=== PATIENT | female | born 1960 | race Caucasian/White ===

== ENCOUNTER → 2016-08-20 | Outpatient (CLI) | payer BC ==
[~2016-08-20] MED LIST: ADVIN10/60 INH; ASPCH81X PO; ATOR-54 PO; BND25 PO; CARB200T PO; CINN1CAP2 PO; CLTP PO; DICL50TA3 PO; DULO60CA44 PO; EPP3/2 IM; FRC PO; GABA-113 PO; GLC500 PO; GUAI1SOL5 PO; HYDR-5688 PO; LIDO16CR; PRLSR20 PO; SENNTAB23; TELM80TA4 PO; TRIA1SPR10; VNTHFA/IN INH; [UNRECOGNIZED DRUG - CODE] PO; tumeric/curcumin PO
== END | disposition home or self-care (01) ==
LOC: C.LABSPEC 17:05
PROVIDERS: ATTEND Podiatrist Foot & Ankle Surgery
DX: L60.0 Ingrowing nail (principal)

== ENCOUNTER → 2016-09-24 | Outpatient (CLI) | payer BC ==
--- NOTE | 2016-09-24 11:19 | DIAGNOSTIC IMAGING REPORT ---
LUMBAR SPINE 5 VIEWS CLINICAL HISTORY: Lumbago. Chronic low back pain. FINDINGS: Five views of the lumbar spine are compared to a study dated 05/24/2015. The skeletal structures are osteopenic. There is no radiographic evidence of fracture or malalignment. Vertebral body height and alignment are preserved throughout the lumbar spine. The transverse and spinous processes appear intact. Mild facet arthropathy is noted in the lower lumbar region. Tiny anterior osteophytes are seen throughout. There is no evidence of spondylolysis. Intervertebral disc spaces appear maintained. The bony pelvis is intact as visualized. Advanced sclerotic change is noted in the sacroiliac joints. Cholecystectomy clips are observed. There is a nonobstructed abdominal bowel gas pattern. IMPRESSION: 1. No acute bony abnormality is seen involving the lumbar spine. 2. Osteopenia and minimal spondylotic change as above. 3. Advanced sclerosis is seen in the sacroiliac joints. Dictated: 09/24/2016 11:03 AM Transcribed: 09/24/2016 11:19 AM [facility] Electronically signed by: Deni Lam M.D. 09/24/2016 11:24 AM Dictated Date/Time: 09/24/2016 11:03 AM
== END | disposition home or self-care (01) ==
LOC: C.RADBC 10:35
PROVIDERS: ATTEND Anesthesiology
DX: M54.5 Low back pain (principal)

== ENCOUNTER → 2017-02-17 | Outpatient (CLI) | payer BC ==
[~2017-02-17] MED LIST changes: +GADAVIST IV PRN
--- NOTE | 2017-02-17 10:17 | DIAGNOSTIC IMAGING REPORT ---
LUMBAR SPINE COMBINATION HISTORY: LUMBAR RADICULOPATHY COMPARISON: Lumbar spine radiographs 09/24/2016, CT 06/11/2015, lumbar spine MRI 07/31/2014 TECHNIQUE: Multiplanar, multi sequence MRI of the lumbar spine was performed both with and without the use of 12 mL Gadavist. FINDINGS: Large [id number] images demonstrates no gross abnormality of the abdomen or pelvis. Renal sinus cysts are again seen bilaterally. Common bile duct is dilated at 10 mm, likely normal postcholecystectomy state. There is redemonstration of 1.4 cm anterolisthesis and fusion of L5 on S1. The vertebral body heights are normal. There is no T1 fracture line or marrow replacement process. The conus terminates at L1-L2. The visualized spinal cord and cauda equina are normal. There is no paraspinal edema, mass, or prevertebral fluid collection. T12-L1: No central canal or neural foraminal stenosis. Moderate facet arthropathy. L1-L2: No central canal or neural foraminal stenosis. Moderate facet arthropathy. L2-L3: 2 mm anterolisthesis of L2 on L3 appears slightly progressed. No central canal or neural foraminal stenosis. Moderate facet arthrosis with bilateral facet effusions and ligamentum flavum redundancy. L3-L4: Moderate intervertebral disc space narrowing with circumferential annular disc bulge, annular fissure, ligamentum flavum redundancy, moderate to severe facet arthrosis with facet effusions. Changes cause moderate central canal, mild to moderate right and moderate left foraminal narrowing. These changes of progressed from prior study dated 07/31/2014. L4-L5: Mild intervertebral disc space narrowing with broad-based posterior disc bulge, ligamentum flavum redundancy, moderate facet arthropathy with facet effusions causes mild left foraminal narrowing. The right foramen and central canal are patent.. L5-S1: Unchanged 1.4 cm anterolisthesis L5 on S1 with bony fusion. There is unchanged severe by foraminal stenosis at this level.. IMPRESSION: 1. Progressive discogenic degenerative changes at L3-L4 with associated facet arthropathy and facet effusions are present causing moderate central canal, mild to moderate right and moderate left foraminal stenosis. 2. 2 mm anterolisthesis of L2 on L3 is likely on a degenerative basis. 3. Unchanged 1.4 cm anterolisthesis of L5 on S1 with bony fusion. 4. No focal bone marrow edema or compression fracture. The above report was generated using voice recognition software. It may contain grammatical, syntax or spelling errors. Electronically signed by: Malik Still M.D. 02/17/2017 10:16 AM Dictated Date/Time: 02/17/2017 9:58 AM
== END | disposition home or self-care (01) ==
LOC: C.OPENMRI 07:52
PROVIDERS: ATTEND Physician Assistant Medical
DX: M54.16 Radiculopathy, lumbar region (principal); M53.86 Other specified dorsopathies, lumbar region

== ENCOUNTER → 2017-02-23 | Outpatient (CLI) | payer BC ==
[~2017-02-23] MED LIST changes: -GADAVIST IV PRN
--- NOTE | 2017-02-23 11:20 | DIAGNOSTIC IMAGING REPORT ---
L-SPINE FLEX/EXT BENDING MIN 6 CLINICAL HISTORY: LUMBAR RADICULOPATHY COMPARISON STUDY: 09/24/2016, 2014 FINDINGS: Unchanged grade 4 anterolisthesis of L5 on S1. This shows no major positional variation. Posterior spondylolysis unchanged. Grade 2 anterolisthesis of L3 on L4. With the patient in flexion as well as extension this persists at approximately 9 mm of anterolisthesis. Considerable degenerative changes of posterior elements is noted. No additional subluxation is seen. Vertebral body stature is unremarkable. IMPRESSION: 1. Stable grade 4 anterolisthesis L5 on S1. 2. This shows no evidence for positional variation. 3. Grade 2 anterolisthesis of L3 on L4 with 9 mm of subluxation. 4. This shows no evidence for positional variation 5. Posterior spondylolysis stable L5-S1. 6. The findings at L3-L4 are progressive compared to the study of 09/24/2016 The above report was generated using voice recognition software. It may contain grammatical, syntax or spelling errors. Electronically signed by: Uriah Solomon M.D. 02/23/2017 11:18 AM Dictated Date/Time: 02/23/2017 11:10 AM
== END | disposition home or self-care (01) ==
LOC: C.RADBC 10:47
PROVIDERS: ATTEND Physician Assistant Medical
DX: M54.16 Radiculopathy, lumbar region (principal)

== ENCOUNTER → 2017-10-06 | Outpatient (CLI) | payer BC ==
[~2017-10-06] MED LIST changes: +ADVIN25/60 INH; +AMLO-110 PO; +CARB400T3 PO; +CHOL400T PO; +CYCL10TA6 PO; +DICL1GEL12 TOP; -GUAI1SOL5 PO; +HYDR-5803 PO; +INSU100I SQ; +METF1TAB53 PO; -TELM80TA4 PO; +TELM80TA6 PO; +WARF4TAB8 PO
[2017-10-06 10:06] LABS: INR 1.1 (0.9-1.1)
== END ==
LOC: C.LABCC 09:09
PROVIDERS: ATTEND Internal Medicine
DX: I82.409 Acute embolism and thrombosis of unspecified deep veins of unspecified lower extremity (principal)

== ENCOUNTER → 2017-10-07 | Outpatient (CLI) | payer BC ==
[2017-10-07 09:47] LABS: BASO % 0.2 %; BASO ABS # 0.02 K/uL (0-0.2); EOS % 0.8 %; EOS ABS # 0.09 K/uL (0-0.5); HEMATOCRIT 29.1 % (37-47); HEMOGLOBIN 9.1 g/dL (12.0-16.0); IG# 0.04 K/uL (0.00-0.02); LYMPH % 9.9 %; LYMPH ABS # 1.06 K/uL (1.2-3.4); MEAN CELL VOLUME 87.7 fL (80-100); MEAN CORPUSCULAR HEMOGLOBIN 27.4 pg (25-34); MEAN CORPUSCULAR HGB CONC 31.3 g/dl (32-36); MEAN PLATELET VOLUME 10.7 fL (7.4-10.4); MONO % 9.9 %; MONO ABS # 1.06 K/uL (0.11-0.59); NEUT % 78.8 %; NEUT ABS # 8.42 K/uL (1.4-6.5); PLATELET COUNT 451 K/uL (130-400); RED CELL DISTRIBUTION WIDTH CV 19.3 % (11.5-14.5); RED CELL DISTRIBUTION WIDTH SD 61.7 fL (36.4-46.3); WHITE BLOOD COUNT 10.69 K/uL (4.8-10.8)
[2017-10-07 09:57] LABS: INR 1.1 (0.9-1.1)
[2017-10-07 09:59] LABS: BLOOD UREA NITROGEN 9 mg/dl (7-18); CALCIUM 9.3 mg/dl (8.5-10.1); CARBON DIOXIDE 29 mmol/L (21-32); CREATININE 0.74 mg/dl (0.60-1.20); GLUCOSE 151 mg/dl (70-99); POTASSIUM 4.2 mmol/L (3.5-5.1); SODIUM 139 mmol/L (136-145)
== END ==
LOC: C.LABCC 09:14
PROVIDERS: ATTEND Internal Medicine
DX: D68.9 Coagulation defect, unspecified (principal)

== ENCOUNTER 2017-10-11 20:12 | Inpatient (IN) | payer BC ==
[~2017-10-11] VITALS: Ht 162.6 cm; Wt 122.5 kg
[~2017-10-11 20:12] MED LIST changes: -ADVIN25/60 INH; -AMLO-110 PO; -CARB400T3 PO; -CHOL400T PO; -CYCL10TA6 PO; -DICL1GEL12 TOP; -HYDR-5803 PO; -INSU100I SQ; -METF1TAB53 PO; -WARF4TAB8 PO
--- NOTE | 2017-10-11 21:35 | EMERGENCY ROOM VISIT NOTE ---
History Report prepared by Janice: Derek Zavala Under the Supervision of: Dr. Héctor Dalton M.D. First contact with patient: 21:02 Chief Complaint: RECTAL BLEEDING Stated Complaint: RECTAL BLEED Nursing Triage Summary: pt brought from [facility] to main ED A9b by ALS services. per report, pt had spinal surgery at [facility] for fusion of T2 to pelvis. pt states surgery was 09/21, states "I crashed on the table so they only did part, the other part was 09/24." pt has been at [facility] since surgery for recovery. pt c/o recent constipation, states "I asked for suppisatories and they only gave me prunes." report from ALS that pt moved her bowels today and tested positive for blood, and was noted to be "black and tarry." pt also reports low grade fever recently. pt reports hx of uti, states "they told me i had a uti when i got there." pt has been mostly bed bound since surgery. states "I've taken a couple steps but fallen 4 times." upon assessment, pt alert and oriented x4. pt breathing regularly and independtnly. lungs clear, diminished in bases. abdomen rounded and soft. bowel sounds hypoactive. sutures along spine intact with moderate drainage, dressings mostly soaked. dressings changed. History of Present Illness The patient is a 56 year old female who presents to the Emergency Room with complaints of rectal bleeding. The patient notes that she has been unable to produce a bowel movement for the past 5 days. She reports that suppositories have been ineffective in alleviating her constipation. The patient reports that the incision on her back from recent surgery has been draining blood and fluids. She notes a low grade fever that she has been experiencing since last with a subjective temperature of 101.6. She reports that her temperature today is a subjective 101.4. The patient denies any chest pain or difficulty breathing. Patient is on Coumadin. Source of History: patient Onset: 5 days ago. Position: other (Rectum ) Quality: other (bleeding ) Timing: other (persistant ) Associated Symptoms: + fevers, No chest pain, No SOB Note: Denies: Regularly using oxygen prior to her recent surgery. Associated Symptoms: Incision on back draining blood and fluids. Review of Systems See HPI for pertinent positives and negatives. A total of ten systems were reviewed and were otherwise negative. Past Medical & Surgical Medical Problems: (1) Asthma, Unspecified (2) Diab [place] Compl, Type Ii Or Unspec Type, Not Uncntrld (3) Epilepsy Unspec W/O Mention Intractable Epilepsy (4) Hyperlipidemia Nec/Nos (5) Hypertension Nos (6) Loc Osteoarth Nos-L/Leg (7) Pyelonephritis Nos Surgical Problems: (1) H/O knee surgery (2) Hx of cholecystectomy (3) Previous back surgery (4) Previous section Family History Cancer Diabetes mellitus Gallbladder disease Heart disease Hypertension Kidney disease Kidney stones Lung disease Seizures Stroke Social History Smoking Status: Never Smoker Marital Status: Housing Status: lives with family Occupation Status: unemployed Current/Historical Medications Scheduled Amlodipine (Norvasc), 5 MG PO DAILY Atorvastatin (Lipitor), 40 MG PO QPM Carbamazepine Extended Release (Tegretol Xr), 400 MG PO Q12 Cholecalciferol (Vitamin D), 400 INTER.UNIT PO DAILY Diclofenac Sodium (Topical) (Voltaren 1% Top Gel), 1 DOSE TOP QID Duloxetine Hcl (Cymbalta), 60 MG PO HS Fluticasone Prop/Salmeterol (Advair Diskus 250/50 60 Dose), 1 PUFF INH BID Gabapentin (Neurontin), 300 MG PO TID Insulin Lispro (Human) (Humalog), 1 DOSE SQ SLIDING SCALE Metformin Hcl (Glucophage Ext Rel), 1,000 MG PO BID Omeprazole (Prilosec), 20 MG PO BID Warfarin Sod (Jantoven), 4 MG PO DAILY Scheduled PRN Albuterol Hfa (Ventolin Hfa), 2-4 PUFFS INH Q6H PRN for SOB/Wheezing Cyclobenzaprine Hcl (Flexeril), 10 MG PO Q8 PRN for Muscle Spasms Hydrocodone-Acetaminophen (Hydrocodone Bitartrate/AC 7.5-325 mg), 1 TAB PO Q4 PRN for Pain Allergies Coded Allergies: BEE STING (Verified Allergy, Severe, ANAPHYLAXIS, 10/11/17) Penicillins (Verified Allergy, Severe, ANAPHYLAXIS, 10/11/17) Cephalosporins (Verified Allergy, Intermediate, DIZZINESS, ITCHY, 10/11/17) Hydroxyzine (Verified Allergy, Intermediate, DIZZY ITCHY NAUSEA, 10/11/17) Sulfa Antibiotics (Verified Allergy, Intermediate, DIZZY ITCHY, NAUSEA, 10/11/17) Shellfish (Verified Allergy, Unknown, SENSITIVITY, 10/11/17) Metaxalone (Verified Adverse Reaction, Intermediate, n/v and headache, dizziness, 10/11/17) Physical Exam Vital Signs Date Time Temp Pulse Resp B/P (MAP) Pulse Ox O2 Delivery O2 Flow Rate FiO2 10/12/17 01:20 111 18 150/74 93 Nasal Cannula 3.0 10/12/17 00:07 109 10/11/17 23:47 108 22 156/113 92 Nasal Cannula 4.0 10/11/17 22:13 110 18 160/94 94 Nasal Cannula 4.0 10/11/17 20:45 111 10/11/17 20:13 37.3 115 18 153/88 92 Room Air Physical Exam Physical Exam GENERAL: She is oriented to person, place, and time. She appears well- developed and well-nourished. She does not appear distressed. ____ HENT: Exam performed. Head: Normocephalic and atraumatic. Right Ear: External ear normal. No mastoid tenderness. Left Ear: External ear normal. No mastoid tenderness. Mouth/Throat: The oropharynx is clear and moist. No trismus in the jaw. No dental abscesses or uvula swelling. No oropharyngeal exudate or tonsillar abscesses. ____ EYES: Conjunctivae and EOM are normal. Pupils are equal, round, and reactive to light. Right eye exhibits no discharge. Left eye exhibits no discharge. No scleral icterus. ____ NECK: Normal range of motion. Neck supple. No JVD present. No spinous process tenderness present. No carotid bruit present. No rigidity. No tracheal deviation and normal range of motion present. No Brudzinski's sign and no Kernig 's sign noted. ____ CV: Normal rate, regular rhythm, normal heart sounds and intact distal pulses. There is no peripheral edema. Palpable radial pulses bue. ____ PULM/CHEST: Effort normal and breath sounds normal. No respiratory distress. No stridor. She has no wheezes. She has no rales. Chest Wall: SHe exhibits no tenderness. ____ ABD: The abdomen is soft. Bowel sounds are normal. She has no distension. No mass is present. There is no tenderness. There is no rebound, no guarding, no Robledo's sign and no tenderness at McBurney's point. Rovsig negative MUSC/SKEL: Normal range of motion. LYMPH: No cervical adenopathy. ____ NEURO: She is alert and oriented to person, place, and time. She has normal strength. No cranial nerve deficit or sensory deficit. Coordination and gait normal. GCS eye subscore is 4. GCS verbal subscore is 5. GCS motor subscore is 6. Cerebellar tests wnl. ____ RECTAL: Bright red blood per rectum. Stool in rectal bulb. SKIN: Skin is warm and dry. She is not diaphoretic. Large midline back incision , purulent foul smelling discharge. PSYCH: She has a normal mood and affect. Her behavior is normal. Judgment and thought content normal. ____ Medical Decision & Procedures ER Provider Diagnostic Interpretation: Radiology results as stated below per my review and radiologist interpretation: CHEST ONE VIEW PORTABLE CLINICAL HISTORY: fever dyspnea COMPARISON STUDY: 09/20/2014 FINDINGS: Moderate cardiomegaly. Diffuse parenchymal infiltrate right lung and left base versus asymmetric congestive failure. Diaphragms are smooth. Costophrenic angles are sharp. IMPRESSION: Diffuse right hemithoracic parenchymal infiltrate with mild infiltrative change left base. This may represent asymmetric pulmonary edema or congestive failure. The above report was generated using voice recognition software. It may contain grammatical, syntax or spelling errors. Electronically signed by: Uriah Solomon M.D. 10/11/2017 10:07 PM Dictated Date/Time: 10/11/2017 10:[address] ABDOMEN & PELVIS With Constrast: Compared to 06/11/15 Stool-filled rectum with with perirectal/presacral stranding and fluid, raising possibility of proctitis. Scattered colonic diverticula. Fluid in small bowel loops, nonspecific, can be seen with enteritis in the appropriate clinical setting. No evidence of bowel obstruction. Mesenteric stranding with small lymph nodes, can be seen with mesenteric adenitis/panniculitis. Extensive degenerative and postsurgical;l changes in the spine with subcutaneous emphysema. Stranding/fluid seen along the left greater than right pelvic sidewall. Fragmented osseous densities and small focus of air in the left psoas. Small bilateral pleural effusions with bibasilar atelectasis. Small nodular density at the posterior gastric fundus may quadrant previously seen gastric diverticulum. Small renal hyperdensities. No hydronephrosis. Nonspecific perinepheric stranding. Minimally thickened underdistended bladder. Additional incidental findings. Laboratory Results 10/11/17 21:49 Red Blood Count 3.64, Mean Corpuscular Volume 86.3, Mean Corpuscular Hemoglobin 27.2, Mean Corpuscular Hemoglobin Concent 31.5, Mean Platelet Volume 9.6, Neutrophils (%) (Auto) 67.1, Lymphocytes (%) (Auto) 16.9, Monocytes (%) (Auto) 15.1, Eosinophils (%) (Auto) 0.5, Basophils (%) (Auto) 0.3, Neutrophils # (Auto ) 4.91, Lymphocytes # (Auto) 1.24, Monocytes # (Auto) 1.11, Eosinophils # (Auto ) 0.04, Basophils # (Auto) 0.02 10/11/17 21:49 Test 10/11/17 20:11 10/11/17 21:49 10/11/17 21:55 Urine Color DK YELLOW Urine Appearance TURBID (CLEAR) Urine pH 6.0 (4.5-7.5) Urine Specific [place] 1.022 (1.000-1.030) Urine Protein 2+ (NEG) Urine Glucose (UA) NEG (NEG) Urine Ketones NEG (NEG) Urine Occult Blood 1+ (NEG) Urine Nitrite NEG (NEG) Urine Bilirubin NEG (NEG) Urine Urobilinogen POS (NEG) Urine Leukocyte Esterase LARGE (NEG) Urine WBC (Auto) >30 /hpf (0-5) Urine RBC (Auto) 5-10 /hpf (0-4) Urine Hyaline Casts (Auto) 1-5 /lpf (0-5) Urine Epithelial Cells (Auto) 0-5 /lpf (0-5) Urine Bacteria (Auto) 2+ (NEG) White Blood Count 7.33 K/uL (4.8-10.8) Red Blood Count 3.64 M/uL (4.2-5.4) Hemoglobin 9.9 g/dL (12.0-16.0) Hematocrit 31.4 % (37-47) Mean Corpuscular Volume 86.3 fL (80-100) Mean Corpuscular Hemoglobin 27.2 pg (25-34) Mean Corpuscular Hemoglobin Concent 31.5 g/dl (32-36) Platelet Count 441 K/uL (130-400) Mean Platelet Volume 9.6 fL (7.4-10.4) Neutrophils (%) (Auto) 67.1 % Lymphocytes (%) (Auto) 16.9 % Monocytes (%) (Auto) 15.1 % Eosinophils (%) (Auto) 0.5 % Basophils (%) (Auto) 0.3 % Neutrophils # (Auto) 4.91 K/uL (1.4-6.5) Lymphocytes # (Auto) 1.24 K/uL (1.2-3.4) Monocytes # (Auto) 1.11 K/uL (0.11-0.59) Eosinophils # (Auto) 0.04 K/uL (0-0.5) Basophils # (Auto) 0.02 K/uL (0-0.2) RDW Standard Deviation 57.5 fL (36.4-46.3) RDW Coefficient of Variation 18.3 % (11.5-14.5) Immature Granulocyte % (Auto) 0.1 % Immature Granulocyte # (Auto) 0.01 K/uL (0.00-0.02) Prothrombin Time 41.5 SECONDS (9.0-12.0) Prothromb Time International Ratio 4.1 (0.9-1.1) Activated Partial Thromboplast Time 60.9 SECONDS (21.0-31.0) Partial Thromboplastin Ratio 2.3 Anion Gap 5.0 mmol/L (3-11) Est Creatinine Clear Calc Drug Dose 113.6 ml/min Estimated GFR () 108.8 Estimated GFR (Non- 93.9 BUN/Creatinine Ratio 14.6 (10-20) Calcium Level 9.0 mg/dl (8.5-10.1) Total Bilirubin 0.6 mg/dl (0.2-1) Aspartate Amino Transf (AST/SGOT) 78 U/L (15-37) Alanine Aminotransferase (ALT/SGPT) 63 U/L (12-78) Alkaline Phosphatase 679 U/L (45-117) Troponin I < 0.015 ng/ml (0-0.045) Total Protein 6.3 gm/dl (6.4-8.2) Albumin 1.8 gm/dl (3.4-5.0) Globulin 4.5 gm/dl (2.5-4.0) Albumin/Globulin Ratio 0.4 (0.9-2) Lipase 308 U/L (73-393) Lactic Acid Level 1.6 mmol/L (0.4-2.0) Laboratory results reviewed by me Medications Administered Medications (Trade) Dose Ordered Sig/Annie Route Start Time Stop Time Status Last Admin Dose Admin Glycerin (Glycerin Adult Supp) 1 ea NOW ONCE VT 10/11/17 22:00 10/11/17 22:05 DC 10/11/17 22:17 1 EA Ciprofloxacin/ Dextrose (Cipro / D5W) 400 mg NOW STAT IV 10/11/17 22:22 10/11/17 22:23 DC 10/11/17 22:52 400 MG Vancomycin HCl (Vancomycin 1gm/ 270ml Nss) 1 gm NOW STAT IV 10/11/17 22:57 10/11/17 22:58 DC 10/12/17 01:11 1 GM Carbamazepine (Tegretol Tab) 400 mg NOW STAT PO 10/12/17 00:12 10/12/17 00:13 DC 10/12/17 00:22 400 MG Ketorolac Tromethamine (Toradol Inj) 15 mg NOW STAT IV 10/12/17 01:12 10/12/17 01:14 DC 10/12/17 01:17 15 MG ECG Per My Interpretation Indication: weakness Rate (beats per minute): 108 Rhythm: sinus tachycardia Findings: other (QRST waves within normal limits. No st elevations or depressions. ) ED Course 2121: The patient was evaluated in room A9. A complete history and physical exam was performed. The patient was sent to the ED from [facility]. Per the [facility] notes, the patient had positive heme stools, drainage from back, temperature of 105 on October 09. The patient is on Coumadin. 0: Vital signs stable. Hemoglobin stable at 9.9. INR supratherapeutic at 4.1. Lactic acid within normal limits. Urine is positive for infection, cath sample with greater than 30 white blood cells and 2+ bacteria. Patient will be treated with Cipro IV for her UTI. She will also be treated with Vanco for her skin infection postop. Hemoglobin is stable, no need for transfusion at this time. The patient was evaluated by hospitalist Dr. Staci BRANCH for admission. Dr. Lira requested CT of the abdomen done. He also states that he would prefer if the patient be transferred to [facility] given that her neurosurgeon is there. I spoke with [facility] on-call neurosurgeon Dr. Doe. He states that he would be okay with the patient going to [facility], but he wants the patient admitted to the hospitalist medicine service and he will be on consult.. The transfer center states that there are no beds currently available at [facility]. The transfer center will inform me when a bed is available. 0030: The transfer center notified me that they will call when the hospitalist instructional materials director at [facility] is notified of the patient transfer and a bed is available 0106: The transfer center informed me that when a bed becomes available at [facility], they will call the hospitalist who is instructional materials director for now.. Dr. Doe is aware of the transfer. 0113: CT is still pending. There is no bed available at [facility] and they are not sure when a bed will be available. Per the transfer center, when a bed is available a hospitalist from that facility will call to accept the patient and be the accepting physician. They stated that the hospitalist that is on tonight we will not be the accepting physician as there are no beds available at this point and it is not known when and a bed will be available for the patient to be transferred there. Dr. Lira agrees to admit the patient to his service. Medical Decision Hemoglobin stable at 9.9. INR supratherapeutic at 4.1. Lactic acid within normal limits. Urine is positive for infection, cath sample with greater than 30 white blood cells and 2+ bacteria. Patient will be treated with Cipro IV for her UTI. She will also be treated with Vanco for her skin infection postop. Hemoglobin is stable, no need for transfusion at this time. The patient was evaluated by hospitalist Dr. Staci BRANCH for admission. Dr. Lira requested CT of the abdomen done. He also states that he would prefer if the patient be transferred to [facility] given that her neurosurgeon is there. I spoke with [facility] on-call neurosurgeon Dr. Doe. He states that he would be okay with the patient going to [facility], but he wants the patient admitted to the hospitalist medicine service and he will be on consult.. The transfer center states that there are no beds currently available at [facility]. The transfer center will inform me when a bed is available. 0113: There is no bed available at [facility] and they are not sure when a bed will be available. Per the transfer center, when a bed is available a hospitalist from that facility will call to accept the patient and be the accepting physician. They stated that the hospitalist that is on tonight we will not be the accepting physician as there are no beds available at this point and it is not known when and a bed will be available for the patient to be transferred there. Dr. Lira agrees to admit the patient to his service. Medication Reconcilliation Current Medication List: was personally reviewed by me Blood Pressure Screening Patient's blood pressure: Elevated blood pressure Blood pressure disposition: Referred to PCP Consults Time Called: [phone] Consulting Physician: Dr. Staci BRANCH Returned Call: [phone] he patient was evaluated by hospitalist Dr. Staci BRANCH for admission Impression Primary Impression: Lower GI bleed Additional Impressions: UTI (urinary tract infection) Postoperative surgical complication involving skin Scribe Attestation The scribe's documentation has been prepared under my direction and personally reviewed by me in its entirety. I confirm that the note above accurately reflects all work, treatment, procedures, and medical decision making performed by me. The chart was completed utilizing [employer] Speech voice recognition software. Grammatical errors, random word insertions, pronoun errors, and incomplete sentences are an occasional consequence of this system due to software limitations, ambient noise, and hardware issues. Any formal questions or concerns about the content, text, or information contained within the body of this dictation should be directly addressed to the physician for clarification. Departure Information Dispostion Being Evaluated By Hospitalist Referrals BeckemeyerSteven (PCP) Patient Instructions [facility] Problem Qualifiers
[2017-10-11] MEDS ORDERED: GLYCERIN ADULT SUPP 12 EA SUPP PR ONE (22:00)
[2017-10-11 22:03] LABS: BASO % 0.3 %; BASO ABS # 0.02 K/uL (0-0.2); EOS % 0.5 %; EOS ABS # 0.04 K/uL (0-0.5); HEMATOCRIT 31.4 % (37-47); HEMOGLOBIN 9.9 g/dL (12.0-16.0); IG# 0.01 K/uL (0.00-0.02); LYMPH % 16.9 %; LYMPH ABS # 1.24 K/uL (1.2-3.4); MEAN CELL VOLUME 86.3 fL (80-100); MEAN CORPUSCULAR HEMOGLOBIN 27.2 pg (25-34); MEAN CORPUSCULAR HGB CONC 31.5 g/dl (32-36); MEAN PLATELET VOLUME 9.6 fL (7.4-10.4); MONO % 15.1 %; MONO ABS # 1.11 K/uL (0.11-0.59); NEUT % 67.1 %; NEUT ABS # 4.91 K/uL (1.4-6.5); PLATELET COUNT 441 K/uL (130-400); RED CELL DISTRIBUTION WIDTH CV 18.3 % (11.5-14.5); RED CELL DISTRIBUTION WIDTH SD 57.5 fL (36.4-46.3); WHITE BLOOD COUNT 7.33 K/uL (4.8-10.8)
--- NOTE | 2017-10-11 22:09 | DIAGNOSTIC IMAGING REPORT ---
CHEST ONE VIEW PORTABLE CLINICAL HISTORY: fever dyspnea COMPARISON STUDY: 09/20/2014 FINDINGS: Moderate cardiomegaly. Diffuse parenchymal infiltrate right lung and left base versus asymmetric congestive failure. Diaphragms are smooth. Costophrenic angles are sharp. IMPRESSION: Diffuse right hemithoracic parenchymal infiltrate with mild infiltrative change left base. This may represent asymmetric pulmonary edema or congestive failure. The above report was generated using voice recognition software. It may contain grammatical, syntax or spelling errors. Electronically signed by: Uriah Solomon M.D. 10/11/2017 10:07 PM Dictated Date/Time: 10/11/2017 10:06 PM
[2017-10-11 22:22] LABS: INR 4.1 (0.9-1.1)
[2017-10-11] MEDS ORDERED: CIPROFLOXACIN 400MG / 200ML D5W IV STA (22:22)
[2017-10-11 22:23] LABS: BLOOD UREA NITROGEN 10 mg/dl (7-18); CREATININE 0.71 mg/dl (0.60-1.20); GLUCOSE 154 mg/dl (70-99); SODIUM 138 mmol/L (136-145)
[2017-10-11 22:24] LABS: ALBUMIN 1.8 gm/dl (3.4-5.0); ALT/SGPT 63 U/L (12-78); CARBON DIOXIDE 31 mmol/L (21-32); LIPASE 308 U/L (73-393); POTASSIUM 4.1 mmol/L (3.5-5.1)
[2017-10-11 22:29] LABS: ALKALINE PHOSPHATASE 679 U/L (45-117); AST/SGOT 78 U/L (15-37); TOTAL PROTEIN 6.3 gm/dl (6.4-8.2)
[2017-10-11 22:33] LABS: PTT PATIENT 60.9 SECONDS (21.0-31.0)
[2017-10-11] MEDS ORDERED: INSU100I SQ (22:43)
[2017-10-11] MEDS ORDERED: HYDR-5803 PO (22:43)
[2017-10-11] MEDS ORDERED: WARF4TAB8 PO (22:43)
[2017-10-11] MEDS ORDERED: CYCL10TA6 PO (22:43)
[2017-10-11] MEDS ORDERED: DICL1GEL12 TOP (22:43)
[2017-10-11] MEDS ORDERED: CARB400T3 PO (22:43)
[2017-10-11] MEDS ORDERED: METF1TAB53 PO (22:43)
[2017-10-11] MEDS ORDERED: AMLO-110 PO (22:43)
[2017-10-11] MEDS ORDERED: CHOL400T PO (22:43)
[2017-10-11] MEDS ORDERED: ADVIN25/60 INH (22:43)
[2017-10-11] MEDS ORDERED: VANCOMYCIN 1GM/270ML NSS IV STA (22:57)
[2017-10-11] MEDS ORDERED: OPTIRAY 320 IV PRN (23:30)
[2017-10-12] MEDS ORDERED: CARBAMAZEPINE 200 MG TAB PO STA (00:12)
[2017-10-12] MEDS ORDERED: NURSING VERBAL MED ORDER ONE (00:15)
[2017-10-12] MEDS ORDERED: VANCOMYCIN 1GM/270ML NSS ONE (01:05)
[2017-10-12] MEDS ORDERED: KETOROLAC TROMETHAMINE 30 MG/ML VIAL IV STA (01:12)
[2017-10-12] MEDS ORDERED: VANCOMYCIN IV 1,000 MG in SODIUM CHLORIDE 0.9% 250ML 250 ML IV STA (01:43)
[2017-10-12] MEDS ORDERED: ALBUTEROL HFA 8 GM INHALER INH PRN (01:45)
[2017-10-12] MEDS ORDERED: HYDROCODONE/ACETAMINOPHEN 7.5/325MG TAB PO PRN (01:45)
[2017-10-12] MEDS ORDERED: ACETAMINOPHEN 325 MG TAB PO PRN (01:45)
[2017-10-12] MEDS ORDERED: CYCLOBENZAPRINE HCL 10 MG TAB PO PRN (01:45)
[2017-10-12] MEDS ORDERED: VANCOMYCIN CONSULT ACTIVE PRN (01:45)
[2017-10-12] MEDS ORDERED: HEPARIN SOD 5000 UNIT/0.5 ML CARP SQ SCH (01:45)
[2017-10-12] MEDS ORDERED: IMIPENEM/CILASTATIN IV 500 MG in DEXTROSE 5% 100ML 100 ML IV SCH (01:45)
[2017-10-12] MEDS ORDERED: MoRPHine SULFATE 2 MG/ML CARP IV PRN (02:00)
[2017-10-12] MEDS ORDERED: MoRPHine SULFATE 4 MG/ML 1 ML CARP\\VIAL IV PRN (02:00)
[2017-10-12 02:30] VITALS: Ht 162.6 cm; Wt 122.5 kg
[2017-10-12 02:58] VITALS: BP 136/65; PULSE 104; TEMP 36.9; O2SAT 95
[2017-10-12] MEDS ORDERED: VANCOMYCIN IV 1,750 MG in SODIUM CHLORIDE 0.9% 500ML 500 ML IV SCH (03:15)
[2017-10-12] MEDS ORDERED: AZTREONAM IV 1,000 MG in DEXTROSE 5% 100ML 100 ML IV SCH (05:00)
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
[2017-10-12] MEDS ORDERED: ONDANSETRON 8MG OD TAB PO PRN (06:15)
[2017-10-12 07:21] VITALS: BP 153/86; PULSE 105; TEMP 36.7; O2SAT 93
[2017-10-12 07:24] LABS: HEMATOCRIT 30.6 % (37-47); HEMOGLOBIN 9.4 g/dL (12.0-16.0)
--- NOTE | 2017-10-12 07:34 | DIAGNOSTIC IMAGING REPORT ---
CT SCAN OF THE ABDOMEN AND PELVIS WITH IV CONTRAST CLINICAL HISTORY: Generalized abdominal pain. GI bleeding. COMPARISON STUDY: Abdominal CT dated 06/11/2015. TECHNIQUE: Following the IV administration of 93 cc of Optiray 320, CT scan of the abdomen and pelvis is performed from the lung bases to the proximal femora. Images reviewed in the axial, sagittal, and coronal planes. IV contrast was administered without complication. A dose lowering protocol was utilized adhering to the principles of ALARA. The examination is degraded by streak artifact from extensive spinal hardware. CT DOSE: 1928.85 mGy.cm FINDINGS: Lung bases: The heart is normal in size and without pericardial effusion. There are small pleural effusions with associated atelectasis. Liver: The contrast-enhanced liver is enlarged, measuring 20.5 cm in length. The liver demonstrates diffusely diminished attenuation consistent with hepatic steatosis. There is mild central intrahepatic biliary ductal dilatation, likely related to previous cholecystectomy. The hepatic veins and portal veins are patent. Gallbladder: Surgically absent noting clips in the gallbladder fossa. Spleen: Normal in size and attenuation. Pancreas: Moderately atrophic and grossly unremarkable. Adrenal glands: Unremarkable. Kidneys: The contrast enhanced kidneys demonstrate cortical atrophy and are without hydronephrosis. The kidneys enhance symmetrically. There are numerous bilateral parapelvic cysts. Subcentimeter cortical hypodensities also likely reflect cysts but are too small for definitive characterization. Abdominal vasculature: The abdominal aorta is normal in course and caliber noting mild atherosclerotic calcification. Stomach and bowel: There is a tiny hiatal hernia. Small gastric diverticula are again noted the duodenum is normal in configuration. There is rectosigmoid fecal impaction. Mild perirectal stranding is suggested. Moderate constipation is observed. No bowel obstruction is seen. There is mild to moderate colonic diverticulosis without CT evidence of acute diverticulitis. The appendix is well-visualized and normal. Peritoneum: There is trace fluid in the left paracolic gutter. No intraperitoneal free air is seen. 2 small foci of nodularity along the posterior right margin of the liver measuring up to 9 mm are unchanged from 2015. These are best seen on axial images #155 and #170. There is a midline ventral surgical scar in the pelvis. Calcifications are present within the left psoas muscle. Lymphadenopathy: None. Pelvic viscera: The bladder is decompressed and grossly unremarkable. The uterus is surgically absent. No adnexal lesion is seen. There is nonspecific presacral induration. Skeletal structures: The skeletal structures are osteopenic. No lytic or blastic bony lesions are seen. There are bilateral pars defects of L5, with 1.3 cm anterolisthesis of L5-S1. Severe degenerative narrowing with near-complete bony fusion is seen at this level. There are postoperative changes from T12 to S1 spinal fusion. Iliac bolts are in place. Soft tissues: There is infiltration with foci of gas and trace fluid within the posterior soft tissues at the operative lumbar spinal levels, likely related to recent surgery. There is dermal thickening with subcutaneous infiltration seen involving the left abdominal pannus. IMPRESSION: 1. There is rectosigmoid fecal impaction and moderate constipation. There is mild perirectal stranding. Correlate clinically for evidence of proctitis. No bowel obstruction is seen. 2. There are changes of extensive thoracolumbar spinal fusion. Foci of induration and subcutaneous gas are seen within the posterior soft tissues at the operative levels and likely related recent surgery. Clinical correlation will be required. 3. There is dermal thickening with infiltration of the subcutaneous fat in the left lower quadrant abdominal pannus. Correlate clinically for evidence of cellulitis. 4. There is unchanged appearance of 2 small nodules along the posterior right border of the liver dating back to 2015. These are of indeterminate etiology and of low suspicion given long-term stability. 5. Hepatomegaly and hepatic steatosis. 6. Mild to moderate colonic diverticulosis without CT evidence of acute diverticulitis. 7. Small bilateral pleural effusions. 8. Additional changes as above. Electronically signed by: Deni Lam M.D. 10/12/2017 7:33 AM Dictated Date/Time: 10/12/2017 7:11 AM
[2017-10-12 08:00] VITALS: O2SAT 93
[2017-10-12] MEDS ORDERED: PANTOprazole SOD 40 MG TAB PO SCH (09:00)
[2017-10-12] MEDS ORDERED: FLUTICASONE/SALMETEROL 250/50 (ADVAIR) 14 PUFF/1 INHALER INH SCH (09:00)
[2017-10-12] MEDS ORDERED: CHOLECALCIFEROL 400 INTER.UNIT TAB PO SCH (09:00)
[2017-10-12] MEDS ORDERED: DICLOFENAC SOD 1% GEL 100 GM TUBE EXT SCH (09:00)
[2017-10-12] MEDS ORDERED: CARBAMAZEPINE 200 MG TABCR PO SCH (09:00)
[2017-10-12] MEDS ORDERED: AMLODIPINE BESYLATE 5 MG TAB PO SCH (09:00)
[2017-10-12] MEDS ORDERED: GABAPENTIN 300 MG CAP PO SCH (09:00)
[2017-10-12 09:07] LABS: INR 3.4 (0.9-1.1)
[2017-10-12 09:15] LABS: ALBUMIN 1.8 gm/dl (3.4-5.0); CREATININE 0.63 mg/dl (0.60-1.20); POTASSIUM 3.8 mmol/L (3.5-5.1)
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
[2017-10-12 09:18] LABS: TOTAL PROTEIN 6.4 gm/dl (6.4-8.2)
[2017-10-12] MEDS ORDERED: VANCOMYCIN IV 1,500 MG in SODIUM CHLORIDE 0.9% 500ML 500 ML IV SCH (10:00)
--- NOTE | 2017-10-12 10:05 | Gastrointestinal Consultation ---
Gastrointestinal Consultation Date of Consultation: Oct 12, 2017 Attending Physician: Dr. Lira Consulting Physician: Dr. Prieto/RICARDO Saldivar Reason for Consultation: Rectal bleeding History of Present Illness Patient is a 56 year old female with a history of recent back surgery performed at [facility] three weeks ago. Since that time, she has been recovering at [facility] and states she has had a difficult postoperative course with significant weakness, difficulty ambulating and severe constipation. Patient states she typically uses stool softeners to manage constipation and was reportedly not receiving these at [facility]. She states she has been straining to have a bowel movement and stools have been small in caliber and hard. She was brought the hospital yesterday due to rectal bleeding as well as generalized weakness, fevers and drainage from her surgical incision. She was febrile last evening with a temp of 37.9. Blood cultures and wound culture are pending. Urine culture was positive for gram negative bacilli. Patient has been started on broad spectrum antibiotics in this regard. Wound Care consultation has been placed and is pending. INR was supratherapeutic on arrival at 4.1 and is now down to 3.4. In regard to the rectal bleeding, she states she is not currently having any bleeding independent of bowel movements. Bleeding on toilet tissue only with straining. She is anemic but has not had a significant drop in her hemoglobin since admission. CT imaging was obtained and significant for a fecal impaction with "mild perirectal stranding" and "moderate constipation". She denies any nausea or vomiting, abdominal pain or other GI complaints. She is not currently on any bowel regimen at present. Past Medical/Surgical History Medical Problems: (1) Lower GI bleed Status: Acute (2) Postoperative surgical complication involving skin Status: Acute (3) UTI (urinary tract infection) Status: Acute Past Medical History: 1. Hypertension 2. Hypercholesterolemia 3. 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 Diabetes mellitus 6. OA 7. GERD 8. Obesity 9. Lumbar radiculopathy Past Surgical History: 1. Back fusion 2. section 3. Umbilical hernia repair 4. Knee replacement 5. Cholecystectomy 6. EGD many years ago per her report Family History Cancer Diabetes mellitus Gallbladder disease Heart disease Hypertension Kidney disease Kidney stones Lung disease Seizures Stroke Negative for GI malignancy or IBD Social History Smoking Status: Never Smoker Drug Use: none Marital Status: Housing Status: lives with family Occupation Status: unemployed Allergies Coded Allergies: BEE STING (Verified Allergy, Severe, ANAPHYLAXIS, 10/11/17) Penicillins (Verified Allergy, Severe, ANAPHYLAXIS, 10/11/17) Cephalosporins (Verified Allergy, Intermediate, DIZZINESS, ITCHY, 10/11/17) Hydroxyzine (Verified Allergy, Intermediate, DIZZY ITCHY NAUSEA, 10/11/17) Sulfa Antibiotics (Verified Allergy, Intermediate, DIZZY ITCHY, NAUSEA, 10/11/17) Shellfish (Verified Allergy, Unknown, SENSITIVITY, 10/11/17) Metaxalone (Verified Adverse Reaction, Intermediate, n/v and headache, dizziness, 10/11/17) Current Medications Home Meds and Scripts Medications Dose Route/Sig Max Daily Dose Days Date Category Dose Instructions Voltaren 1% Top Gel (Diclofenac Sodium (Topical)) 1 % Gel 1 Dose TOP QID 10/11/17 Reported Vitamin D (Cholecalciferol) 400 Unit Tab 400 Inter.unit PO DAILY 10/11/17 Reported Tegretol Xr (Carbamazepine) 400 Mg Tabcr 400 Mg PO Q12 10/11/17 Reported Hydrocodone Bitartrate/AC 7.5-325 mg (Hydrocodone-Acetaminophen) 1 Tab Tab 1 Tab PO Q4 PRN 10/11/17 Reported Humalog (Insulin Lispro (Human)) 100 Unit/Ml Inj 1 Dose SQ SLIDING SCALE 10/11/17 Reported 350-400=8 UNITS 401-450= 12 UNITS 451-500= 16 UNITS 501-550= 18 UNITS Glucophage Ext Rel (Metformin Hcl) 1,000 Mg Tab 1,000 Mg PO BID 10/11/17 Reported Flexeril (Cyclobenzaprine Hcl) 10 Mg Tab 10 Mg PO Q8 PRN 10/11/17 Reported Jantoven (Warfarin Sodium) 4 Mg Tab 4 Mg PO DAILY 10/11/17 Reported Norvasc (Amlodipine Besylate) 5 Mg Tab 5 Mg PO DAILY 10/11/17 Reported Advair Diskus 250/50 60 Dose (Fluticasone Prop/Salmeterol) 1 Ea Aerp 1 Puff INH BID 10/11/17 Reported Ventolin Hfa (Albuterol) 200 Puffs/40943 Mcg Aers 2-4 Puffs INH Q6H PRN 09/24/16 Reported Cymbalta (Duloxetine Hcl) 60 Mg Cap 60 Mg PO HS 04/19/14 Reported Prilosec (Omeprazole) 20 Mg Capcr 20 Mg PO BID 04/13/12 Reported Lipitor (Atorvastatin) 20 Mg Tab 40 Mg PO QPM 10/23/11 Reported Neurontin (Gabapentin) 300 Mg Cap 300 Mg PO TID 06/18/09 Reported Review of Systems Constitutional: + see HPI Eyes: No problem reported ENT: No problem reported Respiratory: No cough, No wheezing Cardiac: No chest pain, No palpitations Abdomen: + see HPI Musculoskeletal: + joint pain, + swelling Female : No problem reported Neuro: + see HPI Psych: No problem reported Skin: No problem reported Physical Exam Date Time Temp Pulse Resp B/P (MAP) Pulse Ox O2 Delivery O2 Flow Rate FiO2 10/12/17 07:21 36.7 105 17 153/86 (108) 93 Room Air 10/12/17 02:58 36.9 104 20 136/65 (88) 95 Room Air 10/12/17 02:31 37.6 108 18 156/85 94 10/12/17 02:30 Nasal Cannula 4.0 10/12/17 01:20 111 18 150/74 93 Nasal Cannula 3.0 10/12/17 00:07 109 10/11/17 23:47 108 22 156/113 92 Nasal Cannula 4.0 10/11/17 22:13 110 18 160/94 94 Nasal Cannula 4.0 10/11/17 20:45 111 10/11/17 20:13 37.3 115 18 153/88 92 Room Air General Appearance: no apparent distress Eyes: EOMI ENT: hearing grossly normal Neck: supple Respiratory/Chest: lungs clear, normal breath sounds, no respiratory distress Cardiovascular: regular rate, rhythm Abdomen: normal bowel sounds, non tender, soft Extremities: no pedal edema Neurologic/Psych: alert, normal mood/affect, oriented x 3 Skin: warm/dry Laboratory Results Last 24 Hours Test 10/11/17 20:11 10/11/17 21:49 10/11/17 21:55 10/12/17 03:06 Urine Color DK YELLOW Urine Appearance TURBID Urine pH 6.0 Urine Specific Burke 1.022 Urine Protein 2+ Urine Glucose (UA) NEG Urine Ketones NEG Urine Occult Blood 1+ Urine Nitrite NEG Urine Bilirubin NEG Urine Urobilinogen POS Urine Leukocyte Esterase LARGE Urine WBC (Auto) >30 /hpf Urine RBC (Auto) 5-10 /hpf Urine Hyaline Casts (Auto) 1-5 /lpf Urine Epithelial Cells (Auto) 0-5 /lpf Urine Bacteria (Auto) 2+ White Blood Count 7.33 K/uL Red Blood Count 3.64 M/uL Hemoglobin 9.9 g/dL Hematocrit 31.4 % Mean Corpuscular Volume 86.3 fL Mean Corpuscular Hemoglobin 27.2 pg Mean Corpuscular Hemoglobin Concent 31.5 g/dl Platelet Count 441 K/uL Mean Platelet Volume 9.6 fL Neutrophils (%) (Auto) 67.1 % Lymphocytes (%) (Auto) 16.9 % Monocytes (%) (Auto) 15.1 % Eosinophils (%) (Auto) 0.5 % Basophils (%) (Auto) 0.3 % Neutrophils # (Auto) 4.91 K/uL Lymphocytes # (Auto) 1.24 K/uL Monocytes # (Auto) 1.11 K/uL Eosinophils # (Auto) 0.04 K/uL Basophils # (Auto) 0.02 K/uL RDW Standard Deviation 57.5 fL RDW Coefficient of Variation 18.3 % Immature Granulocyte % (Auto) 0.1 % Immature Granulocyte # (Auto) 0.01 K/uL Prothrombin Time 41.5 SECONDS Prothromb Time International Ratio 4.1 Activated Partial Thromboplast Time 60.9 SECONDS Partial Thromboplastin Ratio 2.3 Sodium Level 138 mmol/L Potassium Level 4.1 mmol/L Chloride Level 102 mmol/L Carbon Dioxide Level 31 mmol/L Anion Gap 5.0 mmol/L Blood Urea Nitrogen 10 mg/dl Creatinine 0.71 mg/dl Est Creatinine Clear Calc Drug Dose 113.6 ml/min Estimated GFR () 108.8 Estimated GFR (Non- 93.9 BUN/Creatinine Ratio 14.6 Random Glucose 154 mg/dl Calcium Level 9.0 mg/dl Total Bilirubin 0.6 mg/dl Aspartate Amino Transf (AST/SGOT) 78 U/L Alanine Aminotransferase (ALT/SGPT) 63 U/L Alkaline Phosphatase 679 U/L Troponin I < 0.015 ng/ml Total Protein 6.3 gm/dl Albumin 1.8 gm/dl Globulin 4.5 gm/dl Albumin/Globulin Ratio 0.4 Lipase 308 U/L Lactic Acid Level 1.6 mmol/L Bedside Glucose 173 mg/dl Test 10/12/17 06:33 10/12/17 08:43 Hemoglobin 9.4 g/dL Hematocrit 30.6 % Hepatitis C Antibody Screen NEG Prothrombin Time 35.2 SECONDS Prothromb Time International Ratio 3.4 Sodium Level 135 mmol/L Potassium Level 3.8 mmol/L Chloride Level 100 mmol/L Carbon Dioxide Level 29 mmol/L Anion Gap 6.0 mmol/L Blood Urea Nitrogen 9 mg/dl Creatinine 0.63 mg/dl Est Creatinine Clear Calc Drug Dose 125.8 ml/min Estimated GFR () 114.6 Estimated GFR (Non- 98.9 BUN/Creatinine Ratio 14.1 Random Glucose 151 mg/dl Calcium Level 9.0 mg/dl Total Bilirubin 0.8 mg/dl Aspartate Amino Transf (AST/SGOT) 56 U/L Alanine Aminotransferase (ALT/SGPT) 56 U/L Alkaline Phosphatase 631 U/L Total Protein 6.4 gm/dl Albumin 1.8 gm/dl Globulin 4.6 gm/dl Albumin/Globulin Ratio 0.4 Impression Patient is a 56 year old female status post back surgery three weeks ago admitted with a supratherapeutic INR reporting severe constipation with bright red rectal bleeding with straining and abnormal CT scan demonstrating a fecal impaction. Plan 1. Warm tap water enema now with fecal disimpaction. 2. Start Colace 100 mg PO BID. 3. Add MiraLAX 17 g daily in 8 ounces of liquid. If constipation does not improve, increase to BID. 4. Ensure adequate fluid and fiber intake. 5. Outpatient colonoscopy for colorectal screening once patient has recovered from back surgery. Thank you for allowing us to participate in the care of this pleasant patient. If you have any questions or concerns, please do not hesitate to contact us. Agree with RICARDO Saldivar as above Patient was being transferred to [facility] at the time I went to see her.
[2017-10-12] MEDS ORDERED: POLYETHYLENE (MIRALAX) 17 GM PACK PO SCH (10:30)
[2017-10-12] MEDS ORDERED: TAP WATER ENEMA PR ONE (10:30)
[2017-10-12] MEDS ORDERED: DOCUSATE SODIUM 100 MG CAP PO SCH (10:30)
[2017-10-12] MEDS ORDERED: PHYTONADIONE INJ 10 MG in SODIUM CHLORIDE 0.9% 50ML 50 ML IV ONE (11:00)
[2017-10-12] MEDS ORDERED: NSS + 20MEQ KCL 1000ML 1,000 ML IV SCH ×2 (11:15→12:15)
--- NOTE | 2017-10-12 11:58 | Discharge Summary ---
Discharge Summary Date of Service Oct 12, 2017. Discharge Summary Admission Date: Oct 12, 2017 at 01:36 Discharge Date: Oct 12, 2017 Discharge Disposition: Acute care facility Principal Diagnosis: Lumbar wound infection, wound dehiscence Problems/Secondary Diagnoses: UTI Bright red blood per rectum Constipation/impaction Immunizations: Have You Had Influenza Vaccine: Unknown History of Tetanus Vaccine?: utd History of Pneumococcal: Unknown History of Hepatitis B Vaccine: No Procedures: none Consultations: Gastroenterology Discharge Exam Patient in discomfort in her lower spine, hurts with movement. No recent fever/ chills or sweats. She is able to move right leg but left leg is weak. She reports that it was weak prior to surgery on 09/23 but now it is weaker. She has fallen 4 times since surgery, twice at [facility] and twice at [facility] for rehab. Poor appetite. Difficult time moving her bowels. She was straining a lot prior to having some bright red blood per rectum. No further bleeding. Appreciate GI consult, recommended warm tap water enema and disimpaction, patient could not tolerate due to pain. Discussed with hospitalist at [place], neurosurgery wants patient there so they can evaluate. Accepted prior to noon today. Review of Systems: Constitutional: + fever, + chills, + sweats, + weakness, + fatigue Eyes: No worsening of vision, No eye pain, No redness, No discharge, No diplopia, No problem reported ENT: No hearing loss, No unusual epistaxis, No nasal symptoms, No sore throat, No tinnitus, No dental problems, No trouble swallowing, No problem reported Respiratory: No cough, No sputum, No wheezing, No shortness of breath, No dyspnea on exertion, No dyspnea at rest, No hemoptysis, No problem reported Cardiovascular: No chest pain, No orthopnea, No PND, No edema, No claudication, No palpitations, No problem reported Abdomen: + constipation, No pain, No nausea, No vomiting, No diarrhea, No GI bleeding, No problem reported Musculoskeletal: + joint pain (lower back and pelvis, hurst to move), No muscle pain, No swelling, No calf pain, No problem reported Genitourinary - Female: No dysuria, No urinary frequency, No urinary urgency , No urinary incontinence, No urinary retention, No hematuria Neurologic: + weakness (left lower leg weak, lower back hurts when she moves ), + numbness/tingling (left leg), No memory loss, No paralysis, No vertigo, No balance problems, No problem reported Psychiatric: + depression symptoms, No anhedonism, No anxiety, No insomnia, No substance abuse, No problem reported Endocrine: No fatigue, No excessive thirst, No excessive urination, No problem reported Hematologic / Lymphatic: No abnormal bleeding/bruising, No clotting problems , No swollen lymph nodes, No night sweats, No problem reported Integumentary: No rash, No itch, No new/changing skin lesions, No color change, No bleeding, No problem reported Physical Exam: General Appearance: no apparent distress, + obese Eyes: normal inspection, EOMI, sclerae normal ENT: normal ENT inspection, hearing grossly normal, pharynx normal Neck: supple, no adenopathy, no JVD, trachea midline Respiratory/Chest: chest non-tender, lungs clear, no respiratory distress, no accessory muscle use, + decreased breath sounds (bases) Cardiovascular: no edema, no gallop, no JVD, no murmur, normal peripheral pulses, + tachycardia Abdomen / GI: normal bowel sounds, non tender, soft, no organomegaly Extremities: normal inspection, no calf tenderness, normal capillary refill , no pedal edema, non-tender, pelvis stable Neurologic/Psychiatric: 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 as tested, alert, normal reflexes, oriented x 3, + motor weakness (3 out of 5 strength on left leg, normal strength in other extremities), + depressed affect Skin: normal color, warm/dry, no rash, + pertinent finding (midline incision over lumbar spine with dehiscence, purulent drainage, yellow/brown, foul smelling) Hospital Course 56 yo female who underwent elective L2 through S1 fusion at [place] on 09/23, presented to the ED from [facility] with increased lower back pain, left leg weakness, increased drainage from lumbar incision and episode of bright red blood per rectum - s/p lumbar decompression and fusion, L2-S1 now with wound infection, possible dehiscence recommend immediate transfer to [place] to see neurosurgery for evaluation of note, her INR is elevated at 3.1, was on Coumadin for DVT prophylaxis will revere with Vitamin K 10mg given this morning, should repeat INR on arrival at [place] blood and wound cultures taken, pending still started on Vancomycin for MRSA coverage, Aztreonam given for gram negative coverage due to h/o PCN and ceph allergy afebrile, slightly tachycardic, BP preserved examines dry, will gave 500cc bolus this AM and then 100cc/hr until transfer - UTI based on abnormal UA >30 WBC on UA, urine culture pending continue Aztreonam - Bright red blood per rectum: due to constipation, straining and anticoagulation no further episodes Hb is 9.4, was 9.9 on admission reverse INR GI recommended warm tap water enema and disimpaction, patient could not tolerate, far too painful Diabetes mellitus-- Hold metformin [address] daily[address] on Accu-Cheks before meals and at bedtime with NovoLog coverage per scale. Hypertension-- hold Norvasc for now with risk of becoming septic Asthma-- Continue Advair Diskus 250/50, 1 inhalation twice daily. Albuterol HFA 2 puffs 4 times daily as needed. Seizure disorder-- Continue Tegretol-XR 400 mg p.o. every 12 hours. Hyperlipidemia-- Continue Lipitor 40 mg p.o. in the evening. GERD-- Protonix Peripheral neuropathy-- Continue gabapentin 3 to milligrams p.o. 3 times daily. Depression/pain-- Continue Cymbalta 60 mg p.o. at bedtime, Flexeril 10 mg p.o. every 8 hours as needed acute transfer to [facility] ([place]) Total Time Spent: Greater than 30 minutes This includes examination of the patient, discharge planning, medication reconciliation, and communication with other providers. Discharge Instructions Please refer to the electronic Patient Visit Report (Discharge Instructions) for additional information. Follow-Up surgeon at [place] Additional Copies To Kate Mohamdu D.O.
[2017-10-12 12:14] VITALS: BP 153/86; PULSE 105; TEMP 36.7; O2SAT 93
[2017-10-12 12:21] LABS: HEMATOCRIT 30.5 % (37-47); HEMOGLOBIN 9.4 g/dL (12.0-16.0)
[2017-10-12] MEDS ORDERED: ATORVASTATIN 20 MG TAB PO SCH (21:00)
[2017-10-12] MEDS ORDERED: DULOXETINE HCL 60 MG CAP PO SCH (21:00)
[2017-10-13] MEDS ORDERED: VANCOMYCIN TROUGH ONE (01:30)
== END 2017-10-12 13:24 | disposition short-term general hospital (02) | DRG 813 ==
LOC: C.EDA 20:12 → C.MSW 10-12 01:36 → ENRESERV 10-12 01:48
PROVIDERS: ADMIT Hospitalist; ATTEND Internal Medicine
DX: D68.32 Hemorrhagic disorder due to extrinsic circulating anticoagulants (principal); T81.31XA Disruption of external operation (surgical) wound, not elsewhere classified, initial encounter; N39.0 Urinary tract infection, site not specified; K62.5 Hemorrhage of anus and rectum; T81.4XXA Infection following a procedure, initial encounter; Z68.42 Body mass index [BMI] 45.0-49.9, adult; K56.41 Fecal impaction; B96.89 Other specified bacterial agents as the cause of diseases classified elsewhere; D64.9 Anemia, unspecified; J45.909 Unspecified asthma, uncomplicated; E11.42 Type 2 diabetes mellitus with diabetic polyneuropathy; I10 Essential (primary) hypertension; E78.5 Hyperlipidemia, unspecified; G40.909 Epilepsy, unspecified, not intractable, without status epilepticus; K21.9 Gastro-esophageal reflux disease without esophagitis; F32.9 Major depressive disorder, single episode, unspecified; E66.9 Obesity, unspecified; Z79.899 Other long term (current) drug therapy; Z79.01 Long term (current) use of anticoagulants; Z79.4 Long term (current) use of insulin; Z91.81 History of falling; Z98.1 Arthrodesis status; Z88.0 Allergy status to penicillin; Z88.1 Allergy status to other antibiotic agents; Z88.2 Allergy status to sulfonamides; Z88.8 Allergy status to other drugs, medicaments and biological substances; Z91.030 Bee allergy status; Z91.013 Allergy to seafood; Z83.3 Family history of diabetes mellitus; Z82.49 Family history of ischemic heart disease and other diseases of the circulatory system; Z82.3 Family history of stroke; Z84.1 Family history of disorders of kidney and ureter; Z84.89 Family history of other specified conditions; Y83.8 Other surgical procedures as the cause of abnormal reaction of the patient, or of later complication, without mention of misadventure at the time of the procedure

== ENCOUNTER → 2017-11-17 | Day surgery (SDC) | payer BC, OTHER ==
[~2017-11-17] VITALS: Ht 165.1 cm; Wt 109.0 kg
[~2017-11-17] MED LIST changes: -ADVIN10/60 INH; +ADVIN25/60 INH; +AMLO-110 PO; -ASPCH81X PO; -BND25 PO; -CARB200T PO; +CARB400T3 PO; +CHOL400T PO; -CINN1CAP2 PO; -CLTP PO; +CYCL10TA6 PO; +DICL1GEL12 TOP; -DICL50TA3 PO; -EPP3/2 IM; +ERTA1INJ IV; +FLUT1INH; -FRC PO; -GLC500 PO; -HYDR-5688 PO; +HYDR-5803 PO; +INSU100I SQ; -LIDO16CR; +MELA1TAB11; +METF1TAB53 PO; +PANT40TA PO; +POLY335019 PO; -SENNTAB23; -TELM80TA6 PO; -TRIA1SPR10; +WARF4TAB8 PO; +[UNRECOGNIZED DRUG - CODE]; -[UNRECOGNIZED DRUG - CODE] PO; -tumeric/curcumin PO
[2017-11-17 11:20] VITALS: BP 114/62; PULSE 110; TEMP 36.8; O2SAT 98; Ht 165.1 cm; Wt 109.0 kg
== END | disposition home or self-care (01) ==
LOC: C.MTU 10:58
PROVIDERS: ATTEND Internal Medicine
DX: Z45.2 Encounter for adjustment and management of vascular access device (principal)

== ENCOUNTER → 2017-11-22 | Outpatient (CLI) | payer BC, OTHER ==
[~2017-11-22] MED LIST changes: -ADVIN25/60 INH; -AMLO-110 PO; -CHOL400T PO; -HYDR-5803 PO; -PRLSR20 PO
[2017-11-22 13:06] LABS: ALBUMIN 2.9 gm/dl (3.4-5.0); ALT/SGPT 22 U/L (12-78); AST/SGOT 14 U/L (15-37); BLOOD UREA NITROGEN 12 mg/dl (7-18); CALCIUM 9.7 mg/dl (8.5-10.1); CARBON DIOXIDE 31 mmol/L (21-32); CREATININE 0.72 mg/dl (0.60-1.20); GLUCOSE 152 mg/dl (70-99); POTASSIUM 3.7 mmol/L (3.5-5.1); SODIUM 139 mmol/L (136-145)
[2017-11-22 13:08] LABS: ALKALINE PHOSPHATASE 141 U/L (45-117); TOTAL PROTEIN 7.3 gm/dl (6.4-8.2)
[2017-11-22 13:54] LABS: HEMATOCRIT 34.3 % (37-47); HEMOGLOBIN 10.5 g/dL (12.0-16.0); MEAN CELL VOLUME 82.1 fL (80-100); MEAN CORPUSCULAR HEMOGLOBIN 25.1 pg (25-34); MEAN CORPUSCULAR HGB CONC 30.6 g/dl (32-36); MEAN PLATELET VOLUME 10.9 fL (7.4-10.4); PLATELET COUNT 434 K/uL (130-400); RED CELL DISTRIBUTION WIDTH CV 17.1 % (11.5-14.5); RED CELL DISTRIBUTION WIDTH SD 51.3 fL (36.4-46.3); WHITE BLOOD COUNT 8.15 K/uL (4.8-10.8)
== END | disposition home or self-care (01) ==
LOC: C.LABSPEC 18:18
PROVIDERS: ATTEND Nurse Practitioner Adult Health
DX: T81.31XA Disruption of external operation (surgical) wound, not elsewhere classified, initial encounter (principal); B95.4 Other streptococcus as the cause of diseases classified elsewhere; X58.XXXA Exposure to other specified factors, initial encounter

== ENCOUNTER 2022-07-29 08:31 | Inpatient (IN) ==
--- NOTE | 2022-07-29 08:46 | Emergency Department Note ---
Impression & Plan Acute GI bleeding, Acute dehydration ED Provider Note NAME: DEXTER BUTLER AGE: 61 SEX: F : 1960 ARRIVES VIA: Walk-In INFORMANT: Patient, ED PROVIDER(S): Yobany Sneed MD Chief Complaint: Rectal bleeding HPI: Patient presents due to concern for bright red blood per rectum ongoing since Wednesday. The patient states that she does have a prior history of hemorrhoids and that typically this will stop within couple of days but she has had persistent bleeding. The patient states that she has felt fatigued and weak but denies any shortness of breath or chest pain. The patient has required prior transfusions in the past after back surgery. The patient does take Coumadin for known history of blood clots. Patient last took her Coumadin last evening. Patient did have a Coumadin check last week and she states that it was greater than 6. The patient did not alter the dosing of her medication and was not told to do so otherwise. The patient denies any falls or trauma nausea vomiting. Patient denies any alcohol tobacco or drug use. The patient does not take any NSAIDs. Patient states that she did go through 7 pads yesterday. Patient states that she has having rectal bleeding even when she does not have to go to use the bathroom. Patient does relate that she had a prior colonoscopy with 2 noncancerous polyps in the past. I did review a prior EGD note from Dr. Mcpherson showed that the patient had a normal esophagus and duodenum with nonbleeding gastric ulcers and multiple nonbleeding angiectasia's in the stomach which have been treated with APC's. His EGD was completed in July 2020. Colonoscopy reviewed from June [address] Mcpherson which showed that the patient did have diverticulosis in the sigmoid colon and 2 4 to 5 mm polyps in the rectosigmoid colon which were resected and removed. ROS: See HPI for pertinent positives and negatives. A total of 10 systems were reviewed and otherwise negative. Past medical history: See below Surgical history: See below Social history: See below Physical Exam: GENERAL: NAD, wearing a mask, non-toxic. Pale in appearance, fatigable, wearing glasses EYE EXAM: Normal conjunctiva. PERRL, no anisocoria and EOM's grossly intact w/o pain. NECK: Supple, no nuchal rigidity, no adenopathy, non-tender. No signs of meningismus. FROM of the neck with good chin to chest and neck extension. No stridor. LUNGS: Clear to auscultation. Normal chest wall mechanics. HEART: Tachycardic and regular, no MRG. ABDOMEN: Abdomen soft, non-tender, normo-active bowel sounds, no masses, no rebound or guarding. BACK: No CVA TTP. SKIN: No rashes and no bruising. UPPER EXTREMITIES: Upper extremities are grossly normal. LOWER EXTREMITIES: Grossly normal, no edema. NEURO EXAM: A&O x3, cranial nerves II-XII grossly intact, normal speech, moves all 4 extremities. Differential diagnoses: Diverticulosis, AVM, coagulopathy, colitis, inflammatory bowel disease, malignancy, Ekta-Albrecht tear, esophagitis, peptic ulcer disease, variceal bleed, gastritis, epistaxis, fissure, hemorrhoids, as well as other pathologies. Course: Patient was seen and evaluated the bedside. Full history physical exam was performed. EKG interpreted by me Imaging Studies: See Below Cardiac monitoring: An order was placed for continuous cardiac monitoring. The monitor shows a rate of 112 with tachycardic and rhythm. MDM: Patient was seen due to concern for GI bleeding. As the patient was hypotensive and tachycardic I did speak with nursing as well as the charge nurse of her to facilitate next but the patient's care. Patient was ordered blood work type and screen IV fluids as well as PPI bolus and drip. Coags also ordered along with COVID swab. I did consult with Dr. Lu. The patient's blood counts do show a normal white count H&H and platelet count. The patient's INR is greater than 6. The patient was ordered vitamin K 10 IV. The patient does have prerenal azotemia as well as mild elevation in creatinine. Patient did receive additional IV fluids. I did convey the hemoglobin and INR to Dr. Lu who is aware. I did speak the on-call hospitalist Dr. Cooney and the patient was admitted to the medicine service. Critical Care: I have personally spent 42 minutes of critical care time in direct management of this patient. This includes bedside care, interpretation of diagnostic studies, and testing, discussion with consultants, patient, and family members, and other require inpatient management activities. This 42 minutes is in excess of all separately billable procedures. 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 SINGH Vaughn rotator cuff LEFT SHOULDER Type 2 diabetes mellitus NIDDM Surgical History History of arthroscopy X2 RIGHT KNEE History of colonoscopy 06/11/2020 [facility] History of esophagogastroduodenoscopy (EGD) 06/11/2020 [facility] History of hysterectomy History of tooth extraction History of total knee replacement RIGHT Hx of cholecystectomy Previous back surgery 6 back surgeries> ALL LUMBAR/THORACIC Previous section X3 Family History Brother Diabetes Grandmother (Paternal) Diabetes Grandmother (Maternal) Diabetes Social History Smoking Status: Never smoker Second Hand Exposure: No; Hx Alcohol Use: No Hx Substance Use: No Preferred Language: Solomon Islander Communication Ability: Effective Director Client Services Required: No Beliefs That Will Affect Care: None Current Living Situation: Spouse Feels Safe at Home: Yes Assistive Devices: Denture - Upper, Glasses and Walker Allergies Allergies Allergy/AdvReac Type Severity Reaction Status Date / Time bee venom protein (honey bee) Allergy Severe ANAPHYLAXIS Verified 02/18/22 08:53 Penicillins Allergy Severe ANAPHYLAXIS Verified 02/18/22 08:53 Cephalosporins Allergy Intermediate DIZZINESS, Verified 02/18/22 08:53 ITCHY hydroxyzine Allergy Intermediate DIZZY Verified 02/18/22 08:53 ITCHY NAUSEA Sulfa (Sulfonamide Allergy Intermediate DIZZY Verified 02/18/22 08:53 Antibiotics) ITCHY, NAUSEA shellfish derived Allergy Unknown SENSITIVITY Verified 02/18/22 08:53 metaxalone AdvReac Intermediate n/v and Verified 02/18/22 08:53 headache, dizziness Home Meds Home Medications Medication Instructions Recorded Confirmed Lactobacillus acidophilus 10 10 cell PO QAM 04/02/19 02/18/22 billion cell capsule (Probiotic) acetaminophen 325 mg tablet 650 mg PO Q6H PRN Pain 04/02/19 02/18/22 (Tylenol) atorvastatin 40 mg tablet (Lipitor) 40 mg PO QPM 04/02/19 02/18/22 ijbnjxqman-sfryudkermajj-ichydfka 2 cap PO Q8H PRN Migraine Headache 04/02/19 02/18/22 50 mg-300 mg-40 mg capsule (Fioricet) doxycycline hyclate 100 mg capsule 100 mg PO BID 04/02/19 02/18/22 duloxetine 60 mg capsule,delayed 60 mg PO QPM 04/02/19 02/18/22 release (Cymbalta) fluticasone propionate 115 2 puff inhalation Q12H PRN Wheezing 04/02/19 02/18/22 mcg-salmeterol 21 mcg/actuation HFA inhaler (Advair HFA) metformin 1,000 mg tablet 1,000 mg PO BID 04/02/19 02/18/22 telmisartan 80 1 tab PO QAM 06/06/20 02/18/22 mg-hydrochlorothiazide 12.5 mg tablet (Micardis HCT) turmeric 400 mg capsule 400 mg PO QAM 06/06/20 02/18/22 warfarin 5 mg tablet 5 mg PO PM 06/06/20 02/18/22 diclofenac potassium 50 mg tablet 50 mg PO DAILY 12/02/21 02/18/22 duloxetine 20 mg capsule,delayed 20 mg PO QPM 12/02/21 02/18/22 release levocetirizine 5 mg tablet 5 mg PO DAILY 12/02/21 02/18/22 omeprazole 20 mg capsule,delayed 20 mg PO BID 12/02/21 02/18/22 release Previous Rx's Medication Instructions Recorded docusate sodium 100 mg capsule 100 mg PO BID #60 caps 04/02/19 (Colace) carbamazepine 400 mg 400 mg PO BID 90 days #180 tabs 02/18/22 tablet,extended release,12 hr pregabalin 100 mg capsule 100 mg PO BID 90 days #180 caps 04/09/22 Results & Data (ED) Vital Signs Vital Signs - 24 hr 07/29/22 08:40 07/29/22 10:03 07/29/22 10:03 Temperature 36.0 C L Temperature Source Temporal Artery Scan Pulse Rate 116 H 88 88 Pulse Rhythm Regular Pulse Strength Normal Respiratory Rate 20 12 16 Respiratory Effort / Characteristics Non-Labored Spontaneous Respiratory Depth Normal Blood Pressure 94/49 L 100/67 Blood Pressure Mean 64 78 Blood Pressure Position Sitting Pulse Oximetry 99 Oxygen Delivery Method Room Air Sepsis Recent Fever Within 48 Hours No Sepsis New/Unexplained Change in Mental Status No Sepsis Action Taken by Nursing No Action Required 07/29/22 10:30 07/29/22 11:00 Temperature Temperature Source Pulse Rate 87 89 Pulse Rhythm Pulse Strength Respiratory Rate 79 H 18 Respiratory Effort / Characteristics Respiratory Depth Blood Pressure 91/73 L 122/60 Blood Pressure Mean 79 80 Blood Pressure Position Pulse Oximetry 98 100 Oxygen Delivery Method Sepsis Recent Fever Within 48 Hours Sepsis New/Unexplained Change in Mental Status Sepsis Action Taken by [facility] Medications Current Medication List: was personally reviewed by me Laboratory Data Attestation: I reviewed the patient's lab results. Result diagrams: 07/29/22 09:33 07/29/22 09:33 Lab Results 07/29/22 07/29/22 07/29/22 Range/Units 09:27 09:33 09:33 WBC 5.27 (4.8-10.8) K/ul RBC 4.26 (3.93-5.22) M/uL Hgb 13.0 (12.0-16.0) g/dl Hct 38.6 (34.1-44.9) % MCV 90.6 (80.0-100.0) fL MCH 30.5 (25.0-34.0) pg MCHC 33.7 (32.0-36.0) g/dL RDW Std Deviation 46.6 H (36.4-46.3) fL RDW Coeff of Heather 14.1 (11.5-14.5) % Plt Count 162 (130-400) K/uL MPV 13.4 H (9.4-12.3) fL Immature Gran % (Auto) 0.2 % Neut % (Auto) 62.8 % Lymph % (Auto) 21.4 % [place] % (Auto) 13.3 % Eos % (Auto) 1.5 % Baso % (Auto) 0.8 % Neut # (Auto) 3.31 (1.4-6.5) K/uL Lymph # (Auto) 1.13 L (1.2-3.4) K/uL [place] # (Auto) 0.70 (0.24-0.82) K/uL Eos # (Auto) 0.08 (0-0.50) K/uL Baso # (Auto) 0.04 (0-0.2) K/uL Immature Gran # (Auto) 0.01 (0.00-0.02) K/uL PT (9.0-12.0) Seconds INR (0.9-1.1) APTT (21.0-31.0) Seconds PTT Ratio Sodium (136-145) mmol/L Potassium (3.5-5.1) mmol/L Chloride (98-107) mmol/L Carbon Dioxide (21-32) mmol/L Anion Gap (3-11) BUN (6-23) mg/dl Creatinine (0.6-1.2) mg/dl Est Cr Clr Drug Dosing ml/min Est GFR ( Amer) ml/min Est GFR (Non-Af Amer) ml/min BUN/Creatinine Ratio (10-20) Glucose (70-99(Fasting)) mg/dl Calcium (8.5-10.1) mg/dl Total Bilirubin (0.2-1.0) mg/dl AST (13-39) U/L ALT (7-52) U/L Alkaline Phosphatase (34-104) U/L Total Protein (6.0-8.3) gm/dl Albumin (3.4-5.0) gm/dl Globulin (2.5-4.0) gm/dl Albumin/Globulin Ratio (0.9-2) SARS-CoV-2, RNA, NAAT NEGATIVE (NEGATIVE) Blood Type A Positive Antibody Screen NEGATIVE 07/29/22 07/29/22 Range/Units 09:33 09:33 WBC (4.8-10.8) K/ul RBC (3.93-5.22) M/uL Hgb (12.0-16.0) g/dl Hct (34.1-44.9) % MCV (80.0-100.0) fL MCH (25.0-34.0) pg MCHC (32.0-36.0) g/dL RDW Std Deviation (36.4-46.3) fL RDW Coeff of Heather (11.5-14.5) % Plt Count (130-400) K/uL MPV (9.4-12.3) fL Immature Gran % (Auto) % Neut % (Auto) % Lymph % (Auto) % [place] % (Auto) % Eos % (Auto) % Baso % (Auto) % Neut # (Auto) (1.4-6.5) K/uL Lymph # (Auto) (1.2-3.4) K/uL [place] # (Auto) (0.24-0.82) K/uL Eos # (Auto) (0-0.50) K/uL Baso # (Auto) (0-0.2) K/uL Immature Gran # (Auto) (0.00-0.02) K/uL PT 64.4 H (9.0-12.0) Seconds INR 6.7 H* (0.9-1.1) APTT 84.8 H* (21.0-31.0) Seconds PTT Ratio 3.1 Sodium 137 (136-145) mmol/L Potassium 4.8 (3.5-5.1) mmol/L Chloride 102 (98-107) mmol/L Carbon Dioxide 25 (21-32) mmol/L Anion Gap 10 (3-11) BUN 66 H (6-23) mg/dl Creatinine 1.84 H (0.6-1.2) mg/dl Est Cr Clr Drug Dosing 36.6 ml/min Est GFR ( Amer) 33.2 ml/min Est GFR (Non-Af Amer) 28.7 ml/min BUN/Creatinine Ratio 35.9 H (10-20) Glucose 106 H (70-99(Fasting)) mg/dl Calcium 8.8 (8.5-10.1) mg/dl Total Bilirubin 0.7 (0.2-1.0) mg/dl AST 38 (13-39) U/L ALT 38 (7-52) U/L Alkaline Phosphatase 115 H (34-104) U/L Total Protein 6.0 (6.0-8.3) gm/dl Albumin 3.4 (3.4-5.0) gm/dl Globulin 2.6 (2.5-4.0) gm/dl Albumin/Globulin Ratio 1.3 (0.9-2) SARS-CoV-2, RNA, NAAT (NEGATIVE) Blood Type Antibody Screen Administered Medications Discontinued Medications Sodium Chloride (Nss) 500 mls @ 999 mls/hr IV .Q31M TEA Stop: 07/29/22 09:30 Last Infusion: 07/29/22 10:11 Dose: 0 mls/hr Documented By: Admin: 07/29/22 09:21 Dose: 999 mls/hr Documented By: YUNG Pantoprazole Sodium (Protonix Bolus/Drip) 0 mls @ 1 mls/hr IV ONE STA Stop: 07/29/22 08:59 Last Admin: 07/29/22 10:10 Dose: Not Given Documented By: YUNG Pantoprazole Sodium 80 mg/ (Dextrose) 120 mls @ 400 mls/hr IV NOW ONE Stop: 07/29/22 09:15 Last Infusion: 07/29/22 10:11 Dose: 0 mls/hr Documented By: Admin: 07/29/22 09:21 Dose: 400 mls/hr Documented By: YUNG Pantoprazole Sodium 40 mg/ (Dextrose) 100 mls @ 20 mls/hr IV Q5H TEA Stop: 08/28/22 09:14 Last Admin: 07/29/22 09:58 Dose: 8 mg/hr, 20 mls/hr Documented By: YUNG Sodium Chloride (Nss 1000ml) 500 mls @ 999 mls/hr IV .Q31M ONE Stop: 07/29/22 10:47 Last Infusion: 07/29/22 11:10 Dose: 0 mls/hr Documented By: Admin: 07/29/22 10:20 Dose: 999 mls/hr Documented By: YUNG Phytonadione 10 mg/ Dextrose 51 mls @ 102 mls/hr IV ONE ONE Stop: 07/29/22 11:01 Last Infusion: 07/29/22 12:12 Dose: 0 mls/hr Documented By: Admin: 07/29/22 11:13 Dose: 102 mls/hr Documented By: LC Discharge Plan Visit Data Chief Complaint: Rectal Bleed Stated Complaint: RECTAL BLEED ED Provider: Yobany Sneed Discharge Problem: Acute GI bleeding, Acute dehydration Patient Disposition: Admitted As Inpatient Discharge Instructions Interventions: ED Discharge Assessment Last Done: 07/29/22 13:32
[2022-07-29] MEDS ORDERED: PANTOPRAZOLE BOLUS/DRIP 1 EACH IV STA (08:58)
[2022-07-29] MEDS ORDERED: PANTOprazole 80 MG in DEXTROSE 5% 100 ML IV ONE (08:58)
[2022-07-29] MEDS ORDERED: SODIUM CHLORIDE 0.9% 500 ML IV SCH (09:00)
[2022-07-29] MEDS ORDERED: PANTOprazole 40 MG in DEXTROSE 5% 100 ML IV SCH (09:15)
[2022-07-29 09:59] LABS: Basophils # (auto) 0.04 K/uL (0-0.2); Basophils % (auto) 0.8 %; Eosinophils # (auto) 0.08 K/uL (0-0.50); Eosinophils % (auto) 1.5 %; Hematocrit (blood only) 38.6 % (34.1-44.9); Immature Granulocytes # (auto) 0.01 K/uL (0.00-0.02); Immature Granulocytes % (auto) 0.2 %; Lymphocytes # (auto) 1.13 K/uL (1.2-3.4); Lymphocytes % (auto) 21.4 %; Mean Corpuscular Hemoglobin 30.5 pg (25.0-34.0); Mean Corpuscular Hgb Conc 33.7 g/dL (32.0-36.0); Mean Corpuscular Volume 90.6 fL (80.0-100.0); Mean Platelet Volume 13.4 fL (9.4-12.3); Monocytes % (auto) 13.3 %; Neutrophils # (auto) 3.31 K/uL (1.4-6.5); Neutrophils % (auto) 62.8 %; Platelet Count 162 K/uL (130-400); RDW Coefficient of Variation 14.1 % (11.5-14.5); RDW Standard Deviation 46.6 fL (36.4-46.3); Red Blood Count 4.26 M/uL (3.93-5.22); White Blood Count 5.27 K/ul (4.8-10.8)
[2022-07-29] MEDS ORDERED: SODIUM CHLORIDE 0.9% 1000ML 500 ML IV ONE (10:17)
[2022-07-29 10:18] LABS: Albumin Globulin Ratio 1.3 (0.9-2); Albumin Level 3.4 gm/dl (3.4-5.0); BUN Creatinine Ratio 35.9 (10-20); Bilirubin,Total 0.7 mg/dl (0.2-1.0); Calcium 8.8 mg/dl (8.5-10.1); Creatinine Clr Calc Pharmacy 36.6 ml/min; Est GFR (African American) 33.2 ml/min; Est GFR (Non-African American) 28.7 ml/min; Globulin 2.6 gm/dl (2.5-4.0); Potassium 4.8 mmol/L (3.5-5.1)
[2022-07-29 10:22] LABS: Partial Thromboplastin Ratio 3.1; Prothrombin Time 64.4 Seconds (9.0-12.0)
[2022-07-29 10:28] LABS: INR 6.7 (0.9-1.1)
[2022-07-29 10:29] LABS: Partial Thromboplastin Time 84.8 Seconds (21.0-31.0)
[2022-07-29] MEDS ORDERED: PHYTONADIONE 10 MG in DEXTROSE 5% 50 ML IV ONE (10:32)
--- NOTE | 2022-07-29 11:27 | History & Physical Report ---
Date of Service July 29, 2022 Assessment & Plan (1) Bright red blood per rectum: Plan: Many episodes over 4 days. Hgb on admission is 13 mg/dL. INR is 6.7. Tachycardic and reportedly hypotensive on presentation. In my mind, likely to be hemorrhoids or diverticular bleed. - Started PPI gtt in the ER for possible brisk upper GI bleed, but my concern for this is relatively low given stable hemoglobin and present hemodynamics being normotensive and non-tachycardic. - Trend H&H. T&S already sent be ER. - GI consulted - Clear liquid diet for now in case of EGD later today or colonoscopy tomorrow - Reverse INR as below - Diarrhea has resolved, but if it recurs, will get stool BioFire (2) Type 2 diabetes mellitus: Plan: Last A1c was 6.0% in 2019. - Hold metformin - Sliding scale insulin (3) Hypertension: Plan: BP is low-normal in the ER (90/60 - 120/70). - Hold home Micardis until bleeding stops. (4) Seizure disorder: Plan: No seizures since 1995. - Continue home carbamazepine (5) Idiopathic polyneuropathy: Plan: Likely due to sequelae from LLE DVT and multiple back surgeries. - Continue home Lyrica 100 mg PO BID (seems suitable dose for renal function) (6) Fibromyalgia: Plan: - Continue home duloxetine (7) Asthma: Plan: No shortness of breath or wheezing today. - Monitor (8) DVT (deep venous thrombosis): Plan: Hx of LLE DVT in 2019. She is not clear on this, but notes indicate it was after surgery which would mean it was a provoked DVT. Not clear why she is still on warfarin 3 years later. - Hold warfarin for now - Reverse INR of 6.7 given bleeding - Consider switch to VTE ppx dosing of apixaban on discharge which would be much safer option than warfarin. (ie 2.5 mg PO BID) FULL CODE - Per patient on admission with present. History of Present Illness Primary Care Provider: Kate Mohamud DO 61y F w/ hx of prior LLE DVT, neuropathy, and back pain who presents with rectal bleed. The patient reports that she had diarrhea throughout the entire last week. She reports having watery bowel movements at least 4-5 times per day from Wednesday through Wednesday. On Wednesday, she noted bright red blood when she had a bowel movement. She also had diarrhea at that time. On Wednesday, her diarrhea cleared, and she had relatively normal bowel movements; however, she did continue to have blood with the bowel movements. It is tough to quantify the amount of blood that she is passing. She reports that the bowl is tinted red, but otherwise is not sure how to quantify the blood. She reports over the last week that she has felt "sleepy all the time". She has otherwise been well. She reports no other sick contacts who had diarrhea. She herself has had no pain with her bowel movements, no fevers/chills/night sweats, no shortness of breath, no chest pain, no abdominal pain, and no change to her urination. She notes that last Wednesday her INR was 6.2 on her home device. She called her PCP to find out what she should do with her warfarin; however, her PCPs office never responded, and she has continued to take warfarin 5 mg p.o. QPM. Allergies Allergy/AdvReac Type Severity Reaction Status Date / Time bee venom protein (honey bee) Allergy Severe ANAPHYLAXIS Verified 02/18/22 08:53 Penicillins Allergy Severe ANAPHYLAXIS Verified 02/18/22 08:53 Cephalosporins Allergy Intermediate DIZZINESS, Verified 02/18/22 08:53 ITCHY hydroxyzine Allergy Intermediate DIZZY Verified 02/18/22 08:53 ITCHY NAUSEA Sulfa (Sulfonamide Allergy Intermediate DIZZY Verified 02/18/22 08:53 Antibiotics) ITCHY, NAUSEA shellfish derived Allergy Unknown SENSITIVITY Verified 02/18/22 08:53 metaxalone AdvReac Intermediate n/v and Verified 02/18/22 08:53 headache, dizziness Home Medications Medication Instructions Recorded Confirmed Type Lactobacillus acidophilus 10 10 cell PO QAM 04/02/19 02/18/22 History billion cell capsule (Probiotic) acetaminophen 325 mg tablet 650 mg PO Q6H PRN Pain 04/02/19 02/18/22 History (Tylenol) atorvastatin 40 mg tablet (Lipitor) 40 mg PO QPM 04/02/19 02/18/22 History rwcmetsuxx-tihrlxslesjjj-dpsvqjkn 2 cap PO Q8H PRN Migraine Headache 04/02/19 02/18/22 History 50 mg-300 mg-40 mg capsule (Fioricet) docusate sodium 100 mg capsule 100 mg PO BID #60 caps 04/02/19 02/18/22 Rx (Colace) doxycycline hyclate 100 mg capsule 100 mg PO BID 04/02/19 02/18/22 History duloxetine 60 mg capsule,delayed 60 mg PO QPM 04/02/19 02/18/22 History release (Cymbalta) fluticasone propionate 115 2 puff inhalation Q12H PRN Wheezing 04/02/19 02/18/22 History mcg-salmeterol 21 mcg/actuation HFA inhaler (Advair HFA) metformin 1,000 mg tablet 1,000 mg PO BID 04/02/19 02/18/22 History telmisartan 80 1 tab PO QAM 06/06/20 02/18/22 History mg-hydrochlorothiazide 12.5 mg tablet (Micardis HCT) turmeric 400 mg capsule 400 mg PO QAM 06/06/20 02/18/22 History warfarin 5 mg tablet 5 mg PO PM 06/06/20 02/18/22 History diclofenac potassium 50 mg tablet 50 mg PO DAILY 12/02/21 02/18/22 History duloxetine 20 mg capsule,delayed 20 mg PO QPM 12/02/21 02/18/22 History release levocetirizine 5 mg tablet 5 mg PO DAILY 12/02/21 02/18/22 History omeprazole 20 mg capsule,delayed 20 mg PO BID 12/02/21 02/18/22 History release carbamazepine 400 mg 400 mg PO BID 90 days #180 tabs 02/18/22 02/18/22 Rx tablet,extended release,12 hr pregabalin 100 mg capsule 100 mg PO BID 90 days #180 caps 04/09/22 Rx Past Med/Surg History Medical History (Updated 07/29/22 @ 11:26 by Eugenio Cooney MD) Anemia IRON/BLOOD TRANSFUSIONS MAY 2020 Asthma "VERY MILD" Benzodiazepine overdose 6 YRS AGO ACCIDENTAL DVT (deep venous thrombosis) LEFT LEG> WARFARIN > POST OP COMPLICATION MAR 2019 Fibromyalgia Hyperlipidemia Hypertension Loc osteoarth NOS-l/leg Migraine Osteoporosis Pyelonephritis Seizure disorder 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 SINGH Vaughn rotator cuff LEFT SHOULDER Type 2 diabetes mellitus NIDDM Surgical History History of arthroscopy X2 RIGHT KNEE History of colonoscopy 06/11/2020 [facility] History of esophagogastroduodenoscopy (EGD) 06/11/2020 [facility] History of hysterectomy History of tooth extraction History of total knee replacement RIGHT Hx of cholecystectomy Previous back surgery 6 back surgeries> ALL LUMBAR/THORACIC Previous section X3 Family History Brother Diabetes Grandmother (Paternal) Diabetes Grandmother (Maternal) Diabetes Social History Smoking Status: Never smoker Second Hand Exposure: No; Hx Alcohol Use: No Hx Substance Use: No Preferred Language: Faroese Communication Ability: Effective Golf [employer] Required: No Beliefs That Will Affect Care: None Current Living Situation: Spouse Feels Safe at Home: Yes Assistive Devices: Denture - Upper, Glasses and Walker Review of Systems Review of Systems: All systems reviewed & are unremarkable except as noted in HPI & below Physical Exam Constitutional: WD/WN, vitals as above Eyes: EOM intact bilaterally; no conjunctival abnormality ENMT: external ear and nose normal, oropharynx normal Neck: trachea midline, no thyromegaly normal visual inspection Respiratory: normal respiratory effort, lungs clear to auscultation no respiratory distress Cardiovascular: RRR, no murmur, no edema Gastrointestinal (Abdomen): Inspection/Auscultation: abdomen normal to inspection; abdomen not distended Musculoskeletal: no cyanosis or clubbing, extremities motor strength 5/5 Skin: no rashes, warm and dry Neurologic: moves all extremities and awake Psychiatric: Orientation: alert, oriented to person and cooperative Results & Data Results & Data ([facility]) Vital Signs (Past 12 Hours) Vital Signs Temp Pulse Resp BP Pulse Ox O2 Del Method 07/29/22 10:03 88 16 100/67 07/29/22 10:03 88 12 07/29/22 08:40 36.0 C L 116 H 20 94/49 L 99 Room Air Code Status & VTE Plan VTE Prophylaxis Plan VTE Prophylaxis will be ordered: Yes PG Care Time/CCT Total # of Minutes Spent Total Time Spent with Patient: Total time spent is greater than 50% in coordination of care (as documented) at patient's floor/unit and/or counseling patient: Coding Level of Care Code 51416 Initial Inpt Care Lvl 3 Diagnoses Bright red blood per rectum K62.5 Type 2 diabetes mellitus E11.9 Hypertension I10 Seizure disorder G40.909 Idiopathic polyneuropathy G60.9 Fibromyalgia M79.7 Asthma J45.909 DVT (deep venous thrombosis) I82.409
[2022-07-29] MEDS ORDERED: GLUCOSE 10 TAB/TUBE PO PRN (13:32)
[2022-07-29] MEDS ORDERED: ONDANSETRON INJ 2 MG/ML 2 ML VIAL IV PRN (13:32)
[2022-07-29] MEDS ORDERED: CARBOHYDRATES FOR HYPOGLYCEMIA PO PRN (13:32)
[2022-07-29] MEDS ORDERED: GLUCOSE 40% GEL 15 GM TUBE PO PRN (13:32)
[2022-07-29] MEDS ORDERED: DEXTROSE 50% 50 ML SYRINGE IV PRN (13:32)
[2022-07-29] MEDS ORDERED: ACETAMINOPHEN 325 MG TAB PO PRN (13:32)
[2022-07-29] MEDS ORDERED: GLUCAGON FOR INJ 1 MG VIAL SQ PRN (13:32)
[2022-07-29] MEDS: PANTOprazole 40 MG in DEXTROSE 5% 100 ML IV SCH ×2 (14:07→17:26)
[2022-07-29 14:53] LABS: Hematocrit (blood only) 37.4 % (34.1-44.9); Hemoglobin 12.5 g/dl (12.0-16.0)
--- NOTE | 2022-07-29 15:55 | Gastrointestinal Consultation ---
Date of Consultation July 29, 2022 Assessment & Plan (1) Acute GI bleeding: Pleasant woman with a classic description of hemorrhoidal bleeding. She had a colonoscopy last year that showed diverticulosis and polyps. Her hemoglobin has not dropped with seven days of bleeding so this is not diverticular bleeding. Her INR is prolonged so once that corrects, if no further bleeding she can be discharged History of Present Illness Reason for Consultation: rectal bleeding Attending Physician: Eugenio Cooney MD History of Present Illness 61 year old female who is here with one week of rectal bleeding. She had diarrhea for a week and after it settled down she had a bowel movement that was "pure blood". She describes bright red blood by itself. Since then she has had one normal colored solid stool with blood in the water. She has had several bouts where blood dripped into the toilet. It also came out onto her underclothes. She denies pain with it. She had a colonoscopy last year by Dr. Mcpherson. She denies NSAID usage. Allergies Allergy/AdvReac Type Severity Reaction Status Date / Time bee venom protein (honey bee) Allergy Severe ANAPHYLAXIS Verified 02/18/22 08:53 Penicillins Allergy Severe ANAPHYLAXIS Verified 02/18/22 08:53 Cephalosporins Allergy Intermediate DIZZINESS, Verified 02/18/22 08:53 ITCHY hydroxyzine Allergy Intermediate DIZZY Verified 02/18/22 08:53 ITCHY NAUSEA Sulfa (Sulfonamide Allergy Intermediate DIZZY Verified 02/18/22 08:53 Antibiotics) ITCHY, NAUSEA shellfish derived Allergy Unknown SENSITIVITY Verified 02/18/22 08:53 metaxalone AdvReac Intermediate n/v and Verified 02/18/22 08:53 headache, dizziness Home Medications Medication Instructions Recorded Confirmed Type Lactobacillus acidophilus 10 10 cell PO QAM 04/02/19 02/18/22 History billion cell capsule (Probiotic) acetaminophen 325 mg tablet 650 mg PO Q6H PRN Pain 04/02/19 02/18/22 History (Tylenol) atorvastatin 40 mg tablet (Lipitor) 40 mg PO QPM 04/02/19 02/18/22 History jnkdcgifrs-lydiosryztovc-qctjifet 2 cap PO Q8H PRN Migraine Headache 04/02/19 02/18/22 History 50 mg-300 mg-40 mg capsule (Fioricet) docusate sodium 100 mg capsule 100 mg PO BID #60 caps 04/02/19 02/18/22 Rx (Colace) doxycycline hyclate 100 mg capsule 100 mg PO BID 04/02/19 02/18/22 History duloxetine 60 mg capsule,delayed 60 mg PO QPM 04/02/19 02/18/22 History release (Cymbalta) fluticasone propionate 115 2 puff inhalation Q12H PRN Wheezing 04/02/19 02/18/22 History mcg-salmeterol 21 mcg/actuation HFA inhaler (Advair HFA) metformin 1,000 mg tablet 1,000 mg PO BID 04/02/19 02/18/22 History telmisartan 80 1 tab PO QAM 06/06/20 02/18/22 History mg-hydrochlorothiazide 12.5 mg tablet (Micardis HCT) turmeric 400 mg capsule 400 mg PO QAM 06/06/20 02/18/22 History warfarin 5 mg tablet 5 mg PO PM 06/06/20 02/18/22 History diclofenac potassium 50 mg tablet 50 mg PO DAILY 12/02/21 02/18/22 History duloxetine 20 mg capsule,delayed 20 mg PO QPM 12/02/21 02/18/22 History release levocetirizine 5 mg tablet 5 mg PO DAILY 12/02/21 02/18/22 History omeprazole 20 mg capsule,delayed 20 mg PO BID 12/02/21 02/18/22 History release carbamazepine 400 mg 400 mg PO BID 90 days #180 tabs 02/18/22 02/18/22 Rx tablet,extended release,12 hr pregabalin 100 mg capsule 100 mg PO BID 90 days #180 caps 04/09/22 Rx Patient History Medical History Anemia IRON/BLOOD TRANSFUSIONS MAY 2020 Asthma "VERY MILD" Benzodiazepine overdose 6 YRS AGO ACCIDENTAL DVT (deep venous thrombosis) LEFT LEG> WARFARIN > POST OP COMPLICATION MAR 2019 Fibromyalgia Hyperlipidemia Hypertension Loc osteoarth NOS-l/leg Migraine Osteoporosis Pyelonephritis Seizure disorder 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 SINGH Vaughn rotator cuff LEFT SHOULDER Type 2 diabetes mellitus NIDDM Surgical History History of arthroscopy X2 RIGHT KNEE History of colonoscopy 06/11/2020 [facility] History of esophagogastroduodenoscopy (EGD) 06/11/2020 [facility] History of hysterectomy History of tooth extraction History of total knee replacement RIGHT Hx of cholecystectomy Previous back surgery 6 back surgeries> ALL LUMBAR/THORACIC Previous section X3 Family History Brother Diabetes Grandmother (Paternal) Diabetes Grandmother (Maternal) Diabetes Social History Smoking Status: Never smoker Second Hand Exposure: No; Hx Alcohol Use: No Hx Substance Use: No Preferred Language: Citizen Of [place] Communication Ability: Effective Ginning Operator Required: No Beliefs That Will Affect Care: None Current Living Situation: Spouse Feels Safe at Home: Yes Assistive Devices: Denture - Upper, Glasses and Walker Review of Systems Review of Systems: All systems reviewed & are unremarkable except as noted in HPI & below Physical Exam Constitutional: WD/WN, vitals as above no acute distress Eyes: PERRL, conjunctivae normal, anicteric sclerae ENMT: external ear and nose normal, oropharynx normal Neck: trachea midline, no thyromegaly Respiratory: normal respiratory effort, lungs clear to auscultation Cardiovascular: RRR, no murmur, no edema Gastrointestinal (Abdomen): normal bowel sounds, soft, nontender, no hepatosplenomegaly Musculoskeletal: Extremities: no cyanosis and no clubbing Skin: no rashes, warm and dry Neurologic: PERRL, EOMI, accommodation nl, no face palsy, no dysarthria Psychiatric: Orientation: alert and oriented x 3 Results & Data ([facility]) Vital Signs (Past 12 Hours) Vital Signs Temp Pulse Resp BP Pulse Ox O2 Del Method 07/29/22 13:00 84 13 109/58 L 97 07/29/22 12:30 80 15 109/49 L 96 07/29/22 12:00 83 11 L 96 07/29/22 12:00 83 11 L 122/64 96 07/29/22 11:30 86 19 97 07/29/22 11:30 86 19 112/59 L 97 07/29/22 11:00 89 18 122/60 100 07/29/22 10:30 87 79 H 91/73 L 98 07/29/22 10:03 88 16 100/67 07/29/22 10:03 88 12 07/29/22 08:40 36.0 C L 116 H 20 94/49 L 99 Room Air Laboratory Results 07/29/22 07/29/22 07/29/22 Range/Units 14:41 09:33 09:33 WBC (4.8-10.8) K/ul RBC (3.93-5.22) M/uL Hgb 12.5 (12.0-16.0) g/dl Hct 37.4 (34.1-44.9) % MCV (80.0-100.0) fL MCH (25.0-34.0) pg MCHC (32.0-36.0) g/dL RDW Std Deviation (36.4-46.3) fL RDW Coeff of Heather (11.5-14.5) % Plt Count (130-400) K/uL MPV (9.4-12.3) fL Immature Gran % (Auto) % Neut % (Auto) % Lymph % (Auto) % [place] % (Auto) % Eos % (Auto) % Baso % (Auto) % Neut # (Auto) (1.4-6.5) K/uL Lymph # (Auto) (1.2-3.4) K/uL [place] # (Auto) (0.24-0.82) K/uL Eos # (Auto) (0-0.50) K/uL Baso # (Auto) (0-0.2) K/uL Immature Gran # (Auto) (0.00-0.02) K/uL PT 64.4 H (9.0-12.0) Seconds INR 6.7 H* (0.9-1.1) APTT 84.8 H* (21.0-31.0) Seconds PTT Ratio 3.1 Sodium 137 (136-145) mmol/L Potassium 4.8 (3.5-5.1) mmol/L Chloride 102 (98-107) mmol/L Carbon Dioxide 25 (21-32) mmol/L Anion Gap 10 (3-11) BUN 66 H (6-23) mg/dl Creatinine 1.84 H (0.6-1.2) mg/dl Est Cr Clr Drug Dosing 36.6 ml/min Est GFR ( Amer) 33.2 ml/min Est GFR (Non-Af Amer) 28.7 ml/min BUN/Creatinine Ratio 35.9 H (10-20) Glucose 106 H (70-99(Fasting)) mg/dl Calcium 8.8 (8.5-10.1) mg/dl Total Bilirubin 0.7 (0.2-1.0) mg/dl AST 38 (13-39) U/L ALT 38 (7-52) U/L Alkaline Phosphatase 115 H (34-104) U/L Total Protein 6.0 (6.0-8.3) gm/dl Albumin 3.4 (3.4-5.0) gm/dl Globulin 2.6 (2.5-4.0) gm/dl Albumin/Globulin Ratio 1.3 (0.9-2) SARS-CoV-2, RNA, NAAT (NEGATIVE) Blood Type Antibody Screen 07/29/22 07/29/22 07/29/22 Range/Units 09:33 09:33 09:27 WBC 5.27 (4.8-10.8) K/ul RBC 4.26 (3.93-5.22) M/uL Hgb 13.0 (12.0-16.0) g/dl Hct 38.6 (34.1-44.9) % MCV 90.6 (80.0-100.0) fL MCH 30.5 (25.0-34.0) pg MCHC 33.7 (32.0-36.0) g/dL RDW Std Deviation 46.6 H (36.4-46.3) fL RDW Coeff of Heather 14.1 (11.5-14.5) % Plt Count 162 (130-400) K/uL MPV 13.4 H (9.4-12.3) fL Immature Gran % (Auto) 0.2 % Neut % (Auto) 62.8 % Lymph % (Auto) 21.4 % [place] % (Auto) 13.3 % Eos % (Auto) 1.5 % Baso % (Auto) 0.8 % Neut # (Auto) 3.31 (1.4-6.5) K/uL Lymph # (Auto) 1.13 L (1.2-3.4) K/uL [place] # (Auto) 0.70 (0.24-0.82) K/uL Eos # (Auto) 0.08 (0-0.50) K/uL Baso # (Auto) 0.04 (0-0.2) K/uL Immature Gran # (Auto) 0.01 (0.00-0.02) K/uL PT (9.0-12.0) Seconds INR (0.9-1.1) APTT (21.0-31.0) Seconds PTT Ratio Sodium (136-145) mmol/L Potassium (3.5-5.1) mmol/L Chloride (98-107) mmol/L Carbon Dioxide (21-32) mmol/L Anion Gap (3-11) BUN (6-23) mg/dl Creatinine (0.6-1.2) mg/dl Est Cr Clr Drug Dosing ml/min Est GFR ( Amer) ml/min Est GFR (Non-Af Amer) ml/min BUN/Creatinine Ratio (10-20) Glucose (70-99(Fasting)) mg/dl Calcium (8.5-10.1) mg/dl Total Bilirubin (0.2-1.0) mg/dl AST (13-39) U/L ALT (7-52) U/L Alkaline Phosphatase (34-104) U/L Total Protein (6.0-8.3) gm/dl Albumin (3.4-5.0) gm/dl Globulin (2.5-4.0) gm/dl Albumin/Globulin Ratio (0.9-2) SARS-CoV-2, RNA, NAAT NEGATIVE (NEGATIVE) Blood Type A Positive Antibody Screen NEGATIVE
[2022-07-29] MEDS: PREGABALIN 100 MG CAP PO SCH (20:51)
[2022-07-29] MEDS: PANTOprazole 40 MG in SYRINGE 0 ML IV SCH (20:52)
[2022-07-29] MEDS ORDERED: DULoxetine HCL 20 MG CAP PO SCH (21:00)
[2022-07-29] MEDS ORDERED: ATORVASTATIN 40 MG TAB PO SCH (21:00)
[2022-07-29] MEDS ORDERED: DULoxetine HCL 60 MG CAP PO SCH (21:00)
[2022-07-30] MEDS: INSULIN ASPART PER UNIT SC SCH ×5 (08:15→16:56)
[2022-07-30] MEDS: PANTOprazole 40 MG in SYRINGE 0 ML IV SCH (08:29)
[2022-07-30] MEDS: PREGABALIN 100 MG CAP PO SCH (08:39)
[2022-07-30 09:08] LABS: Hematocrit (blood only) 36.7 % (34.1-44.9); Hemoglobin 12.3 g/dl (12.0-16.0); Mean Corpuscular Hemoglobin 30.5 pg (25.0-34.0); Mean Corpuscular Hgb Conc 33.5 g/dL (32.0-36.0); Mean Corpuscular Volume 91.1 fL (80.0-100.0); Mean Platelet Volume 13.6 fL (9.4-12.3); Platelet Count 149 K/uL (130-400); RDW Coefficient of Variation 14.1 % (11.5-14.5); RDW Standard Deviation 47.2 fL (36.4-46.3); Red Blood Count 4.03 M/uL (3.93-5.22); White Blood Count 3.68 K/ul (4.8-10.8)
[2022-07-30 09:17] LABS: INR 1.3 (0.9-1.1); Prothrombin Time 13.7 Seconds (9.0-12.0)
[2022-07-30 09:34] LABS: Albumin Globulin Ratio 1.5 (0.9-2); Albumin Level 3.1 gm/dl (3.4-5.0); BUN Creatinine Ratio 33.7 (10-20); Bilirubin,Total 0.9 mg/dl (0.2-1.0); Calcium 8.2 mg/dl (8.5-10.1); Creatinine Clr Calc Pharmacy 39.3 ml/min; Est GFR (Non-African American) 31.1 ml/min; Globulin 2.1 gm/dl (2.5-4.0); Total Protein 5.2 gm/dl (6.0-8.3)
[2022-07-30] MEDS ORDERED: LACTATED RINGER'S 1,000 ML IV SCH (10:45)
[2022-07-30] MEDS ORDERED: LACTATED RINGER'S 1,000 ML IV ONE ×2 (10:47→15:32)
[2022-07-30 11:06] LABS: Estimated Average Glucose 114 mg/dl; Hemoglobin A1C 5.6 % (4.5-5.6)
[2022-07-30 13:30] LABS: BUN Creatinine Ratio 31.9 (10-20); Calcium 8.5 mg/dl (8.5-10.1); Creatinine Clr Calc Pharmacy 41.5 ml/min; Est GFR (African American) 38.5 ml/min; Est GFR (Non-African American) 33.2 ml/min; Potassium 4.2 mmol/L (3.5-5.1)
--- NOTE | 2022-07-30 15:00 | Gastroenterology Progress Note ---
Date of Service July 30, 2022 Assessment & Plan (1) Acute GI bleeding: Plan: She is doing well. Bleeding has stopped. Assume hemorrhoidal bleeding. INR good. She is ready for discharge from my standpoint Admission and Anticipated Discharge Date Admission Date: July 29, 2022 Subjective Doing well. No further bleeding. H/H stable. INR 1.3 Physical Exam Physical Exam: She looks well Results & Data ([facility]) Vital Signs (Past 12 Hours) Vital Signs Temp Pulse Resp BP Pulse Ox O2 Del Method 07/30/22 11:00 36.7 C 86 16 95/60 L 95 Room Air 07/30/22 07:20 36.6 C 104 H 17 125/86 100 Room Air 07/30/22 03:59 36.5 C 99 H 18 99/62 L 93 Room Air
--- NOTE | 2022-07-30 15:55 | Discharge Summary ---
Date of Service July 30, 2022 Admission HPI Per Admitting Provider 61y F w/ hx of prior LLE DVT, neuropathy, and back pain who presents with rectal bleed. The patient reports that she had diarrhea throughout the entire last week. She reports having watery bowel movements at least 4-5 times per day from Wednesday through Wednesday. On Wednesday, she noted bright red blood when she had a bowel movement. She also had diarrhea at that time. On Wednesday, her diarrhea cleared, and she had relatively normal bowel movements; however, she did continue to have blood with the bowel movements. It is tough to quantify the amount of blood that she is passing. She reports that the bowl is tinted red, but otherwise is not sure how to quantify the blood. She reports over the last week that she has felt "sleepy all the time". She has otherwise been well. She reports no other sick contacts who had diarrhea. She herself has had no pain with her bowel movements, no fevers/chills/night sweats, no shortness of breath, no chest pain, no abdominal pain, and no change to her urination. She notes that last Wednesday her INR was 6.2 on her home device. She called her PCP to find out what she should do with her warfarin; however, her PCPs office never responded, and she has continued to take warfarin 5 mg p.o. QPM. Admission Exam Per Admitting Provider Constitutional: WD/WN, vitals as above Eyes: EOM intact bilaterally; no conjunctival abnormality ENMT: external ear and nose normal, oropharynx normal Neck: trachea midline, no thyromegaly normal visual inspection Respiratory: normal respiratory effort, lungs clear to auscultation no respiratory distress Cardiovascular: RRR, no murmur, no edema Gastrointestinal (Abdomen): Inspection/Auscultation: abdomen normal to inspection; abdomen not distended Musculoskeletal: no cyanosis or clubbing, extremities motor strength 5/5 Skin: no rashes, warm and dry Neurologic: moves all extremities and awake Psychiatric: Orientation: alert, oriented to person and cooperative Principal Diagnosis Hemorrhoids, dehydration. Discharge Exam Constitutional WD/WN, vitals as above Eyes PERRL, conjunctivae normal, anicteric sclerae Respiratory normal respiratory effort, lungs clear to auscultation Cardiovascular RRR, no murmur, no edema Gastrointestinal (Abdomen) normal bowel sounds, soft, nontender, no hepatosplenomegaly Psychiatric A+Ox3, euthymic affect Discharge Data Allergies Allergy/AdvReac Type Severity Reaction Status Date / Time bee venom protein (honey bee) Allergy Severe ANAPHYLAXIS Verified 02/18/22 08:53 Penicillins Allergy Severe ANAPHYLAXIS Verified 02/18/22 08:53 Cephalosporins Allergy Intermediate DIZZINESS, Verified 02/18/22 08:53 ITCHY hydroxyzine Allergy Intermediate DIZZY Verified 02/18/22 08:53 ITCHY NAUSEA Sulfa (Sulfonamide Allergy Intermediate DIZZY Verified 02/18/22 08:53 Antibiotics) ITCHY, NAUSEA shellfish derived Allergy Unknown SENSITIVITY Verified 02/18/22 08:53 metaxalone AdvReac Intermediate n/v and Verified 02/18/22 08:53 headache, dizziness Consultations 07/29/22 09:19 Consult Gastroenterology Routine 07/29/22 10:47 ED Decision to Admit Stat Hospital Course (1) Bright red blood per rectum: 61 year old female w/ past medical history of LLE DVT in 2019, neuropathy, back pain admitted for concern for GI bleed. Bright red blood per rectum: -Diarrhea x1 week, development of few days of bloody BM with bright red blood. -INR of 6.7 on arrival, down to 1.3 the next day. -Hemoglobin 13.0 -> 12.5 -> 12.3, stable over course. -GI consulted, most likely hemorrhoids, patient did not have any more bloody bowel movements day of discharge. -Told patient to stop warfarin for time being until able to follow up with PCP for further discussion. Patient would likely benefit from further discussion with maintenance and repair worker on need for anticoagulation. ROMI: -BUN/Creat 66/1.84 upon entry, improved to 52/1.63 after 2L fluid bolus. -Most likely secondary to dehydration from diarrhea. -Given 1L LR before leaving. -Can repeat BMP outpatient to check for resolution. (2) DVT (deep venous thrombosis): Total Time Total Time Spent Total Time Spent (In Minutes): 55 Discharge Plan Discharge Items Patient Disposition: Home - Self-Care Reason For Visit: BRBPR Discharge Diagnosis: Hemorrhoid bleed, supratherapeutic INR, acute kidney injury Activity: Resume your previous activity Non-emergency contact: Primary Care Provider Call non-emergency contact if: you have any medication questions and your symptoms worsen Follow-up/Referrals: Jonn,Misti, [employer] [Outside Practitioners] - 08/05/22 11:05 am Diet: Carb Consistent or DM2 Addtl Attending Provider Instructions: You were admitted to the hospital for rectal bleeding. Your blood levels have remained stable, and we feel it is safe for you to return home. A discharge summary will be sent to your primary care physician to ensure continuity of care. Please bring this discharge summary with you to your next office appointment so that your provider can review it at that time. Follow-up appointments: Make a follow-up appointment with your PCP within the next week. It is very important that you follow up with them shortly after discharge from the hospital. Keep all your follow-up appointments as already scheduled. If you cannot make an appointment, notify your provider. Medications: Your medication list has been reviewed and reconciled upon discharge to ensure accuracy and continuity of care. An updated list of all your medications is included with your hospital discharge paperwork. Please review this list closely, and make note of any changes. * We recommend discontinuing warfarin (coumadin). Do not take warfarin (coumadin) until you follow up with your PCP to discuss this further. Take your medications as instructed; do not skip a dose of your medicines. Make sure all of your doctors know every medicine you are taking (including ivnv-lqi-rbwhjzl medicines, vitamins, and supplements). Call your primary care provider before taking any new medicines (including gvbt-xfk-ohicwoa medicines, vitamins, and supplements), because some of these may interact with your current medications, or may make your symptoms worse. Tell your primary care provider if you cannot afford your medications. CONTACT YOUR PRIMARY CARE PROVIDER if you experience any of the following: Worsening rectal bleeding Lightheadedness or dizziness Difficulty following your treatment plan, or difficulty taking medications CALL 911 OR GO TO THE EMERGENCY DEPARTMENT if you experience any of the following: Sudden, severe abdominal pain or nausea/vomiting Severe chest pain, or chest pain that radiates (moves) to your jaw or arm Sudden, severe shortness of breath or difficulty breathing Thank you for allowing us to participate in your care. Pending Studies at Discharge: No Stand-Alone Forms: My [facility] Medications and DC Order Prescriptions: Continued pregabalin 100 mg capsule 100 mg PO BID 90 Days Qty: 180 1RF carbamazepine 400 mg tablet extended release 12 hr 400 mg PO BID 90 Days Qty: 180 3RF omeprazole 20 mg capsule,delayed release(DR/EC) 20 mg PO BID diclofenac potassium 50 mg tablet 50 mg PO DAILY duloxetine 20 mg capsule,delayed release(DR/EC) 20 mg PO QPM levocetirizine 5 mg tablet 5 mg PO DAILY atorvastatin [Lipitor] 40 mg Tablet 40 mg PO QPM acetaminophen [Tylenol] 325 mg Tablet 650 mg PO Q6H PRN (Reason: Pain) doxycycline hyclate 100 mg capsule 100 mg PO BID Rx Instructions: 1-2 tabs a day metformin 1,000 mg tablet 1,000 mg PO BID duloxetine [Cymbalta] 60 mg Capsule,Delayed Release(Dr/Ec) 60 mg PO QPM Label Comments: list states 50mg Advair HFA 115-21 mcg/actuation Hfa Aerosol Inhaler 2 puff INHALATION Q12H PRN (Reason: Wheezing) ccauravqyy-kogzbwjegzkkq-zier [Fioricet] 50-300-40 mg Capsule 2 cap PO Q8H PRN (Reason: Migraine Headache) Probiotic 10 billion cell Capsule 10 cell PO QAM Label Comments: unknown dosage docusate sodium [Colace] 100 mg capsule 100 mg PO BID Qty: 60 0RF telmisartan-hydrochlorothiazid [Micardis HCT] 80-12.5 mg Tablet 1 tab PO QAM turmeric 400 mg Capsule 400 mg PO QAM Discontinued warfarin 5 mg Tablet 5 mg PO PM Discharge Orders: Discharge Order (Routine); Ordered 07/30/22 Ordered By: Gonzalo Adams/Other Patient Handouts: Understanding Deep Vein Thrombosis, DVT Complications, Preventing Deep Vein Thrombosis Admission Data Admit Date/Time: 07/29/22 11:07 Attending Provider: Marck Sanchez Admit Provider: Eugenio Cooney Primary Care Provider: Kate Mohamud Other Providers: Connie Lu Jr ; Eugenio Cooney Other Interventions: Discharge Summary Assessment (RN) Last Done: 07/30/22 16:19 Supervising Physician Co-Signing Physician Notes GI bleed/possible hemorrhoidal bleeding d/t anticoagulant therapy Patient was seen and examined at bedside. During face to face encounter, I obtained a history and physical examination. Patient admitted with anemia, due to a hemorrhoidal bleeding while on anticoagulant. Will recommend holding warfarin in the short term until followup with PCP. Given hemoglobin is stable and bleeding has stopped, patient can be discharged. I discussed plan of care with Dr. Shields and patient. I reviewed above note and agree with it. Resident Activity Tracking Resident Involvement: Resident Care Provided Care Provided: Adult Hospital Medicine
--- NOTE | 2022-07-31 05:52 | Electrocardiogram Report ---
Test Reason : Blood Pressure : / mmHG Vent. Rate : 098 BPM Atrial Rate : 098 BPM P-R Int : 146 ms QRS Dur : 130 ms QT Int : 376 ms P-R-T Axes : 056 -56 039 degrees QTc Int : 480 ms Normal sinus rhythm Left axis deviation Right bundle branch block Moderate voltage criteria for LVH, may be normal variant Anterior infarct Possible Inferior infarct , age undetermined Abnormal ECG When compared with ECG of 11-OCT-2017 22:21, Right bundle branch block has replaced Incomplete right bundle branch block Criteria for Anterior infarct are now Present Confirmed by Kenny Cardenas ([id number]) on 07/31/2022 5:52:26 AM Referred By: Kate Mohamud Confirmed By:Kenny Cardenas
== END 2022-07-30 18:14 | disposition home or self-care (01) | DRG 813 ==
LOC: ED 08:31 → EDINP 11:07 → SUATTDRO 11:07 → 2S 13:32

== ENCOUNTER 2024-03-26 10:40 | Inpatient (IN) ==
--- OUTSIDE RECORDS SUMMARY | 2024-03-26 10:45 | External Medical Summary | Continuity of Care Document ---
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 Role Phone Romqamar Kate M Primary Care Physician [phone] [id number] Date(s): 03/23/24 - 03/23/24 [facility] [address] [facility] [address] [place], [place] [phone] Encounter Diagnosis Epilepsy, unspecified, not intractable, without status epilepticus(Final) - Discharge Disposition: Home or Self Care Attending Physician: Jordan MCDANIEL MD, Emile P Referring Physician: Jordan MCDANIEL MD, Emile P Allergies, Adverse Reactions, Alerts Substance Criticality Severity Reaction Reaction Severity Status Ceftin rash Active Skelaxin vision distrubance A ctive Amoxil severe rash/hives Ac tive Atarax rash Active Bee stings Active sulfa drugs Active PCN (penicillin) Act shira Immunizations Given and Recorded Vaccine Date Status Refusal Reason pneumococcal 20-valent conjugate vaccine 06/10/22 Given zoster vaccine, inactivated 05/09/22 Recorded zoster vaccine, inactivated 03/09/22 Recorded influenza virus vaccine, inactivated 05/09/22 Anupam rded influenza virus vaccine, inactivated 05/07/20 Give n SARS-CoV-2 (COVID-19) mRNA BNT-162b2 vax 10/10/20 Recorded tetanus/diphtheria/pertuss, acel (Tdap) 04/18/15 G iven tetanus toxoids-diphtheria, Td (Adult) 06/14/02 Re corded Medications Advair Diskus 250 mcg-50 mcg Start: 12/25/21 11:04:00 AM EDT, 1 puff, PO, bid, Disp# 1 each, Pharmacy: [address] Start Date: 12/25/21 Stop Date: 01/24/22 Status: Ordered albuterol CFC free 90 mcg/inh MDI Start: 06/25/23 2:40:00 PM EST, 2 puff, inhaled, qid, Disp# 8 g, Refills: 3, PRN: as needed for wheezing, Pharmacy: [facility] Start Date: 06/25/23 Status: Ordered atorvastatin 40 mg oral tablet Start: 08/12/23 3:05:00 PM EST, See Instructions, Disp# 90 tab, Refills: 3, TAKE 1 TABLET AT BEDTIME,Pharmacy: [facility] Start Date: 08/12/23 Status: Ordered Benadryl 25 mg oral capsule Start: 11/01/23 3:25:00 PM EDT, 2 cap, PO, bid, PRN: as needed for itching Start Date: 11/01/23 Status: Ordered clotrimazole 1% topical cream Start: 08/17/22 8:29:00 AM EST, 1 appl, topical, bid, Disp# 30 g, Refills: 1, Pharmacy: [id number] Start Date: 08/17/22 Status: Ordered doxycycline hyclate 100 mg oral capsule Start: 09/03/23 4:19:00 PM EST, 1 cap, PO, bid, Disp# 180 cap, Refills: 3, Pharmacy: [facility] Start Date: 09/03/23 Status: Ordered DULoxetine 30 mg oral delayed release capsule Start: 02/28/24 5:39:00 PM EDT, 1 cap, PO, Daily, Disp# 30 cap, Refills: 0, Pharmacy: [facility] Start Date: 02/28/24 Status: Ordered EpiPen 2-Osei 0.3 mg injectable kit Start: 03/18/23 3:20:00 PM EDT, 0.3 mg =, IM, ONCE, Disp# 1 kit, Refills: 1, PRN: as needed for anaphylaxis, Pharmacy: [facility] Start Date: 03/18/23 Status: Ordered Fioricet 325 mg-50 mg-40 mg oral tablet Start: 03/22/24 9:41:00 AM EDT, 1 tab, PO, q4h, Disp# 30 tab, Refills: 0, PRN: as needed for headache, Pharmacy: [facility] Start Date: 03/22/24 Status: Ordered FreeStyle Gerard 14 day sensor Start: 11/13/20 11:40:00 AM EDT, See Instructions, Disp# 2 each, Replace the FreeStyle Gerard sensor every 14 days., Pharmacy: [address] Start Date: 11/13/20 Status: Ordered KETOTIFEN 1MG CAPS KETOTIFEN 1MG CAPS, TAKE ONE CAPSULE BY MOUTH TWICE DAILY Start Date: 03/22/24 Status: Ordered Lasix 20 mg oral tablet Start: 12/07/23 3:14:00 PM EDT, 1 tab, PO, Daily, Disp# 30 tab, Refills: 0, Take for 3 days and thenstop and contact doctor, Pharmacy: [id number] Start Date: 12/07/23 Status: Ordered metFORMIN 1000 mg oral tablet Start: 11/10/23 1:16:00 PM EDT, 1 tab, PO, bid Start Date: 11/10/23 Status: Ordered metoprolol succinate 25 mg oral tablet, extended release Start: 08/12/23 3:05:00 PM EST, 1 tab, PO, Daily, Disp# 90 tab, Refills: 3, Pharmacy: [facility] Start Date: 08/12/23 Status: Ordered montelukast 10 mg oral tablet Start: 02/09/24 12:06:00 PM EDT, 1 tab, PO, qPM Start Date: 02/09/24 Status: Ordered nystatin-triamcinolone 100,000 units/g-0.1% topical cream Start: 03/22/24 9:18:00 AM EDT, 1 appl, topical, tid, Disp# 60 g, Refills: 1, Pharmacy: [facility] Start Date: 03/22/24 Status: Ordered omeprazole 40 mg oral delayed release capsule Start: 07/05/23 4:43:00 PM EST, 1 cap, PO, bid, Disp# 180 cap, Refills: 3, Pharmacy: [facility] Start Date: 07/05/23 Status: Ordered predniSONE 10 mg oral tablet Start: 08/06/23 11:41:00 AM EST, 1 tab, PO, Daily, Disp# 10 tab, Pharmacy: [id number] Start Date: 08/06/23 Status: Ordered pregabalin 100 mg oral capsule Start: 06/10/22 11:55:00 AM EDT, See Instructions, 1 cap PO qhs Start Date: 06/10/22 Status: Ordered promethazine 25 mg oral tablet Start: 03/18/23 3:20:00 PM EDT, 1 tab, PO, q6h, Disp# 60 tab, Refills: 3, PRN: as needed for nausea/vomiting, Pharmacy: [facility] Start Date: 03/18/23 Status: Ordered Stool softener Start: 07/13/22 2:15:00 PM EST, Stool softener, 1 cap po daily Start Date: 07/13/22 Status: Ordered Tegretol Start: 07/17/10 9:00:52 AM EST, 400 mg =, PO, bid, Refills: 0, current medication from another provider Start Date: 07/17/10 Status: Ordered telmisartan 80 mg oral tablet Start: 09/21/23 1:33:00 PM EST, 1 tab, PO, Daily, Disp# 90 tab, Refills: 3, Pharmacy: [facility] Start Date: 09/21/23 Status: Ordered triamcinolone 0.1% topical cream Start: 06/14/23 4:24:00 PM EST, 1 appl, topical, bid, Disp# 80 g, Refills: 1, mix 50/50 with nystatin, Pharmacy: [facility] #[id number] Start Date: 06/14/23 Status: Ordered warfarin 5 mg oral tablet Start: 02/04/23 3:11:00 PM EDT, See Instructions, 3mg daily Start Date: 02/04/23 Status: Ordered Xopenex HFA 45 mcg/inh inhalation aerosol Start: 09/13/23 1:53:00 PM EST, 1 puff, inhaled, q4h, Disp# 15 g, Refills: 4, PRN: as needed for wheezing, Pharmacy: [facility] #[id number] Start Date: 09/13/23 Status: Ordered Problem List Condition Confirmation Course Effective Dates Status H ealth Status Informant ALLERGIC RHINITIS Confirmed Active Bee sting allergy Confirmed Active Alopecia Confirmed Active Fusion of spine Confirmed Active ASTHMA Confirmed 06/09/98 Active Brittni infection Confirmed Active Cyclic vomiting syndrome Confirmed Active Degenerative arthropathy of spinal facet joint 1 Confirmed Active Depression Confirmed Active Diabetes Confirmed Active Bone lesion Confirmed Active Skull mass Confirmed Active Edema Confirmed Active Fatty liver Confirmed Active Fibromyalgia Confirmed Active Hx of deep venous thrombosis Confirmed Active History of gastric ulcer Confirmed Active H/O: migraine Confirmed Active Hx of deep vein thrombophlebitis of lower extremity Confirmed Active HTN - Hypertension Confirmed 03/09/08 Active Hyperlipidemia Confirmed Active Hyperlipidemia Confirmed Active Elevated INR Confirmed Active Itch Confirmed Active Benign cyst of right kidney Confirmed Active Lumbago syndrome Confirmed Active Lymphedema Confirmed Active Migraine Confirmed Active Nausea Confirmed Active Nausea and vomiting in adult Confirmed Active Neuropathy Confirmed Active Medication management Confirmed Active Post-menopausal Confirmed Active Post-thrombotic syndrome of left lower extremity Confirmed Active Protein deficiency Confirmed Active Rectal bleeding Confirmed Active Need for Streptococcus pneumoniae vaccination Confirmed Active Peritoneal metastases Confirmed Active Seizure disorder 2 Confirmed Active Spinal stenosis Confirmed Active Tachycardia Confirmed Active Type 2 diabetes mellitus Confirmed Active Ambulatory dysfunction Confirmed Active Weight disorder Confirmed Active 1L3-L4 2followed by Dr Ortega Procedures Procedure Date Related Diagnosis Body Site Status Cataract 1 04/21/23 Completed Cataract 2 04/07/23 Completed Gastric emptying study 3 11/18/22 Completed Upper GI (gastrointestinal) endoscopy 4, 5 08/19/[address] of abdomen and pelvis 6 09/05/20 Completed Upper GI endoscopy 7 08/07/20 Comp leted Colonoscopy 8 06/11/20 Completed Colonoscopy 9, 10 06/11/20 Complet ed EGD (esophagogastroduodenosc opy) gastric outlet reduction 11 06/11/20 Comp leted US EXAM ABDOM COMPLETE 12 10/05/19 Completed US Bilateral Lower extremiti es venous 13 06/02/18 Completed back fusion Completed c-sections x 3 Completed brandon Completed brandon Completed Craniectomy 14 Completed right knee meniscectomy C ompleted right TKA Completed TOMAS BSO Completed umbilical hernia repair C ompleted 1left 2right 3Normal gastric emptying study. 4normal 5Pathology: Stomach,antrum, biopsy: Reactive changes consistent with reactive gastropathy. 6Impression: No acute process within the abdomen or pelvis on unenhanced exam. No bowel obstruction. Sigmoid diverticulosis without evidence for acute diverticulitis. Exam compromised by streak artifact from hardware within the spine. 76mm largest lesion 8findings a few small mouthed diverticula were found in the sigmoid colon. two sessile polyps were found in the recto-sigmoid colon. The polyps were 4-5mm in size. These polyps were removed with a hot snare. resection and retrevial were complete. Estimated blood loss. none. 9Diverticulosis in the sigmoid colon. Two 4 to 5 mm polyps at the rectosigmoid colon, removed with a hot snare. Resected and retrieved. Await pathology 10Colon, rectosigmoid: An inflamed hyperplastic polyp is seen. Please not atht this specimen is leveled x 6. 11Multiple angio ectasia which were fulgurated. 2 small sessile polyps. 12Impression: 1. Cholecystectomy 2. A 2.6cm left parapelvic cyst. 3. Mild hepatic steatosis. 13Impression: There is no sonographic evidence of deep venous thrombosis identified in the right or left lower extremity Left sided Acosta cyst. 14R suboccipital, Microdissection Results Laboratory List Name Date Carbamazepine Level (CARBAMAZEPINE) 03/23 Request to FAX Report (First Location) ( ACC NO TO BE FAXED) 03/23/24 Most recent to oldest [Reference Range]: 1 Phone No [phone] (03/23/24 7:33 AM) Faxed on: 03/24/24 08:56 (03/23/24 7:33 AM) Tegretol [4.0-12.0 ug/mL] 6.9 ug/mL (03/23/24 7:33 AM) 1Result Comment: Testing Performed By: Dept of Pathology [facility], [address] [place] [address], [place] [address] Social History Social History Type Response Smoking Status Never smoked cigaret jose francisco Sex Female Sex Representation Female (finding) Patient Care team information Care Team Personnel Name: RICARDO Grove Tara Position: Nurse Pract - Family Med Member Role: Lifetime Relationship Address: [address] [place] [address] [place] Name: DO Mccain Franklin J Position: Physician - Family Med Member Role: Lifetime Relationship Address: [address] [place] [address] [place] Name: DO Mohamud Kristen M Position: Physician - Family Med Member Role: Primary Care Provider Address: [address] [place] [address] [place] Name: JIMBO Godinez Lynn Position: Physician Telephone Switchboard Operator Exempt - Vasc Surg Member Role: Lifetime Relationship Address: [address] [place] [address] Name: RICARDO Oh Shari A Position: Nurse Pract - Family Med Member Role: Lifetime Relationship Address: [address] [facility] [address] [place] [address] [place] Care Team Related Persons Name: MEHREEN BUTLER Name: MEHREEN BUTLER
--- OUTSIDE RECORDS SUMMARY | 2024-03-26 10:45 | External Medical Summary | Continuity of Care Document ---
Author Name Unknown Organization [address] Address [address] [place] [address] [phone] Care Team Providers Care Console Manager Name Role Phone Kate Mohamud Primary Care Physician [phone] [id number] Date(s): 03/22/24 - 03/22/[address] [place] [address], [address] [place] [address] [phone] Encounter Diagnosis Edema(Discharge Diagnosis) - 03/22/24 Diabetes(Discharge Diagnosis) - 03/22/24 Dermatitis(Discharge Diagnosis) - 03/22/24 Migraine(Discharge Diagnosis) - 03/22/24 Intertrigo(Discharge Diagnosis) - 03/22/24 Discharge Disposition: Home or Self Care Attending Physician: DO Mohamud Kristen M Referring Physician: DO Mohamud Kristen M Allergies, Adverse Reactions, Alerts Substance Criticality Severity Reaction Reaction Severity Status Ceftin rash Active Skelaxin vision distrubance A ctive Amoxil severe rash/hives Ac tive Atarax rash Active Bee stings Active sulfa drugs Active PCN (penicillin) Act shira Assessment and Plan Extracted from: Title:Office Visit Note Author:DO Mohamud Kriste n M Date:03/22/24 1.Edema Chronic condition, stable Goal:Resolution Data:unique tests ordered: _ Plan: _mildly improving 2.Diabetes Chronic condition, stable Goal:Resolution Data:unique tests ordered: _ Plan: _check A1c 3.Dermatitis Chronic condition, stable Goal:Resolution Data:unique tests ordered: _ Plan: _cont current regimen 4.Migraine Chronic condition, stable Goal:Resolution Data:unique tests ordered: _ Plan: _refill fiorocet 5.Intertrigo Chronic condition, stable Goal:Resolution Data:unique tests ordered: _ Plan: _refilled nystatintriamcinolone cream Immunizations Given and Recorded Vaccine Date Status [...] puff, PO, bid, Disp# 1 each, Pharmacy: [id number] Start Date: 12/25/21 Stop Date: 01/24/22 Status: Ordered albuterol CFC free 90 mcg/inh MDI Start: 06/25/23 2:40:00 PM EST, 2 puff, inhaled, qid, Disp# 8 g, Refills: 3, PRN: as needed for wheezing, Pharmacy: [facility] Start Date: 06/25/23 Status: Ordered atorvastatin 40 mg oral tablet Start: 08/12/23 3:05:00 PM EST, See Instructions, Disp# 90 tab, Refills: 3, TAKE 1 TABLET AT BEDTIME,Pharmacy: [facility] Start Date: 08/12/23 Status: Ordered Benadryl 25 mg oral capsule Start: 11/01/23 3:25:00 PM EDT, 2 cap, PO, bid, PRN: as needed for itching Start Date: 11/01/23 Status: Ordered clotrimazole 1% topical cream Start: 08/17/22 8:29:00 AM EST, 1 appl, topical, bid, Disp# 30 g, Refills: 1, Pharmacy: [id number] Start Date: 08/17/22 Status: Ordered doxycycline hyclate 100 mg oral capsule Start: 09/03/23 4:19:00 PM EST, 1 cap, PO, bid, Disp# 180 cap, Refills: 3, Pharmacy: [facility] Start Date: 09/03/23 Status: Ordered DULoxetine 30 mg oral delayed release capsule Start: 02/28/24 5:39:00 PM EDT, 1 cap, PO, Daily, Disp# 30 cap, Refills: 0, Pharmacy: [facility] Start Date: 02/28/24 Status: Ordered EpiPen 2-Osei 0.3 mg injectable kit Start: 03/18/23 3:20:00 PM EDT, 0.3 mg =, IM, ONCE, Disp# 1 kit, Refills: 1, PRN: as needed for anaphylaxis, Pharmacy: [facility] Start Date: 03/18/23 Status: Ordered Fioricet 325 mg-50 mg-40 mg oral tablet Start: 03/22/24 9:41:00 AM EDT, 1 tab, PO, q4h, Disp# 30 tab, Refills: 0, PRN: as needed for headache, Pharmacy: [facility] Start Date: 03/22/24 Status: Ordered FreeStyle Gerard 14 day sensor Start: 11/13/20 11:40:00 AM EDT, See Instructions, Disp# 2 each, Replace the FreeStyle Gerard sensor every 14 days., Pharmacy: [facility] [address] Start Date: 11/13/20 Status: Ordered KETOTIFEN 1MG CAPS KETOTIFEN 1MG CAPS, TAKE ONE CAPSULE BY MOUTH TWICE DAILY Start Date: 03/22/24 Status: Ordered Lasix 20 mg oral tablet Start: 12/07/23 3:14:00 PM EDT, 1 tab, PO, Daily, Disp# 30 tab, Refills: 0, Take for 3 days and thenstop and contact doctor, Pharmacy: [place] [id number] Start Date: 12/07/23 Status: Ordered metFORMIN 1000 mg oral tablet Start: 11/10/23 1:16:00 PM EDT, 1 tab, PO, bid Start Date: 11/10/23 Status: Ordered metoprolol succinate 25 mg oral tablet, extended release Start: 08/12/23 3:05:00 PM EST, 1 tab, PO, Daily, Disp# 90 tab, Refills: 3, Pharmacy: [facility] Start Date: 08/12/23 Status: Ordered montelukast 10 mg oral tablet Start: 02/09/24 12:06:00 PM EDT, 1 tab, PO, qPM Start Date: 02/09/24 Status: Ordered nystatin-triamcinolone 100,000 units/g-0.1% topical cream Start: 03/22/24 9:18:00 AM EDT, 1 appl, topical, tid, Disp# 60 g, Refills: 1, Pharmacy: [facility] Start Date: 03/22/24 Status: Ordered omeprazole 40 mg oral delayed release capsule Start: 07/05/23 4:43:00 PM EST, 1 cap, PO, bid, Disp# 180 cap, Refills: 3, Pharmacy: [facility] Start Date: 07/05/23 Status: Ordered predniSONE 10 mg oral tablet Start: 08/06/23 11:41:00 AM EST, 1 tab, PO, Daily, Disp# 10 tab, Pharmacy: [id number] Start Date: 08/06/23 Status: Ordered pregabalin 100 mg oral capsule Start: 06/10/22 11:55:00 AM EDT, See Instructions, 1 cap PO qhs Start Date: 06/10/22 Status: Ordered promethazine 25 mg oral tablet Start: 03/18/23 3:20:00 PM EDT, 1 tab, PO, q6h, Disp# 60 tab, Refills: 3, PRN: as needed for nausea/vomiting, Pharmacy: [facility] Start Date: 03/18/23 Status: Ordered [...] Daily, Disp# 90 tab, Refills: 3, Pharmacy: [facility] Start Date: 09/21/23 Status: Ordered triamcinolone 0.1% topical cream Start: 06/14/23 4:24:00 PM EST, 1 appl, topical, bid, Disp# 80 g, Refills: 1, mix 50/50 with nystatin, Pharmacy: [id number] Start Date: 06/14/23 Status: Ordered warfarin 5 mg oral tablet Start: 02/04/23 3:11:00 PM EDT, See Instructions, 3mg daily Start Date: 02/04/23 Status: Ordered Xopenex HFA 45 mcg/inh inhalation aerosol Start: 09/13/23 1:53:00 PM EST, 1 puff, inhaled, q4h, Disp# 15 g, Refills: 4, PRN: as needed for wheezing, Pharmacy: [id number] Start Date: 09/13/23 Status: Ordered Mental Status 03/22/24 Barriers to Learning one year None evide nt Mandatory Health Literacy Documentation Yes Health Literacy Communication Barriers N ever Primary Language Estonian Problem List Condition Confirmation Course Effective Dates [...] Confirmed Active 1L3-L4 2followed by Dr Ortega Diagnosis Diagnosis Type Effective Dates Health Status Clini meme Service Informant Edema Discharge Diagnosis 03/22/24 Non-Specified Dermatitis Discharge Diagnosis 03/22/24 Non-Specified Migraine Discharge Diagnosis 03/22/24 Non-Specified Intertrigo Discharge Diagnosis 03/22/24 Non-Specified Diabetes Discharge Diagnosis 03/22/24 Non-Specified Procedures Procedure Date Related Diagnosis Body Site [...] Left sided Acosta cyst. 14R suboccipital, Microdissection Vital Signs Most recent to oldest [Reference Range]: 1 Patient Weight 115 kg (03/22/24 8:49 AM) Heart Rate 77 bpm (03/22/24 8:49 AM) Respiratory Rate 22 br/min (03/22/24 8:49 AM) Blood Pressure 118/78mmHg (03/22/24 8:49 AM) Social History Social History Type Response Smoking Status Never smoked cigaret jose francisco Sex Female Sex Representation Female (finding) FCM Outpt Note * DO Mohamud Kristen M: PERFORM Event Display: FCM Outpt Note Authored Date: [id number] Chief Complaint 6 mo - BLE swelling (using compression device at home and measuring BLE once/week) - LLE w/ some healing blisters History of Present Illness Pt presents to discuss ongoing issues. Last visit: 1.Dermatitis Chronic condition, stable Goal:Resolution Data:unique tests ordered: _ Plan: _working on the mast cells 2.Lymphedema Chronic condition, stable Goal:Resolution Data:unique tests ordered: _ Plan: _TEDs/[facility] orthotics 3.Infected hardware in left lower extremity Chronic condition, stable Goal:Resolution Data:unique tests ordered: _ Plan: _referral to ID Physical Exam Vitals & Measurements HR:77(Monitored) RR:22 BP:118/78 SpO2:98% WT:115kg WT:115.000kg(Dosing) PHQ2 Data(Data Documented on:03/22/2024 08:44) Emotional health assessment NEGATIVE Assessment/Plan 1.Edema Chronic condition, stable Goal:Resolution Data:unique tests ordered: _ Plan: _mildly improving 2.Diabetes Chronic condition, stable Goal:Resolution Data:unique tests ordered: _ Plan: _check A1c 3.Dermatitis Chronic condition, stable Goal:Resolution Data:unique tests ordered: _ Plan: _cont current regimen 4.Migraine Chronic condition, stable Goal:Resolution Data:unique tests ordered: _ Plan: _refill fiorocet 5.Intertrigo Chronic condition, stable Goal:Resolution Data:unique tests ordered: _ Plan: _refilled nystatintriamcinolone cream Attestation I spent4 mintime in previsit planning including prepping note and chart review . I spent33 time in face to face interaction with patient concerning the issues that brought them in today. I spent4 min time in post visit planning including finishing note and depart process Total time spent today on patient visit41 min Problem List/Past Medical History Ongoing ALLERGIC RHINITIS Alopecia Ambulatory dysfunction ASTHMA Bee sting allergy Benign cyst of right kidney Bone lesion Brittni infection Cyclic vomiting syndrome Degenerative arthropathy of spinal facet joint Depression Diabetes Edema Elevated INR Fatty liver Fibromyalgia Fusion of spine H/O: migraine History of gastric ulcer HTN - Hypertension Hx of deep vein thrombophlebitis of lower extremity Hx of deep venous thrombosis Hyperlipidemia Hyperlipidemia Itch Lumbago syndrome Lymphedema Medication management Migraine Nausea Nausea and vomiting in adult Need for Streptococcus pneumoniae vaccination Neuropathy Peritoneal metastases Post-menopausal Post-thrombotic syndrome of left lower extremity Protein deficiency Rectal bleeding Seizure disorder Skull mass Spinal stenosis Tachycardia Type 2 diabetes mellitus Weight disorder Resolved Acute sinus infection Bilateral knee pain Healthcare maintenance Postoperative anemia Pre-op exam Shoulder tendinitis Urethral stenosis Vaginitis Procedure/Surgical History Cataract| Service Date: 04/21/2023ataract| Service Date: 04/07/2023astric emptying study| Service Date: 11/18/2022Upper GI (gastrointestinal) endoscopy| Service Date: 08/19/2022T ofabdomen and pelvis| Service Date: 09/05/2020Upper GI endoscopy| Service Date: 08/07/2020EGD (esophagogastroduodenoscopy) gastric outlet reduction| Service Date: 06/11/2020Colonoscopy| Service Date: 06/11/2020Colonoscopy| Service Date: 06/11/2020US EXAM ABDOM COMPLETE| Service Date: 10/05/2019US Bilateral Lower extremities venous| Service Date: 06/02/2018choleback fusionc-sections x 3right knee meniscectomyumbilical hernia repairright TKAcholeTAH BSOCraniectomy Medications acetaminophen/butalbital/caffeine(Fioricet 325 mg-50 mg-40 mg oral tablet), 1 tab, PO, q4h, PRN albuterol(albuterol CFC free 90 mcg/inh MDI), 2 puff, inhaled, qid, PRN, 3 refills atorvastatin(atorvastatin 40 mg oral tablet), See Instructions, 3 refills carbamazepine(Tegretol), 400 mg, PO, bid clotrimazole topical(clotrimazole 1% topical cream), 1 appl, topical, bid, 1 refills diabetes supplies(FreeStyle Gerard 14 day sensor), See Instructions diphenhydrAMINE(Benadryl 25 mg oral capsule), 50 mg= 2 cap, PO, bid, PRN doxycycline(doxycycline hyclate 100 mg oral capsule), 100 mg= 1 cap, PO, bid, 3 refills DULoxetine(DULoxetine 30 mg oral delayed release capsule), 1 cap, PO, Daily EPINEPHrine(EpiPen 2-Osei 0.3 mg injectable kit), 0.3 mg, IM, ONCE, PRN, 1 refills fluticasone-salmeterol(Advair Diskus 250 mcg-50 mcg), 1 puff, PO, bid furosemide(Lasix 20 mg oral tablet), 20 mg= 1 tab, PO, Daily levalbuterol(Xopenex HFA 45 mcg/inh inhalation aerosol), 1 puff, inhaled, q4h, PRN, 4 refills metFORMIN(metFORMIN 1000 mg oral tablet), 1000 mg= 1 tab, PO, bid methocarbamol(methocarbamol 500 mg oral tablet), 500 mg= 1 tab, PO, tid, PRN, 3 refills metoprolol(metoprolol succinate 25 mg oral tablet, extended release), 25 mg= 1 tab, PO, Daily, 3 refills montelukast(montelukast 10 mg oral tablet), 10 mg= 1 tab, PO, qPM omeprazole(omeprazole 40 mg oral delayed release capsule), 40 mg= 1 cap, PO, bid, 3 refills predniSONE(predniSONE 10 mg oral tablet), 10 mg= 1 tab, PO, Daily pregabalin(pregabalin 100 mg oral capsule), See Instructions promethazine(promethazine 25 mg oral tablet), 25 mg= 1 tab, PO, q6h, PRN, 3 refills telmisartan(telmisartan 80 mg oral tablet), 80 mg= 1 tab, PO, Daily, 3 refills triamcinolone topical(triamcinolone 0.1% topical cream), 1 appl, topical, bid, 1 refills unknown medication(Stool softener) unlisted medication(KETOTIFEN 1MG CAPS) warfarin(warfarin 5 mg oral tablet), See Instructions Allergies Amoxilsevere rash/hives Ataraxrash Bee stings Ceftinrash PCN (penicillin) Skelaxinvision distrubance sulfa drugs Social History Smoking Status Never smoked cigarettes Alcohol - Denies Alcohol Use Substance Abuse - Denies Substance Abuse Tobacco - Denies Tobacco Use Use:Never smoker Family History Cataract: Mother. Diabetes: Brother. High Blood Pressure: Mother. Pacemaker: Mother. Prostate cancer..: Negative: Father. Seizure: Father. Health Status Family Member(s) Family Member(s) Relationship: Mother, Age: Unknown Relationship: Father, Age: Unknown Immunizations Vaccine Date Status pneumococcal 20-valent conjugate vaccine 06/10/2022 Given zoster vaccine, inactivated 05/09/2022 Recorded influenza virus vaccine, inactivated 05/09/2022 Recorded zoster vaccine, inactivated 03/09/2022 Recorded SARS-CoV-2 (COVID-19) mRNA BNT-162b2 vax 10/10/2020 Recorded influenza virus vaccine, inactivated 05/07/2020 Given tetanus/diphtheria/pertuss, acel (Tdap) 04/18/2015 Given tetanus toxoids-diphtheria, Td (Adult) 06/14/2002 Recorded Recommendations Health Maintenance Pending(in the next year) OverDue Adult Influenza Vaccine due02/06/24and every 1year Due Diabetes Management A1c due02/06/24and every 366day Adult COVID-19 Vaccination due03/22/24Unknown Frequency Adult Social Determinants of Health Screening due03/22/24Unknown Frequency Breast Cancer Screening due03/22/24Unknown Frequency Falls Plan of Care due03/22/24Unknown Frequency Due In Future Diabetic Eye Exam not due until05/28/24and every 731day Satisfied(in the past 1 year) Satisfied Body Mass Index on12/07/23.Satisfied by REGIS Pena Angela Colorectal Cancer Screening on08/10/23.Satisfied by Contributor_system, [employer] Electronic Signature on File Electronically Reviewed/Signed by: Kate Mohamud DO Author Signature Dt/Tm:03/22/2024 09:41 AM Department of Family Medicine [facility] Patient Care team information Care Team Personnel Name: RICARDO Grove Tara Position: Nurse Pract - Family Med Member Role: Lifetime Relationship Address: [address] [place] [address], [place] [address] Name: DO Mccain Franklin J Position: Physician - Family Med Member Role: Lifetime Relationship Address: [address] [facility] [address] [place] [address] Name: DO Mohamud Kristen M Position: Physician - Family Med Member Role: Primary Care Provider Address: [address] [address] [place] Name: JIMBO Godinez Lynn Position: Physician Cook Mess Exempt - Vasc Surg Member Role: Lifetime Relationship Address: [address] [place] [address] [place] Name: RICARDO Oh Shari A Position: Nurse Pract - Family Med Member Role: Lifetime Relationship Address: [address] [place] [id number] Care Team Related Persons Name: MEHREEN BUTLER Name: MEHREEN BUTLER"
--- OUTSIDE RECORDS SUMMARY | 2024-03-26 10:45 | External Medical Summary | Continuity of Care Document ---
Author Name Unknown Organization [facility] [address] Address [address] [place] [id number] Care Team Providers Care Wheel Shop Supervisor Name Role Phone Kate Mohamud Primary Care Physician [phone] [id number] 03/23/24 - 03/23/24 [facility] [address] [facility] [address], [address] [place], [place] [phone] Encounter Diagnosis Edema, unspecified(Final) - Type 2 diabetes mellitus without complications(Final) - Dermatitis, unspecified(Final) - Discharge Disposition: Home or Self Care Attending Physician: DO Mohamud Kristen M Referring Physician: DO Mohamud Kristen M Allergies, Adverse Reactions, Alerts Substance Criticality Severity Reaction Reaction Severity Status sulfa drugs Active Ceftin rash Active Skelaxin vision distrubance A ctive Amoxil severe rash/hives Ac tive Atarax rash Active PCN (penicillin) Act shira Bee stings Active Immunizations Given and Recorded Vaccine Date Status [...] puff, PO, bid, Disp# 1 each, Pharmacy: [id number] Start Date: 12/25/21 Stop Date: 01/24/22 Status: Ordered albuterol CFC free 90 mcg/inh MDI Start: 06/25/23 2:40:00 PM EST, 2 puff, inhaled, qid, Disp# 8 g, Refills: 3, PRN: as needed for wheezing, Pharmacy: [facility] Start Date: 06/25/23 Status: Ordered atorvastatin 40 mg oral tablet Start: 08/12/23 3:05:00 PM EST, See Instructions, Disp# 90 tab, Refills: 3, TAKE 1 TABLET AT BEDTIME,Pharmacy: [facility] Start Date: 08/12/23 Status: Ordered Benadryl 25 mg oral capsule Start: 11/01/23 3:25:00 PM EDT, 2 cap, PO, bid, PRN: as needed for itching Start Date: 11/01/23 Status: Ordered clotrimazole 1% topical cream Start: 08/17/22 8:29:00 AM EST, 1 appl, topical, bid, Disp# 30 g, Refills: 1, Pharmacy: [facility] #[id number] Start Date: 08/17/22 Status: Ordered doxycycline hyclate 100 mg oral capsule Start: 09/03/23 4:19:00 PM EST, 1 cap, PO, bid, Disp# 180 cap, Refills: 3, Pharmacy: [facility] Start Date: 09/03/23 Status: Ordered DULoxetine 30 mg oral delayed release capsule Start: 02/28/24 5:39:00 PM EDT, 1 cap, PO, Daily, Disp# 30 cap, Refills: 0, Pharmacy: [facility] Start Date: 02/28/24 Status: Ordered EpiPen 2-Osei 0.3 mg injectable kit Start: 03/18/23 3:20:00 PM EDT, 0.3 mg =, IM, ONCE, Disp# 1 kit, Refills: 1, PRN: as needed for anaphylaxis, Pharmacy: [facility] Start Date: 03/18/23 Status: Ordered Fioricet 325 mg-50 mg-40 mg oral tablet Start: 03/22/24 9:41:00 AM EDT, 1 tab, PO, q4h, Disp# 30 tab, Refills: 0, PRN: as needed for headache, Pharmacy: [facility] Start Date: 03/22/24 Status: Ordered FreeStyle Gerard 14 day sensor Start: 11/13/20 11:40:00 AM EDT, See Instructions, Disp# 2 each, Replace the FreeStyle Gerard sensor every 14 days., Pharmacy: [address] Start Date: 11/13/20 Status: Ordered KETOTIFEN 1MG CAPS KETOTIFEN 1MG CAPS, TAKE ONE CAPSULE BY MOUTH TWICE DAILY Start Date: 03/22/24 Status: Ordered Lasix 20 mg oral tablet Start: 12/07/23 3:14:00 PM EDT, 1 tab, PO, Daily, Disp# 30 tab, Refills: 0, Take for 3 days and thenstop and contact doctor, Pharmacy: [id number] Start Date: 12/07/23 Status: Ordered metFORMIN 1000 mg oral tablet Start: 11/10/23 1:16:00 PM EDT, 1 tab, PO, bid Start Date: 11/10/23 Status: Ordered metoprolol succinate 25 mg oral tablet, extended release Start: 08/12/23 3:05:00 PM EST, 1 tab, PO, Daily, Disp# 90 tab, Refills: 3, Pharmacy: [facility] Start Date: 08/12/23 Status: Ordered montelukast 10 mg oral tablet Start: 02/09/24 12:06:00 PM EDT, 1 tab, PO, qPM Start Date: 02/09/24 Status: Ordered nystatin-triamcinolone 100,000 units/g-0.1% topical cream Start: 03/22/24 9:18:00 AM EDT, 1 appl, topical, tid, Disp# 60 g, Refills: 1, Pharmacy: [facility] Start Date: 03/22/24 Status: Ordered omeprazole 40 mg oral delayed release capsule Start: 07/05/23 4:43:00 PM EST, 1 cap, PO, bid, Disp# 180 cap, Refills: 3, Pharmacy: [facility] Start Date: 07/05/23 Status: Ordered predniSONE 10 mg oral tablet Start: 08/06/23 11:41:00 AM EST, 1 tab, PO, Daily, Disp# 10 tab, Pharmacy: [facility] Start Date: 08/06/23 Status: Ordered pregabalin 100 mg oral capsule Start: 06/10/22 11:55:00 AM EDT, See Instructions, 1 cap PO qhs Start Date: 06/10/22 Status: Ordered promethazine 25 mg oral tablet Start: 03/18/23 3:20:00 PM EDT, 1 tab, PO, q6h, Disp# 60 tab, Refills: 3, PRN: as needed for nausea/vomiting, Pharmacy: [facility] Start Date: 03/18/23 Status: Ordered [...] Daily, Disp# 90 tab, Refills: 3, Pharmacy: [facility] Start Date: 09/21/23 Status: Ordered triamcinolone 0.1% topical cream Start: 06/14/23 4:24:00 PM EST, 1 appl, topical, bid, Disp# 80 g, Refills: 1, mix 50/50 with nystatin, Pharmacy: [id number] Start Date: 06/14/23 Status: Ordered warfarin 5 mg oral tablet Start: 02/04/23 3:11:00 PM EDT, See Instructions, 3mg daily Start Date: 02/04/23 Status: Ordered Xopenex HFA 45 mcg/inh inhalation aerosol Start: 09/13/23 1:53:00 PM EST, 1 puff, inhaled, q4h, Disp# 15 g, Refills: 4, PRN: as needed for wheezing, Pharmacy: [facility] #[id number] Start Date: 09/13/23 Status: Ordered Problem List [...] suboccipital, Microdissection Results Laboratory List Name Date Hemoglobin A1C (HEMOGLOBIN, A1C) 03/23/24 Most recent to oldest [Reference Range]: 1 Estimated Average Glucose 100 mg/dL 1 (03/23/24 7:34 AM) HbA1c [4.0-6.0 %] 5.1 % (03/23/24 7:34 AM) 1Result Comment: Testing Performed By: Dept of Pathology [facility], [address] [place] [id number] Social History Social History Type Response Smoking Status Never smoked cigaret jose francisco Sex Female Sex Representation Female (finding) Patient Care team information Care Team Personnel Name: RICARDO Grove Tara Position: Nurse Pract - Family Med Member Role: Lifetime Relationship Address: [address] [place] [address] [place] Name: DO Mccain Franklin J Position: Physician - Family Med Member Role: Lifetime Relationship Address: [address] [facility] [address] [place] [address] [place] Name: DO Mohamud Kristen M Position: Physician - Family Med Member Role: Primary Care Provider Address: [address] [facility] [address] [place] [address] [place] Name: JIMBO Godinez Lynn Position: Physician Upholstered Goods Crafter Exempt - Vasc Surg Member Role: Lifetime Relationship Address: [address] [facility] [address] [place] [address] Name: RICARDO Oh Shari A Position: Nurse Pract - Family Med Member Role: Lifetime Relationship Address: [address] [facility] [address] Care Team Related Persons Name: MEHREEN BUTLER Name: MEHREEN BUTLER
--- NOTE | 2024-03-26 12:04 | Emergency Department Note ---
Impression & Plan Cellulitis of leg, right, Falls frequently ED Provider Note NAME: DEXTER BUTLER AGE: 63 SEX: F : 1960 ARRIVES VIA: Ambulance INFORMANT: Patient, the patient's family members ED PROVIDER(S): Jose A Burr DO CHIEF COMPLAINT: Leg pain HPI: The patient is a 63-year-old female who presented to the emergency department for an evaluation of leg pain. The patient's had multiple falls out of bed recently. She does have a history of DVT. She struck her right leg on the lower aspect. She has had pain there ever since. She does have a history of taking blood thinners. She denies having any headache or neck pain. She denies having any loss of consciousness or striking her head. She is mostly concerned about the right leg. She has been having worsening difficulty ambulating because of the pain. EMS has been called to her facility multiple times because of the leg pain. ROS: See above HPI for pertinent positives & negatives. A total of 10 systems reviewed and were otherwise negative. PAST MEDICAL HISTORY: See Below PAST SURGICAL HISTORY: See Below FAMILY HISTORY: See Below SOCIAL HISTORY: See Below HOME MEDICATIONS: See Below ALLERGIES: See Below VITALS: See Below PHYSICAL EXAMINATION: GENERAL: Patient is awake alert in no acute distress patient is resting comfortably and showing no signs of anxiety EYES: The conjunctivae are clear. The pupils are round and reactive. EARS, NOSE, MOUTH AND THROAT: The nose is without any evidence of any deformity. Mucous membranes are moist. Tongue is midline. NECK: The neck is nontender and supple. RESPIRATORY: Normal respiratory effort is noted there is no evidence of wheezing rhonchi or rales CARDIOVASCULAR: Regular rate and rhythm noted there no murmurs rubs or gallops normal S1 normal S2. GASTROINTESTINAL: The abdomen is soft. Abdomen is nontender. BACK: No midline tenderness or or step-off noted range of motion in flexion extension as well as rotation no signs of muscle spasm noted MUSCULOSKELETAL/EXTREMITIES: There is no evidence of gross deformity full range of motion is noted in the hips and shoulders. There is palpable tenderness over the right leg. There is erythema over most of the right lower extremity. There is no palpable tenderness over the right knee or the right foot. SKIN: Pedal edema was noted bilaterally. Skin was dry. There is cellulitis noted over the right lower leg. NEUROLOGIC: Patient is awake alert and oriented x3. MEDICAL DECISION MAKING: The patient is a 63-year-old female who presented to the emergency department for an evaluation of right leg swelling and pain. The patient was concerned about a possible DVT. She has had falls frequently. She has pain over the leg. I discussed the patient's laboratory and radiographic studies with her. She was treated with IV antibiotics in the emergency department. She was also treated with IV pain medication. Given her findings I do feel this is more consistent with an extensive cellulitis. Given her comorbidities as well as past medical history I do not feel that she would be a good candidate for outpatient management. For this reason I discussed her condition with the on- call [facility]. They have agreed to evaluate the patient in the emergency department for further management and disposition. Triage Nursing notes reviewed. Prior medical records reviewed Vital Signs: reviewed and remarkable for no significant abnormalities Differential diagnosis: Cellulitis, abscess, MRSA infection, DVT, necrotizing fasciitis, dermatitis, drug eruption, allergic reaction, as well as other pathologies. ER treatment provided: See below Diagnostics interpreted by me: ECG: EKG was obtained in the emergency department. My interpretation is normal sinus rhythm at 80 bpm. There was no PVCs noted. Right bundle branch block pattern was noted. This was compared to a tracing from July 29, 2022. No significant changes were noted. Cardiac Monitoring: An order was placed for continuous cardiac monitoring. The monitor shows a rate of 85 bpm with sinus rhythm. Laboratory studies: As stated above and show below. Imaging studies: See below. Radiographic imaging was reviewed by myself Consultation(s): I discussed this case with Dr. Macdonald [facility] 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 WINTERS DVT (deep venous thrombosis) Left Iliac vein MAR 2019; femoral veins June 2023 Vomiting Nausea and vomiting reason for procedure Bright red blood per rectum Pyelonephritis Lumbosacral radiculopathy at S1 Idiopathic polyneuropathy Leg weakness, bilateral Encounter for pre-operative examination Rotator cuff tear Left shoulder pain Dislocation of shoulder, anterior, left, closed Benzodiazepine overdose (Acute) Benzodiazepine overdose (Acute) H/O knee surgery Asthma "VERY MILD"- has been "several yrs" since last inhaler use Fibromyalgia Migraine Type 2 diabetes mellitus (Chronic) NIDDM Hyperlipidemia (Chronic) Hypertension (Chronic) Previous section X3 Benzodiazepine overdose (Acute) 6 YRS AGO ACCIDENTAL Medical History On anticoagulant therapy warfarin Nerve pain History of colon polyps Diverticulosis History of gastric ulcer Anemia IRON/BLOOD TRANSFUSIONS MAY 2020 Osteoporosis Surgical History History of cataract surgery History of esophagogastroduodenoscopy (EGD) History of colonoscopy 06/11/2020 [facility] History of hysterectomy History of tooth extraction History of total knee replacement RIGHT History of arthroscopy X2 RIGHT KNEE Family History Brother Diabetes Grandmother (Paternal) Diabetes Grandmother (Maternal) Diabetes Other No family history of adverse response to anesthesia Social History Smoking Status: Never smoker Second Hand Exposure: No; Do You Dip or Chew Tobacco: No; Hx Alcohol Use: No Hx Substance Use: No Preferred Language: Surinamese Communication Ability: Effective All Source Collection Manager Required: No Beliefs That Will Affect Care: None Current Living Situation: Spouse Feels Safe at Home: Yes Assistive Devices: Cane, Denture - Upper, Glasses and Walker Allergies Allergies Allergy/AdvReac Type Severity Reaction Status Date / Time bee venom protein (honey bee) Allergy Severe ANAPHYLAXIS Verified 03/06/24 11:25 Penicillins Allergy Severe ANAPHYLAXIS Verified 03/06/24 11:25 Cephalosporins Allergy Intermediate DIZZINESS, Verified 03/06/24 11:25 ITCHY hydroxyzine Allergy Intermediate DIZZY Verified 03/06/24 11:25 ITCHY NAUSEA Sulfa (Sulfonamide Allergy Intermediate DIZZY Verified 03/06/24 11:25 Antibiotics) ITCHY, NAUSEA metaxalone AdvReac Intermediate n/v and Verified 03/06/24 11:25 headache, dizziness Home Meds Home Medications Medication Instructions Recorded Confirmed atorvastatin 40 mg tablet (Lipitor) 40 mg PO QPM 04/02/19 03/26/24 mwnkxcwibj-yvcfsnxzdwgkn-qesdgzpq 2 cap PO Q8H PRN Migraine Headache 04/02/19 03/26/24 50 mg-300 mg-40 mg capsule (Fioricet) fluticasone propionate 115 2 puff inhalation Q12H PRN Wheezing 04/02/19 03/26/24 mcg-salmeterol 21 mcg/actuation HFA inhaler (Advair HFA) levocetirizine 5 mg tablet 5 mg PO QPM 12/02/21 03/26/24 metformin 1,000 mg tablet 1,000 mg PO BID 02/15/23 03/26/24 metoprolol tartrate 25 mg tablet 25 mg PO HS 04/01/23 03/26/24 telmisartan 80 mg tablet 80 mg PO QAM 04/01/23 03/26/24 nrukzlomikmk-zqjubmdi-jpfniz tablet 1 tab PO Q24H 07/08/23 03/26/24 omeprazole 20 mg capsule,delayed 40 mg PO BID 07/08/23 03/26/24 release doxycycline hyclate 100 mg capsule 100 mg PO BID 07/21/23 03/26/24 acetaminophen 500 mg tablet 1,000 mg PO .QHS PRN Pain 11/08/23 03/26/24 (Tylenol Extra Strength) cetirizine 10 mg tablet 10 mg PO DAILY PRN allergies 12/02/23 03/26/24 duloxetine 30 mg capsule,delayed 30 mg PO DAILY 12/10/23 03/26/24 release (Cymbalta) warfarin 3 mg tablet See Rx Instructions PO UD 03/23/24 03/26/24 nystatin-triamcinolone 100,000 1 applic topical DIRECTED 03/26/24 03/26/24 unit/g-0.1 % topical cream Previous Rx's Medication Instructions Recorded docusate sodium 100 mg capsule 100 mg PO BID #60 caps 04/02/19 (Colace) carbamazepine 400 mg 400 mg PO BID 90 days #180 tabs 08/10/23 tablet,extended release,12 hr famotidine 40 mg tablet 40 mg PO BID #60 tabs 12/30/23 montelukast 10 mg tablet 10 mg PO DAILY #30 tabs 12/30/23 miscellaneous medical supply #60 caps 03/02/24 pregabalin 100 mg capsule 100 mg PO DAILY 90 days #90 caps 03/06/24 Results & Data (ED) Vital Signs Vital Signs - 24 hr 03/26/24 11:03 03/26/24 11:03 03/26/24 12:03 Temperature 36.7 C Temperature Source Oral Pulse Rate 85 85 Pulse Rate [Apical] 85 Pulse Rhythm Regular Regular Pulse Rhythm [Apical] Regular Pulse Strength Normal Pulse Strength [Apical] Normal Respiratory Rate 25 H 25 H 24 Respiratory Effort / Characteristics Labored Labored Respiratory Depth Shallow Shallow Respiratory Pattern Tachypnea Tachypnea Blood Pressure 142/83 H Blood Pressure [Right Arm] 142/83 H Blood Pressure Mean 102 Blood Pressure Mean [Right Arm] 102 Blood Pressure Position Lying Pulse Oximetry 95 95 97 Oxygen Delivery Method Room Air Room Air Room Air Sepsis Recent Fever Within 48 Hours No Sepsis New/Unexplained Change in Mental Status No Sepsis Action Taken by Nursing No Action Required Home Medications Current Medication List: was personally reviewed by me Laboratory Data Attestation: I reviewed the patient's lab results. 03/26/24 13:25 03/26/24 13:25 Lab Results 03/26/24 Range/Units 13:25 WBC 11.33 H (4.8-10.8) K/ul RBC 3.75 L (4.20-5.40) M/uL Hgb 12.2 (12.0-16.0) g/dl Hct 37.8 (37.0-47.0) % MCV 100.8 H (80.0-100.0) fL MCH 32.5 (25.0-34.0) pg MCHC 32.3 (32.0-36.0) g/dL RDW Std Deviation 51.2 H (36.4-46.3) fL RDW Coeff of Heather 13.9 (11.5-14.5) % Plt Count 151 (130-400) K/uL MPV 12.7 H (9.4-12.4) fL Immature Gran % (Auto) 0.4 % Neut % (Auto) 80.6 % Lymph % (Auto) 6.9 % [place] % (Auto) 10.4 % Eos % (Auto) 1.5 % Baso % (Auto) 0.2 % Neut # (Auto) 9.13 H (1.40-6.50) K/uL Lymph # (Auto) 0.78 L (1.20-3.40) K/uL [place] # (Auto) 1.18 H (0.11-0.59) K/uL Eos # (Auto) 0.17 (0.00-0.50) K/uL Baso # (Auto) 0.02 (0.00-0.20) K/uL Immature Gran # (Auto) 0.05 (0.01-0.20) K/uL PT 12.3 H (9.0-12.0) Seconds INR 1.1 (0.9-1.1) APTT 28 (21-31) Seconds PTT Ratio 1.0 Sodium 139 (136-145) mmol/L Potassium 4.6 (3.5-5.1) mmol/L Chloride 103 (98-107) mmol/L Carbon Dioxide 28 (21-32) mmol/L Anion Gap 8 (3-11) BUN 22 (6-23) mg/dl Creatinine 1.50 H (0.6-1.2) mg/dl Est Cr Clr Drug Dosing 45.6 ml/min Est GFR ( Amer) 41.9 ml/min Est GFR (Non-Af Amer) 36.2 ml/min BUN/Creatinine Ratio 14.7 (10-20) Glucose 93 (70-99(Fasting)) mg/dl Calcium 9.5 (8.6-10.3) mg/dl Total Bilirubin 1.5 H (0.2-1.0) mg/dl AST 66 H (13-39) U/L ALT 40 (7-52) U/L Alkaline Phosphatase 204 H (34-104) U/L Troponin I High Sens 11.3 (0-14) pg/ml C-Reactive Protein 34.75 H (0-0.5) mg/dl Total Protein 6.4 (6.0-8.3) gm/dl Albumin 3.3 L (3.4-5.0) gm/dl Globulin 3.1 (2.5-4.0) gm/dl Albumin/Globulin Ratio 1.1 (0.9-2) Lipase 29 (11-82) U/L Procalcitonin 0.32 (0-0.5) ng/ml Administered Medications Daptomycin 300 mg/ Syringe 6 mls @ 3 mls/min IV Q24H [facility]; Protocol Stop: 08/20/24 14:44 Last Admin: 03/26/24 15:55 Dose: 3 mls/min Documented By: RENNY Discontinued Medications Morphine Sulfate (Morphine Sulfate 4 Mg/Ml 1 Ml Carp\\Vial) 4 mg IV NOW STA Stop: 03/26/24 13:24 Last Admin: 03/26/24 13:36 Dose: 4 mg Documented By: LENNY Ondansetron HCl (Ondansetron Inj 2 Mg/Ml 2 Ml Vial) 4 mg IV NOW STA Stop: 03/26/24 13:24 Last Admin: 03/26/24 13:34 Dose: 4 mg Documented By: LENNY Imaging Data Attestation: I personally reviewed and interpreted this imaging study as follows: My Impression: 1 view chest x-ray was obtained in the emergency department. My interpretation is no free air or definite infiltrate, final report below. X-ray of the right knee and right tib-fib were obtained in the emergency department. My interpretation is no definite fracture, final report below. Radiologist's Impression: Chest X-Ray 03/26/24 11:50 XR chest 1V portable HISTORY: Chest pain, nonspecific COMPARISON: Chest 10/11/2017. FINDINGS: There are low lung volumes. The cardiac silhouette is borderline enlarged. Left basilar linear densities favor subsegmental atelectasis. No new focal lung consolidations to suggest a pneumonia. No evidence for pulmonary edema. No acute fractures identified. Lumbar spinal fusion hardware is partially visualized. IMPRESSION: No acute process. ACT 112: Negative or not required by law. Electronically signed by: Chavez Tang M.D. 03/26/2024 1:14 PM Knee X-Ray 03/26/24 11:50 XR tibia fibula RT 2V, XR knee RT 1 or 2V routine CLINICAL HISTORY: fall. Right knee and lower leg pain. COMPARISON STUDY: None. FINDINGS: Diffuse soft tissue swelling/edema within the right knee and right lower leg. There is a right total knee arthroplasty. The hardware is intact. No fracture or dislocation within the right knee right lower leg. No knee effusion. No abnormal periprosthetic lucency. No evidence for osteomyelitis. IMPRESSION: 1. No fractures within the right knee or right lower leg. 2. Diffuse soft tissue swelling/edema within the right knee and right lower leg. ACT 112: Negative or not required by law. Electronically signed by: Chavez Tang M.D. 03/26/2024 1:13 PM Tibia/Fibula X-Ray 03/26/24 11:50 XR tibia fibula RT 2V, XR knee RT 1 or 2V routine CLINICAL HISTORY: fall. Right knee and lower leg pain. COMPARISON STUDY: None. FINDINGS: Diffuse soft tissue swelling/edema within the right knee and right lower leg. There is a right total knee arthroplasty. The hardware is intact. No fracture or dislocation within the right knee right lower leg. No knee effusion. No abnormal periprosthetic lucency. No evidence for osteomyelitis. IMPRESSION: 1. No fractures within the right knee or right lower leg. 2. Diffuse soft tissue swelling/edema within the right knee and right lower leg. ACT 112: Negative or not required by law. Electronically signed by: Chavez Tang M.D. 03/26/2024 1:13 PM Venous Doppler Study 03/26/24 11:50 RIGHT LOWER EXTREMITY VENOUS DOPPLER HISTORY: Right leg swelling COMPARISON STUDY: None. FINDINGS: There is normal compressibility, flow, and augmentation within the right lower extremity deep venous system. IMPRESSION: No DVT within the right lower extremity ACT 112: Negative or not required by law. Electronically signed by: Chavez Tang M.D. 03/26/2024 3:19 PM Discharge Plan Visit Data Chief Complaint: Fall Stated Complaint: Lower Extremity Edema ED Provider: Jose A Burr Discharge Problem: Cellulitis of leg, right, Falls frequently Patient Disposition: Being Evaluated by Hospitalist Forms Stand Alone Forms: [facility] Prescriptions Prescriptions: No Action dyazpvgqqhzl-ssdolkdh-rrrzgg Tablet 1 tab PO Q24H acetaminophen [Tylenol Extra Strength] 500 mg tablet 1,000 mg PO .QHS PRN (Reason: Pain) cetirizine 10 mg tablet 10 mg PO DAILY PRN (Reason: allergies) warfarin 3 mg tablet See Rx Instructions PO UD Rx Instructions: 4.5 mg Thurs and 3 mg x 6 days per [facility] orally use as directed; doxycycline hyclate 100 mg capsule 100 mg PO BID duloxetine [Cymbalta] 30 mg capsule,delayed release(DR/EC) 30 mg PO DAILY carbamazepine 400 mg tablet extended release 12 hr 400 mg PO BID 90 Days Qty: 180 3RF montelukast 10 mg tablet 10 mg PO DAILY Qty: 30 11RF famotidine 40 mg tablet 40 mg PO BID Qty: 60 2RF (DME) miscellaneous medical supply Liquid See Rx Instructions .MEDSUPPLY Qty: 60 6RF Rx Instructions: Ketotifen 1 mg BID levocetirizine 5 mg tablet 5 mg PO QPM omeprazole 20 mg capsule,delayed release(DR/EC) 40 mg PO BID pregabalin 100 mg capsule 100 mg PO DAILY 90 Days Qty: 90 1RF atorvastatin [Lipitor] 40 mg Tablet 40 mg PO QPM fluticasone propion-salmeterol [Advair HFA] 115-21 mcg/actuation Hfa Aerosol Inhaler 2 puff INHALATION Q12H PRN (Reason: Wheezing) rqzjwohgtz-jdntvqbhjfplw-kdiw [Fioricet] 50-300-40 mg Capsule 2 cap PO Q8H PRN (Reason: Migraine Headache) docusate sodium [Colace] 100 mg capsule 100 mg PO BID Qty: 60 0RF metformin 1,000 mg tablet 1,000 mg PO BID telmisartan 80 mg Tablet 80 mg PO QAM metoprolol tartrate 25 mg Tablet 25 mg PO HS nystatin-triamcinolone 100,000-0.1 unit/g-% cream 1 applic TOPICAL DIRECTED Referrals Referrals: Kate Mohamud DO [Primary Care Provider] -
--- NOTE | 2024-03-26 13:14 | XRay Report ---
XR tibia fibula RT 2V, XR knee RT 1 or 2V routine CLINICAL HISTORY: fall. Right knee and lower leg pain. COMPARISON STUDY: None. FINDINGS: Diffuse soft tissue swelling/edema within the right knee and right lower leg. There is a ri ght total knee arthroplasty. The hardware is intact. No fracture or dislocation within the right knee right lower leg. No knee effusion. No abnormal periprosthetic lucency. No evidence for osteomyelitis . IMPRESSION: 1. No fractures within the right knee or right lower leg. 2. Diffuse soft tissue swelling/edema within the right knee and right lower leg. ACT 112: Negative or not required by law. Electronically signed by: Chavez Tang M.D. 03/26/2024 1:13 PM
--- NOTE | 2024-03-26 13:15 | XRay Report ---
XR chest 1V portable HISTORY: Chest pain, nonspecific COMPARISON: Chest 10/11/2017. FINDINGS: There are low lung volumes. The cardiac silhouette is borderline enlarged. Left basilar axel ear densities favor subsegmental atelectasis. No new focal lung consolidations to suggest a pneumonia . No evidence for pulmonary edema. No acute fractures identified. Lumbar spinal fusion hardware is pa rtially visualized. IMPRESSION: No acute process. ACT 112: Negative or not required by law. Electronically signed by: Chavez Tang M.D. 03/26/2024 1:14 PM
[2024-03-26] MEDS: ONDANSETRON INJ 2 MG/ML 2 ML VIAL IV STA (13:34)
[2024-03-26] MEDS: MoRPHine SULFATE 4 MG/ML 1 ML CARP\\VIAL IV STA (13:36)
[2024-03-26 13:43] LABS: Basophils # (auto) 0.02 K/uL (0.00-0.20); Basophils % (auto) 0.2 %; Eosinophils # (auto) 0.17 K/uL (0.00-0.50); Eosinophils % (auto) 1.5 %; Hematocrit (blood only) 37.8 % (37.0-47.0); Hemoglobin 12.2 g/dl (12.0-16.0); Immature Granulocytes # (auto) 0.05 K/uL (0.01-0.20); Immature Granulocytes % (auto) 0.4 %; Lymphocytes # (auto) 0.78 K/uL (1.20-3.40); Lymphocytes % (auto) 6.9 %; Mean Corpuscular Hemoglobin 32.5 pg (25.0-34.0); Mean Corpuscular Hgb Conc 32.3 g/dL (32.0-36.0); Mean Corpuscular Volume 100.8 fL (80.0-100.0); Mean Platelet Volume 12.7 fL (9.4-12.4); Monocytes # (auto) 1.18 K/uL (0.11-0.59); Monocytes % (auto) 10.4 %; Neutrophils # (auto) 9.13 K/uL (1.40-6.50); Neutrophils % (auto) 80.6 %; Platelet Count 151 K/uL (130-400); RDW Coefficient of Variation 13.9 % (11.5-14.5); RDW Standard Deviation 51.2 fL (36.4-46.3); Red Blood Count 3.75 M/uL (4.20-5.40); White Blood Count 11.33 K/ul (4.8-10.8)
[2024-03-26 14:01] LABS: Albumin Globulin Ratio 1.1 (0.9-2); Albumin Level 3.3 gm/dl (3.4-5.0); BUN Creatinine Ratio 14.7 (10-20); Bilirubin,Total 1.5 mg/dl (0.2-1.0); Calcium 9.5 mg/dl (8.6-10.3); Creatinine Clr Calc Pharmacy 45.6 ml/min; Est GFR (African American) 41.9 ml/min; Est GFR (Non-African American) 36.2 ml/min; Globulin 3.1 gm/dl (2.5-4.0); Potassium 4.6 mmol/L (3.5-5.1); Total Protein 6.4 gm/dl (6.0-8.3)
[2024-03-26 14:08] LABS: Troponin I High Sensitivity 11.3 pg/ml (0-14)
[2024-03-26 14:10] LABS: INR 1.1 (0.9-1.1); Partial Thromboplastin Time 28 Seconds (21-31); Prothrombin Time 12.3 Seconds (9.0-12.0)
[2024-03-26 14:22] LABS: C Reactive Protein 34.75 mg/dl (0-0.5)
--- NOTE | 2024-03-26 15:20 | Ultrasound Report ---
RIGHT LOWER EXTREMITY VENOUS DOPPLER HISTORY: Right leg swelling COMPARISON STUDY: None. FINDINGS: There is normal compressibility, flow, and augmentation within the right lower extremity de ep venous system. IMPRESSION: No DVT within the right lower extremity ACT 112: Negative or not required by law. Electronically signed by: Chavez Tang M.D. 03/26/2024 3:19 PM
[2024-03-26] MEDS: DAPTOmycin 300 MG in SYRINGE 0 ML IV SCH (15:55)
--- NOTE | 2024-03-26 16:05 | History & Physical Report ---
Date of Service March 26, 2024 Assessment & Plan (1) Cellulitis of right lower extremity: Plan: Worsening erythema and swelling in the right lower extremity that began on 03/23 Leukocytosis at 11.33 with neutrophil predominance; afebrile Procalcitonin level WNL CRP elevated at 34.75 Daptomycin x 1 given in the ED; hold statin for now Patient denies history of MRSA infection, purulent drainage However, PCN allergy (anaphylaxis); will switch to ciprofloxacin 400 mg IV q12h QTc okay at 445 on arrival; would recommend re-check prior to discharge A.m. CBC, CMP, Mag, PT/INR, CRP, ESR (2) Type 2 diabetes mellitus: Plan: Last A1c at 5.6% on 07/30/2022 Hold metformin SSI; with target BSG range 110-140mg/dL, CF 40, carb ratio 13 T2DM diet BSG ACHS Adjust regimen as needed AM A1c (3) History of DVT (deep vein thrombosis): Plan: INR 1.1 on arrival Continue warfarin Daily PT/INR (4) Seizure disorder: Plan: Carbamazepine level ordered, pending Continue home medications (5) History of bacteremia: Plan: Continue doxycycline for chronic suppressive therapy (6) Lymphedema: Plan Disposition: Admit to [facility] Full code T2DM diet VTE PPx: Continue warfarin History of Present Illness Chief Complaint: RLE erythema/swelling Primary Care Provider: Kate Mohamud DO Veronica is a pleasant 63-year-old female with PMH of T2DM, migraine, fibromyalgia, asthma, benzodiazepine overdose, idiopathic polyneuropathy, DVT, seizure disorder, and lymphadenopathy. She presented via EMS on 03/26 for worsening erythema and swelling in her right lower extremity that began on 03/23. She reports she is unable to ambulate at this time. She reports 8/10 burning, throbbing pain in her right lower extremity extending from the foot to the knee. 10/10 at worst. Worse with movements. Pain is constant. No radiation. She did not take any pain medicine prior to coming in. She denies any drainage or pus from the leg. She does have a history of skin infections; cellulitis on the left leg 1 year ago. No history of MRSA infections to her knowledge. She does have hardware in her right knee after a right total knee replacement in 1999. She also has hardware in her back from prior back surgeries. Patient fell out of bed twice since from a lying position; no LOC. No head strike. She took her regular morning medications today; no recent change in medications. She does have a history of blood clots in her left leg x 2. First episode occurred 5 years ago, and the second occurred in July 2023. She is currently on Coumadin and reports good compliance with taking. She also takes doxycycline for chronic suppressive therapy after her back surgery/hospitalization 2 years ago that led to an infection with 4 different types of bacteria and bacteremia; she is unsure if this was a MRSA bacteremia. She denies smoking, tobacco use, or alcohol use. Patient is mildly hypertensive at 142/83 at time admission; vitals otherwise stable. ED course: Daptomycin 300 mg IV Zofran 4 mg IV Morphine 4 mg IV ROS: Patient endorses RLE pain/erythema/swelling, left knee pain, and ambulatory dysfunction. Patient denies fever, chills, night-sweats, dizziness, lightheadedness, QUINONES, chest pain, chest palpitations, SOB, pleuritic CP, abdominal pain, N/V/D, changes in urinary/bowel habits, or blood in the urine/stool. Allergies Allergy/AdvReac Type Severity Reaction Status Date / Time bee venom protein (honey bee) Allergy Severe ANAPHYLAXIS Verified 03/06/24 11:25 Penicillins Allergy Severe ANAPHYLAXIS Verified 03/06/24 11:25 Cephalosporins Allergy Intermediate DIZZINESS, Verified 03/06/24 11:25 ITCHY hydroxyzine Allergy Intermediate DIZZY Verified 03/06/24 11:25 ITCHY NAUSEA Sulfa (Sulfonamide Allergy Intermediate DIZZY Verified 03/06/24 11:25 Antibiotics) ITCHY, NAUSEA metaxalone AdvReac Intermediate n/v and Verified 03/06/24 11:25 headache, dizziness Home Medications Medication Instructions Recorded Confirmed Type atorvastatin 40 mg tablet (Lipitor) 40 mg PO QPM 04/02/19 03/26/24 History kzjxoxhjzg-gboxovsmalewj-iiqxjsmx 2 cap PO Q8H PRN Migraine Headache 04/02/19 03/26/24 History 50 mg-300 mg-40 mg capsule (Fioricet) docusate sodium 100 mg capsule 100 mg PO BID #60 caps 04/02/19 03/26/24 Rx (Colace) fluticasone propionate 115 2 puff inhalation Q12H PRN Wheezing 04/02/19 03/26/24 History mcg-salmeterol 21 mcg/actuation HFA inhaler (Advair HFA) levocetirizine 5 mg tablet 5 mg PO QPM 12/02/21 03/26/24 History metformin 1,000 mg tablet 1,000 mg PO BID 02/15/23 03/26/24 History metoprolol tartrate 25 mg tablet 25 mg PO HS 04/01/23 03/26/24 History telmisartan 80 mg tablet 80 mg PO QAM 04/01/23 03/26/24 History wsakowdwless-fzamigkd-imwcsp tablet 1 tab PO Q24H 07/08/23 03/26/24 History omeprazole 20 mg capsule,delayed 40 mg PO BID 07/08/23 03/26/24 History release doxycycline hyclate 100 mg capsule 100 mg PO BID 07/21/23 03/26/24 History carbamazepine 400 mg 400 mg PO BID 90 days #180 tabs 08/10/23 03/26/24 Rx tablet,extended release,12 hr acetaminophen 500 mg tablet 1,000 mg PO .QHS PRN Pain 11/08/23 03/26/24 History (Tylenol Extra Strength) cetirizine 10 mg tablet 10 mg PO DAILY PRN allergies 12/02/23 03/26/24 History duloxetine 30 mg capsule,delayed 30 mg PO DAILY 12/10/23 03/26/24 History release (Cymbalta) famotidine 40 mg tablet 40 mg PO BID #60 tabs 12/30/23 03/26/24 Rx montelukast 10 mg tablet 10 mg PO DAILY #30 tabs 12/30/23 03/26/24 Rx miscellaneous medical supply #60 caps 03/02/24 03/26/24 Rx pregabalin 100 mg capsule 100 mg PO DAILY 90 days #90 caps 03/06/24 03/26/24 Rx warfarin 3 mg tablet See Rx Instructions PO UD 03/23/24 03/26/24 History nystatin-triamcinolone 100,000 1 applic topical DIRECTED 03/26/24 03/26/24 History unit/g-0.1 % topical cream Past Med/Surg History Problem List (Updated 03/26/24 @ 18:19 by Chavez Whitlock PA-C) History of bacteremia Falls frequently (Acute) Cellulitis of leg, right (Acute) Cellulitis of right lower extremity History of DVT (deep vein thrombosis) Lymphedema Seizure disorder 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 WINTERS DVT (deep venous thrombosis) Left Iliac vein MAR 2019; femoral veins June 2023 Vomiting Nausea and vomiting reason for procedure Bright red blood per rectum Pyelonephritis Lumbosacral radiculopathy at S1 Idiopathic polyneuropathy Leg weakness, bilateral Encounter for pre-operative examination Rotator cuff tear Left shoulder pain Dislocation of shoulder, anterior, left, closed Benzodiazepine overdose (Acute) Benzodiazepine overdose (Acute) H/O knee surgery Asthma "VERY MILD"- has been "several yrs" since last inhaler use Fibromyalgia Migraine Type 2 diabetes mellitus (Chronic) NIDDM Hyperlipidemia (Chronic) Hypertension (Chronic) Previous section X3 Benzodiazepine overdose (Acute) 6 YRS AGO ACCIDENTAL Medical History On anticoagulant therapy warfarin Nerve pain History of colon polyps Diverticulosis History of gastric ulcer Anemia IRON/BLOOD TRANSFUSIONS MAY 2020 Osteoporosis Surgical History History of cataract surgery History of esophagogastroduodenoscopy (EGD) History of colonoscopy 06/11/2020 [facility] History of hysterectomy History of tooth extraction History of total knee replacement RIGHT History of arthroscopy X2 RIGHT KNEE Family History Brother Diabetes Grandmother (Paternal) Diabetes Grandmother (Maternal) Diabetes Other No family history of adverse response to anesthesia Social History Smoking Status: Never smoker Second Hand Exposure: No; Do You Dip or Chew Tobacco: No; Hx Alcohol Use: No Hx Substance Use: No Preferred Language: German Communication Ability: Effective Drafter Topographical Required: No Beliefs That Will Affect Care: None Current Living Situation: Spouse Other Information That Helps Us Care for You: No Feels Safe at Home: Yes Safety Concerns: Feels Safe At This Time Assistive Devices: Denture - Upper, Glasses and Walker Review of Systems 2 Review of Systems: See HPI above Physical Exam 2 Physical Exam: General: no acute distress; pleasant affect; non-toxic appearing; well- nourished; cooperative HEENT: normocephalic, atraumatic; no scleral icterus; PERRLA; vision and hearing grossly intact Neck: supple; no lymphadenopathy; trachea midline Skin: warm, dry without signs of tenting; no cyanosis; no rashes, bruising, lesions, or erythema noted CV: chest wall NTP; RRR; S1/S2 normal; no murmurs/rubs/gallops; pulses intact and symmetric at radial, DP, and PT Lungs: no acute respiratory distress; symmetrical chest wall expansion; clear breath sounds across all lung smiley w/o adventitious sounds; no wheezing ABD: Soft, NTP; BS present; no rebound/guarding; no distention : Erythema along the left inguinal crease MSK: no tics or fasciculations; no edema noted in the LEs b/l, nonerythematous RLE: Erythematous and swollen right lower extremity circumferential (see photo below); extends posteriorly towards the groin; warm to touch Neuro: A&Ox3; normal mood and affect; fluent speech; no focal deficits; sensation intact and symmetric in the LEs b/l assessed via light touch Results & Data Results & Data Vital Signs (Past 12 Hours) Vital Signs Temp Pulse Pulse Resp BP BP Pulse Ox 03/26/24 12:03 85 24 97 03/26/24 11:03 85 25 H 142/83 H 95 03/26/24 11:03 36.7 C 85 25 H 142/83 H 95 O2 Del Method 03/26/24 12:03 Room Air 03/26/24 11:03 Room Air 03/26/24 11:03 Room Air Laboratory Results Abnormal lab results 03/26/24 Range/Units 13:25 WBC 11.33 H (4.8-10.8) K/ul RBC 3.75 L (4.20-5.40) M/uL MCV 100.8 H (80.0-100.0) fL RDW Std Deviation 51.2 H (36.4-46.3) fL MPV 12.7 H (9.4-12.4) fL Neut # (Auto) 9.13 H (1.40-6.50) K/uL Lymph # (Auto) 0.78 L (1.20-3.40) K/uL [place] # (Auto) 1.18 H (0.11-0.59) K/uL PT 12.3 H (9.0-12.0) Seconds Creatinine 1.50 H (0.6-1.2) mg/dl Total Bilirubin 1.5 H (0.2-1.0) mg/dl AST 66 H (13-39) U/L Alkaline Phosphatase 204 H (34-104) U/L C-Reactive Protein 34.75 H (0-0.5) mg/dl Albumin 3.3 L (3.4-5.0) gm/dl Diagnostic Findings Chest X-Ray 03/26/24 11:50 XR chest 1V portable HISTORY: Chest pain, nonspecific COMPARISON: Chest 10/11/2017. FINDINGS: There are low lung volumes. The cardiac silhouette is borderline enlarged. Left basilar linear densities favor subsegmental atelectasis. No new focal lung consolidations to suggest a pneumonia. No evidence for pulmonary edema. No acute fractures identified. Lumbar spinal fusion hardware is partially visualized. IMPRESSION: No acute process. ACT 112: Negative or not required by law. Electronically signed by: Chavez Tang M.D. 03/26/2024 1:14 PM Knee X-Ray 03/26/24 11:50 XR tibia fibula RT 2V, XR knee RT 1 or 2V routine CLINICAL HISTORY: fall. Right knee and lower leg pain. COMPARISON STUDY: None. FINDINGS: Diffuse soft tissue swelling/edema within the right knee and right lower leg. There is a right total knee arthroplasty. The hardware is intact. No fracture or dislocation within the right knee right lower leg. No knee effusion. No abnormal periprosthetic lucency. No evidence for osteomyelitis. IMPRESSION: 1. No fractures within the right knee or right lower leg. 2. Diffuse soft tissue swelling/edema within the right knee and right lower leg. ACT 112: Negative or not required by law. Electronically signed by: Chavez Tang M.D. 03/26/2024 1:13 PM Tibia/Fibula X-Ray 03/26/24 11:50 XR tibia fibula RT 2V, XR knee RT 1 or 2V routine CLINICAL HISTORY: fall. Right knee and lower leg pain. COMPARISON STUDY: None. FINDINGS: Diffuse soft tissue swelling/edema within the right knee and right lower leg. There is a right total knee arthroplasty. The hardware is intact. No fracture or dislocation within the right knee right lower leg. No knee effusion. No abnormal periprosthetic lucency. No evidence for osteomyelitis. IMPRESSION: 1. No fractures within the right knee or right lower leg. 2. Diffuse soft tissue swelling/edema within the right knee and right lower leg. ACT 112: Negative or not required by law. Electronically signed by: Chavez Tang M.D. 03/26/2024 1:13 PM Venous Doppler Study 03/26/24 11:50 RIGHT LOWER EXTREMITY VENOUS DOPPLER HISTORY: Right leg swelling COMPARISON STUDY: None. FINDINGS: There is normal compressibility, flow, and augmentation within the right lower extremity deep venous system. IMPRESSION: No DVT within the right lower extremity ACT 112: Negative or not required by law. Electronically signed by: Chavez Tang M.D. 03/26/2024 3:19 PM ECG Additional Comments: ECG revealed NSR 80 bpm; QTc 445 Code Status & VTE Plan Code Status Full code VTE Prophylaxis Plan VTE Prophylaxis will be ordered: Yes Supervising Physician Co-Signing Physician Notes Patient seen and examined, chart reviewed, case discussed with Chavez Whitlock PA-C and I agree with the assessment and plan as above except as otherwise noted Labs and images reviewed 63yo F with PMhx of T2DM, migraine, fibro, asthma, polyneuropathy who presents with RLE worsening over the last 3-4 days. RLE extremity warmth, erythema and pain similar to prior episodes of cellulitis. On exam right lower extremity and posterior proximal thigh is with demarcated erythema, warmth, and tenderness and is without purulence. CRP elevated at 34. Nontoxic at bedside. Does have a past hx of bacteremia after back surgery, polymicrobial. Pt on dapto on admission. Anaphylactic PCN allergy. Given moderate to severe diabetic cellulitis will switch to include gram-negative coverage, and as is not purulent she has no history of MRSA will discontinue daptomycin and start ciprofloxacin. Last QT normal. WIll add daily EKGs for QT monitoring. Agree with above PG Care Time/CCT Total # of Minutes Spent Total Time Spent with Patient: Total time spent is greater than 50% in coordination of care (as documented) at patient's floor/unit and/or counseling patient: Coding [place] [address] INT INP/OBS CARE 3/75MIN Patient Type Established Medical Decision Making High Complexity Diagnoses Cellulitis of right lower extremity L03.115 Type 2 diabetes mellitus E11.9 History of DVT (deep vein thrombosis) Z86.718 Seizure disorder G40.909 History of bacteremia Z87.898 Lymphedema I89.0
[2024-03-26] MEDS ORDERED: CETIRIZINE HCL 10 MG TABLET PO PRN (18:36)
[2024-03-26] MEDS ORDERED: GLUCOSE 40% GEL 15 GM TUBE PO PRN (18:36)
[2024-03-26] MEDS ORDERED: GLUCAGON FOR INJ 1 MG VIAL SQ PRN (18:36)
[2024-03-26] MEDS ORDERED: NYSTATIN/TRIAMCIN CR 15 GM TUBE EXT SCH (18:36)
[2024-03-26] MEDS ORDERED: CARBOHYDRATES FOR HYPOGLYCEMIA PO PRN (18:36)
[2024-03-26] MEDS ORDERED: GLUCOSE 10 TAB/TUBE PO PRN (18:36)
[2024-03-26] MEDS ORDERED: ONDANSETRON INJ 2 MG/ML 2 ML VIAL IV PRN (18:36)
[2024-03-26] MEDS ORDERED: DEXTROSE 50% 50 ML SYRINGE IV PRN (18:36)
[2024-03-26] MEDS ORDERED: FLUTICASONE/VILANTEROL 200/25MCG 14 PUFFS/INHALER INH PRN (18:43)
[2024-03-26] MEDS: carBAMazepine XR 200 MG TABCR PO SCH (22:09)
[2024-03-26] MEDS: WARFARIN SOD 3 MG TAB PO SCH (22:10)
[2024-03-26] MEDS: DOXYCYCLINE HYCLATE 100 MG CAP PO SCH (22:10)
[2024-03-26] MEDS: DOCUSATE SODIUM 100 MG CAP PO SCH (22:10)
[2024-03-26] MEDS: FAMOTIDINE 40 MG TABLET PO SCH (22:10)
[2024-03-26] MEDS: CETIRIZINE HCL 10 MG TABLET PO SCH (22:10)
[2024-03-26] MEDS: METOPROLOL TARTRATE 25 MG TAB PO SCH (22:10)
[2024-03-26] MEDS: ACETAMINOPHEN 325 MG TAB PO PRN (22:11)
[2024-03-26] MEDS: INSULIN ASPART PER UNIT CHARGE SC SCH (22:11)
[2024-03-26] MEDS: PANTOprazole 40 MG TAB PO SCH (22:11)
[2024-03-26] MEDS: CIPROFLOXACIN / D5W 400 MG/200 ML BAG IV SCH (22:12)
[2024-03-27] MEDS: HYDROmorphone INJ 0.5 MG/0.5 ML SYR IV STA (01:35)
[2024-03-27] MEDS: ACETAMINOPHEN 500 MG TAB PO SCH (05:42)
[2024-03-27 08:04] LABS: Basophils # (auto) 0.01 K/uL (0.00-0.20); Basophils % (auto) 0.1 %; Eosinophils # (auto) 0.62 K/uL (0.00-0.50); Eosinophils % (auto) 8.6 %; Hematocrit (blood only) 30.4 % (37.0-47.0); Hemoglobin 9.8 g/dl (12.0-16.0); Immature Granulocytes # (auto) 0.04 K/uL (0.01-0.20); Immature Granulocytes % (auto) 0.6 %; Lymphocytes % (auto) 12.5 %; Mean Corpuscular Hemoglobin 32.3 pg (25.0-34.0); Mean Corpuscular Hgb Conc 32.2 g/dL (32.0-36.0); Mean Corpuscular Volume 100.3 fL (80.0-100.0); Mean Platelet Volume 12.9 fL (9.4-12.4); Monocytes % (auto) 13.9 %; Neutrophils # (auto) 4.64 K/uL (1.40-6.50); Neutrophils % (auto) 64.3 %; Platelet Count 153 K/uL (130-400); RDW Standard Deviation 51.5 fL (36.4-46.3); Red Blood Count 3.03 M/uL (4.20-5.40); White Blood Count 7.21 K/ul (4.8-10.8)
[2024-03-27 08:06] LABS: Albumin Level 2.6 gm/dl (3.4-5.0); BUN Creatinine Ratio 13.2 (10-20); C Reactive Protein 23.95 mg/dl (0-0.5); Creatinine Clr Calc Pharmacy 37.6 ml/min; Est GFR (African American) 33.2 ml/min; Est GFR (Non-African American) 28.6 ml/min; Globulin 2.5 gm/dl (2.5-4.0); Magnesium 1.5 mg/dl (1.7-2.4); Potassium 4.2 mmol/L (3.5-5.1); Total Protein 5.1 gm/dl (6.0-8.3)
[2024-03-27] MEDS: LOSARTAN POTASSIUM 50 MG TAB PO SCH (08:12)
[2024-03-27] MEDS: DULoxetine HCL 30 MG CAP PO SCH (08:12)
[2024-03-27] MEDS: MONTELUKAST SODIUM 10 MG TABLET PO SCH (08:12)
[2024-03-27] MEDS: PREGABALIN 100 MG CAP PO SCH (08:15)
[2024-03-27 08:30] LABS: INR 1.3 (0.9-1.1); Prothrombin Time 13.6 Seconds (9.0-12.0)
[2024-03-27 08:34] LABS: Estimated Average Glucose 103 mg/dl; Hemoglobin A1C 5.2 % (4.5-5.6)
--- NOTE | 2024-03-27 09:19 | Electrocardiogram Report ---
Test Reason : Blood Pressure : */* mmHG Vent. Rate : 80 BPM Atrial Rate : 80 BPM P-R Int : 154 ms QRS Dur : 130 ms QT Int : 386 ms P-R-T Axes : 57 -47 30 degrees QTcB Int : 445 ms Normal sinus rhythm Right bundle branch block Left anterior fascicular block Abnormal ECG When compared with ECG of 29-Jul-2022 09:07, Borderline criteria for Anterior infarct no longer present Confirmed by Tucker Carty ([id number]) on 03/27/2024 9:18:59 AM Referred By: REFERRED SELF Confirmed By: Tucker Carty
[2024-03-27] MEDS: MAGNESIUM SULFATE / D5W 1 GM/100 ML BAG IV SCH (09:43)
--- NOTE | 2024-03-27 14:01 | Hospitalist Progress Note ---
Date of Service March 27, 2024 Assessment & Plan (1) Cellulitis of right lower extremity: Plan: IMPROVING clinically today CRP elevated at 34.75 at time of admission; improved today to 23.9 Daptomycin x 1 given in the ED but not continued at admission No history of MRSA infection in the past (lumbar spine infection was treated with IV ertapenem per records) Multiple abx allergies including PCN (anaphylaxis) Started on IV ciprofloxacin 400 mg IV q12h yesterday by admitting team Thus, is on her chronic doxycycline suppressive abx as well as IV cipro Remarkably she is already improving on the IV cipro (although the daptomycin may have helped too) Will cont IV cipro along with her chronic PO doxy 100mg BID If she continues to improve then simply cont the above If lack of improvement would broaden the cipro to levofloxacin or avelox to capture more gram positives (could also consider IV ertapenem or IV clindamycin) (2) Type 2 diabetes mellitus: Plan: HbA1c 5.2% DM is resolved; she is not even a pre-diabetic BSGs here are excellent Metformin is on hold (3) ROMI (acute kidney injury): Plan: Cr today 1.8 Baseline Cr 1.2 to 1.4 NS x 1 liter repeat BMP am hold ARB (4) History of DVT (deep vein thrombosis): Plan: L iliac vein 2019 L femoral veins 07/01 INR 1.1 on arrival Today - 1.3 Saw Coumadin clinic on 03/23 Was mildly subtherapeutic then at 1.8 Dosing upon discharge from the clinic on 03/23 --> * 4.5 mg and 3 mg x 6 days * NEW Total mg/wk: 22.5 mg/week Continue this regimen in light of abx usage - would not increase her dose - simply trend the INR Daily PT/INR (5) Seizure disorder: Plan: Carbamazepine level ordered, pending Continue home medications (6) Hypertension: Plan: Cont metoprolol 25mg HS Hold ARB due to mild ROMI and the fact that BPs are low-normal (7) Hypomagnesemia: Plan: Mag level 1.5 replace with Mag sulfate 2 grams IV x 1 repeat level am (8) Status post lumbar spine operation: Plan: 09/2017 T12-S1 fusion [facility] Complicated by post-op infection (culture results not available in her chart) Was treated with IV ertapenem, then was placed on doxycycline BID for suppressive therapy Has been on doxy since then (9) Macrocytosis: Plan: Check folate & TSH levels in am B12 level in 11/30 was wnl; defer on recheck (10) Morbid obesity with BMI of 40.0-44.9, adult: Plan: BMI 44 (11) Weight loss: Plan: patient reports weight loss recently, but a review of her weights over the last few years does not support that weight this admission 114kg weight last summer 2022 - range of 104 to 109kg her low albumin of 3.3 upon admission does suggest her nutrition has not been optimal but again no evidence of weight loss no TSH in the record for several years - check TSH/FT4 in am (12) Lymphedema: Plan briefly updated pt's by phone this evening PT, CHAMP kelly requested Admission and Anticipated Discharge Date Admission Date: March 26, 2024 Subjective patient with multiple complaints - 1. right leg soreness - upper thigh and back of right knee - but has improved since admission 2. fatigue - chronic - wakes up tired most days; no formal dx of JEFF 3. lack of appetite and weight loss - 10 pounds last few months ? Review of Systems Review of Systems: gen - no fevers or chills today; eating fair cv - no chest pain, no orthopnea pulm - no dyspnea at rest GI - no abd pain Physical Exam Physical Exam: gen - obese, tired, laying in bed but NAD neck - no JVD mouth - MMM heart - RRR, s1 s2 lungs - CTA b/l abd - soft NT ND BS+; no HSM ext - edema right leg extending from right foot to the thigh; left leg <1+ edema bee/foot; stasis changes b/l shins with hyperpigmented areas/scarring especially on left; pulses b/l feet 2+ skin - mild pink erythema medial thigh extending from proximal thigh towards the right knee/popliteal fossa; demarkation lines present over right bee; retreating pink erythema right bee - very faint today; other chronic skin changes b/l shins Results & Data Results & Data Vital Signs (Past 12 Hours) Vital Signs Temp Pulse Resp BP Pulse Ox O2 Del Method 03/27/24 07:55 36.6 C 72 16 101/61 96 Room Air Laboratory Results Laboratory Results - last 24 hr 03/27/24 03/27/24 03/27/24 07:07 07:41 11:30 WBC 7.21 RBC 3.03 L Hgb 9.8 L Hct 30.4 L MCV 100.3 H MCH 32.3 MCHC 32.2 RDW Std Deviation 51.5 H RDW Coeff of Heather 14.0 Plt Count 153 MPV 12.9 H Immature Gran % (Auto) 0.6 Neut % (Auto) 64.3 Lymph % (Auto) 12.5 [place] % (Auto) 13.9 Eos % (Auto) 8.6 Baso % (Auto) 0.1 Neut # (Auto) 4.64 Lymph # (Auto) 0.90 L [place] # (Auto) 1.00 H Eos # (Auto) 0.62 H Baso # (Auto) 0.01 Immature Gran # (Auto) 0.04 ESR 35 H PT 13.6 H INR 1.3 H Sodium 139 Potassium 4.2 Chloride 105 Carbon Dioxide 29 Anion Gap 5 BUN 24 H Creatinine 1.82 H D Est Cr Clr Drug Dosing 37.6 Est GFR ( Amer) 33.2 Est GFR (Non-Af Amer) 28.6 BUN/Creatinine Ratio 13.2 Glucose 79 POC Glucose 87 90 Estimat Average Glucose 103 Hemoglobin A1c 5.2 Calcium 9.0 Magnesium 1.5 L Total Bilirubin 1.0 D AST 38 ALT 30 Alkaline Phosphatase 158 H C-Reactive Protein 23.95 H Total Protein 5.1 L D Albumin 2.6 L Globulin 2.5 Albumin/Globulin Ratio 1.0 PG Care Time/CCT Total # of Minutes Spent Total Time Spent with Patient: Total time spent is greater than 50% in coordination of care (as documented) at patient's floor/unit and/or counseling patient: Coding Level of Care Code 54530 SUB INP/OBS CARE 3/50MIN Diagnoses Cellulitis of right lower extremity L03.115 Type 2 diabetes mellitus E11.9 ROMI (acute kidney injury) N17.9 History of DVT (deep vein thrombosis) Z86.718 Seizure disorder G40.909 Hypertension I10 Hypomagnesemia E83.42 Status post lumbar spine operation Z98.890 Macrocytosis D75.89 Morbid obesity with BMI of 40.0-44.9, adult E66.01; Z68.41 Weight loss R63.4 Lymphedema I89.0
[2024-03-27] MEDS ORDERED: WARFARIN SOD 4 MG TAB PO SCH (16:00)
[2024-03-27] MEDS ORDERED: WARFARIN SOD 0.5 MG TAB PO SCH (16:00)
[2024-03-27] MEDS: SODIUM CHLORIDE 0.9% 1,000 ML IV SCH (16:16)
[2024-03-27] MEDS: MELATONIN 3 MG TAB PO PRN (23:32)
[2024-03-28 06:19] LABS: Appearance Urine Clear (Clear); Bacteria Urine Automated None Seen (None Seen); Bilirubin Urine Negative (Negative); Blood Urine Negative (Negative); Cast Urine Automated 0-2 /lpf (0-2); Color Urine Dark Yellow; Epithelial Cell Urine Auto 0-2 /hpf (0-2); Glucose Urine UA Negative (Negative); Ketones Urine Trace (Negative); Leukocyte Esterase Urine Trace (Negative); Nitrite Urine Negative (Negative); Protein Urine 1+ (Negative); RBC Urine Automated 0-2 /hpf (0-2); Specific Gravity Urine 1.021 (1.000-1.030); Urobilinogen Urine Negative (Negative); WBC Urine Automated 0-5 /hpf (0-5)
[2024-03-28 07:16] LABS: Basophils # (auto) 0.03 K/uL (0.00-0.20); Basophils % (auto) 0.6 %; Eosinophils # (auto) 0.67 K/uL (0.00-0.50); Eosinophils % (auto) 12.5 %; Hematocrit (blood only) 31.2 % (37.0-47.0); Hemoglobin 10.4 g/dl (12.0-16.0); Immature Granulocytes # (auto) 0.06 K/uL (0.01-0.20); Immature Granulocytes % (auto) 1.1 %; Lymphocytes # (auto) 0.96 K/uL (1.20-3.40); Lymphocytes % (auto) 17.9 %; Mean Corpuscular Hemoglobin 32.6 pg (25.0-34.0); Mean Corpuscular Hgb Conc 33.3 g/dL (32.0-36.0); Mean Corpuscular Volume 97.8 fL (80.0-100.0); Mean Platelet Volume 11.9 fL (9.4-12.4); Monocytes # (auto) 0.73 K/uL (0.11-0.59); Monocytes % (auto) 13.6 %; Neutrophils % (auto) 54.3 %; Platelet Count 192 K/uL (130-400); RDW Coefficient of Variation 13.7 % (11.5-14.5); RDW Standard Deviation 49.7 fL (36.4-46.3); Red Blood Count 3.19 M/uL (4.20-5.40); White Blood Count 5.35 K/ul (4.8-10.8)
[2024-03-28 07:40] LABS: INR 1.7 (0.9-1.1); Prothrombin Time 17.7 Seconds (9.0-12.0)
[2024-03-28 07:55] LABS: Magnesium 1.8 mg/dl (1.7-2.4); Potassium 4.1 mmol/L (3.5-5.1)
[2024-03-28 08:01] LABS: Creatinine Clr Calc Pharmacy 34.2 ml/min; Est GFR (African American) 29.6 ml/min; Est GFR (Non-African American) 25.6 ml/min
[2024-03-28 08:32] LABS: Thyroid Stimulating Hormone 0.321 uIu/ml (0.300-4.500)
--- NOTE | 2024-03-28 11:12 | XRay Report ---
XR knee LT 1 or 2V routine CLINICAL HISTORY: left knee pain COMPARISON STUDY: Left knee 12/01/2013. FINDINGS: No acute fracture or dislocation within the left knee. There is moderate tricompartmental o steoarthritis. No significant knee effusion. Diffuse soft tissue edema seen throughout the left knee/ leg. IMPRESSION: 1. No acute fracture or dislocation within the left knee. 2. Moderate tricompartmental osteoarthritis. ACT 112: Negative or not required by law. Electronically signed by: Chavez Tang M.D. 03/28/2024 11:11 AM
[2024-03-28] MEDS: ADVANCED PROBIOTIC 625 MG CAPSULE PO SCH (11:36)
[2024-03-28] MEDS: CLINDAMYCIN/D5W 600 MG/50 ML BAG IV SCH (11:36)
--- NOTE | 2024-03-28 18:20 | Hospitalist Progress Note ---
Date of Service March 28, 2024 Assessment & Plan (1) Cellulitis of right lower extremity: Plan: 63-year-old woman with lymphedema admitted with severe right lower leg cellulitis. Was started on daptomycin for 1 dose given in the ED no history of MRSA she does have multiple antibiotic reactions and was continued on IV Cipro and oral doxycycline continues to have significant erythema and Cipro has no gram-positive coverage, therefore changed to IV clindamycin continue elevation, probiotic (2) Type 2 diabetes mellitus: Plan: HbA1c 5.2% DM is resolved; she is not even a pre-diabetic BSGs here are excellent Metformin is on hold (3) ROMI (acute kidney injury): Plan: Cr today 2.0 ROMI on CKD stage III, Baseline Cr 1.2 to 1.4 - was given IV saline ended admission and on 03/27. Appears to be euvolemic. Continue hold ARB and monitor creatinine (4) History of DVT (deep vein thrombosis): Plan: L iliac vein 2018 L femoral veins 07/01 INR 1.1 on arrival Today - 1.7 Saw Coumadin clinic on 03/23 Was mildly subtherapeutic then at 1.8 Dosing upon discharge from the clinic on 03/23 --> * 4.5 mg and 3 mg x 6 days * NEW Total mg/wk: 22.5 mg/week Continue this regimen in light of abx usage - would not increase her dose - simply trend the INR Daily PT/INR (5) Seizure disorder: Plan: Carbamazepine level ordered, pending Continue home medications (6) Hypertension: Plan: Cont metoprolol 25mg HS Hold ARB due to mild ROMI and the fact that BPs are low-normal (7) Hypomagnesemia: Plan: replaced and normal at 1.8 today (8) Status post lumbar spine operation: Plan: 09/2017 T12-S1 fusion [facility] Complicated by post-op infection (culture results not available in her chart) Was treated with IV ertapenem, then was placed on doxycycline BID for suppressive therapy Has been on doxy since then (9) Macrocytosis: Plan: folate and TSH levels were normal B12 level in 11/30 was wnl; defer on recheck (10) Morbid obesity with BMI of 40.0-44.9, adult: Plan: BMI 44 (11) Left leg pain: Plan: reported during PT and OT session on 03/28, severe and limited her activity tolerance reviewed outpatient records she does have chronic lower extremity pain and ambulates very little mostly walker and power scooter. She has seen Dr. Xiong in the past is noted to have polyneuropathy which is painful as well as left S1 radicular pain and osteoarthritis. I checked knee x-ray today shows significant osteoarthritis. there were no acute findings on her knee examno evidence of trauma, erythema, effusion or deformity. - Continue her usual medications for chronic pain and neuropathy (pregabalin, tegretol, cymbalta), continue PT OT, monitor Plan PT, OT evals rec rehab Admission and Anticipated Discharge Date Admission Date: March 26, 2024 Subjective right lower leg erythema has improved compared to yesterday, no fevers chills, she did not complain of any pain when I saw her however had PT OT session directly afterward and had severe left leg pain near her knee, which significantly limited her activity tolerance Physical Exam 2 Physical Exam: PHYSICAL EXAMINATION Last 24h vital signs reviewed, see documentation in flowsheet General: comfortable appearing, no distress, sitting in bed HEENT: Normocephalic, atraumatic, pupils round and equal, sclerae anicteric, no conjunctival injection, moist mucus membranes Lungs: Normal respiratory effort. Clear to auscultation bilaterally. No RRW Heart: Regular rate and rhythm, no murmurs. No JVD Abdomen: Soft, nontender, nondistended. Bowel sounds present. Extremities: Warm, dry, well-perfused. 1+ extremity edema. right lateral calf with warm pink erythema extending from above the ankle to below the knee significantly receded from markings placed in the ED, no areas of fluctuance, no wounds Neuro: Alert and oriented x 4, face symmetric, moves 4 extremities well Psych: Normal affect and behavior Results & Data Results & Data Vital Signs (Past 12 Hours) Vital Signs Temp Pulse Resp BP Pulse Ox O2 Del Method 03/28/24 14:35 36.5 C 84 16 91/56 L 93 Room Air 03/28/24 07:38 36.7 C 73 16 113/70 93 Room Air Laboratory Results 03/28/24 06:56 03/28/24 06:56 INR is 1.7 PG Care Time/CCT Total # of Minutes Spent Total Time Spent with Patient: Total time spent is greater than 50% in coordination of care (as documented) at patient's floor/unit and/or counseling patient: Coding Level of Care Code 32756 SUB INP/OBS CARE MIN Diagnoses Cellulitis of right lower extremity L03.115 Type 2 diabetes mellitus E11.9 ROMI (acute kidney injury) N17.9 History of DVT (deep vein thrombosis) Z86.718 Seizure disorder G40.909 Hypertension I10 Hypomagnesemia E83.42 Status post lumbar spine operation Z98.890 Macrocytosis D75.89 Morbid obesity with BMI of 40.0-44.9, adult E66.01; Z68.41 Left leg pain M79.605
[2024-03-28 20:15] VITALS: O2SAT 95
[2024-03-29 06:35] LABS: Basophils # (auto) 0.03 K/uL (0.00-0.20); Basophils % (auto) 0.6 %; Eosinophils # (auto) 0.61 K/uL (0.00-0.50); Eosinophils % (auto) 12.7 %; Hematocrit (blood only) 32.4 % (37.0-47.0); Hemoglobin 10.7 g/dl (12.0-16.0); Immature Granulocytes # (auto) 0.11 K/uL (0.01-0.20); Immature Granulocytes % (auto) 2.3 %; Lymphocytes # (auto) 0.81 K/uL (1.20-3.40); Lymphocytes % (auto) 16.8 %; Mean Corpuscular Hemoglobin 32.5 pg (25.0-34.0); Mean Corpuscular Volume 98.5 fL (80.0-100.0); Mean Platelet Volume 11.5 fL (9.4-12.4); Monocytes % (auto) 14.5 %; Neutrophils # (auto) 2.56 K/uL (1.40-6.50); Neutrophils % (auto) 53.1 %; Platelet Count 229 K/uL (130-400); RDW Coefficient of Variation 13.8 % (11.5-14.5); Red Blood Count 3.29 M/uL (4.20-5.40); White Blood Count 4.82 K/ul (4.8-10.8)
[2024-03-29 07:09] LABS: INR 1.9 (0.9-1.1); Prothrombin Time 19.8 Seconds (9.0-12.0)
[2024-03-29 07:24] VITALS: BP 117/78; PULSE 96; RESP 16; TEMP 97.5
--- NOTE | 2024-03-29 17:57 | Discharge Summary ---
Discharge Summary Date of Service March 29, 2024 Principal Dx & Hospital Course #1 = Principal Diagnosis (1) Cellulitis of right lower extremity: 63-year-old woman with lymphedema admitted with severe non-purulent right lower leg cellulitis. Initially daptomycin and ciprofloxacin given in ED, has no history of MRSA, has multiple antibiotic allergies/intolerances. Changed to clindamycin and cellulitis resolved. -complete two more days oral clinda at discharge -advised probiotic, discussed risk of C. diff and warning signs of this (2) Type 2 diabetes mellitus: HbA1c 5.2% continue metformin (3) ROMI (acute kidney injury): ROMI on CKD stage III, Baseline Cr 1.2 to 1.4, increased to 2.0 -related to infection, treated with IV fluids and ARB was held in hospital -follow up BMP as outpatient (4) History of DVT (deep vein thrombosis): L iliac vein 2019 L femoral veins 07/01 INR 1.1 on arrival however, coumadin dose had just been increased by clinic as an outpatient Continued dosing most recently recommended by coumadin clinic (4.5 mg and 3 mg x 6 days) -INR 1.9 day of discharge -follow up with AC clinic as planned (5) Seizure disorder: Carbamazepine level ordered on admission and was therapeutic at 11 Continue home medications (6) Hypertension: BPs were on low normal side throughout the admission Metoprolol held - reassess at outpatient follow up -continue ARB which is beneficial for her CKD (7) Hypomagnesemia: replaced (8) Status post lumbar spine operation: 09/2017 T12-S1 fusion [facility] Complicated by post-op infection (culture results not available in her chart) Was treated with IV ertapenem, then was placed on doxycycline BID for suppressive therapy Has been on doxy chronic suppression since then (9) Macrocytosis: folate and TSH levels were normal B12 level in 11/30 was wnl; defer on recheck (10) Morbid obesity with BMI of 40.0-44.9, adult: BMI 44 (11) Left leg pain: reported during PT and OT session on 03/28, severe and limited her activity tolerance reviewed outpatient records she does have chronic lower extremity pain and ambulates very little mostly walker and power scooter. She has seen Dr. Xiong in the past is noted to have polyneuropathy which is painful as well as left S1 radicular pain and osteoarthritis. I checked knee x-ray shows significant osteoarthritis. there were no acute findings on her knee examno evidence of trauma, erythema, effusion or deformity. - Continue her usual medications for chronic pain and neuropathy (pregabalin, tegretol, cymbalta) - Pain was much better 03/29 and was ambulating at her recent baseline Plan discharged home, offered home health PT/OT which she declined since she feels she is back to her baseline functional status Notes For Next Care Provider Please check BMP on follow up (had mild rise in Cr during admission) Please recheck blood pressure - low normal in hospital so metoprolol has been held Medication Changes From Visit Metoprolol held Clindamycin po x 2 days more Admission HPI Per Admitting Provider Veronica is a pleasant 63-year-old female with PMH of T2DM, migraine, fibromyalgia, asthma, benzodiazepine overdose, idiopathic polyneuropathy, DVT, seizure disorder, and lymphadenopathy. She presented via EMS on 03/26 for worsening erythema and swelling in her right lower extremity that began on 03/23. She reports she is unable to ambulate at this time. She reports 8/10 burning, throbbing pain in her right lower extremity extending from the foot to the knee. 10/10 at worst. Worse with movements. Pain is constant. No radiation. She did not take any pain medicine prior to coming in. She denies any drainage or pus from the leg. She does have a history of skin infections; cellulitis on the left leg 1 year ago. No history of MRSA infections to her knowledge. She does have hardware in her right knee after a right total knee replacement in 1999. She also has hardware in her back from prior back surgeries. Patient fell out of bed twice since from a lying position; no LOC. No head strike. She took her regular morning medications today; no recent change in medications. She does have a history of blood clots in her left leg x 2. First episode occurred 5 years ago, and the second occurred in July 2023. She is currently on Coumadin and reports good compliance with taking. She also takes doxycycline for chronic suppressive therapy after her back surgery/hospitalization 2 years ago that led to an infection with 4 different types of bacteria and bacteremia; she is unsure if this was a MRSA bacteremia. She denies smoking, tobacco use, or alcohol use. Patient is mildly hypertensive at 142/83 at time admission; vitals otherwise stable. ED course: Daptomycin 300 mg IV Zofran 4 mg IV Morphine 4 mg IV ROS: Patient endorses RLE pain/erythema/swelling, left knee pain, and ambulatory dysfunction. Patient denies fever, chills, night-sweats, dizziness, lightheadedness, QUINONES, chest pain, chest palpitations, SOB, pleuritic CP, abdominal pain, N/V/D, changes in urinary/bowel habits, or blood in the urine/stool. Discharge Exam PHYSICAL EXAMINATION Last 24h vital signs reviewed, see documentation in flowsheet General: comfortable appearing, no distress, sitting in bed HEENT: Normocephalic, atraumatic, pupils round and equal, sclerae anicteric, no conjunctival injection, moist mucus membranes Lungs: Normal respiratory effort. Clear to auscultation bilaterally. No RRW Heart: Regular rate and rhythm, no murmurs. No JVD Abdomen: Soft, nontender, nondistended. Bowel sounds present. Extremities: Warm, dry, well-perfused. 1+ extremity edema. right calf erythema completely resolved. L knee without warmth effusion deformity or tenderness Neuro: Alert and oriented x 4, face symmetric, moves 4 extremities well Psych: Normal affect and behavior Discharge Plan Discharge Items Patient Disposition: Home - Self-Care Reason For Visit: RLE CELLULITIS Discharge Diagnosis: right lower leg cellulitis Activity: Resume your previous activity Non-emergency contact: Primary Care Provider Call non-emergency contact if: you have any medication questions and your sym ptoms worsen Follow-up/Referrals: Kate Mohamud DO [Primary Care Provider] - Diet: Carb Consistent or DM2 and Low Sodium (2gm) Addtl Attending Provider Instructions: you were treated for skin infection of your right leg this has essentially resolved and you only need a couple more days of oral antibiotics it is a good idea to take a probiotic for 2 to 4 weeks to prevent antibiotic associated diarrhea broad-spectrum antibiotics can cause a severe form of diarrhea called C. difficile, seek medical attention and get tested for this if you have severe diarrhea especially with abdominal pain or fever within the next 6 months continue the dose of warfarin recommended by anticoagulation clinic and follow- up with them for blood draws as scheduled your blood pressure has been normal in the hospital despite holding your blood pressure medicines while you were here. Usually it will run higher at home because the diet is different, however, I would like you to hold your metoprolol until you follow-up with primary care for blood pressure check. Your doctor can decide whether to restart it in the future depending on your BP. Pending Studies at Discharge: No Stand-Alone Forms: My [facility] [place], Smoking Cessation Medications and DC Order Prescriptions: New clindamycin HCl 300 mg capsule 300 mg PO Q8H Qty: 7 0RF Continued neyhkxvhihcp-zedcfddt-dolsin Tablet 1 tab PO Q24H acetaminophen [Tylenol Extra Strength] 500 mg tablet 1,000 mg PO .QHS PRN (Reason: Pain) cetirizine 10 mg tablet 10 mg PO DAILY PRN (Reason: allergies) warfarin 3 mg tablet See Rx Instructions PO UD Rx Instructions: 4.5 mg Thurs and 3 mg x 6 days per [facility] orally use as directed; doxycycline hyclate 100 mg capsule 100 mg PO BID duloxetine [Cymbalta] 30 mg capsule,delayed release(DR/EC) 30 mg PO DAILY carbamazepine 400 mg tablet extended release 12 hr 400 mg PO BID 90 Days Qty: 180 3RF montelukast 10 mg tablet 10 mg PO DAILY Qty: 30 11RF (DME) miscellaneous medical supply Liquid See Rx Instructions .MEDSUPPLY Qty: 60 6RF Rx Instructions: Ketotifen 1 mg BID famotidine 40 mg tablet See Rx Instructions .ROUTE .COMPLEX Qty: 60 11RF Dose Instruction: Take 1 tablet by mouth twice daily Rx Instructions: Take 1 tablet by mouth twice daily levocetirizine 5 mg tablet 5 mg PO QPM omeprazole 20 mg capsule,delayed release(DR/EC) 40 mg PO BID pregabalin 100 mg capsule 100 mg PO DAILY 90 Days Qty: 90 1RF atorvastatin [Lipitor] 40 mg Tablet 40 mg PO QPM fluticasone propion-salmeterol [Advair HFA] 115-21 mcg/actuation Hfa Aerosol Inhaler 2 puff INHALATION Q12H PRN (Reason: Wheezing) nejzfuymbm-zbdyovvwpmulg-kymj [Fioricet] 50-300-40 mg Capsule 2 cap PO Q8H PRN (Reason: Migraine Headache) docusate sodium [Colace] 100 mg capsule 100 mg PO BID Qty: 60 0RF metformin 1,000 mg tablet 1,000 mg PO BID telmisartan 80 mg Tablet 80 mg PO QAM nystatin-triamcinolone 100,000-0.1 unit/g-% cream 1 applic TOPICAL DIRECTED Held metoprolol tartrate 25 mg Tablet 25 mg PO HS Hold Instructions: Resume on 04/19/24. held because your BP was low in the hospital. Follow up in primary care to see if you should restart it Discharge Orders: Discharge Order (Routine); Ordered 03/29/24 Ordered By: Sailaja Dickinson Admission Data Admit Date/Time: 03/26/24 16:46 Attending Provider: Sailaja Dickinson Admit Provider: Rd Kirk Primary Care Provider: Kate Mohamud Other Providers: Rd Kirk; [facility] Other Interventions: Discharge Summary Assessment (RN) Last Done: 03/29/24 11:49 Hospital Stay Data Consultations 03/26/24 15:43 ED Decision to Admit Stat Diagnostic Imagining Performed 03/26/24 11:50 US venous doppler LE RT Stat Chest X-Ray 03/26/24 11:50 XR chest 1V portable HISTORY: Chest pain, nonspecific COMPARISON: Chest 10/11/2017. FINDINGS: There are low lung volumes. The cardiac silhouette is borderline enlarged. Left basilar linear densities favor subsegmental atelectasis. No new focal lung consolidations to suggest a pneumonia. No evidence for pulmonary edema. No acute fractures identified. Lumbar spinal fusion hardware is partially visualized. IMPRESSION: No acute process. ACT 112: Negative or not required by law. Electronically signed by: Chavez Tang M.D. 03/26/2024 1:14 PM Knee X-Ray 03/26/24 11:50 XR tibia fibula RT 2V, XR knee RT 1 or 2V routine CLINICAL HISTORY: fall. Right knee and lower leg pain. COMPARISON STUDY: None. FINDINGS: Diffuse soft tissue swelling/edema within the right knee and right lower leg. There is a right total knee arthroplasty. The hardware is intact. No fracture or dislocation within the right knee right lower leg. No knee effusion. No abnormal periprosthetic lucency. No evidence for osteomyelitis. IMPRESSION: 1. No fractures within the right knee or right lower leg. 2. Diffuse soft tissue swelling/edema within the right knee and right lower leg. ACT 112: Negative or not required by law. Electronically signed by: Chavez Tang M.D. 03/26/2024 1:13 PM Tibia/Fibula X-Ray 03/26/24 11:50 XR tibia fibula RT 2V, XR knee RT 1 or 2V routine CLINICAL HISTORY: fall. Right knee and lower leg pain. COMPARISON STUDY: None. FINDINGS: Diffuse soft tissue swelling/edema within the right knee and right lower leg. There is a right total knee arthroplasty. The hardware is intact. No fracture or dislocation within the right knee right lower leg. No knee effusion. No abnormal periprosthetic lucency. No evidence for osteomyelitis. IMPRESSION: 1. No fractures within the right knee or right lower leg. 2. Diffuse soft tissue swelling/edema within the right knee and right lower leg. ACT 112: Negative or not required by law. Electronically signed by: Chavez Tang M.D. 03/26/2024 1:13 PM Venous Doppler Study 03/26/24 11:50 RIGHT LOWER EXTREMITY VENOUS DOPPLER HISTORY: Right leg swelling COMPARISON STUDY: None. FINDINGS: There is normal compressibility, flow, and augmentation within the right lower extremity deep venous system. IMPRESSION: No DVT within the right lower extremity ACT 112: Negative or not required by law. Electronically signed by: Chavez Tang M.D. 03/26/2024 3:19 PM Knee X-Ray 03/28/24 10:45 XR knee LT 1 or 2V routine CLINICAL HISTORY: left knee pain COMPARISON STUDY: Left knee 12/01/2013. FINDINGS: No acute fracture or dislocation within the left knee. There is moderate tricompartmental osteoarthritis. No significant knee effusion. Diffuse soft tissue edema seen throughout the left knee/leg. IMPRESSION: 1. No acute fracture or dislocation within the left knee. 2. Moderate tricompartmental osteoarthritis. ACT 112: Negative or not required by law. Electronically signed by: Chavez Tang M.D. 03/28/2024 11:11 AM Pending Results Patient Have Any Pending Studies at Discharge: No Discharge Instructions Given to Patient (Per Discharging Provider) you were treated for skin infection of your right leg this has essentially resolved and you only need a couple more days of oral antibiotics it is a good idea to take a probiotic for 2 to 4 weeks to prevent antibiotic associated diarrhea broad-spectrum antibiotics can cause a severe form of diarrhea called C. difficile, seek medical attention and get tested for this if you have severe diarrhea especially with abdominal pain or fever within the next 6 months continue the dose of warfarin recommended by anticoagulation clinic and follow- up with them for blood draws as scheduled your blood pressure has been normal in the hospital despite holding your blood pressure medicines while you were here. Usually it will run higher at home because the diet is different, however, I would like you to hold your metoprolol until you follow-up with primary care for blood pressure check. Your doctor can decide whether to restart it in the future depending on your BP. Total Time Total Time Spent Total Time Spent (In Minutes): <30 min Coding Level of Care Code 15620 IN/OBS DISCH 30 MIN/LESS Diagnoses Cellulitis of right lower extremity L03.115 Type 2 diabetes mellitus E11.9 ROMI (acute kidney injury) N17.9 History of DVT (deep vein thrombosis) Z86.718 Seizure disorder G40.909 Hypertension I10 Hypomagnesemia E83.42 Status post lumbar spine operation Z98.890 Macrocytosis D75.89 Morbid obesity with BMI of 40.0-44.9, adult E66.01; Z68.41 Left leg pain M79.605
[2024-03-30] MEDS ORDERED: WARFARIN SOD 4 MG TAB PO SCH (16:00)
[2024-03-30] MEDS ORDERED: WARFARIN SOD 0.5 MG TAB PO SCH (16:00)
[2024-03-30] MEDS ORDERED: WARFARIN SOD 3 MG TAB PO SCH (16:00)
== END 2024-03-29 15:54 | disposition home or self-care (01) | DRG 603 ==
LOC: ED 10:40 → 3W 16:46 → SUATTDRO 16:46 → 3W 18:11

== ENCOUNTER 2024-03-29 22:08 | Inpatient (IN) ==
[2024-03-29] MEDS: fentaNYL citrate PF 100 MCG/2 ML VIAL IV STA (22:23)
--- NOTE | 2024-03-29 22:23 | Emergency Department Note ---
Impression & Plan Fall, Closed fracture shaft of femur ED Provider Note HISTORY OF PRESENT ILLNESS: Patient is a 63-year-old female presenting with left leg pain after a fall. Patient reports she was in the shower when she slipped and fell and her left leg went backwards into an awkward angle. She denies striking her head or loss of consciousness. She is on Coumadin. EMS reports that it was a significantly prolonged extrication, given the tight quarters of the patient's shower and the awkward angle of her leg. Patient was given 100 mcg of IV fentanyl and route with EMS. Patient reports her tetanus is up-to-date. She is currently complaining of pain throughout the entirety of her left leg. Denies any chest pain or shortness of breath. Denies any abdominal pain. Patient was just discharged from the hospital today after being admitted for cellulitis of her right lower extremity. ROS: as above PHYSICAL EXAM: Constitutional: Patient appears in no acute distress. Patient is screaming in pain. HENT: Head: Normocephalic and atraumatic. Eyes: EOMI, PERRL Mouth/Throat: Mucous membranes moist. Midface stable. No malocclusion. Neck: Trachea midline. Neck supple. No midline cervical spine tenderness to palpation. Cardiovascular: Tachycardic with regular rhythm. No murmurs, rubs or gallops. Intact distal pulses. Pulmonary/Chest: No respiratory distress. Breath sounds clear and equal bilaterally. No wheezes or rales. No chest wall tenderness to palpation. Abdominal: Abdomen soft, no tenderness, rebound or guarding. Musculoskeletal: Patient has no significant tenderness to palpation or laxity of the pelvis. - LLE: No obvious deformity appreciated. Patient has diffuse tenderness to palpation of the femur. She is able to straight leg raise bilaterally. She is able to dorsiflex and plantarflex the ankle. Able to initiate flexion at the knee. Intact DP and PT pulses. She has some scattered abrasions to the anterior tibia. Skin: Warm and dry. No rash, erythema, pallor or cyanosis Psychiatric: Appropriate mood and affect for situation. Neurological: Alert and keenly responsive. CN II-XII grossly intact, moving all extremities equally and fully. GCS 15. MDM: - Vitals signs showed tachycardia - History obtained via patient. History as above. - Patient activated as a TRAUMA ALERT pre-hospital. - On arrival, ABCs intact. Patient complaining of pain in LLE. - Chronic conditions affecting care: DM-2; hx of DVT (on Coumadin); seizure disorder; HTN; fibromyalgia; asthma - Differential diagnoses include, but are not limited to: pelvic fracture; femur fracture; intracranial hemorrhage; tibial fracture - Order placed for continuous cardiac monitoring. At this time, monitor showed rate of 115 bpm with normal sinus rhythm, per my interpretation. - External medical records reviewed. Discharge summary dated 03/29/2024 was reviewed. Patient was admitted for cellulitis of her right lower extremity. She was given a dose of daptomycin and ciprofloxacin in the emergency department and was then changed to clindamycin in the inpatient setting with resolution of her cellulitis. She was discharged with 2 days of clindamycin - EKG interpreted by myself showed normal sinus rhythm. Rate tachycardic at 107 bpm. QT 354. No acute ischemic changes. Noted to have a right bundle branch block. - Laboratory workup interpreted by myself showed normal WBC; chronic anemia (Hgb 11.6 - improved from earlier today); stable electrolytes; elevated creatine (Cr 2.18); normal troponin - CT imaging obtained to assess for traumatic injuries. However, given patient's elevated creatinine, scans were obtained without contrast - CT head wo contrast negative for acute intracranial pathology - CT cervical spine wo contrast negative for acute injury - CT chest/abdomen/pelvis wo contrast negative for acute traumatic injury - Xray femur shows mid-shaft femur fracture, per my interpretation. He reports admit to - Patient initially given 50 mcg IV fentanyl in ER. However, with all the movement for CT scan, her pain returned. Given 0.5 mg IV dilaudid. - Discussed case with orthopedic surgeon front desk specialist, Dr. Dempsey, at 23:00 on 03/29/2024. He requests a CT of the femur to assess for extension of fracture into joint. - CT left femur wo contrast showed "Displaced fracture of the distal femoral diametaphysis. The fracture extends approximately 19 cm proximal-distal and is impacted at the metaphysis by 3 cm." - Again discussed case with Dr. Dempsey at 00:30 on 03/30/2024. He request that patient be admitted to hospital service and orthopedics will see as consultation. - Patient still complaining of significant pain. Given 1 mg of IV Dilaudid. Her pain was uncontrolled, but her oxygen saturation decreased and she was placed on supplemental oxygen. - Discussion was had with casework manager about patient's case and need for admission - Hospitalist, Dr. Lira, consulted for admission - [facility] 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 WINTERS DVT (deep venous thrombosis) Left Iliac vein MAR 2019; femoral veins June 2023 Vomiting Nausea and vomiting reason for procedure Bright red blood per rectum Pyelonephritis Lumbosacral radiculopathy at S1 Idiopathic polyneuropathy Leg weakness, bilateral Encounter for pre-operative examination Rotator cuff tear Left shoulder pain Dislocation of shoulder, anterior, left, closed Benzodiazepine overdose (Acute) Benzodiazepine overdose (Acute) H/O knee surgery Asthma "VERY MILD"- has been "several yrs" since last inhaler use Fibromyalgia Migraine Type 2 diabetes mellitus (Chronic) NIDDM Hyperlipidemia (Chronic) Hypertension (Chronic) Previous section X3 Benzodiazepine overdose (Acute) 6 YRS AGO ACCIDENTAL Medical History On anticoagulant therapy warfarin Nerve pain History of colon polyps Diverticulosis History of gastric ulcer Anemia IRON/BLOOD TRANSFUSIONS MAY 2020 Osteoporosis Surgical History History of cataract surgery History of esophagogastroduodenoscopy (EGD) History of colonoscopy 06/11/2020 [facility] History of hysterectomy History of tooth extraction History of total knee replacement RIGHT History of arthroscopy X2 RIGHT KNEE Family History Brother Diabetes Grandmother (Paternal) Diabetes Grandmother (Maternal) Diabetes Other No family history of adverse response to anesthesia Social History Smoking Status: Never smoker Second Hand Exposure: No; Do You Dip or Chew Tobacco: No; Hx Alcohol Use: No Hx Substance Use: No Preferred Language: Norwegian Communication Ability: Effective Group Cio Required: No Beliefs That Will Affect Care: None Current Living Situation: Spouse Feels Safe at Home: Yes Assistive Devices: Scooter/Electric Scooter and Walker Allergies Allergies Allergy/AdvReac Type Severity Reaction Status Date / Time bee venom protein (honey bee) Allergy Severe ANAPHYLAXIS Verified 03/06/24 11:25 Penicillins Allergy Severe ANAPHYLAXIS Verified 03/06/24 11:25 Cephalosporins Allergy Intermediate DIZZINESS, Verified 03/06/24 11:25 ITCHY hydroxyzine Allergy Intermediate DIZZY Verified 03/06/24 11:25 ITCHY NAUSEA Sulfa (Sulfonamide Allergy Intermediate DIZZY Verified 03/06/24 11:25 Antibiotics) ITCHY, NAUSEA metaxalone AdvReac Intermediate n/v and Verified 03/06/24 11:25 headache, dizziness Home Meds Home Medications Medication Instructions Recorded Confirmed atorvastatin 40 mg tablet (Lipitor) 40 mg PO QPM 04/02/19 03/26/24 fluticasone propionate 115 2 puff inhalation Q12H PRN Wheezing 04/02/19 03/26/24 mcg-salmeterol 21 mcg/actuation HFA inhaler (Advair HFA) levocetirizine 5 mg tablet 5 mg PO QPM 12/02/21 03/26/24 metformin 1,000 mg tablet 1,000 mg PO BID 02/15/23 03/26/24 metoprolol tartrate 25 mg tablet 25 mg PO HS 04/01/23 03/26/24 telmisartan 80 mg tablet 80 mg PO QAM 04/01/23 03/30/24 aloasjlpzgrw-sbqtfqea-hhreve tablet 1 tab PO Q24H 07/08/23 03/30/24 doxycycline hyclate 100 mg capsule 100 mg PO BID 07/21/23 03/26/24 acetaminophen 500 mg tablet 1,000 mg PO .QHS PRN Pain 11/08/23 03/26/24 (Tylenol Extra Strength) cetirizine 10 mg tablet 10 mg PO DAILY PRN allergies 12/02/23 03/26/24 duloxetine 30 mg capsule,delayed 30 mg PO DAILY 12/10/23 03/30/24 release (Cymbalta) warfarin 3 mg tablet See Rx Instructions PO UD 03/23/24 03/30/24 nystatin-triamcinolone 100,000 1 applic topical DIRECTED 03/26/24 03/30/24 unit/g-0.1 % topical cream qvnuhrlvgh-unuitjoxebefh-ssoazypl 1 tab PO Q4 PRN Headache 03/30/24 03/30/24 50 mg-325 mg-40 mg tablet famotidine 40 mg tablet 40 mg PO BID 03/30/24 03/30/24 omeprazole 40 mg capsule,delayed 40 mg PO BID 03/30/24 03/30/24 release Previous Rx's Medication Instructions Recorded docusate sodium 100 mg capsule 100 mg PO BID #60 caps 04/02/19 (Colace) carbamazepine 400 mg 400 mg PO BID 90 days #180 tabs 08/10/23 tablet,extended release,12 hr montelukast 10 mg tablet 10 mg PO DAILY #30 tabs 12/30/23 miscellaneous medical supply #60 caps 03/02/24 pregabalin 100 mg capsule 100 mg PO DAILY 90 days #90 caps 03/06/24 clindamycin HCl 300 mg capsule 300 mg PO Q8H #7 caps 03/29/24 Results & Data (ED) Vital Signs Vital Signs - 24 hr 03/29/24 22:11 03/29/24 22:18 03/29/24 22:19 Temperature Temperature Source Oral Pulse Rate 119 H 116 H Pulse Rate [Apical] Pulse Rate from SpO2 Sensor 117 H Pulse Rhythm [Apical] Pulse Strength [Apical] Pulse Strength [Bilateral Femoral] Normal Respiratory Rate 22 22 Respiratory Effort / Characteristics Non-Labored Spontaneous Respiratory Depth Normal Respiratory Pattern Blood Pressure 113/82 Blood Pressure [Right Arm] Blood Pressure Mean 92 Blood Pressure Mean [Right Arm] Blood Pressure Position [Right Arm] Pulse Oximetry 97 96 Oxygen Delivery Method Room Air Room Air Sepsis Recent Fever Within 48 Hours No Sepsis New/Unexplained Change in Mental Status No Sepsis Action Taken by Nursing Physician Notified Oxygen Flow Rate - Titration Pulse Oximetry Post Tiitration 03/29/24 22:19 03/29/24 22:19 03/29/24 22:30 Temperature Temperature Source Pulse Rate 119 H 120 H Pulse Rate [Apical] Pulse Rate from SpO2 Sensor 119 H Pulse Rhythm [Apical] Pulse Strength [Apical] Pulse Strength [Bilateral Femoral] Respiratory Rate 16 Respiratory Effort / Characteristics Respiratory Depth Respiratory Pattern Blood Pressure 113/82 Blood Pressure [Right Arm] Blood Pressure Mean 95 Blood Pressure Mean [Right Arm] Blood Pressure Position [Right Arm] Pulse Oximetry 98 Oxygen Delivery Method Sepsis Recent Fever Within 48 Hours Sepsis New/Unexplained Change in Mental Status Sepsis Action Taken by Nursing Oxygen Flow Rate - Titration Pulse Oximetry Post Tiitration 03/29/24 22:37 03/29/24 23:00 03/29/24 23:00 Temperature 36.6 C Temperature Source Oral Pulse Rate Pulse Rate [Apical] Pulse Rate from SpO2 Sensor Pulse Rhythm [Apical] Pulse Strength [Apical] Pulse Strength [Bilateral Femoral] Respiratory Rate Respiratory Effort / Characteristics Respiratory Depth Respiratory Pattern Blood Pressure 147/98 H 147/98 H Blood Pressure [Right Arm] Blood Pressure Mean 101 101 Blood Pressure Mean [Right Arm] Blood Pressure Position [Right Arm] Pulse Oximetry Oxygen Delivery Method Sepsis Recent Fever Within 48 Hours Sepsis New/Unexplained Change in Mental Status Sepsis Action Taken by Nursing Oxygen Flow Rate - Titration Pulse Oximetry Post Tiitration 03/29/24 23:00 03/29/24 23:00 03/29/24 23:09 Temperature 36.6 C Temperature Source Oral Pulse Rate 112 H Pulse Rate [Apical] 109 H Pulse Rate from SpO2 Sensor 111 H Pulse Rhythm [Apical] Regular Pulse Strength [Apical] Normal Pulse Strength [Bilateral Femoral] Respiratory Rate 21 16 Respiratory Effort / Characteristics Non-Labored Respiratory Depth Normal Respiratory Pattern Regular Blood Pressure 147/98 H Blood Pressure [Right Arm] 113/79 Blood Pressure Mean 101 Blood Pressure Mean [Right Arm] 90 Blood Pressure Position [Right Arm] Lying Pulse Oximetry 98 95 Oxygen Delivery Method Room Air Sepsis Recent Fever Within 48 Hours Sepsis New/Unexplained Change in Mental Status Sepsis Action Taken by Nursing Oxygen Flow Rate - Titration Pulse Oximetry Post Tiitration 03/29/24 23:36 03/29/24 23:57 03/30/24 00:00 Temperature 36.8 C Temperature Source Oral Pulse Rate 104 H 108 H Pulse Rate [Apical] 108 H Pulse Rate from SpO2 Sensor 104 H 108 H Pulse Rhythm [Apical] Regular Pulse Strength [Apical] Normal Pulse Strength [Bilateral Femoral] Respiratory Rate 15 17 16 Respiratory Effort / Characteristics Non-Labored Respiratory Depth Normal Respiratory Pattern Regular Blood Pressure Blood Pressure [Right Arm] 113/79 Blood Pressure Mean Blood Pressure Mean [Right Arm] 90 Blood Pressure Position [Right Arm] Lying Pulse Oximetry 96 93 93 Oxygen Delivery Method Room Air Sepsis Recent Fever Within 48 Hours Sepsis New/Unexplained Change in Mental Status Sepsis Action Taken by Nursing Oxygen Flow Rate - Titration Pulse Oximetry Post Tiitration 03/30/24 00:04 03/30/24 00:04 03/30/24 00:36 Temperature Temperature Source Pulse Rate 111 H Pulse Rate [Apical] Pulse Rate from SpO2 Sensor Pulse Rhythm [Apical] Pulse Strength [Apical] Pulse Strength [Bilateral Femoral] Respiratory Rate 14 Respiratory Effort / Characteristics Respiratory Depth Respiratory Pattern Blood Pressure 113/79 113/79 Blood Pressure [Right Arm] Blood Pressure Mean 94 94 Blood Pressure Mean [Right Arm] Blood Pressure Position [Right Arm] Pulse Oximetry 87 L Oxygen Delivery Method Room Air Sepsis Recent Fever Within 48 Hours Sepsis New/Unexplained Change in Mental Status Sepsis Action Taken by Nursing Oxygen Flow Rate - Titration Pulse Oximetry Post Tiitration 03/30/24 00:36 Temperature Temperature Source Pulse Rate Pulse Rate [Apical] Pulse Rate from SpO2 Sensor Pulse Rhythm [Apical] Pulse Strength [Apical] Pulse Strength [Bilateral Femoral] Respiratory Rate Respiratory Effort / Characteristics Respiratory Depth Respiratory Pattern Blood Pressure Blood Pressure [Right Arm] Blood Pressure Mean Blood Pressure Mean [Right Arm] Blood Pressure Position [Right Arm] Pulse Oximetry 87 L Oxygen Delivery Method Room Air Sepsis Recent Fever Within 48 Hours Sepsis New/Unexplained Change in Mental Status Sepsis Action Taken by Nursing Oxygen Flow Rate - Titration 2 Pulse Oximetry Post Tiitration 100 Laboratory Data 03/29/24 22:23 03/29/24 22:23 Lab Results 03/29/24 03/29/24 Range/Units 22:23 22:29 WBC 8.17 (4.8-10.8) K/ul RBC 3.58 L (4.20-5.40) M/uL Hgb 11.6 L (12.0-16.0) g/dl POC Hgb 11.9 L (12.0-16.0) g/dl Hct 35.9 L (37.0-47.0) % POC Hct 35 L (37-47) % MCV 100.3 H (80.0-100.0) fL MCH 32.4 (25.0-34.0) pg MCHC 32.3 (32.0-36.0) g/dL RDW Std Deviation 50.7 H (36.4-46.3) fL RDW Coeff of Heather 13.8 (11.5-14.5) % Plt Count 299 (130-400) K/uL MPV 11.6 (9.4-12.4) fL Immature Gran % (Auto) 3.1 % Neut % (Auto) 63.8 % Lymph % (Auto) 14.2 % [place] % (Auto) 11.5 % Eos % (Auto) 6.7 % Baso % (Auto) 0.7 % Neut # (Auto) 5.21 (1.40-6.50) K/uL Lymph # (Auto) 1.16 L (1.20-3.40) K/uL [place] # (Auto) 0.94 H (0.11-0.59) K/uL Eos # (Auto) 0.55 H (0.00-0.50) K/uL Baso # (Auto) 0.06 (0.00-0.20) K/uL Immature Gran # (Auto) 0.25 H (0.01-0.20) K/uL PT 19.3 H (9.0-12.0) Seconds INR 1.9 H (0.9-1.1) POC Sodium 137 (135-144) mmol/L Sodium 137 (136-145) mmol/L POC Potassium 4.4 (3.3-5.0) mmol/L Potassium 4.4 (3.5-5.1) mmol/L POC Chloride 104 (101-112) mmol/L Chloride 103 (98-107) mmol/L Carbon Dioxide 25 (21-32) mmol/L POC Total CO2 25 (24-31) mmol/L Anion Gap 9 (3-11) POC Anion Gap 13.0 L (16-25) mmol/L POC BUN 32 H (7-18) mg/dl BUN 33 H (6-23) mg/dl Creatinine 2.18 H (0.6-1.2) mg/dl POC Creatinine 2.3 H (0.6-1.3) mg/dl Est Cr Clr Drug Dosing 32.1 ml/min Est GFR ( Amer) 26.7 ml/min Est GFR (Non-Af Amer) 23.0 ml/min BUN/Creatinine Ratio 15.1 (10-20) Glucose 225 H (70-99(Fasting)) mg/dl POC Glucose (other) 222 H (70-99) mg/dl Calcium 9.8 (8.6-10.3) mg/dl POC Ioniz Calcium Velia 1.21 (1.12-1.32) mmol/l Magnesium 1.8 (1.7-2.4) mg/dl Total Bilirubin 0.6 (0.2-1.0) mg/dl AST 36 (13-39) U/L ALT 34 (7-52) U/L Alkaline Phosphatase 173 H (34-104) U/L Troponin I High Sens 5.3 (0-14) pg/ml Total Protein 6.9 (6.0-8.3) gm/dl Albumin 3.3 L (3.4-5.0) gm/dl Globulin 3.6 (2.5-4.0) gm/dl Albumin/Globulin Ratio 0.9 (0.9-2) Administered Medications Discontinued Medications Fentanyl Citrate (Fentanyl Citrate Pf 100 Mcg/2 Ml Vial) 50 mcg IV NOW STA Stop: 03/29/24 22:21 Last Admin: 03/29/24 22:23 Dose: 50 mcg Documented By: JC Hydromorphone HCl (Hydromorphone Inj 0.5 Mg/0.5 Ml Syr) 0.5 mg IV NOW STA Stop: 03/29/24 23:02 Last Admin: 03/29/24 23:07 Dose: 0.5 mg Documented By: RADHA Hydromorphone HCl (Hydromorphone Inj 1 Mg/Ml Syringe) 1 mg IV NOW STA Stop: 03/30/24 00:17 Last Admin: 03/30/24 00:25 Dose: 1 mg Documented By: JASPERW Imaging Data Radiologist's Impression: Abdomen/Pelvis CT 03/29/24 22:18 Exam(s): CT ABDOMEN + PELVIS Without Contrast EXAM: CT Abdomen and Pelvis Without Intravenous Contrast CLINICAL HISTORY: Reason for exam: trauma. TECHNIQUE: Axial computed tomography images of the abdomen and pelvis without intravenous contrast. CTDI is 26.54 mGy and DLP is 1334.52 mGy-cm. Automated exposure control was utilized for the study. A dose lowering technique was utilized adhering to the principles of ALARA. COMPARISON: No relevant prior studies available. FINDINGS: Lung bases: Unremarkable. No mass. No consolidation. ABDOMEN: Liver: Unremarkable. Gallbladder and bile ducts: Unremarkable. No calcified stones. No ductal dilation. Pancreas: Unremarkable. No ductal dilation. Spleen: Unremarkable. No splenomegaly. Adrenals: Unremarkable. No mass. Kidneys and ureters: Unremarkable. No obstructing stones. No hydronephrosis. Stomach and bowel: Mild fecal retention, correlate for constipation. Diverticulosis, without acute diverticulitis. No small bowel obstruction. No free intraperitoneal air. PELVIS: Appendix: No findings to suggest acute appendicitis. Bladder: Unremarkable. No stones. Reproductive: Hysterectomy. ABDOMEN and PELVIS: Intraperitoneal space: Unremarkable. No free air. No significant fluid collection. Bones/joints: Degenerative changes of the spine. Multilevel thoracolumbar sacral fusion hardware. No acute fracture. No dislocation. Soft tissues: Unremarkable. Vasculature: Atherosclerotic changes of the aorta. No abdominal aortic aneurysm. Lymph nodes: Unremarkable. No enlarged lymph nodes. IMPRESSION: 1. Mild fecal retention, correlate for constipation. 2. Hysterectomy. 3. Diverticulosis, without acute diverticulitis. No small bowel obstruction. No free intraperitoneal air. Electronically signed by: José Atkinson MD 03/30/24 00:[address] 03/29/24 22:18 Exam(s): CT C SPINE EXAM: CT Cervical Spine Without Intravenous Contrast CLINICAL HISTORY: Reason for exam: trauma. TECHNIQUE: Axial computed tomography images of the cervical spine without intravenous contrast. CTDI is 25.59 mGy and DLP is 425.78 mGy-cm. Automated exposure control was utilized for the study. A dose lowering technique was utilized adhering to the principles of ALARA. COMPARISON: No relevant prior studies available. FINDINGS: The vertebral body heights are maintained. The craniocervical junction is intact. The atlanto-dens interval is maintained. The dens is intact. There is no spondylolisthesis. Multilevel cervical spondylosis and degenerative disc disease. Straightening of the cervical lordosis. The unenhanced neck soft tissues are grossly unremarkable. The visualized lung apices are grossly clear. IMPRESSION: No acute fracture or subluxation of the cervical spine. Electronically signed by: José Atkinson MD 03/29/24 23:[address] 03/29/24 22:18 Exam(s): CT CHEST Without Contrast EXAM: CT Chest Without Intravenous Contrast CLINICAL HISTORY: Reason for exam: trauma. TECHNIQUE: Axial computed tomography images of the chest without intravenous contrast. CTDI is 28.13 mGy and DLP is 880.16 mGy-cm. Automated exposure control was utilized for the study. A dose lowering technique was utilized adhering to the principles of ALARA. COMPARISON: No relevant prior studies available. FINDINGS: Lungs: Unremarkable. No mass. No consolidation. Pleural space: Unremarkable. No pneumothorax. No significant effusion. Heart: Unremarkable. No cardiomegaly. No significant pericardial effusion. No significant coronary artery calcifications. Bones/joints: Degenerative changes of the spine. No acute fracture. No dislocation. Soft tissues: Unremarkable. Vasculature: Unremarkable. No thoracic aortic aneurysm. Lymph nodes: Unremarkable. No enlarged lymph nodes. IMPRESSION: No acute findings in the chest. Electronically signed by: José Atkinson MD 03/29/24 23:[address] 03/29/24 22:18 Exam(s): CT HEAD Without Contrast EXAM: CT Head Without Intravenous Contrast CLINICAL HISTORY: Reason for exam: trauma. TECHNIQUE: Axial computed tomography images of the head/brain without intravenous contrast. CTDI is 36.55 mGy and DLP is 624.41 mGy-cm. Automated exposure control was utilized for the study. A dose lowering technique was utilized adhering to the principles of ALARA. COMPARISON: No relevant prior studies available. FINDINGS: No acute intracranial hemorrhage. No midline shift or mass effect. The territorial jean-white matter differentiation is maintained throughout. Age-related cerebral volume loss. Periventricular and subcortical white matter hypoattenuation, consistent with chronic microangiopathy. The visualized orbits appear grossly unremarkable. The calvarium is intact. The visualized paranasal sinuses and mastoid air cells are grossly clear. IMPRESSION: No acute intracranial hemorrhage, midline shift, or mass effect. Electronically signed by: José Atkinson MD 03/29/24 23:[address] 03/29/24 23:00 Exam(s): CT EXTREMITY LEFT LOWER Without Contrast EXAM: CT Left Lower Extremity Without Intravenous Contrast CLINICAL HISTORY: Reason for exam: L leg fracture. TECHNIQUE: Axial computed tomography images of the left lower extremity without intravenous contrast. Automated exposure control was utilized for the study. A dose lowering technique was utilized adhering to the principles of ALARA. COMPARISON: No relevant prior studies available. FINDINGS: Bones/joints: Displaced fracture of the distal femoral diametaphysis. The fracture extends approximately 19 cm proximal-distal and is impacted at the metaphysis by 3 cm. Orthopedic surgical evaluation recommended. Tricompartmental joint space narrowing of the knee. Diffuse osseous demineralization. No dislocation. Soft tissues: Unremarkable. IMPRESSION: Displaced fracture of the distal femoral diametaphysis. The fracture extends approximately 19 cm proximal-distal and is impacted at the metaphysis by 3 cm. Orthopedic surgical evaluation recommended. Electronically signed by: José Atkinson MD 03/30/24 00:10 AM Discharge Plan Visit Data Chief Complaint: Trauma Stated Complaint: TRAUMA ALERT ED Provider: Mary Anne Kwon Discharge Problem: Fall, Closed fracture shaft of femur Forms Stand Alone Forms: My [facility] [employer] Prescriptions Prescriptions: No Action pvhaxefxdhyr-qnwjkbvs-rphfuw Tablet 1 tab PO Q24H acetaminophen [Tylenol Extra Strength] 500 mg tablet 1,000 mg PO .QHS PRN (Reason: Pain) cetirizine 10 mg tablet 10 mg PO DAILY PRN (Reason: allergies) warfarin 3 mg tablet See Rx Instructions PO UD Rx Instructions: 4.5 mg Thurs and 3 mg x 6 days per [facility] orally use as directed; doxycycline hyclate 100 mg capsule 100 mg PO BID duloxetine [Cymbalta] 30 mg capsule,delayed release(DR/EC) 30 mg PO DAILY carbamazepine 400 mg tablet extended release 12 hr 400 mg PO BID 90 Days Qty: 180 3RF montelukast 10 mg tablet 10 mg PO DAILY Qty: 30 11RF (DME) miscellaneous medical supply Liquid See Rx Instructions .MEDSUPPLY Qty: 60 6RF Rx Instructions: Ketotifen 1 mg BID levocetirizine 5 mg tablet 5 mg PO QPM pregabalin 100 mg capsule 100 mg PO DAILY 90 Days Qty: 90 1RF atorvastatin [Lipitor] 40 mg Tablet 40 mg PO QPM fluticasone propion-salmeterol [Advair HFA] 115-21 mcg/actuation Hfa Aerosol Inhaler 2 puff INHALATION Q12H PRN (Reason: Wheezing) docusate sodium [Colace] 100 mg capsule 100 mg PO BID Qty: 60 0RF metformin 1,000 mg tablet 1,000 mg PO BID telmisartan 80 mg Tablet 80 mg PO QAM metoprolol tartrate 25 mg Tablet 25 mg PO HS Hold Instructions: Resume on 04/19/24. held because your BP was low in the hospital. Follow up in primary care to see if you should restart it famotidine 40 mg tablet 40 mg PO BID omeprazole 40 mg capsule,delayed release(DR/EC) 40 mg PO BID xupkhldkea-qabyofqxsyiro-zxnq 50-325-40 mg tablet 1 tab PO Q4 PRN (Reason: Headache) nystatin-triamcinolone 100,000-0.1 unit/g-% cream 1 applic TOPICAL DIRECTED clindamycin HCl 300 mg capsule 300 mg PO Q8H Qty: 7 0RF Referrals Referrals: Kate Mohamud DO [Primary Care Provider] -
[2024-03-29 22:43] LABS: iSTAT Creatinine 2.3 mg/dl (0.6-1.3); iSTAT Hemoglobin 11.9 g/dl (12.0-16.0); iSTAT Ionized Calcium 1.21 mmol/l (1.12-1.32); iSTAT Potassium 4.4 mmol/L (3.3-5.0)
[2024-03-29 22:53] LABS: Basophils # (auto) 0.06 K/uL (0.00-0.20); Basophils % (auto) 0.7 %; Eosinophils # (auto) 0.55 K/uL (0.00-0.50); Eosinophils % (auto) 6.7 %; Hematocrit (blood only) 35.9 % (37.0-47.0); Hemoglobin 11.6 g/dl (12.0-16.0); Immature Granulocytes # (auto) 0.25 K/uL (0.01-0.20); Immature Granulocytes % (auto) 3.1 %; Lymphocytes # (auto) 1.16 K/uL (1.20-3.40); Lymphocytes % (auto) 14.2 %; Mean Corpuscular Hemoglobin 32.4 pg (25.0-34.0); Mean Corpuscular Hgb Conc 32.3 g/dL (32.0-36.0); Mean Corpuscular Volume 100.3 fL (80.0-100.0); Mean Platelet Volume 11.6 fL (9.4-12.4); Monocytes # (auto) 0.94 K/uL (0.11-0.59); Monocytes % (auto) 11.5 %; Neutrophils # (auto) 5.21 K/uL (1.40-6.50); Neutrophils % (auto) 63.8 %; Platelet Count 299 K/uL (130-400); RDW Coefficient of Variation 13.8 % (11.5-14.5); RDW Standard Deviation 50.7 fL (36.4-46.3); Red Blood Count 3.58 M/uL (4.20-5.40); White Blood Count 8.17 K/ul (4.8-10.8)
[2024-03-29] MEDS: HYDROmorphone INJ 0.5 MG/0.5 ML SYR IV STA (23:07)
[2024-03-29 23:10] LABS: Albumin Globulin Ratio 0.9 (0.9-2); Albumin Level 3.3 gm/dl (3.4-5.0); BUN Creatinine Ratio 15.1 (10-20); Bilirubin,Total 0.6 mg/dl (0.2-1.0); Calcium 9.8 mg/dl (8.6-10.3); Creatinine Clr Calc Pharmacy 32.1 ml/min; Est GFR (African American) 26.7 ml/min; Globulin 3.6 gm/dl (2.5-4.0); Magnesium 1.8 mg/dl (1.7-2.4); Potassium 4.4 mmol/L (3.5-5.1); Total Protein 6.9 gm/dl (6.0-8.3)
[2024-03-29 23:26] LABS: Troponin I High Sensitivity 5.3 pg/ml (0-14)
--- NOTE | 2024-03-29 23:49 | CT Scan Report ---
Exam(s): CT HEAD Without Contrast EXAM: CT Head Without Intravenous Contrast CLINICAL HISTORY: Reason for exam: trauma. TECHNIQUE: Axial computed tomography images of the head/brain without intravenous contrast. CTDI is 36.55 mGy and DLP is 624.41 mGy-cm. Automated exposure control was utilized for the study. A dose lowering technique was utilized adhering to the principles of ALARA. COMPARISON: No relevant prior studies available. FINDINGS: No acute intracranial hemorrhage. No midline shift or mass effect. The territorial jean-white matter differentiation is maintained throughout. Age-related cerebral volume loss. Periventricular and subcortical white matter hypoattenuation, consistent with chronic microangiopathy. The visualized orbits appear grossly unremarkable. The calvarium is intact. The visualized paranasal sinuses and mastoid air cells are grossly clear. IMPRESSION: No acute intracranial hemorrhage, midline shift, or mass effect. Electronically signed by: José Atkinson MD 03/29/24 23:48 PM
--- NOTE | 2024-03-29 23:49 | CT Scan Report ---
Exam(s): CT C SPINE EXAM: CT Cervical Spine Without Intravenous Contrast CLINICAL HISTORY: Reason for exam: trauma. TECHNIQUE: Axial computed tomography images of the cervical spine without intravenous contrast. CTDI is 25.59 mGy and DLP is 425.78 mGy-cm. Automated exposure control was utilized for the study. A dose lowering technique was utilized adhering to the principles of ALARA. COMPARISON: No relevant prior studies available. FINDINGS: The vertebral body heights are maintained. The craniocervical junction is intact. The atlanto-dens interval is maintained. The dens is intact. There is no spondylolisthesis. Multilevel cervical spondylosis and degenerative disc disease. Straightening of the cervical lordosis. The unenhanced neck soft tissues are grossly unremarkable. The visualized lung apices are grossly clear. IMPRESSION: No acute fracture or subluxation of the cervical spine. Electronically signed by: José Atkinson MD 03/29/24 23:48 PM
[2024-03-29 23:50] LABS: INR 1.9 (0.9-1.1); Prothrombin Time 19.3 Seconds (9.0-12.0)
--- NOTE | 2024-03-29 23:56 | CT Scan Report ---
Exam(s): CT CHEST Without Contrast EXAM: CT Chest Without Intravenous Contrast CLINICAL HISTORY: Reason for exam: trauma. TECHNIQUE: Axial computed tomography images of the chest without intravenous contrast. CTDI is 28.13 mGy and DLP is 880.16 mGy-cm. Automated exposure control was utilized for the study. A dose lowering technique was utilized adhering to the principles of ALARA. COMPARISON: No relevant prior studies available. FINDINGS: Lungs: Unremarkable. No mass. No consolidation. Pleural space: Unremarkable. No pneumothorax. No significant effusion. Heart: Unremarkable. No cardiomegaly. No significant pericardial effusion. No significant coronary artery calcifications. Bones/joints: Degenerative changes of the spine. No acute fracture. No dislocation. Soft tissues: Unremarkable. Vasculature: Unremarkable. No thoracic aortic aneurysm. Lymph nodes: Unremarkable. No enlarged lymph nodes. IMPRESSION: No acute findings in the chest. Electronically signed by: José Atkinson MD 03/29/24 23:55 PM
--- NOTE | 2024-03-30 00:04 | CT Scan Report ---
Exam(s): CT ABDOMEN + PELVIS Without Contrast EXAM: CT Abdomen and Pelvis Without Intravenous Contrast CLINICAL HISTORY: Reason for exam: trauma. TECHNIQUE: Axial computed tomography images of the abdomen and pelvis without intravenous contrast. CTDI is 26.54 mGy and DLP is 1334.52 mGy-cm. Automated exposure control was utilized for the study. A dose lowering technique was utilized adhering to the principles of ALARA. COMPARISON: No relevant prior studies available. FINDINGS: Lung bases: Unremarkable. No mass. No consolidation. ABDOMEN: Liver: Unremarkable. Gallbladder and bile ducts: Unremarkable. No calcified stones. No ductal dilation. Pancreas: Unremarkable. No ductal dilation. Spleen: Unremarkable. No splenomegaly. Adrenals: Unremarkable. No mass. Kidneys and ureters: Unremarkable. No obstructing stones. No hydronephrosis. Stomach and bowel: Mild fecal retention, correlate for constipation. Diverticulosis, without acute diverticulitis. No small bowel obstruction. No free intraperitoneal air. PELVIS: Appendix: No findings to suggest acute appendicitis. Bladder: Unremarkable. No stones. Reproductive: Hysterectomy. ABDOMEN and PELVIS: Intraperitoneal space: Unremarkable. No free air. No significant fluid collection. Bones/joints: Degenerative changes of the spine. Multilevel thoracolumbar sacral fusion hardware. No acute fracture. No dislocation. Soft tissues: Unremarkable. Vasculature: Atherosclerotic changes of the aorta. No abdominal aortic aneurysm. Lymph nodes: Unremarkable. No enlarged lymph nodes. IMPRESSION: 1. Mild fecal retention, correlate for constipation. 2. Hysterectomy. 3. Diverticulosis, without acute diverticulitis. No small bowel obstruction. No free intraperitoneal air. Electronically signed by: José Atkinson MD 03/30/24 00:03 AM
--- NOTE | 2024-03-30 00:11 | CT Scan Report ---
Exam(s): CT EXTREMITY LEFT LOWER Without Contrast EXAM: CT Left Lower Extremity Without Intravenous Contrast CLINICAL HISTORY: Reason for exam: L leg fracture. TECHNIQUE: Axial computed tomography images of the left lower extremity without intravenous contrast. Automated exposure control was utilized for the study. A dose lowering technique was utilized adhering to the principles of ALARA. COMPARISON: No relevant prior studies available. FINDINGS: Bones/joints: Displaced fracture of the distal femoral diametaphysis. The fracture extends approximately 19 cm proximal-distal and is impacted at the metaphysis by 3 cm. Orthopedic surgical evaluation recommended. Tricompartmental joint space narrowing of the knee. Diffuse osseous demineralization. No dislocation. Soft tissues: Unremarkable. IMPRESSION: Displaced fracture of the distal femoral diametaphysis. The fracture extends approximately 19 cm proximal-distal and is impacted at the metaphysis by 3 cm. Orthopedic surgical evaluation recommended. Electronically signed by: José Atkinson MD 03/30/24 00:10 AM
[2024-03-30] MEDS: HYDROmorphone INJ 1 MG/ML SYRINGE IV STA (00:25)
[2024-03-30 01:01] LABS: Appearance Urine Cloudy (Clear); Bilirubin Urine Negative (Negative); Blood Urine Negative (Negative); Color Urine Dark Yellow; Glucose Urine UA Negative (Negative); Ketones Urine Negative (Negative); Leukocyte Esterase Urine Trace (Negative); Nitrite Urine Negative (Negative); Protein Urine 1+ (Negative); RBC Urine Automated 0-2 /hpf (0-2); Specific Gravity Urine 1.026 (1.000-1.030); Urobilinogen Urine Negative (Negative); WBC Urine Automated 0-5 /hpf (0-5)
[2024-03-30] MEDS ORDERED: hydrALAZINE HCL 20 MG/ML VIAL IV PRN (01:32)
[2024-03-30 01:37] LABS: Epithelial Cell Urine Auto >20 /hpf (0-2)
[2024-03-30 01:38] LABS: Amorphous Sediment Urine Present (None Prsent); Bacteria Urine Automated 1+ (None Seen); Mucus Urine Present (None Prsent); Renal Epithelial Cells Urine Present /lpf (None Presnt)
--- NOTE | 2024-03-30 01:42 | History & Physical Report ---
Date of Service March 30, 2024 Assessment & Plan (1) Closed fracture of distal end of left femur: (2) Closed fracture shaft of femur: (3) Left leg pain: (4) Cellulitis of right lower extremity: (5) Seizure disorder: (6) DVT (deep venous thrombosis): (7) Asthma: (8) Type 2 diabetes mellitus: (9) Hypertension: (10) On anticoagulant therapy: Plan Closed fracture of distal end of left femur/severe left leg pain- N.p.o. after midnight except essential medications Acetaminophen 1 g IV every 8 hours as needed for mild pain or fever Dilaudid 0.5 mg IV every 3 hours as needed for moderate pain Dilaudid 1 mg IV every 3 hours as needed for severe pain NSS at 80 mL/h x 2 L Consult to orthopedic spine surgery Dr. Dempsey History of DVT- INR 1.9 on admission Holding warfarin and repeat laboratories in a.m. If surgery to be performed tomorrow, can be reversed at that time if still elevated Right lower extremity cellulitis- Change clindamycin to 300 mg IV every 8 hours, reportedly had 2 more days of treatment remaining Diabetes mellitus- Hold metformin Placed on Accu-Cheks with NovoLog SSI Seizure disorder- Continue carbamazepine 12-hour, 40 mg p.o. twice daily Hypertension- Hold metoprolol and telmisartan Hydralazine 10 mg IV every 4 hours as needed for systolic blood pressure greater than 160 History of Present Illness Chief Complaint: The patient presents to the emergency department after a fall at home while cleaning her shower, landing on her left leg, developing immediate severe pain, with x-rays in the emergency department showing a closed displaced distal femur fracture Primary Care Provider: Kate Mohamud DO The patient is a 63-year-old female with medical history including morbid obesity, status post lumbar spine operation, ROMI, history of DVT, seizure disorder, pyelonephritis, benzodiazepine overdose, fibromyalgia, diabetes mellitus type 2, hyperlipidemia, hypertension, recent admission from 03/26-03/29 for right lower extremity cellulitis. Patient had just been discharged to home, was cleaning her shower at home, slipped and fell, sustained a closed displaced distal left femur fracture as noted on x-ray in the ED this evening. Emergency department is talked to Dr. Dempsey, orthopedic surgery, who will see the patient. Allergies Allergy/AdvReac Type Severity Reaction Status Date / Time bee venom protein (honey bee) Allergy Severe ANAPHYLAXIS Verified 03/06/24 11:25 Penicillins Allergy Severe ANAPHYLAXIS Verified 03/06/24 11:25 Cephalosporins Allergy Intermediate DIZZINESS, Verified 03/06/24 11:25 ITCHY hydroxyzine Allergy Intermediate DIZZY Verified 03/06/24 11:25 ITCHY NAUSEA Sulfa (Sulfonamide Allergy Intermediate DIZZY Verified 03/06/24 11:25 Antibiotics) ITCHY, NAUSEA metaxalone AdvReac Intermediate n/v and Verified 03/06/24 11:25 headache, dizziness Home Medications Medication Instructions Recorded Confirmed Type atorvastatin 40 mg tablet (Lipitor) 40 mg PO QPM 04/02/19 03/30/24 History docusate sodium 100 mg capsule 100 mg PO BID #60 caps 04/02/19 03/30/24 Rx (Colace) fluticasone propionate 115 2 puff inhalation Q12H PRN Wheezing 04/02/19 03/30/24 History mcg-salmeterol 21 mcg/actuation HFA inhaler (Advair HFA) levocetirizine 5 mg tablet 5 mg PO QPM 12/02/21 03/30/24 History metformin 1,000 mg tablet 1,000 mg PO BID 02/15/23 03/30/24 History metoprolol tartrate 25 mg tablet 25 mg PO HS 04/01/23 03/30/24 History telmisartan 80 mg tablet 80 mg PO QAM 04/01/23 03/30/24 History xpobciexnmxd-phucuxvy-dfhdve tablet 1 tab PO Q24H 07/08/23 03/30/24 History doxycycline hyclate 100 mg capsule 100 mg PO BID 07/21/23 03/30/24 History carbamazepine 400 mg 400 mg PO BID 90 days #180 tabs 08/10/23 03/30/24 Rx tablet,extended release,12 hr acetaminophen 500 mg tablet 1,000 mg PO .QHS PRN Pain 11/08/23 03/30/24 History (Tylenol Extra Strength) cetirizine 10 mg tablet 10 mg PO DAILY PRN allergies 12/02/23 03/30/24 History duloxetine 30 mg capsule,delayed 30 mg PO DAILY 12/10/23 03/30/24 History release (Cymbalta) montelukast 10 mg tablet 10 mg PO DAILY #30 tabs 12/30/23 03/30/24 Rx miscellaneous medical supply #60 caps 03/02/24 03/30/24 Rx pregabalin 100 mg capsule 100 mg PO DAILY 90 days #90 caps 03/06/24 03/30/24 Rx warfarin 3 mg tablet See Rx Instructions PO UD 03/23/24 03/30/24 History nystatin-triamcinolone 100,000 1 applic topical DIRECTED 03/26/24 03/30/24 History unit/g-0.1 % topical cream clindamycin HCl 300 mg capsule 300 mg PO Q8H #7 caps 03/29/24 03/30/24 Rx rgpiiggqwi-tdipesoquwbto-zhsmryig 1 tab PO Q4 PRN Headache 03/30/24 03/30/24 History 50 mg-325 mg-40 mg tablet famotidine 40 mg tablet 40 mg PO BID 03/30/24 03/30/24 History omeprazole 40 mg capsule,delayed 40 mg PO BID 03/30/24 03/30/24 History release Past Med/Surg History Problem List (Updated 03/30/24 @ 04:11 by Luiz Lira MD) On anticoagulant therapy warfarin Closed fracture of distal end of left femur Closed fracture shaft of femur (Acute) Fall (Acute) Left leg pain Weight loss Morbid obesity with BMI of 40.0-44.9, adult Macrocytosis Status post lumbar spine operation Hypomagnesemia ROMI (acute kidney injury) History of bacteremia Falls frequently (Acute) Cellulitis of leg, right (Acute) Cellulitis of right lower extremity History of DVT (deep vein thrombosis) Lymphedema Seizure disorder 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 WINTERS DVT (deep venous thrombosis) Left Iliac vein MAR 2019; femoral veins June 2023 Vomiting Nausea and vomiting reason for procedure Bright red blood per rectum Pyelonephritis Lumbosacral radiculopathy at S1 Idiopathic polyneuropathy Leg weakness, bilateral Encounter for pre-operative examination Rotator cuff tear Left shoulder pain Dislocation of shoulder, anterior, left, closed Benzodiazepine overdose (Acute) Benzodiazepine overdose (Acute) H/O knee surgery Asthma "VERY MILD"- has been "several yrs" since last inhaler use Fibromyalgia Migraine Type 2 diabetes mellitus (Chronic) NIDDM Hyperlipidemia (Chronic) Hypertension (Chronic) Previous section X3 Benzodiazepine overdose (Acute) 6 YRS AGO ACCIDENTAL Medical History On anticoagulant therapy warfarin Nerve pain History of colon polyps Diverticulosis History of gastric ulcer Anemia IRON/BLOOD TRANSFUSIONS MAY 2020 Osteoporosis Surgical History History of cataract surgery History of esophagogastroduodenoscopy (EGD) History of colonoscopy 06/11/2020 [facility] History of hysterectomy History of tooth extraction History of total knee replacement RIGHT History of arthroscopy X2 RIGHT KNEE Family History Brother Diabetes Grandmother (Paternal) Diabetes Grandmother (Maternal) Diabetes Other No family history of adverse response to anesthesia Social History Smoking Status: Never smoker Second Hand Exposure: No; Do You Dip or Chew Tobacco: No; Hx Alcohol Use: No Hx Substance Use: No Preferred Language: Japanese Communication Ability: Effective Merchandise Coordinator Required: No Beliefs That Will Affect Care: None Current Living Situation: Spouse Feels Safe at Home: Yes Assistive Devices: Scooter/Electric Scooter and Walker Review of Systems Review of Systems: The patient denies chest pain, palpitations, shortness of breath, dyspnea on exertion, cough, sore throat, fevers, chills, sweats, nausea, vomiting, diarrhea , constipation, abdominal pain, pelvic pain, blood in urine or stool, dysuria, urinary frequency or urgency, lightheadedness, dizziness, headache, memory loss, loss of consciousness, focal or generalized weakness, numbness or tingling in arms, generalized arthralgias or myalgias, neck pain, or night sweats. The review of systems is otherwise negative other than for that already noted above, and at least 10 systems have been reviewed. Physical Exam Physical Exam: The patient is awake, alert and oriented 3, well developed and well nourished, normocephalic and atraumatic, lying in bed and in mild distress secondary to leg pain HEENT--PERRL, EOMI, mucous membranes and oropharynx mildly dry Neck--supple. No JVD. No bruits. Thyroid normal, trachea midline, no adenopathy. Heart--normal S1 and S2. No murmurs, rubs or gallops. Lungs--clear bilaterally, no respiratory distress, no accessory muscle use. Abdomen--normal bowel sounds and soft. Nontender. Nondistended. Morbidly obese Extremities--trace pitting edema bilaterally there are good distal pulses b/l. Dermatologic--right lower extremity resolving erythema. Left upper leg with disfigurement secondary to fracture Neurologic--cranial nerves II through XII grossly intact. Rheumatologic--limited exam Psychiatric--normal affect. Results & Data Results & Data Vital Signs (Past 12 Hours) Vital Signs Temp Pulse Pulse Resp BP BP Pulse Ox 03/30/24 01:30 112 H 13 97 03/30/24 01:30 111/76 03/30/24 01:30 111/76 03/30/24 01:00 108/82 03/30/24 01:00 108/82 03/30/24 01:00 109 H 14 100 03/30/24 00:36 87 L 03/30/24 00:36 111 H 14 87 L 03/30/24 00:30 110 H 15 94 03/30/24 00:30 130/75 03/30/24 00:30 130/75 03/30/24 00:30 130/75 03/30/24 00:18 109 H 11 L 92 03/30/24 00:04 113/79 03/30/24 00:04 113/79 03/30/24 00:00 36.8 C 108 H 16 113/79 93 03/29/24 23:57 108 H 17 93 03/29/24 23:36 104 H 15 96 03/29/24 23:09 36.6 C 109 H 16 113/79 95 03/29/24 23:00 112 H 21 98 03/29/24 23:00 147/98 H 03/29/24 23:00 147/98 H 03/29/24 23:00 147/98 H 03/29/24 22:37 36.6 C 03/29/24 22:30 120 H 16 98 03/29/24 22:19 113/82 03/29/24 22:19 119 H 03/29/24 22:19 03/29/24 22:18 116 H 22 96 03/29/24 22:11 119 H 22 113/82 97 O2 Del Method 03/30/24 01:30 03/30/24 01:30 03/30/24 01:30 03/30/24 01:00 03/30/24 01:00 03/30/24 01:00 03/30/24 00:36 Room Air 03/30/24 00:36 Room Air 03/30/24 00:30 03/30/24 00:30 03/30/24 00:30 03/30/24 00:30 03/30/24 00:18 03/30/24 00:04 03/30/24 00:04 03/30/24 00:00 Room Air 03/29/24 23:57 03/29/24 23:36 03/29/24 23:09 Room Air 03/29/24 23:00 03/29/24 23:00 03/29/24 23:00 03/29/24 23:00 03/29/24 22:37 03/29/24 22:30 03/29/24 22:19 03/29/24 22:19 03/29/24 22:19 Room Air 03/29/24 22:18 03/29/24 22:11 Room Air Laboratory Results Laboratory Results WBC 8.17 K/ul (4.8-10.8) 03/29/24 22:23 RBC 3.58 M/uL (4.20-5.40) L 03/29/24 22:23 Hgb 11.6 g/dl (12.0-16.0) L 03/29/24 22:23 POC Hgb 11.9 g/dl (12.0-16.0) L 03/29/24 22:29 Hct 35.9 % (37.0-47.0) L 03/29/24 22:23 POC Hct 35 % (37-47) L 03/29/24 22:29 MCV 100.3 fL (80.0-100.0) H 03/29/24 22:23 MCH 32.4 pg (25.0-34.0) 03/29/24 22:23 MCHC 32.3 g/dL (32.0-36.0) 03/29/24 22:23 RDW Std Deviation 50.7 fL (36.4-46.3) H 03/29/24 22:23 RDW Coeff of Heather 13.8 % (11.5-14.5) 03/29/24 22:23 Plt Count 299 K/uL (130-400) 03/29/24 22:23 MPV 11.6 fL (9.4-12.4) 03/29/24 22:23 Immature Gran % (Auto) 3.1 % 03/29/24 22:23 Neut % (Auto) 63.8 % 03/29/24 22:23 Lymph % (Auto) 14.2 % 03/29/24 22:23 [place] % (Auto) 11.5 % 03/29/24 22:23 Eos % (Auto) 6.7 % 03/29/24 22:23 Baso % (Auto) 0.7 % 03/29/24 22:23 Neut # (Auto) 5.21 K/uL (1.40-6.50) 03/29/24 22:23 Lymph # (Auto) 1.16 K/uL (1.20-3.40) L 03/29/24 22:23 [place] # (Auto) 0.94 K/uL (0.11-0.59) H 03/29/24 22:23 Eos # (Auto) 0.55 K/uL (0.00-0.50) H 03/29/24 22:23 Baso # (Auto) 0.06 K/uL (0.00-0.20) 03/29/24 22:23 Immature Gran # (Auto) 0.25 K/uL (0.01-0.20) H 03/29/24 22:23 PT 19.3 Seconds (9.0-12.0) H 03/29/24 22:23 INR 1.9 (0.9-1.1) H 03/29/24 22:23 POC Sodium 137 mmol/L (135-144) 03/29/24 22:29 Sodium 137 mmol/L (136-145) 03/29/24 22:23 POC Potassium 4.4 mmol/L (3.3-5.0) 03/29/24 22:29 Potassium 4.4 mmol/L (3.5-5.1) 03/29/24 22:23 POC Chloride 104 mmol/L (101-112) 03/29/24 22: Chloride 103 mmol/L (98-107) 03/29/24 22:23 Carbon Dioxide 25 mmol/L (21-32) 03/29/24 22:23 POC Total CO2 25 mmol/L (24-31) 03/29/24 22:29 Anion Gap 9 (3-11) 03/29/24 22:23 POC Anion Gap 13.0 mmol/L (16-25) L 03/29/24 22:29 POC BUN 32 mg/dl (7-18) H 03/29/24 22:29 BUN 33 mg/dl (6-23) H 03/29/24 22:23 Creatinine 2.18 mg/dl (0.6-1.2) H 03/29/24 22:23 POC Creatinine 2.3 mg/dl (0.6-1.3) H 03/29/24 22:29 Est Cr Clr Drug Dosing 32.1 ml/min 03/29/24 22:23 Est GFR ( Amer) 26.7 ml/min 03/29/24 22:23 Est GFR (Non-Af Amer) 23.0 ml/min 03/29/24 22:23 BUN/Creatinine Ratio 15.1 (10-20) 03/29/24 22:23 Glucose 225 mg/dl (70-99(Fasting)) H 03/29/24 22:23 POC Glucose (other) 222 mg/dl (70-99) H 03/29/24 22:29 Calcium 9.8 mg/dl (8.6-10.3) 03/29/24 22:23 POC Ioniz Calcium Velia 1.21 mmol/l (1.12-1.32) 03/29/24 22:29 Magnesium 1.8 mg/dl (1.7-2.4) 03/29/24 22:23 Total Bilirubin 0.6 mg/dl (0.2-1.0) 03/29/24 22:23 AST 36 U/L (13-39) 03/29/24 22:23 ALT 34 U/L (7-52) 03/29/24 22:23 Alkaline Phosphatase 173 U/L (34-104) H 03/29/24 22:23 Troponin I High Sens 5.3 pg/ml (0-14) 03/29/24 22:23 Total Protein 6.9 gm/dl (6.0-8.3) 03/29/24 22:23 Albumin 3.3 gm/dl (3.4-5.0) L 03/29/24 22:23 Globulin 3.6 gm/dl (2.5-4.0) 03/29/24 22:23 Albumin/Globulin Ratio 0.9 (0.9-2) 03/29/24 22:23 Urine Color Dark Yellow 03/30/24 Unknown Urine Appearance Cloudy (Clear) A 03/30/24 Unknown Urine pH 5.0 (4.5-7.5) 03/30/24 Unknown Ur Specific [place] 1.026 (1.000-1.030) 03/30/24 Unknown Urine Protein 1+ (Negative) H 03/30/24 Unknown Urine Glucose (UA) Negative (Negative) 03/30/24 Unknown Urine Ketones Negative (Negative) 03/30/24 Unknown Urine Blood Negative (Negative) 03/30/24 Unknown Urine Nitrite Negative (Negative) 03/30/24 Unknown Urine Bilirubin Negative (Negative) 03/30/24 Unknown Urine Urobilinogen Negative (Negative) 03/30/24 Unknown Ur Leukocyte Esterase Trace (Negative) H 03/30/24 Unknown Urine WBC (Auto) 0-5 /hpf (0-5) 03/30/24 Unknown Urine RBC (Auto) 0-2 /hpf (0-2) 03/30/24 Unknown U Hyaline Cast (Auto) 6-10 /lpf (0-2) H 03/30/24 Unknown U Epithel Cells (Auto) >20 /hpf (0-2) H 03/30/24 Unknown Urine Bacteria (Auto) 1+ (None Seen) H 03/30/24 Unknown Ur Renal Epithelial Cell Present /lpf (None Presnt) A 03/30/24 Unknown Amorphous Sediment Present (None Prsent) A 03/30/24 Unknown Urine Mucus Present (None Prsent) A 03/30/24 Unknown Impressions Abdomen/Pelvis CT 03/29/24 22:18 Exam(s): CT ABDOMEN + PELVIS Without Contrast EXAM: CT Abdomen and Pelvis Without Intravenous Contrast CLINICAL HISTORY: Reason for exam: trauma. TECHNIQUE: Axial computed tomography images of the abdomen and pelvis without intravenous contrast. CTDI is 26.54 mGy and DLP is 1334.52 mGy-cm. Automated exposure control was utilized for the study. A dose lowering technique was utilized adhering to the principles of ALARA. COMPARISON: No relevant prior studies available. FINDINGS: Lung bases: Unremarkable. No mass. No consolidation. ABDOMEN: Liver: Unremarkable. Gallbladder and bile ducts: Unremarkable. No calcified stones. No ductal dilation. Pancreas: Unremarkable. No ductal dilation. Spleen: Unremarkable. No splenomegaly. Adrenals: Unremarkable. No mass. Kidneys and ureters: Unremarkable. No obstructing stones. No hydronephrosis. Stomach and bowel: Mild fecal retention, correlate for constipation. Diverticulosis, without acute diverticulitis. No small bowel obstruction. No free intraperitoneal air. PELVIS: Appendix: No findings to suggest acute appendicitis. Bladder: Unremarkable. No stones. Reproductive: Hysterectomy. ABDOMEN and PELVIS: Intraperitoneal space: Unremarkable. No free air. No significant fluid collection. Bones/joints: Degenerative changes of the spine. Multilevel thoracolumbar sacral fusion hardware. No acute fracture. No dislocation. Soft tissues: Unremarkable. Vasculature: Atherosclerotic changes of the aorta. No abdominal aortic aneurysm. Lymph nodes: Unremarkable. No enlarged lymph nodes. IMPRESSION: 1. Mild fecal retention, correlate for constipation. 2. Hysterectomy. 3. Diverticulosis, without acute diverticulitis. No small bowel obstruction. No free intraperitoneal air. Electronically signed by: José Atkinson MD 03/30/24 00:[address] 03/29/24 22:18 Exam(s): CT C SPINE EXAM: CT Cervical Spine Without Intravenous Contrast CLINICAL HISTORY: Reason for exam: trauma. TECHNIQUE: Axial computed tomography images of the cervical spine without intravenous contrast. CTDI is 25.59 mGy and DLP is 425.78 mGy-cm. Automated exposure control was utilized for the study. A dose lowering technique was utilized adhering to the principles of ALARA. COMPARISON: No relevant prior studies available. FINDINGS: The vertebral body heights are maintained. The craniocervical junction is intact. The atlanto-dens interval is maintained. The dens is intact. There is no spondylolisthesis. Multilevel cervical spondylosis and degenerative disc disease. Straightening of the cervical lordosis. The unenhanced neck soft tissues are grossly unremarkable. The visualized lung apices are grossly clear. IMPRESSION: No acute fracture or subluxation of the cervical spine. Electronically signed by: José Atkinson MD 03/29/24 23:[address] 03/29/24 22:18 Exam(s): CT CHEST Without Contrast EXAM: CT Chest Without Intravenous Contrast CLINICAL HISTORY: Reason for exam: trauma. TECHNIQUE: Axial computed tomography images of the chest without intravenous contrast. CTDI is 28.13 mGy and DLP is 880.16 mGy-cm. Automated exposure control was utilized for the study. A dose lowering technique was utilized adhering to the principles of ALARA. COMPARISON: No relevant prior studies available. FINDINGS: Lungs: Unremarkable. No mass. No consolidation. Pleural space: Unremarkable. No pneumothorax. No significant effusion. Heart: Unremarkable. No cardiomegaly. No significant pericardial effusion. No significant coronary artery calcifications. Bones/joints: Degenerative changes of the spine. No acute fracture. No dislocation. Soft tissues: Unremarkable. Vasculature: Unremarkable. No thoracic aortic aneurysm. Lymph nodes: Unremarkable. No enlarged lymph nodes. IMPRESSION: No acute findings in the chest. Electronically signed by: José Atkinson MD 03/29/24 23:[address] 03/29/24 22:18 Exam(s): CT HEAD Without Contrast EXAM: CT Head Without Intravenous Contrast CLINICAL HISTORY: Reason for exam: trauma. TECHNIQUE: Axial computed tomography images of the head/brain without intravenous contrast. CTDI is 36.55 mGy and DLP is 624.41 mGy-cm. Automated exposure control was utilized for the study. A dose lowering technique was utilized adhering to the principles of ALARA. COMPARISON: No relevant prior studies available. FINDINGS: No acute intracranial hemorrhage. No midline shift or mass effect. The territorial jean-white matter differentiation is maintained throughout. Age-related cerebral volume loss. Periventricular and subcortical white matter hypoattenuation, consistent with chronic microangiopathy. The visualized orbits appear grossly unremarkable. The calvarium is intact. The visualized paranasal sinuses and mastoid air cells are grossly clear. IMPRESSION: No acute intracranial hemorrhage, midline shift, or mass effect. Electronically signed by: José Atkinson MD 03/29/24 23:[address] 03/29/24 23:00 Exam(s): CT EXTREMITY LEFT LOWER Without Contrast EXAM: CT Left Lower Extremity Without Intravenous Contrast CLINICAL HISTORY: Reason for exam: L leg fracture. TECHNIQUE: Axial computed tomography images of the left lower extremity without intravenous contrast. Automated exposure control was utilized for the study. A dose lowering technique was utilized adhering to the principles of ALARA. COMPARISON: No relevant prior studies available. FINDINGS: Bones/joints: Displaced fracture of the distal femoral diametaphysis. The fracture extends approximately 19 cm proximal-distal and is impacted at the metaphysis by 3 cm. Orthopedic surgical evaluation recommended. Tricompartmental joint space narrowing of the knee. Diffuse osseous demineralization. No dislocation. Soft tissues: Unremarkable. IMPRESSION: Displaced fracture of the distal femoral diametaphysis. The fracture extends approximately 19 cm proximal-distal and is impacted at the metaphysis by 3 cm. Orthopedic surgical evaluation recommended. Electronically signed by: José Atkinson MD 03/30/24 00:10 AM Code Status & VTE Plan Code Status Full code VTE Prophylaxis Plan VTE Prophylaxis will be ordered: Yes PG Care Time/CCT Total # of Minutes Spent Total Time Spent with Patient: Total time spent is greater than 50% in coordination of care (as documented) at patient's floor/unit and/or counseling patient: Coding Level of Care Code 21594 INT INP/OBS CARE 3/75MIN Diagnoses Closed fracture of distal end of left femur S72.402A Closed fracture shaft of femur S72.309A Left leg pain M79.605 Cellulitis of right lower extremity L03.115 Seizure disorder G40.909 DVT (deep venous thrombosis) I82.409 Asthma J45.909 Type 2 diabetes mellitus E11.9 Hypertension I10 On anticoagulant therapy Z79.01
[2024-03-30] MEDS: SODIUM CHLORIDE 0.9% 1,000 ML IV SCH (01:50)
[2024-03-30] MEDS: ACETAMINOPHEN 1,000 MG/100 ML VIAL IV PRN (01:55)
[2024-03-30] MEDS: BACLOFEN 10 MG TAB PO STA (02:08)
[2024-03-30] MEDS ORDERED: DEXTROSE 50% 50 ML SYRINGE IV PRN (03:00)
[2024-03-30] MEDS ORDERED: GLUCOSE 10 TAB/TUBE PO PRN (03:00)
[2024-03-30] MEDS ORDERED: ALBUT/IPRATROP 3MG/0.5MG NEB 3 ML VIAL NEB PRN (03:00)
[2024-03-30] MEDS ORDERED: GLUCAGON FOR INJ 1 MG VIAL SQ PRN (03:00)
[2024-03-30] MEDS ORDERED: CARBOHYDRATES FOR HYPOGLYCEMIA PO PRN (03:00)
[2024-03-30] MEDS ORDERED: BUTALBITAL/ACETAMIN/CAFFEINE TAB PO PRN (03:00)
[2024-03-30] MEDS ORDERED: GLUCOSE 40% GEL 15 GM TUBE PO PRN (03:00)
[2024-03-30] MEDS: ONDANSETRON INJ 2 MG/ML 2 ML VIAL IV PRN (03:28)
[2024-03-30] MEDS: HYDROmorphone INJ 1 MG/ML SYRINGE IV PRN (03:28)
[2024-03-30] MEDS: CLINDAMYCIN/D5W 300 MG/50 ML BAG IV SCH (03:32)
[2024-03-30 04:17] LABS: Basophils # (auto) 0.03 K/uL (0.00-0.20); Basophils % (auto) 0.3 %; Eosinophils # (auto) 0.13 K/uL (0.00-0.50); Eosinophils % (auto) 1.5 %; Hematocrit (blood only) 28.8 % (37.0-47.0); Hemoglobin 9.4 g/dl (12.0-16.0); Immature Granulocytes # (auto) 0.15 K/uL (0.01-0.20); Immature Granulocytes % (auto) 1.7 %; Lymphocytes # (auto) 0.69 K/uL (1.20-3.40); Lymphocytes % (auto) 7.7 %; Mean Corpuscular Hemoglobin 32.1 pg (25.0-34.0); Mean Corpuscular Hgb Conc 32.6 g/dL (32.0-36.0); Mean Corpuscular Volume 98.3 fL (80.0-100.0); Mean Platelet Volume 11.4 fL (9.4-12.4); Monocytes # (auto) 1.13 K/uL (0.11-0.59); Monocytes % (auto) 12.6 %; Neutrophils # (auto) 6.81 K/uL (1.40-6.50); Neutrophils % (auto) 76.2 %; Platelet Count 253 K/uL (130-400); RDW Coefficient of Variation 13.7 % (11.5-14.5); RDW Standard Deviation 49.2 fL (36.4-46.3); Red Blood Count 2.93 M/uL (4.20-5.40); White Blood Count 8.94 K/ul (4.8-10.8)
[2024-03-30 04:32] LABS: Albumin Level 2.8 gm/dl (3.4-5.0); BUN Creatinine Ratio 16.1 (10-20); Bilirubin,Total 0.5 mg/dl (0.2-1.0); Creatinine Clr Calc Pharmacy 34.1 ml/min; Est GFR (African American) 28.7 ml/min; Est GFR (Non-African American) 24.8 ml/min; Globulin 2.8 gm/dl (2.5-4.0); Potassium 4.1 mmol/L (3.5-5.1); Total Protein 5.6 gm/dl (6.0-8.3)
[2024-03-30 04:39] LABS: Prothrombin Time 20.7 Seconds (9.0-12.0)
[2024-03-30] MEDS: INSULIN ASPART PER UNIT CHARGE SC SCH (05:24)
--- NOTE | 2024-03-30 06:54 | XRay Report ---
XR femur LT 2V routine CLINICAL HISTORY: trauma TECHNIQUE: 2 radiographic views of the right femur were obtained. Comparison: None available at the time of this dictation. FINDINGS: Displaced fracture of the distal femoral metadiaphysis is seen with mild apex anterior angulation. Th e visualized portion of the hip and knee joints are unremarkable. Soft tissue swelling is seen. IMPRESSION: Displaced fracture of the distal femoral metadiaphysis with associated soft tissue swelling. ACT 112: Negative or not required by law. Electronically signed by: Vincent Gaviria M.D. 03/30/2024 6:53 AM
--- NOTE | 2024-03-30 07:00 | Orthopedic Consultation ---
Date of Service March 30, 2024 Assessment & Plan (1) Closed fracture of distal end of left femur: We discussed diagnosis and treatment options in the office today. This will likely require surgical fixation. I recommended a retrograde intramedullary nail of her left femur. She understands the risk benefits alternatives procedure elected proceed. Questions were answered at bedside. She is currently NPO. Her INR is currently 2.0. I will plan to do the surgery later this afternoon. History of Present Illness Reason for Consultation: Left distal femur fracture. Requesting Physician: . Attending Physician: Sailaja Dickinson MD Veronica is a pleasant 63-year-old female who was recently discharged from [facility] with cellulitis in her legs. She was at home in the shower when she twisted her leg and fell. She had severe left leg pain. She came to [facility] emergency room and radiographs demonstrated a femoral shaft fracture. She was admitted to the medical service. Orthopedics was consulted to evaluate and treat. She is normally a community ambulator with a rolling walker.. Allergies Allergy/AdvReac Type Severity Reaction Status Date / Time bee venom protein (honey bee) Allergy Severe ANAPHYLAXIS Verified 03/06/24 11:25 Penicillins Allergy Severe ANAPHYLAXIS Verified 03/06/24 11:25 Cephalosporins Allergy Intermediate DIZZINESS, Verified 03/06/24 11:25 ITCHY hydroxyzine Allergy Intermediate DIZZY Verified 03/06/24 11:25 ITCHY NAUSEA Sulfa (Sulfonamide Allergy Intermediate DIZZY Verified 03/06/24 11:25 Antibiotics) ITCHY, NAUSEA metaxalone AdvReac Intermediate n/v and Verified 03/06/24 11:25 headache, dizziness Home Medications Medication Instructions Recorded Confirmed Type atorvastatin 40 mg tablet (Lipitor) 40 mg PO QPM 04/02/19 03/30/24 History docusate sodium 100 mg capsule 100 mg PO BID #60 caps 04/02/19 03/30/24 Rx (Colace) fluticasone propionate 115 2 puff inhalation Q12H PRN Wheezing 04/02/19 03/30/24 History mcg-salmeterol 21 mcg/actuation HFA inhaler (Advair HFA) levocetirizine 5 mg tablet 5 mg PO QPM 12/02/21 03/30/24 History metformin 1,000 mg tablet 1,000 mg PO BID 02/15/23 03/30/24 History metoprolol tartrate 25 mg tablet 25 mg PO HS 04/01/23 03/30/24 History telmisartan 80 mg tablet 80 mg PO QAM 04/01/23 03/30/24 History nnmqbyawchaz-rsykcrfj-alwyxy tablet 1 tab PO Q24H 07/08/23 03/30/24 History doxycycline hyclate 100 mg capsule 100 mg PO BID 07/21/23 03/30/24 History carbamazepine 400 mg 400 mg PO BID 90 days #180 tabs 08/10/23 03/30/24 Rx tablet,extended release,12 hr acetaminophen 500 mg tablet 1,000 mg PO .QHS PRN Pain 11/08/23 03/30/24 History (Tylenol Extra Strength) cetirizine 10 mg tablet 10 mg PO DAILY PRN allergies 12/02/23 03/30/24 History duloxetine 30 mg capsule,delayed 30 mg PO DAILY 12/10/23 03/30/24 History release (Cymbalta) montelukast 10 mg tablet 10 mg PO DAILY #30 tabs 12/30/23 03/30/24 Rx miscellaneous medical supply #60 caps 03/02/24 03/30/24 Rx pregabalin 100 mg capsule 100 mg PO DAILY 90 days #90 caps 03/06/24 03/30/24 Rx warfarin 3 mg tablet See Rx Instructions PO UD 03/23/24 03/30/24 History nystatin-triamcinolone 100,000 1 applic topical DIRECTED 03/26/24 03/30/24 History unit/g-0.1 % topical cream clindamycin HCl 300 mg capsule 300 mg PO Q8H #7 caps 03/29/24 03/30/24 Rx mutczrlqer-gwlbkjocsygmn-zqwmreok 1 tab PO Q4 PRN Headache 03/30/24 03/30/24 History 50 mg-325 mg-40 mg tablet famotidine 40 mg tablet 40 mg PO BID 03/30/24 03/30/24 History omeprazole 40 mg capsule,delayed 40 mg PO BID 03/30/24 03/30/24 History release Past Med/Surg History Problem List On anticoagulant therapy warfarin Closed fracture of distal end of left femur Closed fracture shaft of femur (Acute) Fall (Acute) Left leg pain Weight loss Morbid obesity with BMI of 40.0-44.9, adult Macrocytosis Status post lumbar spine operation Hypomagnesemia ROMI (acute kidney injury) History of bacteremia Falls frequently (Acute) Cellulitis of leg, right (Acute) Cellulitis of right lower extremity History of DVT (deep vein thrombosis) Lymphedema Seizure disorder 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 WINTERS DVT (deep venous thrombosis) Left Iliac vein MAR 2019; femoral veins June 2023 Vomiting Nausea and vomiting reason for procedure Bright red blood per rectum Pyelonephritis Lumbosacral radiculopathy at S1 Idiopathic polyneuropathy Leg weakness, bilateral Encounter for pre-operative examination Rotator cuff tear Left shoulder pain Dislocation of shoulder, anterior, left, closed Benzodiazepine overdose (Acute) Benzodiazepine overdose (Acute) H/O knee surgery Asthma "VERY MILD"- has been "several yrs" since last inhaler use Fibromyalgia Migraine Type 2 diabetes mellitus (Chronic) NIDDM Hyperlipidemia (Chronic) Hypertension (Chronic) Previous section X3 Benzodiazepine overdose (Acute) 6 YRS AGO ACCIDENTAL Medical History Nerve pain History of colon polyps Diverticulosis History of gastric ulcer Anemia IRON/BLOOD TRANSFUSIONS MAY 2020 Osteoporosis Surgical History History of cataract surgery History of esophagogastroduodenoscopy (EGD) History of colonoscopy 06/11/2020 [facility] History of hysterectomy History of tooth extraction History of total knee replacement RIGHT History of arthroscopy X2 RIGHT KNEE Family History Brother Diabetes Grandmother (Paternal) Diabetes Grandmother (Maternal) Diabetes Other No family history of adverse response to anesthesia Social History Smoking Status: Never smoker Second Hand Exposure: No; Do You Dip or Chew Tobacco: No; Hx Alcohol Use: No Hx Substance Use: No Preferred Language: Kazakh Communication Ability: Effective Risk And Insurance Consultant Required: No Beliefs That Will Affect Care: None Current Living Situation: Spouse Other Information That Helps Us Care for You: No Feels Safe at Home: Yes Safety Concerns: Feels Safe At This Time Assistive Devices: Scooter/Electric Scooter and Walker Review of Systems All systems reviewed & are unremarkable except as noted in HPI & below. Physical Exam On physical examination of the left leg, the leg is shortened and externally rotated. She has severe pain with logroll. She is a large soft tissue envelope. There is a little bit of cellulitis around her ankle.. Constitutional WD/WN, vitals as above Eyes PERRL, conjunctivae normal, anicteric sclerae ENMT external ear and nose normal, oropharynx normal Neck trachea midline, no thyromegaly Respiratory normal respiratory effort Cardiovascular RRR, no murmur, no edema Gastrointestinal (Abdomen) normal bowel sounds, soft, nontender, no hepatosplenomegaly Psychiatric A+Ox3, euthymic affect Results & Data Results & Data Laboratory Results . Diagnostic Findings X-rays of the left femur show an impacted and oblique fracture of the distal third of the left femoral shaft.. PG Care Time/CCT Total # of Minutes Spent Total Time Spent with Patient: Total time spent is greater than 50% in coordination of care (as documented) at patient's floor/unit and/or counseling patient: Coding Level of Care Code 30014 IN/OBS CONSULT LVL 4,60M (25 - SIGNIFICANT, SEPARATELY IDENTIFIABLE ) Diagnoses Closed fracture of distal end of left femur S72.402A
--- NOTE | 2024-03-30 07:06 | XRay Report ---
XR tibia fibula LT 2V CLINICAL HISTORY: trauma TECHNIQUE: 2 radiographic views of the left leg were obtained. Comparison: Comparison is made to knee radiographs 03/28/2024 FINDINGS: There is no evidence of an acute fracture. Osteophyte formation and joint space narrowing is seen. No soft tissue abnormality is seen. IMPRESSION: Degenerative changes are seen. Please see CT femur for findings of femoral fracture. ACT 112: Negative or not required by law. Electronically signed by: Vincent Gaviria M.D. 03/30/2024 7:04 AM
--- NOTE | 2024-03-30 07:10 | XRay Report ---
XR pelvis 1-2V routine CLINICAL HISTORY: trauma TECHNIQUE: A single frontal view of the pelvis was obtained. Comparison: None available at the time of this dictation. FINDINGS: There is no evidence of an acute fracture. Degenerative changes are seen in the hip joints and lumbar spine. Posterior fixation hardware is seen in the lumbosacral spine and spanning the sacroiliac join ts. No soft tissue abnormality is seen. IMPRESSION: No evidence of acute osseous injury. ACT 112: Negative or not required by law. Electronically signed by: Vincent Gaviria M.D. 03/30/2024 7:08 AM
[2024-03-30] MEDS: carBAMazepine XR 200 MG TABCR PO SCH (08:00)
[2024-03-30] MEDS: BACLOFEN 10 MG TAB PO SCH (08:00)
[2024-03-30] MEDS: FLUTICASONE/VILANTEROL 100/25MCG 14 PUFFS/INHALER INH SCH (08:00)
[2024-03-30] MEDS: HYDROmorphone INJ 0.5 MG/0.5 ML SYR IV PRN (08:08)
--- NOTE | 2024-03-30 08:17 | Electrocardiogram Report ---
Test Reason : Blood Pressure : */* mmHG Vent. Rate : 107 BPM Atrial Rate : 107 BPM P-R Int : 170 ms QRS Dur : 124 ms QT Int : 354 ms P-R-T Axes : 68 -57 45 degrees QTcB Int : 472 ms Sinus tachycardia Left anterior fascicular block Right bundle branch block Abnormal ECG When compared with ECG of 26-Mar-2024 12:30, No significant change was found Confirmed by Tucker Carty ([id number]) on 03/30/2024 8:16:37 AM Referred By: REFERRED SELF Confirmed By: Tucker Carty
[2024-03-30] MEDS: PANTOprazole 40 MG in SYRINGE 0 ML IV SCH (10:26)
[2024-03-30] MEDS: PHYTONADIONE 2.5 MG in DEXTROSE 5% 50 ML IV ONE (11:31)
--- NOTE | 2024-03-30 12:07 | History & Physical Bridge Note ---
Date of Service March 30, 2024 History & Physical Bridge Note I have examined the patient, reviewed the History & Physical and in the interval since the performance of the History & Physical I have noted the following changes of clinical significance: no changes noted
[2024-03-30] MEDS ORDERED: MIDAZOLAM HCL 1 MG/ML 2ML VIAL ONE (14:54)
[2024-03-30] MEDS ORDERED: fentaNYL citrate PF 100 MCG/2 ML VIAL ONE (14:54)
[2024-03-30] MEDS ORDERED: ATROPINE SULFATE 0.1 MG/ML 10ML SYR IV PRN (14:56)
[2024-03-30] MEDS ORDERED: ONDANSETRON INJ 2 MG/ML 2 ML VIAL IV PRN (14:56)
[2024-03-30] MEDS ORDERED: ePHEDrine sulfate 50 MG/ML AMP IV PRN (14:56)
--- NOTE | 2024-03-30 14:56 | Anesthesiology Consultation ---
Date of Service March 30, 2024 Assessment & Plan (1) Encounter for pre-operative examination: Chart Review Chart Review: Acceptable Risk for Surgery and Patient NOT seen in Pre Admission Testing Consults Requested none History Surgery Operation Date: 03/30/24 08:20 Proposed Procedures p Left Retrograde Femoral Nail - Balbir Dempsey DO Height/Weight Height: 5 ft 3 in Weight: 119 kg Allergies Allergy/AdvReac Type Severity Reaction Status Date / Time bee venom protein (honey bee) Allergy Severe ANAPHYLAXIS Verified 03/06/24 11:25 Penicillins Allergy Severe ANAPHYLAXIS Verified 03/06/24 11:25 Cephalosporins Allergy Intermediate DIZZINESS, Verified 03/06/24 11:25 ITCHY hydroxyzine Allergy Intermediate DIZZY Verified 03/06/24 11:25 ITCHY NAUSEA Sulfa (Sulfonamide Allergy Intermediate DIZZY Verified 03/06/24 11:25 Antibiotics) ITCHY, NAUSEA metaxalone AdvReac Intermediate n/v and Verified 03/06/24 11:25 headache, dizziness Medications Home Medications Medication Instructions Recorded Confirmed Last Taken atorvastatin 40 mg tablet (Lipitor) 40 mg PO QPM 04/02/19 03/30/24 04/20/23 docusate sodium 100 mg capsule 100 mg PO BID #60 caps 04/02/19 03/30/24 04/20/23 (Colace) fluticasone propionate 115 2 puff inhalation Q12H PRN Wheezing 04/02/19 03/30/24 04/20/23 mcg-salmeterol 21 mcg/actuation HFA inhaler (Advair HFA) levocetirizine 5 mg tablet 5 mg PO QPM 12/02/21 03/30/24 04/20/23 metformin 1,000 mg tablet 1,000 mg PO BID 02/15/23 03/30/24 04/20/23 metoprolol tartrate 25 mg tablet 25 mg PO HS 04/01/23 03/30/24 04/20/23 telmisartan 80 mg tablet 80 mg PO QAM 04/01/23 03/30/24 04/20/23 hpfdfskmhlpq-siqhvblt-hhcacv tablet 1 tab PO Q24H 07/08/23 03/30/24 Unknown doxycycline hyclate 100 mg capsule 100 mg PO BID 07/21/23 03/30/24 Unknown carbamazepine 400 mg 400 mg PO BID 90 days #180 tabs 08/10/23 03/30/24 Unknown tablet,extended release,12 hr acetaminophen 500 mg tablet 1,000 mg PO .QHS PRN Pain 11/08/23 03/30/24 Unknown (Tylenol Extra Strength) cetirizine 10 mg tablet 10 mg PO DAILY PRN allergies 12/02/23 03/30/24 Unknown duloxetine 30 mg capsule,delayed 30 mg PO DAILY 12/10/23 03/30/24 Unknown release (Cymbalta) montelukast 10 mg tablet 10 mg PO DAILY #30 tabs 12/30/23 03/30/24 Unknown miscellaneous medical supply #60 caps 03/02/24 03/30/24 Unknown pregabalin 100 mg capsule 100 mg PO DAILY 90 days #90 caps 03/06/24 03/30/24 Unknown warfarin 3 mg tablet See Rx Instructions PO UD 03/23/24 03/30/24 Unknown nystatin-triamcinolone 100,000 1 applic topical DIRECTED 03/26/24 03/30/24 Unknown unit/g-0.1 % topical cream clindamycin HCl 300 mg capsule 300 mg PO Q8H #7 caps 03/29/24 03/30/24 Unknown rvasefowjj-xrgrrycmmlflc-kyqhfnet 1 tab PO Q4 PRN Headache 03/30/24 03/30/24 Unknown 50 mg-325 mg-40 mg tablet famotidine 40 mg tablet 40 mg PO BID 03/30/24 03/30/24 Unknown omeprazole 40 mg capsule,delayed 40 mg PO BID 03/30/24 03/30/24 Unknown release Active Medications Generic Name Dose Route Start Last Admin Trade Name Mabel PRN Reason Stop Dose Admin Baclofen 10 mg 03/30/24 09:00 03/30/24 08:00 Baclofen 10 Mg Tab PO 04/29/24 08:59 10 mg TID TEA Administration Carbamazepine 400 mg 03/30/24 09:00 03/30/24 08:00 Carbamazepine Xr 200 Mg Tabcr PO 04/29/24 08:59 400 mg BID TEA Administration Fluticasone/Vilanterol 1 puffs 03/30/24 09:00 03/30/24 08:00 Fluticasone/Vilanterol 100/25mcg 14 Puffs/Inhaler INH 04/29/24 08:59 1 puffs DAILY TEA Administration Hydromorphone HCl 0.5 mg 03/30/24 01:32 03/30/24 08:08 Hydromorphone Inj 0.5 Mg/0.5 Ml Syr IV 04/13/24 01:31 0.5 mg Q3H PRN Administration Moderate Pain (Scale 4, 5, 6) Hydromorphone HCl 1 mg 03/30/24 01:32 03/30/24 10:33 Hydromorphone Inj 1 Mg/Ml Syringe IV 04/13/24 01:31 1 mg Q3H PRN Administration Pain Acetaminophen 1,000 mg in 100 mls @ 400 mls/hr 03/30/24 01:32 03/30/24 02:10 Ofirmev IV 04/02/24 01:31 Infused Q8H PRN Infusion Pain or Fever Sodium Chloride 1,000 mls @ 80 mls/hr 03/30/24 01:45 03/30/24 01:50 Nss IV 03/31/24 02:44 80 mls/hr .[id number] TEA Administration Pantoprazole Sodium 40 mg/ 10 mls @ 5 mls/min 03/30/24 11:00 03/30/24 10:26 Syringe IV 04/29/24 10:59 5 mls/min DAILY@1100 TEA Administration Clindamycin Phosphate 300 mg in 50 mls @ 100 mls/hr 03/30/24 03:00 03/30/24 12:48 Cleocin/D5w IV 04/06/24 02:59 Infused Q8H TEA Infusion Insulin Aspart 0 units 03/30/24 06:00 03/30/24 12:19 Insulin Aspart Per Unit Charge SC 04/29/24 05:59 Not Given Q6 TEA Ondansetron HCl 4 mg 03/30/24 01:32 03/30/24 03:28 Ondansetron Inj 2 Mg/Ml 2 Ml Vial IV 04/29/24 01:31 4 mg Q4H PRN Administration Nausea Past Medical History Medical History (Updated 03/30/24 @ 14:54 by Abdiel Tsai DO) Closed fracture shaft of femur Morbid obesity with BMI of 40.0-44.9, adult Fibromyalgia Asthma "VERY MILD"- has been "several yrs" since last inhaler use Type 2 diabetes mellitus NIDDM Seizure disorder 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 WINTERS Hyperlipidemia Hypertension Nerve pain History of colon polyps Diverticulosis History of gastric ulcer Anemia IRON/BLOOD TRANSFUSIONS MAY 2020 Osteoporosis Past Family History Family History Brother Diabetes Grandmother (Paternal) Diabetes Grandmother (Maternal) Diabetes Other No family history of adverse response to anesthesia Past Surgical History Surgical History History of cataract surgery History of esophagogastroduodenoscopy (EGD) History of colonoscopy 06/11/2020 [facility] History of hysterectomy History of tooth extraction History of total knee replacement RIGHT History of arthroscopy X2 RIGHT KNEE Social History Smoking Status: Never smoker Do You Dip or Chew Tobacco: No Hx Alcohol Use: No Hx Substance Use: No substance use type: does not use Physical Exam Vital Signs Last Vital Signs Temp 98.2 F 03/30/24 00:00 Pulse 84 03/30/24 06:59 Resp 14 03/30/24 06:00 BP 97/58 L 03/30/24 06:00 Pulse Ox 100 03/30/24 06:00 O2 Del Method Nasal Cannula 03/30/24 06:00 O2 Flow Rate 2 03/30/24 06:00 Testing Laboratory Results 03/30/24 03:56 03/30/24 03:56 PT 20.7 Seconds (9.0-12.0) H 03/30/24 03:56 INR 2.0 (0.9-1.1) H 03/30/24 03:56 Urine Color Dark Yellow 03/30/24 Unknown Urine Appearance Cloudy (Clear) A 03/30/24 Unknown Urine pH 5.0 (4.5-7.5) 03/30/24 Unknown Ur Specific [place] 1.026 (1.000-1.030) 03/30/24 Unknown Urine Protein 1+ (Negative) H 03/30/24 Unknown Urine Glucose (UA) Negative (Negative) 03/30/24 Unknown Urine Ketones Negative (Negative) 03/30/24 Unknown Urine Nitrite Negative (Negative) 03/30/24 Unknown Ur Leukocyte Esterase Trace (Negative) H 03/30/24 Unknown Urine WBC (Auto) 0-5 /hpf (0-5) 03/30/24 Unknown Urine RBC (Auto) 0-2 /hpf (0-2) 03/30/24 Unknown U Hyaline Cast (Auto) 6-10 /lpf (0-2) H 03/30/24 Unknown U Epithel Cells (Auto) >20 /hpf (0-2) H 03/30/24 Unknown Urine Bacteria (Auto) 1+ (None Seen) H 03/30/24 Unknown 03/30/24 03/30/24 12:18 09:03 POC Glucose 113 H 98 Electrocardiogram Date: 03/30/24 Findings: + NSR @ (107) and + RBBB LAFB
[2024-03-30] MEDS ORDERED: DEXAMETHASONE SOD INJ 4 MG/ML VIAL ONE (14:57)
[2024-03-30] MEDS ORDERED: ONDANSETRON INJ 2 MG/ML 2 ML VIAL ONE (14:57)
[2024-03-30] MEDS ORDERED: LIDOCAINE 2% 2 ML VIAL/AMP(20MG/ML) INFIL ONE (14:57)
[2024-03-30] MEDS ORDERED: ROCURONIUM BROMIDE 10 MG/ML 5 ML VIAL IV ONE (15:01)
--- NOTE | 2024-03-30 16:17 | Hospitalist Progress Note ---
Date of Service March 30, 2024 Assessment & Plan (1) Closed fracture of distal end of left femur: Plan: 63 y/o recently discharged home 03/29 after brief admission for RLE cellulitis (resolved), was getting out of shower with her 's assistance when the bath mat slipped and she fell, sustaining left femur fracture Pathological/osteoporotic fracture of distal shaft of left femur -consulted orthopedics - discussed with surgeon Dr. Dempsey this AM will give vitamin K 2.5 mg IV to bring INR down preoperatively. Was 2.0 at 3AM -NWB -anticipate surgery soon, possibly today -daily AM INR (2) Cellulitis of right lower extremity: Plan: Resolved -clindamycin, end date 03/30. Multiple antibiotic allergies -probiotic (3) Seizure disorder: Plan: Continue carbamazepine 12-hour, 40 mg p.o. twice daily (4) DVT (deep venous thrombosis): Plan: History of VTE (remote). Chronically anticoagulated on coumadin with INR goal 2.0-3.0 -held perioperatively -Vit K 2.5 mg today (5) Type 2 diabetes mellitus: Plan: Hold metformin. A1c 5.2 this month Placed on Accu-Cheks with NovoLog SSI (6) Hypertension: Plan: Resume metoprolol and hold telmisartan Hydralazine 10 mg IV every 4 hours as needed for systolic blood pressure greater than 160 Plan History of asthma Mild ROMI on CKD-3 -Cr improved overnight, telmisartan held -monitor Cr DVT ppx - will resume warfarin postop Dispo - will need rehab stay Discussed with her at bedside 03/30 Admission and Anticipated Discharge Date Admission Date: March 30, 2024 Subjective somnolent, just had IV pain medicine, snoring earlier was in severe pain from LLE Physical Exam 2 Physical Exam: somnolent, just had IV pain medicine, snoring heart reg no mrg lungs CTAB anteriorly abd sntnd +BT LLE deformity distal thigh, external rotation and shortening of lower leg, DP pulse intact Bilateral LE 1-2+ edema Results & Data Results & Data Vital Signs (Past 12 Hours) Vital Signs Temp Pulse Pulse Pulse Resp BP Pulse Ox 03/30/24 14:55 36.9 C 90 16 159/102 H 97 03/30/24 06:59 84 08/22/24 06:00 85 14 97/58 L 100 O2 Del Method O2 Flow Rate 03/30/24 14:55 Room Air 03/30/24 06:59 03/30/24 06:00 Nasal Cannula 2 Laboratory Results 03/30/24 03:56 03/30/24 03:56 PG Care Time/CCT Total # of Minutes Spent Total Time Spent with Patient: Total time spent is greater than 50% in coordination of care (as documented) at patient's floor/unit and/or counseling patient: Coding Level of Care Code None Diagnoses Closed fracture of distal end of left femur S72.402A Cellulitis of right lower extremity L03.115 Seizure disorder G40.909 DVT (deep venous thrombosis) I82.409 Type 2 diabetes mellitus E11.9 Hypertension I10
[2024-03-30] MEDS ORDERED: SUGAMMADEX SODIUM 200 MG/2 ML VIAL IV ONE (16:43)
[2024-03-30] MEDS ORDERED: NEOSTIGMINE METHYLSULFATE 1 MG/ML 10ML VIAL ONE (17:39)
[2024-03-30] MEDS ORDERED: GLYCOPYRROLATE 0.2 MG/ML VIAL ONE (17:39)
--- NOTE | 2024-03-30 18:03 | Operative Report ---
PG Post Operative Report Pre & Post Diagnosis Operation Date: 03/30/24 08:20 Pre-Op Diagnosis: Closed distal left femur fracture Post-Op Diagnosis: Closed distal left femur fracture I identified the patient and participated in the time-out.: Yes Procedure Operation Date: 03/30/24 08:20 Actual Procedures p Left Retrograde Femoral Nail(Left) - Balbir Dempsey DO Surgeon Balbir Dempsey DO Reviewer Sales Balbir Rice PA-C Estimated Blood Loss 200 Findings Consistent with Post-Op Diagnosis Specimens None Description of Procedure On March 30, 2024 Veronica was brought from the emergency room to the preoperative holding area. The operative extremity identified and signed. She was given a preoperative antibiotic. She was taken back the operating room and laid on table in supine position. She was put under general anesthesia. The left leg was prepped and draped sterile fashion. A timeout was done. The patient and the operative extremity was properly identified. A large midline incision was made directly over the medial aspect of the patella. Dissection was taken down through the fascia. A medial parapatellar arthrotomy was used. The patella was then subluxated laterally. The metadiaphyseal fracture was then identified. The fracture was reduced and clamped into place. 2 Synthes cerclage wires were placed. Fluoroscopic images confirmed anatomic reduction of the fracture and appropriate placement of the cerclage wires. Once the fracture was lined up, a guidepin was placed from the center of the distal femur into the femoral canal. The femoral nail hole was then opened up. Sequential reaming up to a size 13.5 reamer was done. A 12 mm x 360 mm Synthes retrograde femoral nail was then impacted into place. Once I was happy with the overall alignment of the nail, a cannula was advanced to the lateral distal femur and a locking screw was placed. All the helical blade was then drilled and impacted into place. The helical blade was then locked. Attention was turned to the proximal femur. Perfect [place] techniques were used to place to proximal locking screws. Final fluoroscopic images showed anatomic alignment. The wounds were then irrigated. The extensor mechanism was closed with #1 Vicryl suture. Skin was closed with 2-0 Vicryl, 3 oh V-Loc suture, and frank. The small percutaneous incisions were closed with 2-0 Vicryl and frakn. She was then placed in a soft dressing. She was then extubated and transferred to a hospital bed. She was taken to the postanesthesia care unit in stable condition. She tolerated the procedure well. Balbir Rice PA-C, was present for the entire procedure. He was critical for patient positioning, prepping, draping, retraction exposure, wound closure and application of sterile dressing. I attest to the content of the Intraoperative Record and any orders documented therein. Any exceptions are noted below.
[2024-03-30] MEDS: BUPIVACAINE/EPINEPHRINE 0.25% 1:200,000 30 ML VIAL ONE (18:08)
--- NOTE | 2024-03-30 18:13 | Fluoroscopy Report ---
INTRAOPERATIVE RADIOGRAPHS CLINICAL HISTORY: Open reduction and internal fixation of a left femoral fracture. Fluoro time: 163 seconds Ka,r: 64.56 mGy FINDINGS: 5 spot fluoroscopic views of the left femur are correlated with radiographs dated 03/29/2024 . An intramedullary nail has been placed in the left femur transfixing a fracture of the distal femor al shaft. Near anatomic alignment is restored. Cortical lag screws transfix the proximal and distal e nds of the intramedullary nail. There are distal cerclage wires. The orthopedic hardware is intact as visualized. IMPRESSION: Intraoperative images from open reduction and internal fixation of a left femoral fractur e as above. Electronically signed by: Deni Lam M.D. 03/30/2024 6:12 PM
[2024-03-30] MEDS: fentaNYL citrate PF 100 MCG/2 ML VIAL IV PRN (19:05)
--- NOTE | 2024-03-30 20:12 | Anesthesiology Progress Note ---
Date of Service March 30, 2024 Anesthesia Post Procedure Vital Signs Vital Signs: Temp Pulse Pulse Pulse Resp BP BP 03/30/24 20:00 97.7 F 113 H 12 127/88 03/30/24 19:20 97.7 F 106 H 11 L 03/30/24 19:10 114 H 15 03/30/24 19:00 110 H 12 03/30/24 18:50 106 H 12 03/30/24 18:40 112 H 16 03/30/24 18:32 96.8 F L 115 H 15 03/30/24 14:55 98.4 F 90 16 03/30/24 06:59 84 03/30/24 06:00 85 14 03/30/24 04:06 03/30/24 04:06 102 H 16 03/30/24 03:00 102 H 16 03/30/24 03:00 03/30/24 02:21 102 H 03/30/24 02:00 121/66 03/30/24 02:00 121/66 03/30/24 02:00 107 H 15 03/30/24 01:30 112 H 13 03/30/24 01:30 111/76 03/30/24 01:30 111/76 03/30/24 01:00 108/82 03/30/24 01:00 108/82 03/30/24 01:00 109 H 14 03/30/24 00:36 03/30/24 00:36 111 H 14 03/30/24 00:30 110 H 15 03/30/24 00:30 130/75 03/30/24 00:30 130/75 03/30/24 00:30 130/75 03/30/24 00:18 109 H 11 L 03/30/24 00:04 113/79 03/30/24 00:04 113/79 03/30/24 00:00 98.2 F 108 H 16 03/29/24 23:57 108 H 17 03/29/24 23:36 104 H 15 03/29/24 23:09 97.9 F 109 H 16 03/29/24 23:00 112 H 21 03/29/24 23:00 147/98 H 03/29/24 23:00 147/98 H 03/29/24 23:00 147/98 H 03/29/24 22:37 97.8 F 03/29/24 22:30 120 H 16 03/29/24 22:19 113/82 03/29/24 22:19 119 H 03/29/24 22:19 03/29/24 22:18 116 H 22 03/29/24 22:11 119 H 22 113/82 BP Pulse Ox Pulse Ox O2 Del Method O2 Del Method O2 Flow Rate O2 Flow Rate 03/30/24 20:00 93 Nasal Cannula 2 03/30/24 19:20 112/91 93 Nasal Cannula 2 03/30/24 19:10 123/92 96 Oxymask 5 03/30/24 19:00 140/99 100 Oxymask 5 03/30/24 18:50 141/106 H 100 Oxymask 5 03/30/24 18:40 143/97 H 100 Oxymask 10 03/30/24 18:32 138/112 H 94 Oxymask 10 03/30/24 14:55 159/102 H 97 Room Air 03/30/24 06:59 03/30/24 06:00 97/58 L 100 Nasal Cannula 2 03/30/24 04:06 Nasal Cannula 2 03/30/24 04:06 124/73 99 Nasal Cannula 2 03/30/24 03:00 124/73 99 Nasal Cannula 2 03/30/24 03:00 99 Nasal Cannula 2 03/30/24 02:21 03/30/24 02:00 03/30/24 02:00 03/30/24 02:00 99 03/30/24 01:30 97 03/30/24 01:30 03/30/24 01:30 03/30/24 01:00 03/30/24 01:00 03/30/24 01:00 100 03/30/24 00:36 87 L Room Air 03/30/24 00:36 87 L Room Air 03/30/24 00:30 94 03/30/24 00:30 03/30/24 00:30 03/30/24 00:30 03/30/24 00:18 92 03/30/24 00:04 03/30/24 00:04 03/30/24 00:00 113/79 93 Room Air 03/29/24 23:57 93 03/29/24 23:36 96 03/29/24 23:09 113/79 95 Room Air 03/29/24 23:00 98 03/29/24 23:00 03/29/24 23:00 03/29/24 23:00 03/29/24 22:37 03/29/24 22:30 98 03/29/24 22:19 03/29/24 22:19 03/29/24 22:19 Room Air 03/29/24 22:18 96 03/29/24 22:11 97 Room Air Pain Intensity Left Leg: Pain Intensity: 4 Transfer of Care Handoff Completed per policy Notes Mental Status: alert / awake / arousable and participated in evaluation Patient Amnestic to Procedure: Yes Nausea / Vomiting: adequately controlled Pain: adequately controlled Airway Patency, RR, SpO2: stable & adequate BP & HR: stable & adequate Hydration State: stable & adequate Anesthetic Complications: no major complications apparent and Pt Satisfied with anesthetic care
--- NOTE | 2024-03-31 01:21 | Communication Note ---
Date of Service: March 31, 2024 Alerted by nursing that patient with decreased GCS. She was able to provide history and was significantly more oriented earlier in the shift. Resident to bedside. Patient opens eyes to voice, withdraws from pain, and nods "yes" when asked questions. Patient unable to state her name or where we are, but she does make some noises. Stable on 2L NC - no increased oxygen requirement. Patient with extremely elevated BMI. I wonder if she may have a component of OHS that has been worsened since the administration of anesthesia earlier today. Ordered CBC, CMP, lactate, VBG, and Mg. Patient not in any distress and is protecting her airway. Patient slightly acidotic 7.32 with an elevated CO2. Will start BiPAP and monitor mental status. Avoid sedating medications for now until mentation improves. Resident Activity Tracking Resident Involvement: Resident Care Provided Care Provided: Adult Hospital Medicine
[2024-03-31 01:55] LABS: Base Excess VBG -0.5 mEq/L; HCO3 VBG 26 mmol/L; Oxygen Saturation VBG < 60.0 %; PCO2 VBG 51 mmHg (38-50); PO2 VBG 28 mmHg; pH VBG 7.32 (7.36-7.41)
[2024-03-31 02:15] LABS: Albumin Globulin Ratio 1.1 (0.9-2); Albumin Level 2.8 gm/dl (3.4-5.0); BUN Creatinine Ratio 15.9 (10-20); Bilirubin,Total 0.5 mg/dl (0.2-1.0); Calcium 9.1 mg/dl (8.6-10.3); Creatinine Clr Calc Pharmacy 34.8 ml/min; Est GFR (African American) 29.4 ml/min; Est GFR (Non-African American) 25.4 ml/min; Globulin 2.6 gm/dl (2.5-4.0); Magnesium 1.7 mg/dl (1.7-2.4); Potassium 4.9 mmol/L (3.5-5.1); Total Protein 5.4 gm/dl (6.0-8.3)
[2024-03-31 02:30] LABS: Basophils # (auto) 0.02 K/uL (0.00-0.20); Basophils % (auto) 0.2 %; Eosinophils # (auto) 0.01 K/uL (0.00-0.50); Eosinophils % (auto) 0.1 %; Hematocrit (blood only) 28.3 % (37.0-47.0); Immature Granulocytes # (auto) 0.18 K/uL (0.01-0.20); Immature Granulocytes % (auto) 1.6 %; Lymphocytes # (auto) 0.51 K/uL (1.20-3.40); Lymphocytes % (auto) 4.6 %; Mean Corpuscular Hemoglobin 32.3 pg (25.0-34.0); Mean Corpuscular Hgb Conc 31.8 g/dL (32.0-36.0); Mean Corpuscular Volume 101.4 fL (80.0-100.0); Mean Platelet Volume 11.4 fL (9.4-12.4); Monocytes # (auto) 1.25 K/uL (0.11-0.59); Monocytes % (auto) 11.4 %; Neutrophils % (auto) 82.1 %; Platelet Count 268 K/uL (130-400); RDW Coefficient of Variation 14.1 % (11.5-14.5); RDW Standard Deviation 52.7 fL (36.4-46.3); Red Blood Count 2.79 M/uL (4.20-5.40); White Blood Count 10.97 K/ul (4.8-10.8)
[2024-03-31 02:37] LABS: INR 1.3 (0.9-1.1); Partial Thromboplastin Ratio 1.2; Partial Thromboplastin Time 33 Seconds (21-31)
[2024-03-31] MEDS: ceFAZolin 2000MG 2,000 MG/15 ML SYR IV SCH ×2 (08:55→16:04)
[2024-03-31] MEDS: LACTATED RINGER'S 1,000 ML IV SCH (08:59)
[2024-03-31 09:56] LABS: Alanine Aminotransferase 31 U/L (7-52); Albumin Globulin Ratio 0.9 (0.9-2); Albumin Level 2.7 gm/dl (3.4-5.0); Alkaline Phosphatase 131 U/L (34-104); Bilirubin,Total 0.6 mg/dl (0.2-1.0); Blood Urea Nitrogen 33 mg/dl (6-23); Calcium 8.8 mg/dl (8.6-10.3); Carbon Dioxide 22 mmol/L (21-32); Chloride 108 mmol/L (98-107); Creatinine Clr Calc Pharmacy 38.2 ml/min; Est GFR (Non-African American) 28.5 ml/min; Globulin 2.9 gm/dl (2.5-4.0); Glucose 147 mg/dl (70-99(Fasting)); Total Protein 5.6 gm/dl (6.0-8.3)
[2024-03-31] MEDS: MoRPHine SULFATE 2 MG/ML CARP IV PRN (10:01)
[2024-03-31 10:51] LABS: Magnesium 1.8 mg/dl (1.7-2.4); Potassium 4.9 mmol/L (3.5-5.1)
[2024-03-31 11:19] LABS: Basophils # (auto) 0.02 K/uL (0.00-0.20); Basophils % (auto) 0.2 %; Hematocrit (blood only) 27.2 % (37.0-47.0); Hemoglobin 8.6 g/dl (12.0-16.0); Immature Granulocytes # (auto) 0.19 K/uL (0.01-0.20); Immature Granulocytes % (auto) 2.1 %; Lymphocytes # (auto) 0.74 K/uL (1.20-3.40); Lymphocytes % (auto) 8.1 %; Mean Corpuscular Hemoglobin 32.3 pg (25.0-34.0); Mean Corpuscular Hgb Conc 31.6 g/dL (32.0-36.0); Mean Corpuscular Volume 102.3 fL (80.0-100.0); Mean Platelet Volume 11.5 fL (9.4-12.4); Monocytes # (auto) 1.21 K/uL (0.11-0.59); Monocytes % (auto) 13.2 %; Neutrophils % (auto) 76.4 %; Nucleated RBC # (auto) 0.02 K/uL (0.00-0.12); Nucleated RBC % (auto) 0.2 %; Platelet Count 298 K/uL (130-400); RDW Coefficient of Variation 14.3 % (11.5-14.5); RDW Standard Deviation 53.1 fL (36.4-46.3); Red Blood Count 2.66 M/uL (4.20-5.40); White Blood Count 9.16 K/ul (4.8-10.8)
--- NOTE | 2024-03-31 11:37 | Hospitalist Progress Note ---
Date of Service March 31, 2024 Assessment & Plan (1) Closed fracture of distal end of left femur: Plan: 63 y/o recently discharged home 03/29 after brief admission for RLE cellulitis (resolved), was getting out of shower with her 's assistance when the bath mat slipped and she fell, sustaining left femur fracture Pathological/osteoporotic fracture of distal shaft of left femur -consulted orthopedics - ORIF L femur by Dr. Dempsey 03/30 -NWB -pain control very difficult - has had acute encephalopathy postop likely related to anesthesia and small amount of IV hydromorphone (1 mg dose and 0.5 mg dose yesterday). Reduced to morphine 2 mg IV q3h. Will consult pain service to see if a nerve block is an option or any other suggestions. On IV acetaminophen. NSAID contraindicated because of renal function. Not alert enough to take po this morning (2) Acute metabolic encephalopathy: Plan: Developed after receiving IV opioids for pain control of fracture. Postop has been somnolent alternating with awake, crying, not responsive to commands or verbalizing however. 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 Multiple antibiotic allergies -probiotic (4) Seizure disorder: Plan: Continue carbamazepine 12-hour, 40 mg p.o. twice daily (5) DVT (deep venous thrombosis): Plan: History of VTE (remote). Chronically anticoagulated on coumadin with INR goal 2.0-3.0 -held perioperatively -Vit K 2.5 mg IV given 03/30 for surgery -INR 1.3, resume warfarin when taking po and ok per surgery -DVT SQ heparin prophylaxis dose until INR in high 1s (6) Type 2 diabetes mellitus: Plan: Hold metformin. A1c 5.2 this month Placed on Accu-Cheks with NovoLog SSI (7) Hypertension: Plan: Resume metoprolol - will order IV scheduled since NPO. and hold telmisartan Hydralazine 10 mg IV every 4 hours as needed for systolic blood pressure greater than 160 Plan History of asthma, not in exacerbation -prn bronchodilators Mild ROMI on CKD-3. Cr 2.0 -Cr improved to 1.8, telmisartan held -monitor Cr DVT ppx - SQ heparin until warfarin resumed Dispo - will need rehab stay Discussed with her at bedside 03/30 Admission and Anticipated Discharge Date Admission Date: March 30, 2024 Subjective ORIF L femur fracture last night Had fairly small amount of IV hydromorphone following procedure (<2 mg) has been altered, not alert and alternates between eyes open with distress and constant crying VS asleep Hypertensive and tachycardic when awake seems related to pain Physical Exam 2 Physical Exam: eyes open and crying out continuously, but does not respond verbally or even track me visually KEN, not moving extremities currently and not following commands heart tachy reg no mrg lungs CTAB anteriorly abd sntnd +BT LLE in DALE wrap and splint, foot is warm/WP, DP pulse intact. RLE WWP. 1-2+ pitting edema LE>UE Results & Data Results & Data Vital Signs (Past 12 Hours) Vital Signs Temp Pulse Pulse Resp BP Pulse Ox Pulse Ox 03/31/24 10:06 128 H 03/31/24 08:00 118 H 03/31/24 08:00 36.6 C 108 H 18 129/88 98 03/31/24 05:00 116 H 17 137/78 97 03/31/24 03:30 36.5 C 106 H 14 113/59 L 97 03/31/24 03:00 98 03/31/24 02:15 90 18 100 03/31/24 00:00 94 H 13 120/78 97 O2 Del Method O2 Del Method O2 Flow Rate FiO2 03/31/24 10:06 03/31/24 08:00 03/31/24 08:00 BiPAP 30 03/31/24 05:00 BiPAP 30 03/31/24 03:30 BiPAP 30 03/31/24 03:00 BiPAP 03/31/24 02:15 40 03/31/24 00:00 Nasal Cannula 2 Laboratory Results 03/31/24 10:16 03/31/24 10:12 VBG overnight with minimal elevation of CO2 INR 1.3, H/H stable, Cr improved from 2-->1.8 PG Care Time/CCT Total # of Minutes Spent Total Time Spent with Patient: Total time spent is greater than 50% in coordination of care (as documented) at patient's floor/unit and/or counseling patient: Coding Level of Care Code 51620 SUB INP/OBS CARE 3/50MIN Diagnoses Closed fracture of distal end of left femur S72.402A Acute metabolic encephalopathy G93.41 Cellulitis of right lower extremity L03.115 Seizure disorder G40.909 DVT (deep venous thrombosis) I82.409 Type 2 diabetes mellitus E11.9 Hypertension I10
[2024-03-31] MEDS: METOPROLOL TARTRATE 1 MG/ML VIAL IV SCH (12:05)
[2024-03-31] MEDS: MoRPHine SULFATE 4 MG/ML 1 ML CARP\\VIAL IV PRN (12:35)
[2024-03-31] MEDS: levETIRAcetam IV 500 MG in SODIUM CHLOR 0.9% MINI-B 100 ML IV SCH (13:21)
--- NOTE | 2024-03-31 14:14 | Orthopedic Progress Note ---
Date of Service March 31, 2024 Assessment & Plan (1) Closed fracture of distal end of left femur: The procedure went well yesterday. She can continue her Coumadin. She can be touch toe weightbearing on the left leg but I do not want full weightbearing and ambulation quite yet. She is orthopedically stable for discharge when medically ready. She will follow-up in our office in 2 weeks for suture removal. Full orthopedic discharge instructions were placed in the discharge summary. Murali Martin was seen and examined at bedside this morning. Unfortunately she is dealing with some dementia. Her family is with her at bedside. She seems to be in some pain but she is not alert to where she is at. Pain management has been consulted as well.. Review of Systems All systems reviewed & are unremarkable except as noted in HPI & below. Physical Exam On physical examination left leg, the dressing is clean and dry. Her leg is out full extension. She is unable to cooperate for neurovascular exam.. Results & Data Results & Data Laboratory Results . Diagnostic Findings . PG Care Time/CCT Total # of Minutes Spent Total Time Spent with Patient: Total time spent is greater than 50% in coordination of care (as documented) at patient's floor/unit and/or counseling patient: Coding Level of Care Code 53057 Post Operative Follow-Up Diagnoses Closed fracture of distal end of left femur S72.402A
--- NOTE | 2024-03-31 14:20 | Pain Management Consultation ---
Date of Consultation March 31, 2024 Assessment & Plan (1) Acute metabolic encephalopathy: (2) On anticoagulant therapy: (3) Closed fracture of distal end of left femur: (4) S/P ORIF (open reduction internal fixation) fracture: Plan 1. Patient has been in incoherent state reportedly since her surgical procedure. Unable to assess pain at this time. There appeared to be no obvious change with her recent utilization of IV morphine although family reports prior history of difficulties tolerating IV morphine with responsiveness of sedation and incoherence with prior surgical procedure but also similar to prior history of use of anesthesia. Pain service has nothing interventional to offer at this time. There is no nerve block to assist in her left lower extremity pain although overtly unable to assess pain response at this time. 2. Would recommend limited utilization of IV opiate therapy 3. Consider scheduled dosing of IV acetaminophen to assist in pain control pending resolution of her metabolic encephalopathy 4. Consider neurology consultation given her current metabolic encephalopathy and her prior history of seizure disorder 5. Pain service will sign off on patient at this time. Please contact us for reevaluation with pain complaints pending resolution of her acute metabolic encephalopathy History of Present Illness Reason for Consultation: Pain control status post left femur ORIF Requesting Physician: Sailaja Dickinson MD Attending Physician: Sailaja Dickinson MD History of Present Illness Mrs. Gayle is a 63-year-old morbidly obese white female who was admitted approximately 36 hours ago after a fall in the home while cleaning her shower landing on her left leg with resultant closed displaced distal femur fracture which required ORIF which was completed by Dr. Dempsey approximately 18 hours ago. Patient has developed an acute metabolic encephalopathy since the time of her surgical procedure. The patient has been somnolent with an alternating awake state with crying and poor responsiveness to commands. The family reports similar reaction in the past to anesthesia and opiates, specifically morphine. The patient's and daughter are at bedside reporting that she is predominantly crying and intermittently coherent not able to answer questions appropriately. She does follow with Dr. Winters with neurology for a history of seizure disorder on chronic carbamazepine. Patient had utilization of IV hydromorphone prior to her surgical procedure with limited use of IV morphine with a single 4 mg dose at 1235 on 03/31/2024. There has been no obvious change in her mental status with the use of morphine this afternoon per the family's report. Further history is extremity limited as the patient is unable to answer directed questions. Plan of care discussed with Dr. Myrna Larson. Allergies Allergy/AdvReac Type Severity Reaction Status Date / Time bee venom protein (honey bee) Allergy Severe ANAPHYLAXIS Verified 03/06/24 11:25 Penicillins Allergy Severe ANAPHYLAXIS Verified 03/06/24 11:25 Cephalosporins Allergy Intermediate DIZZINESS, Verified 03/06/24 11:25 ITCHY hydroxyzine Allergy Intermediate DIZZY Verified 03/06/24 11:25 ITCHY NAUSEA Sulfa (Sulfonamide Allergy Intermediate DIZZY Verified 03/06/24 11:25 Antibiotics) ITCHY, NAUSEA metaxalone AdvReac Intermediate n/v and Verified 03/06/24 11:25 headache, dizziness Home Medications Medication Instructions Recorded Confirmed Type atorvastatin 40 mg tablet (Lipitor) 40 mg PO QPM 04/02/19 03/30/24 History docusate sodium 100 mg capsule 100 mg PO BID #60 caps 04/02/19 03/30/24 Rx (Colace) fluticasone propionate 115 2 puff inhalation Q12H PRN Wheezing 04/02/19 03/30/24 History mcg-salmeterol 21 mcg/actuation HFA inhaler (Advair HFA) levocetirizine 5 mg tablet 5 mg PO QPM 12/02/21 03/30/24 History metformin 1,000 mg tablet 1,000 mg PO BID 02/15/23 03/30/24 History metoprolol tartrate 25 mg tablet 25 mg PO HS 04/01/23 03/30/24 History telmisartan 80 mg tablet 80 mg PO QAM 04/01/23 03/30/24 History mrkyvibuunvk-qmfraxpj-ikyhaa tablet 1 tab PO Q24H 07/08/23 03/30/24 History doxycycline hyclate 100 mg capsule 100 mg PO BID 07/21/23 03/30/24 History carbamazepine 400 mg 400 mg PO BID 90 days #180 tabs 08/10/23 03/30/24 Rx tablet,extended release,12 hr acetaminophen 500 mg tablet 1,000 mg PO .QHS PRN Pain 11/08/23 03/30/24 History (Tylenol Extra Strength) cetirizine 10 mg tablet 10 mg PO DAILY PRN allergies 12/02/23 03/30/24 History duloxetine 30 mg capsule,delayed 30 mg PO DAILY 12/10/23 03/30/24 History release (Cymbalta) montelukast 10 mg tablet 10 mg PO DAILY #30 tabs 12/30/23 03/30/24 Rx miscellaneous medical supply #60 caps 03/02/24 03/30/24 Rx pregabalin 100 mg capsule 100 mg PO DAILY 90 days #90 caps 03/06/24 03/30/24 Rx warfarin 3 mg tablet See Rx Instructions PO UD 03/23/24 03/30/24 History nystatin-triamcinolone 100,000 1 applic topical DIRECTED 03/26/24 03/30/24 History unit/g-0.1 % topical cream clindamycin HCl 300 mg capsule 300 mg PO Q8H #7 caps 03/29/24 03/30/24 Rx koufoaoptj-kmueuhhikuzzj-qrlevoux 1 tab PO Q4 PRN Headache 03/30/24 03/30/24 History 50 mg-325 mg-40 mg tablet famotidine 40 mg tablet 40 mg PO BID 03/30/24 03/30/24 History omeprazole 40 mg capsule,delayed 40 mg PO BID 03/30/24 03/30/24 History release Patient History Medical History (Updated 03/31/24 @ 11:31 by Sailaja Dickinson MD) Closed fracture shaft of femur Morbid obesity with BMI of 40.0-44.9, adult Fibromyalgia Asthma "VERY MILD"- has been "several yrs" since last inhaler use Type 2 diabetes mellitus NIDDM Seizure disorder 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 WINTERS Hyperlipidemia Hypertension Nerve pain History of colon polyps Diverticulosis History of gastric ulcer Anemia IRON/BLOOD TRANSFUSIONS MAY 2020 Osteoporosis Surgical History (Updated 03/31/24 @ 14:27 by Regino Valdes PA-C) History of cataract surgery History of esophagogastroduodenoscopy (EGD) History of colonoscopy 06/11/2020 [facility] History of hysterectomy History of tooth extraction History of total knee replacement RIGHT History of arthroscopy X2 RIGHT KNEE Family History Brother Diabetes Grandmother (Paternal) Diabetes Grandmother (Maternal) Diabetes Other No family history of adverse response to anesthesia Social History Smoking Status: Never smoker Second Hand Exposure: No; Do You Dip or Chew Tobacco: No; Hx Alcohol Use: No Hx Substance Use: No Preferred Language: Welsh Communication Ability: Effective 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 Patient was continuously crying out loud. She was unable to answer directed questions. She is unable to orient to person or place. She did have responsiveness to questions with short 1 word answers but then would not continue in conversation. Head: Normocephalic and atraumatic. ENT: No evidence of nasal or oral mucosal lesions. Mucous membranes are moist. Abdomen: Soft and nondistended. No organomegaly. Bowel sounds active. Lower extremities: Large Aram wrap in place in the left lower extremity which was not removed for visual inspection. Dr. Dempsey was in the room at the same time and did examine the left leg. There is no obvious edema or erythema distal to the wrap.
--- NOTE | 2024-03-31 15:14 | CT Scan Report ---
HEAD CT NONCONTRAST CT DOSE: 1687.29 mGy.cm HISTORY: altered mental status, recent fall, anticoagulated TECHNIQUE: Multiaxial CT images of the head were performed without the use of intravenous contrast. A utomated exposure control was utilized for this study. A dose lowering technique was utilized adheri ng to the principles of ALARA. Comparison: Head CT 03/29/2024. Findings: Small retention cyst within the left maxillary sinus, unchanged. The mastoid air cells are clear. The calvarium and skull base are intact. There is no mass, hematoma, midline shift, acute infa rct. White matter hypodensity is nonspecific but suggestive of microvascular ischemic change. The christiano tricles and sulci demonstrate mild age-related involutional changes. Motion artifact. This results in suboptimal evaluation. Prior right occipital craniectomy again noted. Impression: Motion artifact results in suboptimal evaluation. No definite acute intracranial abnormality. ACT 112: Negative or not required by law. Electronically signed by: Chavez Tang M.D. 03/31/2024 3:12 PM
[2024-03-31] MEDS: MoRPHine SULFATE 4 MG/ML 1 ML CARP\\VIAL IV ONE (15:58)
[2024-03-31] MEDS: HEPARIN SOD 5,000 UNIT/0.5 ML VIAL SQ SCH (20:05)
[2024-03-31] MEDS: ACETAMINOPHEN 1,000 MG/100 ML VIAL IV SCH (21:00)
[2024-03-31] MEDS: HYDROmorphone INJ 0.5 MG/0.5 ML SYR IV PRN (23:54)
[2024-04-01 06:49] LABS: Basophils # (auto) 0.02 K/uL (0.00-0.20); Basophils % (auto) 0.3 %; Eosinophils # (auto) 0.08 K/uL (0.00-0.50); Hematocrit (blood only) 22.6 % (37.0-47.0); Hemoglobin 7.2 g/dl (12.0-16.0); Immature Granulocytes % (auto) 3.8 %; Lymphocytes % (auto) 10.3 %; Mean Corpuscular Hemoglobin 31.9 pg (25.0-34.0); Mean Corpuscular Hgb Conc 31.9 g/dL (32.0-36.0); Mean Platelet Volume 11.1 fL (9.4-12.4); Monocytes # (auto) 1.21 K/uL (0.11-0.59); Monocytes % (auto) 15.5 %; Neutrophils # (auto) 5.39 K/uL (1.40-6.50); Neutrophils % (auto) 69.1 %; Nucleated RBC # (auto) 0.03 K/uL (0.00-0.12); Nucleated RBC % (auto) 0.4 %; Platelet Count 225 K/uL (130-400); RDW Coefficient of Variation 14.4 % (11.5-14.5); RDW Standard Deviation 51.4 fL (36.4-46.3); Red Blood Count 2.26 M/uL (4.20-5.40)
[2024-04-01 07:10] LABS: Prothrombin Time 10.9 Seconds (9.0-12.0)
[2024-04-01 07:32] LABS: Calcium 8.7 mg/dl (8.6-10.3); Creatinine Clr Calc Pharmacy 43.5 ml/min; Est GFR (African American) 37.9 ml/min; Est GFR (Non-African American) 32.7 ml/min; Magnesium 1.8 mg/dl (1.7-2.4); Potassium 4.5 mmol/L (3.5-5.1)
[2024-04-01 08:12] LABS: Anisocytosis Present; Hypochromasia Present
--- NOTE | 2024-04-01 08:12 | Orthopedic Progress Note ---
Date of Service April 01, 2024 Assessment & Plan (1) S/P ORIF (open reduction internal fixation) fracture: Her leg is doing about as well as expected. The dressings look good. She can be touch toe weightbearing on her left leg. She is currently on a liquid diet. They are trying to manage some of her pain medications as well. Murali Martin was seen and examined at bedside this morning. Unfortunately she still dealing with some delirium. She is just kind of groaning in pain. She is not alert to what is going on. She has no acute events overnight.. Review of Systems All systems reviewed & are unremarkable except as noted in HPI & below. Physical Exam On physical examination of the left leg, the dressing is clean and dry. Her ankle is warm to touch. She is moving her ankle some. She is unable to follow neurovascular examination.. Results & Data Results & Data Laboratory Results . Diagnostic Findings . PG Care Time/CCT Total # of Minutes Spent Total Time Spent with Patient: Total time spent is greater than 50% in coordination of care (as documented) at patient's floor/unit and/or counseling patient: Coding Level of Care Code 74232 Post Operative Follow-Up Diagnoses S/P ORIF (open reduction internal fixation) fracture Z98.890; Z87.81
--- NOTE | 2024-04-01 12:51 | Hospitalist Progress Note ---
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 Dempsey 03/30 -per Ortho may start to mobilize of toe-touch weightbearing left lower extremity -pain control - difficult to assess because of encephalopathy, continuing with low doses of IV hydromorphone as needed, not currently taking p.o. medications which complicates the issue. continue IV acetaminophen scheduled NSAID contraindicated because of renal function. (2) Acute metabolic encephalopathy: Plan: Developed after anesthesia and receiving IV opioids for pain control of fracture. her family reports a very similar reaction after anesthesia in the past -repeat head CT 03/31 with no acute issues -not taking po currently, seems more of a refusal today -judicious IV opioids for pain, see above -has JEFF and uses CPAP, vbg 03/31 with only minimal hypercarbia -UA was abnormal but has been on antibiotics this week for leg cellulitis so UTI seems unlikely, culture only has lactobacillus which is unlikely to be pathogenic -leg cellulitis had completely resolved by 03/29, RLE continues to appear normal with no ongoing infection she remains significantly encephalopathic today but I have seen some improvement since yesterday -daily AM BMP, mag until taking po -maintenance IV fluids ordered (3) Cellulitis of right lower extremity: Plan: resolved prior to admission. treated with 5-day course of clindamycin -probiotic (4) Seizure disorder: Plan: Continue carbamazepine 12-hour, 40 mg p.o. twice daily once she is able to take p.o. Tegretol level was therapeutic at 11 a few days ago for the time being covering with Keppra 500 mg IV twice daily low risk for seizure, per Dr. Ortega's notes she has not had a seizure since the mid (5) DVT (deep venous thrombosis): Plan: History of VTE (remote). Chronically anticoagulated on coumadin with INR goal 2.0-3.0 -held perioperatively -Vit K 2.5 mg IV given 03/30 for surgery -INR 1.3, resume warfarin when taking po and ok per surgery -DVT SQ heparin prophylaxis dose until INR in high 1s (6) Type 2 diabetes mellitus: Plan: Hold metformin. A1c 5.2 this month Placed on Accu-Cheks with NovoLog SSI (7) Hypertension: Plan: remains hypertensive and intermittently with sinus tachycardia (no fib on tele review) - increase scheduled IV metoprolol to 5 mg q6h until po can be resumed - cont hold telmisartan Hydralazine 10 mg IV every 4 hours as needed for systolic blood pressure greater than 160 (8) Acute blood loss anemia: Plan: Postoperative anemia following femur fracture -was in 9's, now 7.2 -check iron stores, AM CBC -AM hemoglobin -consider transfusion, transfuse for Hg<7 Plan History of asthma, not in exacerbation -prn bronchodilators Mild ROMI on CKD-3. Cr 2.0 -Cr improved to 1.6, telmisartan held -monitor Cr DVT ppx - SQ heparin until warfarin resumed Dispo - will need rehab stay Discussed with her at bedside 03/30, 04/01 Admission and Anticipated Discharge Date Admission Date: March 30, 2024 Subjective positives more alert and interactive today but remains severely encephalopathic, she is seeing some short phrases and tracking visually but remains confused and distressed continues to frequently be crying out, she refused oral intake this morning has not been able to take her oral medications. had denied pain twice for her RN this morning but later when I saw her she seemed to endorse pain but could not tell me where. she did also complain of "itch" several times which is a chronic issue for her Physical Exam 2 Physical Exam: PHYSICAL EXAMINATION Last 24h vital signs reviewed, see documentation in flowsheet General: awake, crying out frequently HEENT: Normocephalic, atraumatic, pupils round and equal, sclerae anicteric, no conjunctival injection, moist mucus membranes Lungs: Normal respiratory effort. Clear to auscultation bilaterally. No RRW Heart: tachycardic Regular rate and rhythm, no murmurs. No JVD Abdomen: Soft, nontender, nondistended. Bowel sounds present. Extremities: Warm, dry, well-perfused. left leg is wrapped in surgical dressing. 2+ chronic lower extremity edema. left foot is warm and well- perfused below the dressing. Right lower extremity with no residual of cellulitis Neuro: Alert and not oriented, confused, speaks in some phrases and single word replies, today is tracking visually and more interactive than yesterday, face symmetric, moves 4 extremities well Psych: anxious affect and behavior Results & Data Results & Data Vital Signs (Past 12 Hours) Vital Signs Temp Pulse Pulse Resp BP BP Pulse Ox 04/01/24 12:23 122 H 154/93 H 04/01/24 11:20 37.1 C 115 H 20 136/86 96 04/01/24 08:34 37.8 C H 115 H 22 139/78 96 04/01/24 07:15 71 04/01/24 06:11 86 135/78 04/01/24 05:53 112 H 139/77 04/01/24 03:00 04/01/24 03:00 36.8 C 99 H 18 104/63 92 Pulse Ox O2 Del Method O2 Del Method O2 Flow Rate O2 Flow Rate 04/01/24 12:23 04/01/24 11:20 Nasal Cannula 2 04/01/24 08:34 Nasal Cannula 2 04/01/24 07:15 04/01/24 06:11 04/01/24 05:53 04/01/24 03:00 99 Nasal Cannula 2 04/01/24 03:00 Nasal Cannula Laboratory Results 04/01/24 06:30 04/01/24 06:30 PG Care Time/CCT Total # of Minutes Spent Total Time Spent with Patient: Total time spent is greater than 50% in coordination of care (as documented) at patient's floor/unit and/or counseling patient: Coding Level of Care Code 32416 SUB INP/OBS CARE 3/50MIN Diagnoses Closed fracture of distal end of left femur S72.402A Acute metabolic encephalopathy G93.41 Cellulitis of right lower extremity L03.115 Seizure disorder G40.909 DVT (deep venous thrombosis) I82.409 Type 2 diabetes mellitus E11.9 Hypertension I10 Acute blood loss anemia D62
[2024-04-01] MEDS: HYDROmorphone INJ 0.5 MG/0.5 ML SYR IV ONE (16:30)
[2024-04-01] MEDS: HALOPERIDOL LACTATE 5 MG/ML 1 ML VIAL IV PRN (18:01)
[2024-04-01] MEDS: METOPROLOL TARTRATE 1 MG/ML VIAL IV SCH (18:41)
[2024-04-01] MEDS: HALOPERIDOL LACTATE 5 MG/ML 1 ML VIAL IV ONE (20:08)
[2024-04-02 07:37] LABS: INR 1.1 (0.9-1.1); Prothrombin Time 11.4 Seconds (9.0-12.0)
--- NOTE | 2024-04-02 07:40 | Orthopedic Progress Note ---
Date of Service April 02, 2024 Assessment & Plan (1) S/P ORIF (open reduction internal fixation) fracture: She seems to be doing okay with regards to her leg but she is suffering from post anesthesia encephalopathy. The family says this has happened in the past. She seems to be slightly better today. She can be touchdown weightbearing on the left leg. I just do not want any full ambulation quite yet. She is on Coumadin for DVT prophylaxis. Full orthopedic discharge instructions were placed in the discharge summary. She can follow-up with orthopedics in 2 weeks for staple removal. Murali Martin was seen and examined at bedside this morning. She seems a little bit better today but she still suffering from encephalopathy. She had no other acute events overnight.. Review of Systems All systems reviewed & are unremarkable except as noted in HPI & below. Physical Exam Physical exam of her left leg shows the dressing is clean and dry. The dressings can be changed today. Her leg is out full extension.. Results & Data Results & Data Laboratory Results . Diagnostic Findings . PG Care Time/CCT Total # of Minutes Spent Total Time Spent with Patient: Total time spent is greater than 50% in coordination of care (as documented) at patient's floor/unit and/or counseling patient: Coding Level of Care Code 76849 Post Operative Follow-Up Diagnoses S/P ORIF (open reduction internal fixation) fracture Z98.890; Z87.81
[2024-04-02 07:54] LABS: Anion Gap 9 (3-11); BUN Creatinine Ratio 19.7 (10-20); Blood Urea Nitrogen 25 mg/dl (6-23); Carbon Dioxide 24 mmol/L (21-32); Chloride 110 mmol/L (98-107); Creatinine Clr Calc Pharmacy 55.9 ml/min; Est GFR (African American) 51.3 ml/min; Est GFR (Non-African American) 44.3 ml/min; Glucose 106 mg/dl (70-99(Fasting)); Potassium 4.4 mmol/L (3.5-5.1); Sodium 143 mmol/L (136-145)
[2024-04-02 08:12] LABS: Iron 28 mcg/dl (35-150); Magnesium 1.8 mg/dl (1.7-2.4); Transferrin < 95 mg/dl (200-360)
[2024-04-02 08:14] LABS: Ferritin 359.3 ng/ml (8-388)
[2024-04-02 08:42] LABS: Hematocrit (blood only) 21.9 % (37.0-47.0); Hemoglobin 6.9 g/dl (12.0-16.0); Mean Corpuscular Hemoglobin 32.4 pg (25.0-34.0); Mean Corpuscular Hgb Conc 31.5 g/dL (32.0-36.0); Mean Corpuscular Volume 102.8 fL (80.0-100.0); Nucleated RBC # (auto) 0.04 K/uL (0.00-0.12); Nucleated RBC % (auto) 0.5 %; Platelet Count 223 K/uL (130-400); RDW Coefficient of Variation 14.4 % (11.5-14.5); RDW Standard Deviation 52.8 fL (36.4-46.3); Red Blood Count 2.13 M/uL (4.20-5.40); White Blood Count 7.69 K/ul (4.8-10.8)
[2024-04-02] MEDS ORDERED: SODIUM CHLORIDE 0.9% 250 ML IV PRN (08:47)
--- NOTE | 2024-04-02 15:51 | Hospitalist Progress Note ---
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 Dempsey 03/30 -per Ortho Touchdown weightbearing left lower extremity -pain control - continue IV acetaminophen scheduled and as needed IV hydromorphone. NSAID contraindicated because of renal function. (2) Acute metabolic encephalopathy: Plan: Developed after anesthesia and receiving IV opioids for pain control of fracture. her family reports a very similar reaction after anesthesia in the past -repeat head CT 03/31 with no acute issues -not taking po yet, still a bit lethargic -judicious IV opioids for pain, see above -has JEFF and uses CPAP, vbg 03/31 with only minimal hypercarbia -UA was abnormal but has been on antibiotics this week for leg cellulitis so UTI seems unlikely, culture only has lactobacillus which is unlikely to be pathogenic -leg cellulitis had completely resolved by 03/29, RLE continues to appear normal with no ongoing infection Veronica remains encephalopathic today but there has been significant improvement in the last 48 hours -daily AM BMP, mag until taking po -maintenance IV fluids ordered (3) Cellulitis of right lower extremity: Plan: resolved prior to admission. treated with 5-day course of clindamycin -probiotic (4) Seizure disorder: Plan: Continue carbamazepine 12-hour, 40 mg p.o. twice daily once she is able to take p.o. Tegretol level was therapeutic at 11 a few days ago for the time being covering with Keppra 500 mg IV twice daily low risk for seizure, per Dr. Ortega's notes she has not had a seizure since the mid (5) DVT (deep venous thrombosis): Plan: History of VTE (remote). Chronically anticoagulated on coumadin with INR goal 2.0-3.0 -held perioperatively, and now held because not taking oral medications yet -Vit K 2.5 mg IV given 03/30 for surgery -INR 1.3, resume warfarin when taking po -DVT SQ heparin prophylaxis dose until INR in high 1s (6) Type 2 diabetes mellitus: Plan: Hold metformin. A1c 5.2 this month Placed on Accu-Cheks with NovoLog SSI blood glucose at goal (7) Hypertension: Plan: continue scheduled IV metoprolol to 5 mg q6h until po can be resumed - cont hold telmisartan Hydralazine 10 mg IV every 4 hours as needed for systolic blood pressure greater than 160 (8) Acute blood loss anemia: Plan: Postoperative anemia following femur fracture -was in 9's, now 6.9 - iron stores are low, ferritin elevated more consistent with chronic inflammation - transfuse 1 unit today, I discussed the risks and benefits with Veronica and her who is at bedside. He provided consent because she is still too lethargic for consent Plan History of asthma, not in exacerbation -prn bronchodilators Mild ROMI on CKD-3. Cr 2.0 -Cr improved to 1.27, telmisartan still held - can resume when taking p.o. -monitor Cr DVT ppx - SQ heparin until warfarin resumed Dispo - will need rehab stay Discussed with her at bedside 03/30, 04/01, 04/02 Admission and Anticipated Discharge Date Admission Date: March 30, 2024 Subjective Veronica is awake today remains lethargic but much more verbal and answering questions she endorses left leg pain and itching which is generalized and chronic Physical Exam 2 Physical Exam: PHYSICAL EXAMINATION Last 24h vital signs reviewed, see documentation in flowsheet General: awake more interactive looks better no longer constantly crying out HEENT: Normocephalic, atraumatic, pupils round and equal, sclerae anicteric, no conjunctival injection, moist mucus membranes Lungs: Normal respiratory effort. Clear to auscultation bilaterally. No RRW Heart: tachycardic Regular rate and rhythm, no murmurs. No JVD Abdomen: Soft, nontender, nondistended. Bowel sounds present. Extremities: Warm, dry, well-perfused. left leg is wrapped in surgical dressing. both feet are warm and well-perfused though edematous, has chronic lower extremity edema at baseline Neuro: Alert and oriented to basic situation today able to give appropriate replies in phrases more verbal, face symmetric, moves 4 extremities well Psych: normal affect and behavior Results & Data Results & Data Vital Signs (Past 12 Hours) Vital Signs Temp Pulse Pulse Resp BP BP Pulse Ox 04/02/24 14:19 93 H 149/89 H 04/02/24 14:04 108 H 171/99 H 04/02/24 13:34 37.1 C 110 H 22 150/98 H 98 04/02/24 12:34 36.6 C 110 H 22 166/91 H 97 04/02/24 12:04 36.6 C 108 H 22 123/86 98 04/02/24 11:49 36.6 C 109 H 22 152/89 H 98 04/02/24 11:49 36.9 C 109 H 22 152/89 H 98 04/02/24 11:32 36.8 C 107 H 22 153/89 H 98 04/02/24 10:43 36.6 C 110 H 18 147/104 H 97 04/02/24 09:55 04/02/24 09:26 107 H 04/02/24 07:00 37.0 C 111 H 18 166/93 H 97 04/02/24 05:40 107 H 155/91 H 04/02/24 05:25 116 H 148/78 H O2 Del Method O2 Flow Rate 04/02/24 14:19 04/02/24 14:04 04/02/24 13:34 2 04/02/24 12:34 04/02/24 12:04 2 04/02/24 11:49 2 04/02/24 11:49 2 04/02/24 11:32 2 04/02/24 10:43 Nasal Cannula 2 04/02/24 09:55 Nasal Cannula 2 04/02/24 09:26 04/02/24 07:00 Nasal Cannula 2 04/02/24 05:40 04/02/24 05:25 Laboratory Results 04/02/24 08:11 04/02/24 06:42 PG Care Time/CCT Total # of Minutes Spent Total Time Spent with Patient: Total time spent is greater than 50% in coordination of care (as documented) at patient's floor/unit and/or counseling patient: Coding Level of Care Code 17726 SUB INP/OBS CARE 3/50MIN Diagnoses Closed fracture of distal end of left femur S72.402A Acute metabolic encephalopathy G93.41 Cellulitis of right lower extremity L03.115 Seizure disorder G40.909 DVT (deep venous thrombosis) I82.409 Type 2 diabetes mellitus E11.9 Hypertension I10 Acute blood loss anemia D62
[2024-04-02] MEDS ORDERED: WARFARIN SOD 6 MG TAB PO SCH (16:45)
[2024-04-02] MEDS: WARFARIN SOD 6 MG TAB PO SCH (17:18)
[2024-04-02] MEDS: METOPROLOL TARTRATE 25 MG TAB PO SCH (21:52)
[2024-04-02] MEDS: FAMOTIDINE 40 MG TABLET PO SCH (21:52)
[2024-04-02] MEDS: PANTOprazole 40 MG TAB PO SCH (21:52)
[2024-04-02] MEDS: PREGABALIN 100 MG CAP PO SCH (21:57)
[2024-04-02 23:45] LABS: Hematocrit (blood only) 23.2 % (37.0-47.0); Hemoglobin 7.6 g/dl (12.0-16.0); Mean Corpuscular Hemoglobin 31.8 pg (25.0-34.0); Mean Corpuscular Hgb Conc 32.8 g/dL (32.0-36.0); Mean Corpuscular Volume 97.1 fL (80.0-100.0); Nucleated RBC # (auto) 0.04 K/uL (0.00-0.12); Nucleated RBC % (auto) 0.5 %; Platelet Count 244 K/uL (130-400); RDW Coefficient of Variation 16.6 % (11.5-14.5); RDW Standard Deviation 57.5 fL (36.4-46.3); Red Blood Count 2.39 M/uL (4.20-5.40); White Blood Count 8.24 K/ul (4.8-10.8)
[2024-04-03 06:59] LABS: INR 1.3 (0.9-1.1); Prothrombin Time 13.6 Seconds (9.0-12.0)
[2024-04-03 07:00] LABS: Hemoglobin 7.9 g/dl (12.0-16.0); Mean Corpuscular Hemoglobin 32.4 pg (25.0-34.0); Mean Corpuscular Hgb Conc 32.9 g/dL (32.0-36.0); Mean Corpuscular Volume 98.4 fL (80.0-100.0); Nucleated RBC # (auto) 0.04 K/uL (0.00-0.12); Nucleated RBC % (auto) 0.5 %; Platelet Count 225 K/uL (130-400); RDW Coefficient of Variation 16.9 % (11.5-14.5); RDW Standard Deviation 59.7 fL (36.4-46.3); Red Blood Count 2.44 M/uL (4.20-5.40); White Blood Count 7.81 K/ul (4.8-10.8)
[2024-04-03 07:17] LABS: BUN Creatinine Ratio 19.8 (10-20); Calcium 8.9 mg/dl (8.6-10.3); Creatinine Clr Calc Pharmacy 63.9 ml/min; Est GFR (African American) 60.4 ml/min; Est GFR (Non-African American) 52.1 ml/min; Potassium 4.2 mmol/L (3.5-5.1)
[2024-04-03] MEDS: INSULIN ASPART PER UNIT CHARGE SC SCH (07:37)
[2024-04-03] MEDS: DULoxetine HCL 30 MG CAP PO SCH (08:24)
[2024-04-03] MEDS: CETIRIZINE HCL 10 MG TABLET PO PRN (08:24)
[2024-04-03] MEDS: LOSARTAN POTASSIUM 25 MG TAB PO SCH (08:25)
[2024-04-03] MEDS ORDERED: TELMISARTAN 40 MG TAB PO SCH (09:00)
--- NOTE | 2024-04-03 10:51 | Hospitalist Progress Note ---
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 Dempsey 03/30 -per Ortho Touchdown weightbearing left lower extremity -pain control - continue IV acetaminophen scheduled and as needed po / IV hydromorphone. NSAID contraindicated because of renal function. -mobilize, start PT/OT, ho out soon (2) Acute metabolic encephalopathy: Plan: Developed after anesthesia and receiving IV opioids for pain control of fracture. her family reports a very similar reaction after anesthesia in the past -repeat head CT 03/31 with no acute issues -not taking po yet, still a bit lethargic -judicious IV opioids for pain, see above -has JEFF and uses CPAP, vbg 03/31 with only minimal hypercarbia -UA was abnormal but has been on antibiotics this week for leg cellulitis so UTI seems unlikely, culture only has lactobacillus which is unlikely to be pathogenic -leg cellulitis had completely resolved by 03/29, RLE continues to appear normal with no ongoing infection MUCH improved as of 04/02, today mentation normal, eating and taking po meds -stop IV fluids (3) Cellulitis of right lower extremity: Plan: resolved prior to admission. treated with 5-day course of clindamycin -probiotic (4) Seizure disorder: Plan: Continue carbamazepine 12-hour, 40 mg p.o. twice daily. Tegretol level was therapeutic at 11 last week and in 4's postop. covered with keppra IV while she was not taking po - stop this low risk for seizure, per Dr. Ortega's notes she has not had a seizure since the mid (5) DVT (deep venous thrombosis): Plan: History of VTE (remote, but recurrent). Chronically anticoagulated on coumadin with INR goal 2.0-3.0 -held perioperatively, and now held because not taking oral medications yet -Vit K 2.5 mg IV given 03/30 for surgery -INR still 1.3 today. Discussed with pharmacist. Warfarin 6 mg on 04/02 and 04/03 then will resume usual home dosing -SQ heparin ppx dose until therapeutic (6) Type 2 diabetes mellitus: Plan: Hold metformin. A1c 5.2 this month Placed on Accu-Cheks with NovoLog SSI blood glucose at goal (7) Hypertension: Plan: -resume losartan (for telmisartan) -increase metoprolol to 25 mg bid (8) Acute blood loss anemia: Plan: Postoperative anemia following femur fracture -was in 9's, --> 6.9 --> transfused 1u RBCs on 04/02 --> 7.9 - iron stores are low, ferritin elevated more consistent with chronic inflammation - start po iron supplement Plan History of asthma, not in exacerbation -prn bronchodilators Mild ROMI on CKD-3. Cr 2.0 on admission -resolved, Cr better than baseline at 1.1 today -resume ARB DVT ppx - SQ heparin until warfarin resumed Dispo - will need rehab stay Discussed with her at bedside 03/30, 04/01, 04/02 Admission and Anticipated Discharge Date Admission Date: March 30, 2024 Subjective Mental status much improved. Still a little sleepy but completely making sense today. Did well with transfusion, denies shortness of breath, L leg pain controlled currently Physical Exam 2 Physical Exam: PHYSICAL EXAMINATION Last 24h vital signs reviewed, see documentation in flowsheet General: looks MUCH better, awake alert and calm HEENT: Normocephalic, atraumatic, pupils round and equal, sclerae anicteric, no conjunctival injection, moist mucus membranes Lungs: Normal respiratory effort. Clear to auscultation bilaterally. No RRW Heart: mild tachy reg no mrg Abdomen: Soft, nontender, nondistended. Bowel sounds present. Extremities: Warm, dry, well-perfused. left leg is wrapped in surgical dressing. feet are wwp with 2+ pedal edema. No residual erythema RLE Neuro: AOx4 and mentating normally though mildly sleepy, face symmetric, moves 4 extremities well Psych: normal affect and behavior Results & Data Results & Data Vital Signs (Past 12 Hours) Vital Signs Temp Pulse Pulse Resp BP Pulse Ox Pulse Ox 04/03/24 08:44 04/03/24 07:54 36.9 C 107 H 18 164/83 H 96 04/03/24 07:19 71 08/26/24 03:53 36.6 C 108 H 19 149/79 H 94 04/03/24 03:00 94 04/02/24 22:58 36.9 C 93 H 22 160/97 H 95 O2 Del Method O2 Del Method O2 Flow Rate O2 Flow Rate 04/03/24 08:44 Nasal Cannula 2 04/03/24 07:54 Nasal Cannula 2 04/03/24 07:19 04/03/24 03:53 Room Air 04/03/24 03:00 Nasal Cannula 2 04/02/24 22:58 Nasal Cannula 2 Laboratory Results 04/03/24 06:26 04/03/24 06:26 PG Care Time/CCT Total # of Minutes Spent Total Time Spent with Patient: Total time spent is greater than 50% in coordination of care (as documented) at patient's floor/unit and/or counseling patient: Coding Level of Care Code 70275 SUB INP/OBS CARE 3/50MIN Diagnoses Closed fracture of distal end of left femur S72.402A Acute metabolic encephalopathy G93.41 Cellulitis of right lower extremity L03.115 Seizure disorder G40.909 DVT (deep venous thrombosis) I82.409 Type 2 diabetes mellitus E11.9 Hypertension I10 Acute blood loss anemia D62
[2024-04-03] MEDS ORDERED: HYDROmorphone HCL 2 MG TAB PO PRN (10:53)
[2024-04-03] MEDS: METOPROLOL TARTRATE 25 MG TAB PO SCH (11:35)
[2024-04-03] MEDS: FERROUS SULFATE 325 MG TAB PO SCH (11:35)
[2024-04-03] MEDS ORDERED: POLYETHYLENE (MIRALAX) 17 GM PACK PO PRN (12:49)
[2024-04-03] MEDS: DOCUSATE SODIUM/SENNA 50/8.6MG TAB PO SCH (13:17)
[2024-04-03] MEDS: POLYETHYLENE (MIRALAX) 17 GM PACK PO SCH (13:17)
[2024-04-03] MEDS: NYSTATIN POWDER 15GM BTL EXT SCH (13:17)
[2024-04-03] MEDS: oxyCODONE HCL IR 5 MG TAB (IMMEDIATE RELEASE) PO PRN (13:17)
[2024-04-03] MEDS: ACETAMINOPHEN 500 MG TAB PO SCH (14:22)
[2024-04-04 08:25] LABS: INR 1.6 (0.9-1.1); Prothrombin Time 16.9 Seconds (9.0-12.0)
[2024-04-04] MEDS: WARFARIN SOD 0.5 MG TAB PO SCH (17:08)
[2024-04-04] MEDS: WARFARIN SOD 4 MG TAB PO SCH (17:08)
[2024-04-04] MEDS ORDERED: oxyCODONE HCL IR 5 MG TAB (IMMEDIATE RELEASE) PO PRN (20:19)
--- NOTE | 2024-04-04 20:20 | Hospitalist Progress Note ---
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 Dempsey TTWB to LLE only at this time check 25-OH vit D level in am DVT proph - coumadin Pain meds - cont tylenol 1gm TID scheduled; oxycodone 5mg prn mild-moderate pain; increase to 10mg prn for severe pain & prior to PT sessions Cont PT/OT Remove ho when pain control & mobility are improved (2) Acute metabolic encephalopathy: Plan: likely mainly toxic - 2nd to anesthesia, pain meds, etc. resolved (3) Seizure disorder: Plan: Continue carbamazepine 400mg BID Tegretol level was therapeutic at 11 last week (during prior hospitalization) and 5 this admission has not had a seizure since the mid (4) DVT (deep venous thrombosis): Plan: History of VTE (remote, but recurrent). Chronically anticoagulated on coumadin with INR goal 2.0-3.0 s/p Vit K 2.5 mg IV given 03/30 for surgery INR 1.6 today s/p loading of Warfarin 6 mg on 04/02 and 04/03 today resume typical dosing of 3mg all days except 4mg on Tuesdays INR in am Cont heparin 5000 units BID while awaiting INR to become therapeutic (5) Type 2 diabetes mellitus: Plan: Hold metformin. A1c 5.2% this month Novolog SSI only at this time (6) Hypertension: Plan: Cont losartan (using in sammy for telmisartan) Cont metoprolol 25mg bid (7) Acute blood loss anemia: Plan: Postoperative anemia following femur fracture and s/p ORIF Lowest Hb 6.9 - s/p 1 unit PRBCs on 04/02 Repeat H/H in am Cont PO iron supplementation (8) ROMI (acute kidney injury): Plan: peak Cr 2 recently improved/resolved repeat BMP in am for stability (9) Mast cell disorder: Plan: tryptase level elevated as mentioned by Dr Frankel in his records resume zyrtec - 10mg BID - for generalized pruritis (10) Morbid obesity with BMI of 45.0-49.9, adult: Plan: BMI 47 (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 managed at [facility] on doxycycline for chronic prophylaxis resume such Plan updated pt's at bedside today dispo - rehab; first choice [facility]; 2nd choice - [facility] Admission and Anticipated Discharge Date Admission Date: March 30, 2024 Subjective tele overnight wnl pt's at bedside during the visit pt's main complaint is that of left leg pain when she tried to work with PT today it was "really painful" even at rest her pain is about 6/10 with activity the pain is much worse oxycodone DOES help with pain she does not feel she is confused any longer thinking clearly she c/o generalized itching sees Dr Frankel from allergy for mast cell disorder asks about her zyrtec Review of Systems Review of Systems: cv - no orthopnea, no chest pain pulm - no dyspnea at rest GI - no abd pain or N/V Physical Exam Physical Exam: gen - resting comfortably in bed, awake, alert neck - no JVD mouth - MMM heart - RRR, s1 s2, no murmur lungs - CTA b/l abd - soft NT ND BS+ ext - b/l LE edema, L>R, 1+ minimum; pulses b/l feet 2+ musculo - DALE wrap in place most of L thigh and below the knee psych - a/o x 3 skin - generalized pallor Results & Data Results & Data Vital Signs (Past 12 Hours) Vital Signs Temp Pulse Pulse Pulse Resp BP Pulse Ox 04/04/24 15:39 36.9 C 86 20 129/65 96 04/04/24 15:09 79 04/04/24 11:02 36.8 C 76 17 126/78 94 O2 Del Method 04/04/24 15:39 Room Air 04/04/24 15:09 04/04/24 11:02 Room Air Laboratory Results Laboratory Results - last 24 hr 04/03/24 04/04/24 04/04/24 20:20 07:16 07:53 PT 16.9 H INR 1.6 H POC Glucose 118 H 94 04/04/24 04/04/24 11:24 16:11 PT INR POC Glucose 160 H 119 H PG Care Time/CCT Total # of Minutes Spent Total Time Spent with Patient: Total time spent is greater than 50% in coordination of care (as documented) at patient's floor/unit and/or counseling patient: Coding Level of Care Code 87697 SUB INP/OBS CARE 50MIN Diagnoses Closed fracture of distal end of left femur S72.402A Acute metabolic encephalopathy G93.41 Seizure disorder G40.909 DVT (deep venous thrombosis) I82.409 Type 2 diabetes mellitus E11.9 Hypertension I10 Acute blood loss anemia D62 ROMI (acute kidney injury) N17.9 Mast cell disorder D47.09 Morbid obesity with BMI of 45.0-49.9, adult E66.01; Z68.42 Infection of lumbar spine M46.26
[2024-04-04] MEDS: CETIRIZINE HCL 10 MG TABLET PO SCH (21:03)
[2024-04-05 07:20] LABS: Hematocrit (blood only) 27.4 % (37.0-47.0); Hemoglobin 8.7 g/dl (12.0-16.0); Mean Corpuscular Hemoglobin 32.1 pg (25.0-34.0); Mean Corpuscular Hgb Conc 31.8 g/dL (32.0-36.0); Mean Corpuscular Volume 101.1 fL (80.0-100.0); Nucleated RBC # (auto) 0.02 K/uL (0.00-0.12); Nucleated RBC % (auto) 0.3 %; Platelet Count 273 K/uL (130-400); RDW Coefficient of Variation 16.9 % (11.5-14.5); RDW Standard Deviation 58.9 fL (36.4-46.3); Red Blood Count 2.71 M/uL (4.20-5.40)
[2024-04-05 07:47] LABS: BUN Creatinine Ratio 16.8 (10-20); Creatinine Clr Calc Pharmacy 54.2 ml/min; Est GFR (African American) 49.4 ml/min; Est GFR (Non-African American) 42.6 ml/min; Potassium 4.2 mmol/L (3.5-5.1)
[2024-04-05 08:01] LABS: INR 1.8 (0.9-1.1); Prothrombin Time 18.2 Seconds (9.0-12.0)
[2024-04-05] MEDS: MONTELUKAST SODIUM 10 MG TABLET PO SCH (09:00)
[2024-04-05] MEDS: DOXYCYCLINE HYCLATE 100 MG CAP PO SCH (09:00)
[2024-04-05] MEDS: CHOLECALCIFEROL 125 MCG (5,000 UNITS) TAB PO SCH (09:49)
[2024-04-05] MEDS: WARFARIN SOD 3 MG TAB PO SCH (16:17)
[2024-04-05] MEDS: TRIAMCINOLONE ACET 0.1% CR 80 GM TUBE EXT SCH (17:52)
[2024-04-05] MEDS: ATORVASTATIN 40 MG TAB PO SCH (19:59)
--- NOTE | 2024-04-05 21:04 | Hospitalist Progress Note ---
Date of Service April 05, 2024 Assessment & Plan (1) Closed fracture of distal end of left femur: Plan: Pathological/osteoporotic fracture of distal shaft of left femur POD #6 s/p ORIF L femur fracture by Dr. Dempsey TTWB to LLE only at this time replace low vit D as below DVT proph - coumadin Pain meds - cont tylenol 1gm TID scheduled; oxycodone 5mg prn mild-moderate pain; oxy 10mg prn for severe pain & prior to PT sessions Cont PT/OT Remove ho when pain control & mobility are improved - maybe tomorrow (2) Acute metabolic encephalopathy: Plan: likely mainly toxic - 2nd to anesthesia, pain meds, etc. resolved (3) Seizure disorder: Plan: Continue carbamazepine 400mg BID Tegretol level was therapeutic at 11 last week (during prior hospitalization) and 5 this admission has not had a seizure since the mid (4) DVT (deep venous thrombosis): Plan: History of VTE (remote, but recurrent). Chronically anticoagulated on coumadin with INR goal 2.0-3.0 s/p Vit K 2.5 mg IV given 03/30 for surgery INR 1.8 today s/p loading of Warfarin 6 mg on 04/02 and 04/03 on 3mg all days except 4.5mg on Tuesdays INR in am Cont heparin 5000 units BID while awaiting INR to become therapeutic (5) Type 2 diabetes mellitus: Plan: Hold metformin. A1c 5.2% Novolog SSI as needed excellent control (6) Hypertension: Plan: Cont losartan (using in [facility] for telmisartan) Cont metoprolol 25mg bid (7) Acute blood loss anemia: Plan: Postoperative anemia following femur fracture and s/p ORIF Lowest Hb 6.9 - s/p 1 unit PRBCs on 04/02 Repeat H/H today acceptable Cont PO iron supplementation (8) ROMI (acute kidney injury): Plan: peak Cr 2 resolved repeat BMP today stable with Cr 1.3 (9) Mast cell disorder: Plan: tryptase level elevated as mentioned by Dr Frankel in his records resumed zyrtec - 10mg BID - for generalized pruritis for problem areas on arms - triamcinolone cream 0.1% TID in thin amounts x 5-7 days (10) Morbid obesity with BMI of 45.0-49.9, adult: Plan: BMI 47 (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 managed at [facility] on doxycycline for chronic prophylaxis (12) Vitamin D insufficiency: Plan: level = 26 start vit D 5000 IU daily repeat 25-OH vit D level in 2-3 months Plan updated pt's at bedside yesterday dispo - rehab; first choice [facility]; 2nd choice - [facility] auth submitted/pending Admission and Anticipated Discharge Date Admission Date: March 30, 2024 Subjective patient slept good last pm MUCH better today overall with pain able to move/ambulate better today no new complaints does have itchy rash on arms and back eating ok tele stable overnight Review of Systems Review of Systems: CV - no chest pain, no orthopnea pulm - no dyspnea GI - no abd pain or n/v Physical Exam Physical Exam: gen - resting comfortably in bed, awake, alert - looks good today neck - no JVD mouth - MMM heart - RRR, s1 s2, no murmur lungs - CTA b/l abd - soft NT ND BS+ ext - pulses b/l feet 2+ musculo - DALE wrap in place most of L thigh and below the knee; the exposed frank are c/d/i psych - a/o x 3 skin - generalized pallor Results & Data Results & Data Vital Signs (Past 12 Hours) Vital Signs Temp Pulse Resp BP Pulse Ox O2 Del Method 04/05/24 19:50 37.0 C 97 H 20 133/69 94 Room Air 04/05/24 15:49 36.9 C 89 19 111/71 93 Room Air 04/05/24 10:45 36.6 C 76 17 104/69 96 Room Air Laboratory Results Laboratory Results - last 24 hr 04/05/24 04/05/24 04/05/24 06:49 07:11 11:17 WBC 7.80 RBC 2.71 L Hgb 8.7 L Hct 27.4 L MCV 101.1 H MCH 32.1 MCHC 31.8 L RDW Std Deviation 58.9 H RDW Coeff of Heather 16.9 H Plt Count 273 MPV 11.0 Absolute Nucleated RBC 0.02 Nucleated RBC % (auto) 0.3 PT 18.2 H INR 1.8 H Sodium 141 Potassium 4.2 Chloride 108 H Carbon Dioxide 29 Anion Gap 4 BUN 22 Creatinine 1.31 H Est Cr Clr Drug Dosing 54.2 Est GFR ( Amer) 49.4 Est GFR (Non-Af Amer) 42.6 BUN/Creatinine Ratio 16.8 Glucose 92 POC Glucose 88 110 H Calcium 9.0 25-OH Vitamin D Total 26.2 L 04/05/24 04/05/24 16:34 20:29 WBC RBC Hgb Hct MCV MCH MCHC RDW Std Deviation RDW Coeff of Heather Plt Count MPV Absolute Nucleated RBC Nucleated RBC % (auto) PT INR Sodium Potassium Chloride Carbon Dioxide Anion Gap BUN Creatinine Est Cr Clr Drug Dosing Est GFR ( Amer) Est GFR (Non-Af Amer) BUN/Creatinine Ratio Glucose POC Glucose 141 H 157 H Calcium 25-OH Vitamin D Total PG Care Time/CCT Total # of Minutes Spent Total Time Spent with Patient: Total time spent is greater than 50% in coordination of care (as documented) at patient's floor/unit and/or counseling patient: Coding Level of Care Code 40266 SUB INP/OBS CARE 2/35MIN Diagnoses Closed fracture of distal end of left femur S72.402A Acute metabolic encephalopathy G93.41 Seizure disorder G40.909 DVT (deep venous thrombosis) I82.409 Type 2 diabetes mellitus E11.9 Hypertension I10 Acute blood loss anemia D62 ROMI (acute kidney injury) N17.9 Mast cell disorder D47.09 Morbid obesity with BMI of 45.0-49.9, adult E66.01; Z68.42 Infection of lumbar spine M46.26 Vitamin D insufficiency E55.9
[2024-04-06 07:08] LABS: INR 2.5 (0.9-1.1)
[2024-04-06 07:36] LABS: BUN Creatinine Ratio 17.3 (10-20); Calcium 8.6 mg/dl (8.6-10.3); Creatinine Clr Calc Pharmacy 50.9 ml/min; Est GFR (Non-African American) 39.7 ml/min; Potassium 4.2 mmol/L (3.5-5.1)
[2024-04-06] MEDS: SOD PHOSPHATE/SOD BIPHOSPHATE ENEMA 132 ML BTL PR STA (14:30)
[2024-04-06] MEDS: HYDROCORTISONE ACETATE 25 MG SUPP PR SCH (14:47)
[2024-04-06] MEDS ORDERED: bisacodyL 10 MG SUPP PR PRN (17:41)
[2024-04-06] MEDS: LACTULOSE SYRUP 30 GM/45 ML UDP PO STA (18:25)
--- NOTE | 2024-04-06 20:49 | Hospitalist Progress Note ---
Date of Service April 06, 2024 Assessment & Plan (1) Closed fracture of distal end of left femur: Plan: Pathological/osteoporotic fracture of distal shaft of left femur POD #7 s/p ORIF L femur fracture by Dr. Dempsey TTWB to LLE only at this time replace low vit D as below DVT proph - coumadin Pain meds - cont tylenol 1gm TID scheduled; oxycodone 5mg prn mild-moderate pain; oxy 10mg prn for severe pain & prior to PT sessions Cont PT/OT Remove ho before discharge (2) Acute metabolic encephalopathy: Plan: likely mainly toxic - 2nd to anesthesia, pain meds, etc. resolved (3) Seizure disorder: Plan: Continue carbamazepine 400mg BID Tegretol level was therapeutic at 11 last week (during prior hospitalization) and 5 this admission has not had a seizure since the mid (4) DVT (deep venous thrombosis): Plan: History of VTE (remote, but recurrent). Chronically anticoagulated on coumadin with INR goal 2.0-3.0 s/p Vit K 2.5 mg IV given 03/30 for surgery INR 2.5 today s/p loading of Warfarin 6 mg on 04/02 and 04/03 on 3mg all days except 4.5mg on Tuesdays INR in am Can stop SC heparin (5) Type 2 diabetes mellitus: Plan: Hold metformin. A1c 5.2% Novolog SSI as needed excellent control (6) Hypertension: Plan: Cont losartan (using in [facility] for telmisartan) Cont metoprolol 25mg bid (7) Acute blood loss anemia: Plan: Postoperative anemia following femur fracture and s/p ORIF Lowest Hb 6.9 - s/p 1 unit PRBCs on 04/02 Repeat H/H in am for stability Cont PO iron supplementation (8) ROMI (acute kidney injury): Plan: peak Cr 2 resolved (9) Mast cell disorder: Plan: tryptase level elevated as mentioned by Dr Frankel in his records resumed zyrtec - 10mg BID - for generalized pruritis for problem areas on arms - triamcinolone cream 0.1% TID in thin amounts x 5-7 days (10) Morbid obesity with BMI of 45.0-49.9, adult: Plan: BMI 47 (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 managed at [facility] on doxycycline for chronic prophylaxis (12) Vitamin D insufficiency: Plan: level = 26 start vit D 5000 IU daily repeat 25-OH vit D level in 2-3 months Plan constipation - fleets x 1 MD now won't take miralax thus use lactulose + senna dulcolax suppos prn minimal BRBPR - hemorrhoidal vs localized irritation - anusol suppos TID treat constipation cbc am accepted at [facility] hopefully d/c there tomorrow updated at bedside today Admission and Anticipated Discharge Date Admission Date: March 30, 2024 Subjective by report patient passing smears of stool mixed with small bits of bright red blood during rounds she c/o constipation appetite fair at best no nausea/emesis pain is relatively controlled was able to do more with PT today than yesterday (and more comfortably) denies dyspnea patient reports h/o hemorrhoids last colonoscopy - 2019 - per records diverticular disease in sigmoid, no mention of hemorrhoids however Review of Systems Review of Systems: gen - generalized weakness - but improving cv - no orthopnea, no chest pain pulm - no dyspnea Physical Exam Physical Exam: gen - resting comfortably in bed, awake, alert neck - no JVD mouth - MMM heart - RRR, s1 s2, no murmur lungs - CTA b/l abd - soft NT ND BS+ ext - pulses b/l feet 2+ musculo - DALE wrap in place most of L thigh and below the knee (I did not take any dressings down today) psych - a/o x 3 skin - generalized pallor SHASHI - chaperoned by nursing staff - daja-rectal skin irritation; no external hemorrhoids; possible internal hemorrhoid at 6 o'clock; no masses; copious SOFT stool present in the vault but no impaction; specks of bright red blood upon removal of gloved finger but the stool itself is brown Results & Data Results & Data Vital Signs (Past 12 Hours) Vital Signs Temp Pulse Pulse Resp BP Pulse Ox O2 Del Method 04/06/24 19:36 36.9 C 88 20 111/54 L 95 Room Air 04/06/24 15:15 37.0 C 82 18 117/69 98 Room Air 04/06/24 15:04 83 04/06/24 10:42 36.8 C 74 18 117/80 97 Room Air Laboratory Results Laboratory Results - last 24 hr 04/05/24 04/06/24 04/06/24 20:29 06:09 07:14 PT 25.0 H INR 2.5 H Sodium 141 Potassium 4.2 Chloride 109 H Carbon Dioxide 27 Anion Gap 5 BUN 24 H Creatinine 1.39 H Est Cr Clr Drug Dosing 50.9 Est GFR ( Amer) 46.0 Est GFR (Non-Af Amer) 39.7 BUN/Creatinine Ratio 17.3 Glucose 92 POC Glucose 157 H 101 H Calcium 8.6 04/06/24 04/06/24 04/06/24 10:56 16:05 20:17 PT INR Sodium Potassium Chloride Carbon Dioxide Anion Gap BUN Creatinine Est Cr Clr Drug Dosing Est GFR ( Amer) Est GFR (Non-Af Amer) BUN/Creatinine Ratio Glucose POC Glucose 106 H 124 H 167 H Calcium PG Care Time/CCT Total # of Minutes Spent Total Time Spent with Patient: Total time spent is greater than 50% in coordination of care (as documented) at patient's floor/unit and/or counseling patient: Coding Level of Care Code 56950 SUB INP/OBS CARE 2/35MIN Diagnoses Closed fracture of distal end of left femur S72.402A Acute metabolic encephalopathy G93.41 Seizure disorder G40.909 DVT (deep venous thrombosis) I82.409 Type 2 diabetes mellitus E11.9 Hypertension I10 Acute blood loss anemia D62 ROMI (acute kidney injury) N17.9 Mast cell disorder D47.09 Morbid obesity with BMI of 45.0-49.9, adult E66.01; Z68.42 Infection of lumbar spine M46.26 Vitamin D insufficiency E55.9
[2024-04-07 06:12] LABS: Hematocrit (blood only) 26.2 % (37.0-47.0); Hemoglobin 8.5 g/dl (12.0-16.0); Mean Corpuscular Hemoglobin 32.3 pg (25.0-34.0); Mean Corpuscular Hgb Conc 32.4 g/dL (32.0-36.0); Mean Corpuscular Volume 99.6 fL (80.0-100.0); Mean Platelet Volume 11.5 fL (9.4-12.4); Platelet Count 313 K/uL (130-400); RDW Coefficient of Variation 17.1 % (11.5-14.5); RDW Standard Deviation 56.5 fL (36.4-46.3); Red Blood Count 2.63 M/uL (4.20-5.40); White Blood Count 8.32 K/ul (4.8-10.8)
[2024-04-07 06:33] LABS: BUN Creatinine Ratio 16.9 (10-20); Calcium 8.9 mg/dl (8.6-10.3); Creatinine Clr Calc Pharmacy 49.9 ml/min; Est GFR (African American) 44.8 ml/min; Est GFR (Non-African American) 38.7 ml/min; INR 2.6 (0.9-1.1); Potassium 4.3 mmol/L (3.5-5.1); Prothrombin Time 25.6 Seconds (9.0-12.0)
[2024-04-07 08:33] VITALS: BP 133/77; RESP 18; TEMP 98.6; O2SAT 94
[2024-04-07 10:01] VITALS: PULSE 86
--- NOTE | 2024-04-07 10:05 | Discharge Summary ---
Discharge Summary Date of Service April 07, 2024 Principal Dx & Hospital Course #1 = Principal Diagnosis (1) Closed fracture of distal end of left femur: Pathological/osteoporotic fracture of distal shaft of left femur POD #7 s/p ORIF L femur fracture by Dr. Dempsey TTWB to LLE only at this time replace low vit D as below DVT proph - coumadin Pain meds - cont tylenol 1gm TID scheduled; oxycodone 5mg prn mild-moderate pain; oxy 10mg prn for severe pain & prior to PT sessions Cont PT/OT Remove ho before discharge (2) Acute metabolic encephalopathy: likely mainly toxic - 2nd to anesthesia, pain meds, etc. resolved (3) Seizure disorder: Continue carbamazepine 400mg BID Tegretol level was therapeutic at 11 last week (during prior hospitalization) and 5 this admission has not had a seizure since the mid (4) DVT (deep venous thrombosis): History of VTE (remote, but recurrent). Chronically anticoagulated on coumadin with INR goal 2.0-3.0 s/p Vit K 2.5 mg IV given 03/30 for surgery INR 2.5 today s/p loading of Warfarin 6 mg on 04/02 and 04/03 on 3mg all days except 4.5mg on Tuesdays INR in am Can stop SC heparin (5) Type 2 diabetes mellitus: Hold metformin. A1c 5.2% Novolog SSI as needed excellent control (6) Hypertension: Cont losartan (using in [facility] for telmisartan) Cont metoprolol 25mg bid (7) Acute blood loss anemia: Postoperative anemia following femur fracture and s/p ORIF Lowest Hb 6.9 - s/p 1 unit PRBCs on 04/02 Repeat H/H in am for stability Cont PO iron supplementation (8) ROMI (acute kidney injury): peak Cr 2 resolved (9) Mast cell disorder: tryptase level elevated as mentioned by Dr Frankel in his records resumed zyrtec - 10mg BID - for generalized pruritis for problem areas on arms - triamcinolone cream 0.1% TID in thin amounts x 5-7 days (10) Morbid obesity with BMI of 45.0-49.9, adult: BMI 47 (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: previous - several years ago managed at [facility] on doxycycline for chronic prophylaxis (12) Vitamin D insufficiency: level = 26 start vit D 5000 IU daily repeat 25-OH vit D level in 2-3 months Plan constipation - fleets x 1 AK now won't take miralax thus use lactulose + senna dulcolax suppos prn minimal BRBPR - hemorrhoidal vs localized irritation - anusol suppos TID treat constipation cbc am accepted at [facility] hopefully d/c there tomorrow updated at bedside today Admission HPI Per Admitting Provider The patient is a 63-year-old female with medical history including morbid obesity, status post lumbar spine operation, ROMI, history of DVT, seizure disorder, pyelonephritis, benzodiazepine overdose, fibromyalgia, diabetes mellitus type 2, hyperlipidemia, hypertension, recent admission from 03/26-03/29 for right lower extremity cellulitis. Patient had just been discharged to home, was cleaning her shower at home, slipped and fell, sustained a closed displaced distal left femur fracture as noted on x-ray in the ED this evening. Emergency department is talked to Dr. Dempsey, orthopedic surgery, who will see the patient. Discharge Exam gen - resting comfortably in bed, awake, alert neck - no JVD mouth - MMM heart - RRR, s1 s2, no murmur lungs - CTA b/l abd - soft NT ND BS+ ext - pulses b/l feet 2+ musculo - DALE wrap in place most of L thigh and below the knee (I did not take any dressings down today) psych - a/o x 3 skin - generalized pallor SHASHI - chaperoned by nursing staff - daja-rectal skin irritation; no external hemorrhoids; possible internal hemorrhoid at 6 o'clock; no masses; copious SOFT stool present in the vault but no impaction; specks of bright red blood upon removal of gloved finger but the stool itself is brown Discharge Plan Discharge Items Patient Disposition: Transfer Inpatient Rehab Fac Reason For Visit: CLOSED DISTAL LEFT FEMUR FRACTURE Discharge Diagnosis: 1. left distal femur fracture s/p ORIF - Dr Balbir Dempsey - 03/30/24 2. anemia 3. vitamin D insufficiency 4. morbid obesity BMI 47 5. acute toxic encephalopathy - resolved 6. history of lumbar spine fusion in 2018 with subsequent post-op infection - now on chronic suppressive antibiotics 7. acute kidney injury - resolved 8. history of DVT on chronic coumadin 9. constipation - improved 10. minimal bright red bleeding per rectum - due to internal hemorrhoid vs perirectal irritation - stable 11. chronic mast cell disorder 12. pre-diabetes Activity: Per Instructions section Weightbearing: Left toe touch Non-emergency contact: Primary Care Provider and Surgeon Call non-emergency contact if: you have any medication questions, your symptoms worsen, your pain is not controlled, your pain is worsening, your pain is unusual for you, your pain is concerning for you, your wound has increased redness, your wound has increased drainage and your wound pain has increased Follow-up/Referrals: Kate Mohamud DO [Primary Care Provider] - Balbir Dempsey DO [Physician] - ([address] Dempsey or BLADIMIR Alonzo - left leg post-op check) Diet: Carb Consistent or DM2 Addtl Attending Provider Instructions: 1. Repeat CBC, BMP in 3 days for stability. 2. Daily INR for the next 3 days to ensure stability. Discharge INR is 2.6 on 04/07/24. 3. Check BSGs at least twice daily to ensure stability of blood glucose levels. 4. See Dr Dempsey in 1 week for post-op check/incision check. 5. PCP 1 week post-discharge from [facility]. It was our pleasure to care for Ms Gayle! 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 Otherwise nonweightbearing Medications: Continue taking your Coumadin as prescribed. Narcotics for pain. Dressing Care: Lester can be open to air as long as the incisions are not draining. If the incisions are draining or if the lester are getting caught on your clothes then please cover the lester with dry gauze. Change the dressings as necessary to keep the incision as dry as possible Showering: You may shower 5 days from the day of surgery as long as the incisions are not draining. Do not soak the incision. Let soapy water run over the lester and pat them dry. Things To Watch For: 1. Drainage from the incision site that occurs more than one week after your surgery. 2. Increased redness at the incision site. 3. Fever above 100 degrees Fahrenheit. 4. Unusual chest pain or shortness of breath. 5. Call [facility] at with any of the above problems Follow-Up Visit: Follow-up with Dr. Dempsey's PA (Balbir Rice) 2-3 weeks after your day of surgery. He will remove your lester and answer any questions. If you have any additional questions or concerns, Dr Dempsey is usually in the office at the same time and will be available Please call the office to set up an appointment for a time that works for you. Pending Studies at Discharge: No Stand-Alone Forms: My [facility] Skilled Items Patient informed of condition?: Yes DNR: No Discharge Level of Care: Acute rehab Communicable Disease: No Discharge Prognosis: Stable Lines: None Urinary Catheter: Yes Medications and DC Order Prescriptions: New triamcinolone acetonide 0.1 % Cream 1 applic EXT TID Qty: 30 0RF Rx Instructions: apply in thin amounts of rash on arms and any itchy areas of skin on arms/legs/back; avoid face/genitals. hydrocortisone acetate [Anucort-HC] 25 mg Suppository 25 mg AK TID 5 Days Qty: 15 0RF nystatin [Nystop] 100,000 unit/gram Powder 1 applic EXT BID Qty: 30 0RF Rx Instructions: apply to under abdominal wall & groin skin folds, etc. ferrous sulfate 325 mg (65 mg iron) Tablet,Delayed Release (Dr/Ec) 325 mg PO DAILY Qty: 1 0RF oxycodone 5 mg Tablet 5 mg PO Q4H PRN (Reason: pain) Qty: 1 0RF Rx Instructions: pain 1-7/10 on pain scale OR prior to PT/OT sessions oxycodone 5 mg Tablet 10 mg PO Q6H PRN (Reason: pain) Qty: 1 0RF Rx Instructions: pain 8, 9 or 10 on pain scale cholecalciferol (vitamin D3) 125 mcg (5,000 unit) Tablet 125 mcg PO QAM Qty: 30 0RF sennosides-docusate sodium [Senokot-S] 8.6-50 mg Tablet 1 tab PO QAM Qty: 30 0RF lactulose 20 gram/30 mL solution 20 g PO DAILY Qty: 1200 0RF Continued qcpskufjipwk-wkgduoom-jxsuic Tablet 1 tab PO Q24H warfarin 3 mg tablet See Rx Instructions PO UD Rx Instructions: 4.5 mg Thurs and 3 mg x 6 days per [facility] orally use as directed; duloxetine [Cymbalta] 30 mg capsule,delayed release(DR/EC) 30 mg PO DAILY carbamazepine 400 mg tablet extended release 12 hr 400 mg PO BID 90 Days Qty: 180 3RF montelukast 10 mg tablet 10 mg PO DAILY Qty: 30 11RF (DME) miscellaneous medical supply Liquid See Rx Instructions .MEDSUPPLY Qty: 60 6RF Rx Instructions: Ketotifen 1 mg BID pregabalin 100 mg capsule 100 mg PO DAILY 90 Days Qty: 90 1RF atorvastatin [Lipitor] 40 mg Tablet 40 mg PO QPM fluticasone propion-salmeterol [Advair HFA] 115-21 mcg/actuation Hfa Aerosol Inhaler 2 puff INHALATION Q12H PRN (Reason: Wheezing) docusate sodium [Colace] 100 mg capsule 100 mg PO BID Qty: 60 0RF metformin 1,000 mg tablet 1,000 mg PO BID telmisartan 80 mg Tablet 80 mg PO QAM famotidine 40 mg tablet 40 mg PO BID omeprazole 40 mg capsule,delayed release(DR/EC) 40 mg PO BID asvzmoqdng-elfbeolvljves-azrg 50-325-40 mg tablet 1 tab PO Q4 PRN (Reason: Headache) doxycycline hyclate 100 mg capsule 100 mg PO BID Qty: 0 0RF Rx Instructions: chronic, suppressive prophylactic antibiotics for prior lumbar spine infection Changed acetaminophen [Tylenol Extra Strength] 500 mg tablet 1,000 mg PO TID Qty: 1 0RF cetirizine 10 mg tablet 10 mg PO BID Qty: 60 0RF metoprolol tartrate 25 mg Tablet 25 mg PO BID Qty: 1 0RF Discontinued levocetirizine 5 mg tablet 5 mg PO QPM nystatin-triamcinolone 100,000-0.1 unit/g-% cream 1 applic TOPICAL DIRECTED clindamycin HCl 300 mg capsule 300 mg PO Q8H Qty: 7 0RF Discharge Orders: Discharge Order (Routine); Ordered 04/07/24 Ordered By: Estuardo Queen Admission Data Admit Date/Time: 03/30/24 01:41 Attending Provider: Estuardo Queen Admit Provider: Luiz Lira Primary Care Provider: Kate Mohamud Other Providers: [facility]; Sahil Johnson at [place]; Luiz Lira; Myrna Larson Other Interventions: Discharge Summary Assessment (RN) Last Done: 04/07/24 09:57 Hospital Stay Data Consultations 03/30/24 00:33 ED Decision to Admit Stat 03/31/24 11:23 Consult Pain Management Routine Procedures Performed Operation Date: 03/30/24 08:20 Actual Procedures p Left Retrograde Femoral Nail(Left) - Balbir Dempsey DO Diagnostic Imagining Performed 03/29/24 22:18 CT abd pelvis wo con Stat CT cervical spine wo con Stat CT chest diagnostic wo con Stat CT head/brain wo con Stat 03/29/24 23:00 CT femur LT wo con Stat 03/30/24 13:00 FL femur LT 2V Routine 03/31/24 11:37 CT head/brain wo con Stat Pending Results Patient Have Any Pending Studies at Discharge: No Discharge Instructions Given to Patient (Per Discharging Provider) 1. Repeat CBC, BMP in 3 days for stability. 2. Daily INR for the next 3 days to ensure stability. Discharge INR is 2.6 on 04/07/24. 3. Check BSGs at least twice daily to ensure stability of blood glucose levels. 4. See Dr eDmpsey in 1 week for post-op check/incision check. 5. PCP 1 week post-discharge from [facility]. It was our pleasure to care for Ms Gayle! Coding Diagnoses Closed fracture of distal end of left femur S72.402A Acute metabolic encephalopathy G93.41 Seizure disorder G40.909 DVT (deep venous thrombosis) I82.409 Type 2 diabetes mellitus E11.9 Hypertension I10 Acute blood loss anemia D62 ROMI (acute kidney injury) N17.9 Mast cell disorder D47.09 Morbid obesity with BMI of 45.0-49.9, adult E66.01; Z68.42 Infection of lumbar spine M46.26 Vitamin D insufficiency E55.9
== END 2024-04-07 10:29 | DRG 480 ==
LOC: ED 22:08 → EDINP 03-30 01:41 → SUATTDRO 03-30 01:41 → EDINP 03-30 15:49 → 2E 03-30 19:43 → 2N 04-06 23:10